=== PATIENT | male | born 1940 | race Caucasian/White ===

== ENCOUNTER 2018-02-25 17:26 | Inpatient (IN) | payer OTHER ==
--- OUTSIDE RECORDS SUMMARY | 2018-02-25 17:41 | XMS REPORT | Clinical Summary ---
:1940 Author Organization [facility] Address [address] [place] [address] Phone Care Team Providers Name Role Phone Unavailable Primary Care Provider Unavailable Allergies No Known Allergies Current Medications Prescription Sig. Disp. Refills Start End Date Status Date aspirin 81 MG EC Take 81 mg by mouth Active tablet daily. telmisartan Take 80 mg by mouth Active (MICARDIS) 80 MG daily. tablet amitriptyline Take 150 mg by Active (ELAVIL) 150 MG mouth nightly. tablet clopidogrel Take 75 mg by mouth Active (PLAVIX) 75 mg daily. tablet omeprazole Take 20 mg by mouth Active (PRILOSEC) 20 MG daily. capsule insulin detemir Inject 65 Units Active (LEVEMIR) 100 subcutaneously unit/mL injection nightly . simvastatin Take 40 mg by mouth Active (ZOCOR) 40 MG nightly. tablet rivastigmine Place 1 patch onto Active (EXELON) 9.5 mg/24 the skin daily. hr patch metoprolol Take 50 mg by mouth Active (TOPROL-XL) 50 MG daily. 24 hr tablet levothyroxine Take 125 mcg by Active (SYNTHROID, mouth Every morning LEVOTHROID) 125 on an empty MCG tablet stomach. insulin aspart Inject Active (NOVOLOG) 100 subcutaneously 3 unit/mL InPn (three) times daily with meals. amLODIPine Take 1 tablet (5 mg 90 tablet 3 03/21/201 03/21/20 Active (NORVASC) 5 MG total) by mouth 7 18 tablet daily. amitriptyline Take 150 mg by Active (ELAVIL) 150 MG mouth nightly. tablet aspirin 81 MG EC Take 81 mg by mouth Active tablet daily. insulin detemir Inject 65 Units Active (LEVEMIR) 100 subcutaneously unit/mL injection nightly. levothyroxine Take 125 mcg by Active (SYNTHROID, mouth Every morning LEVOTHROID) 125 on an empty MCG tablet stomach. simvastatin Take 40 mg by mouth Active (ZOCOR) 40 MG nightly. tablet telmisartan Take 80 mg by mouth Active (MICARDIS) 80 MG daily. tablet clopidogrel Take 75 mg by mouth Active (PLAVIX) 75 mg daily. tablet rivastigmine Place 1 patch onto Active (EXELON) 9.5 mg/24 the skin daily. hr patch hydrALAZINE Take 1 tablet (25 90 tablet 1 06/16/20 Active (APRESOLINE) 25 MG mg total) by mouth 7 18 tablet every 8 (eight) hours. NIFEdipine (ADALAT Take 1 tablet (60 30 tablet 1 06/16/20 Active CC) 60 MG 24 hr mg total) by mouth 7 18 tablet daily. amLODIPine Take 5 mg by mouth 06/16/20 Discontinued (NORVASC) 5 MG daily. 17 tablet clopidogrel Take 75 mg by mouth 06/11/20 Discontinued (PLAVIX) 75 mg daily. [address] 1 patch onto 06/11/20 Discontinued (EXELON) 9.5 mg/24 the skin daily. 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 Uncontrolled hypertension 06/16/2017 Type 2 diabetes mellitus with complication, with long-term current use of insulin (HCC) PFO (patent foramen ovale) 06/16/2017 Other specified transient cerebral ischemias 06/11/2017 Left-sided weakness 03/17/2017 Encounters Date Type Specialty Care Team Description 06/15/2017 Anesthesia Event Concepción Cooper MD 06/15/2017 Procedure Pass 06/15/2017 Surgery Jose Angel Carrasco PROCEDURE DONE MD Michael OUTSIDE OR 06/11/2017 - Hospital Encounter Cardiology Ofordeme, Other specified 06/16/2017 Kenechukwu John, transient cerebral MD ischemias (Primary Vangie Glasgow Dx);Pedro PMD Navi type 2 diabetes Alistair Arechiga mellitus with MD Yariel chronic kidney disease, with long-term current use of insulin, unspecified CKD stage ([facility]);Carotid stenosis, right;Hemispheric carotid artery syndrome;ADRIAN (acute kidney injury) ([facility]);Transient cerebral ischemia, unspecified type;Stenosis of right carotid artery;Acute ischemic stroke ([facility]);PFO (patent foramen ovale) 06/11/2017 Orders Only General Internal Medicine 04/30/2017 Procedure visit Radiology Jose Angel Carrasco Presence of MD Michael coronary angioplasty implant and graft 04/17/2017 Outside Orders Radiology Jose Angel Carrasco Presence of MD Michael coronary angioplasty implant and graft (Primary Dx) 03/20/2017 Anesthesia Event Laisha Morel MD 03/20/2017 Procedure Pass 03/20/2017 Surgery Virtual, Surgeon PROCEDURE DONE OUTSIDE OR 03/19/2017 Procedure Pass 03/19/2017 Surgery Virtual, Surgeon PROCEDURE DONE OUTSIDE OR 03/18/2017 Anesthesia Event Belkis Cook MD 03/17/2017 - Hospital Encounter Intensive Care Young Tarango Left-sided weakness 03/21/2017 MD Reymundo (Primary Radha Rousseau Dx);Cerebrovascular MD Doc accident (CVA), Rochelle Cheng MD unspecified Casper Schmidt MD ([facility]);Sinus pause;PAD (peripheral artery disease) ([facility]);Coronary artery disease involving [place] heart without angina pectoris, unspecified vessel or lesion type;Right pontine stroke ([facility]);Carotid stenosis, right;Uncomplicated hypertension;Caroti d stenosis, left 03/17/2017 Orders Only General Internal Medicine after 02/24/2017 Social History Tobacco Use Types Packs/Day Years Used Date Former Smoker 32 Comments: Quit 1979 Alcohol Use Drinks/Week oz/Week Comments Yes socially Sex Assigned at Date Recorded Not on file Last Filed Vital Signs Vital Sign Reading Time Taken Blood Pressure 160/80 06/16/2017 12:00 PM CDT Pulse 76 06/16/2017 12:00 PM CDT Temperature 35.8 C (96.5 F) 06/16/2017 12:00 PM CDT Respiratory Rate 18 06/16/2017 12:00 PM CDT Oxygen Saturation 95% 06/16/2017 12:00 PM CDT Inhaled Oxygen Concentration - - Weight 83.9 kg (185 lb) 06/11/2017 2:28 PM CDT Height 175.3 cm (5' 9") 06/11/2017 2:28 PM CDT Body Mass Index 27.32 06/11/2017 2:28 PM CDT Plan of Treatment Not on file Procedures Procedure Name Priority Date/Time Associated Diagnosis Comments PROCEDURE DONE OUTSIDE 06/15/2017 8:42 AM CDT RIGHT ICA STENOSIS OR Special Needs REQ TF PROCEDURE DONE OUTSIDE OR 03/20/2017 11:06 AM CDT CAROTID STENOSIS PROCEDURE DONE OUTSIDE OR 03/19/2017 8:18 AM CDT STENOSIS after 02/24/2017 Results PERIPHERAL VASCULAR REPORT - SCAN (08/25/2017 10:50 AM)Only the most recent of3 resultswithin the time period is included.ECHOCARDIOGRAM REPORT - SCAN (2016 10:50 AM)RHYTHM STRIP - SCAN (06/23/2017 11:10 AM)Only the most recent of3 resultswithin the time period is included.Venous doppler legs bilateral (2016 1:09 PM) Component Value Ref Range Ejection Fraction Specimen Performing Laboratory [facility] ECHO HEARTLAB MKCKESSON CPACS Impressions Right Impression 1. There is no deep venous obstruction in the common femoral, profunda femoral, femoral, popliteal, posterior tibial or peroneal veins. 2. There is no superficial venous obstruction in the great saphenous vein. Left Impression 1. There is no deep venous obstruction in the common femoral, profunda femoral, femoral, popliteal, posterior tibial or peroneal veins. 2. There is no superficial venous obstruction in the great saphenous vein. Conclusions Summary Venous duplex imaging and compression of the bilateral lower extremities were performed. The veins were adequately visualized. The bilateral venous systems were patent and compressible with no evidence of thrombus. The venous Doppler waveforms were phasic with respiration . Signature Velocities are measured in cm/s ; Diameters are measured in cm Narrative PV LAB - Lower Extremities DVT Study Demographics Patient NameKRYSTIAN, Date of Study2016 LINA Visit [id number] Male of Birth1940 Referring [facility] [id number] Physician In Home Baby Sitter Strastephaniee Interpreting Rose Mary Hunter MD, JosselinPhysicianRPVI Procedure Type of Study: Veins: Lower Extremities DVT Study, VENOUS DOPPLER LEG, BILATERAL. Indications for Study:PFO . Patient Status:Routine. Study Location:Vascular Lab. Technical Quality:Adequate visualization. Procedure Note Interface, External Ris In - 06/16/2017 3:03 PM CDT PV LAB - Lower Extremities DVT Study Demographics Patient Name KRYSTIAN, Date of Study 06/16/2017 LINA Age 76 Visit Number [id number] Gender Male Accession Number [id number] Date of 1940 Referring [facility] Room Number 2443 Physician In Home Baby Sitter Strange Interpreting Rose Mary Hunter MD, Josselin Physician RPVI Procedure Type of Study: Veins: Lower Extremities DVT Study, VENOUS DOPPLER LEG, BILATERAL. Indications for Study:PFO . Patient Status:Routine. Study Location:Vascular Lab. Technical Quality:Adequate visualization. Impressions Right Impression 1. There is no deep venous obstruction in the common femoral, profunda femoral, femoral, popliteal, posterior tibial or peroneal veins. 2. There is no superficial venous obstruction in the great saphenous vein. Left Impression 1. There is no deep venous obstruction in the common femoral, profunda femoral, femoral, popliteal, posterior tibial or peroneal veins. 2. There is no superficial venous obstruction in the great saphenous vein. Conclusions Summary Venous duplex imaging and compression of the bilateral lower extremities were performed. The veins were adequately visualized. The bilateral venous systems were patent and compressible with no evidence of thrombus. The venous Doppler waveforms were phasic with respiration . Signature Velocities are measured in cm/s ; Diameters are measured in cm POC-Glucose meter (06/16/2017 12:42 PM)Only the most recent of34 resultswithin the time period is included. Component Value Ref Range POC-Glucose Meter 263 (H)Comment: TESTED AT [address] 70 - 110 mg/[place] [id number] Specimen Performing [place] [address] [place] cerebral 4 vessel angiogram (06/15/2017 2:08 PM)Only the most recent of2 resultswithin the time period is included. Specimen Performing Laboratory GE RIS Narrative FINAL REPORT Date of procedure June 15, 2017. Clinical background: 78 years old right male presented with a mild right hemispheric stroke.The patient is admitted for angiographic evaluation . Procedure: The risks and benefits of the procedure were explained to the patient and written consent form was obtained. The risks included but not limited to stroke, damage to the blood vessels, bleeding, infection , renal failure, and reaction to the contrast. Via right femoral percutaneous approach and under neuroleptic sedation the following procedure was performed: 1. Selective right common carotid arteriogram with biplane imaging over the common carotid bifurcation. 2. Selective right common carotid arteriogram with biplane and oblique imaging over the intracranial carotid circulation. 3. Selective left common carotid arteriogram with biplane imaging over the common carotid bifurcation. 4. Selective left common carotid arteriogram with biplane and oblique imaging overthe intracranial carotid circulation. 5. Selective left vertebralarteriogram with biplane and oblique imaging over the vertebrobasilar circulation. Findings: The selective right common carotid arteriogram with biplane imaging over the common carotid bifurcation demonstrates plaque involving the distal right common carotid artery with complete occlusion of the right internal carotid artery intracranially above the level of the ophthalmic artery. Intracranially, there is good antegrade flow in the right external carotid artery with no significant EC IC collaterals. The selective left common carotid arteriogram with biplane imaging over the common carotid bifurcation demonstrates a patent carotid stent spanning the distal common carotid artery to the proximal internal carotid artery with no residual stenosis. Selective left common carotid arteriogram with biplane and oblique imaging over the intracranial carotid circulation demonstrates good cross filling of the right intracranial carotid circulation through a patent anterior communicating artery. The collateral supply appears to be adequate patient symmetry of arterial venous phases seen in both hemispheres. The selective left vertebralarteriogram demonstrates normal antegrade flow with no evidence of aneurysm ,vascular malformation, or focal stenosis. There is no significant pial collaterals or posterior communicating arteries. At the end of the procedure, the right femoral sheath was withdrawn. Local hemostasis was achieved utilizing manual compression. The patient tolerated the procedure well without complication. Impression: 1. 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 2. Filling of the right intracranial carotid circulation through collaterals from the left internal carotid artery through a patent anterior communicating artery. 3. Patent left carotid artery stent without residual stenosis. Signed: Jose Angel Carrasco MD Report Verified Date/Time:06/18/2017 09:31:21 Reading Location: [facility] Y018 Neuro Angio Reading Room Procedure Note Interface, External Ris In - 06/18/2017 9:33 AM CDT FINAL REPORT Date of procedure June 15, 2017. Clinical background: 78 years old right male presented with a mild right hemispheric stroke. The patient is admitted for angiographic evaluation . Procedure: The risks and benefits of the procedure were explained to the patient and written consent form was obtained. The risks included but not limited to stroke, damage to the blood vessels, bleeding, infection , renal failure, and reaction to the contrast. Via right femoral percutaneous approach and under neuroleptic sedation the following procedure was performed: 1. Selective right common carotid arteriogram with biplane imaging over the common carotid bifurcation. 2. Selective right common carotid arteriogram with biplane and oblique imaging over the intracranial carotid circulation. 3. Selective left common carotid arteriogram with biplane imaging over the common carotid bifurcation. 4. Selective left common carotid arteriogram with biplane and oblique imaging over the intracranial carotid circulation. 5. Selective left vertebral arteriogram with biplane and oblique imaging over the vertebrobasilar circulation. Findings: The selective right common carotid arteriogram with biplane imaging over the common carotid bifurcation demonstrates plaque involving the distal right common carotid artery with complete occlusion of the right internal carotid artery intracranially above the level of the ophthalmic artery. Intracranially, there is good antegrade flow in the right external carotid artery with no significant EC IC collaterals. The selective left common carotid arteriogram with biplane imaging over the common carotid bifurcation demonstrates a patent carotid stent spanning the distal common carotid artery to the proximal internal carotid artery with no residual stenosis. Selective left common carotid arteriogram with biplane and oblique imaging over the intracranial carotid circulation demonstrates good cross filling of the right intracranial carotid circulation through a patent anterior communicating artery. The collateral supply appears to be adequate patient symmetry of arterial venous phases seen in both hemispheres. The selective left vertebral arteriogram demonstrates normal antegrade flow with no evidence of aneurysm ,vascular malformation, or focal stenosis. There is no significant pial collaterals or posterior communicating arteries. At the end of the procedure, the right femoral sheath was withdrawn. Local hemostasis was achieved utilizing manual compression. The patient tolerated the procedure well without complication. Impression: 1. 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 2. Filling of the right intracranial carotid circulation through collaterals from the left internal carotid artery through a patent anterior communicating artery. 3. Patent left carotid artery stent without residual stenosis. Signed: Jose Angel Carrasco MD Report Verified Date/Time: 06/18/2017 09:31:21 Reading Location: [facility] Y018 Neuro Angio Reading Room 2D Echo W/Doppler(CW/PW/Color) (06/15/2017 8:58 AM)Only the most recent of2 resultswithin the time period is included. Component Value Ref Range Ejection Fraction Specimen Performing Laboratory [facility] ECHO HEARTLAB MKCKESSON CPACS Narrative Transthoracic Echocardiography Report (TTE) Demographics Patient NameJulianne BOLAND of Study06/15/2017 Male Visit [id number] Room Number 2443 Number Date of 1Referring Physician Age 76 year(s)SonographJaron Castillo, [facility] [employer] Billy Mar Interpreting Rhonda Florentino Procedure Type of Study TTE procedure:2DECHO W DOPPLER(CW/PW/COLOR) Indications:Stroke work up. Clinical History ADRIAN Stroke/TIA CKD Coronary Artery Disease Diabetes Hypertension Hypothyroidism Peripheral vascular disease Second degree AV block S/P PCI (2003) Contrast Medium: Definity. Amount - 4 ml Height: 69 inches Weight: 83.91 kg (185 lbs) BSA: 2 m^2 BMI: 27.32 kg/m^2 HR: 75 bpm BP: 158/67 mmHg Summary The left ventricle is normal in size and contractility. Grade 1 diastolic dysfunction (impaired relaxation and low-normal LA pressure). Normal ventricular shape. LV size - normal. Mild concentric LV hypertrophy. Global LV systolic function normal . LVEF by quantitative assessment is normal (>60%) , IV saline contrast injection demostrates a PFO (patent foramen ovale) post Valsalva . Unable to estimate peak systolic PA pressure; inadequate TR velocity signal. The estimated RA pressure by IVC dynamics 0-5mmHg . Signature Findings Rhythm/BPRegular sinus rhythm during the exam. Left Ventricle The LV endocardium is adequately visualized. All segments contract normally. The left ventricle is normal in size and contractility. Grade 1 diastolic dysfunction (impaired relaxation and low-normal LA pressure). Normal ventricular shape. LV size - normal. Mild concentric LV hypertrophy. Global LV systolic function normal . LVEF by quantitative assessment is normal (>60%) , Left AtriumLA size is normal . Right VentricleThe right ventricular chamber size and systolic function are within normal limits. Right Atrium RA cavity size is normal . Atrial SeptumIV saline contrast injection demostrates a PFO (patent foramen ovale) post Valsalva . Aortic Valve Mild AoV cusp thickening. AoV cusp mobility is normal . Mitral Valve Mild MV leaflet thickening. Mild MV leaflet calcification. No evidence of mitral regurgitation. Tricuspid ValveMild TV leaflet thickening. No evidence of tricuspid regurgitation. Unable to estimate peak systolic PA pressure; inadequate TR velocity signal. Pulmonic Valve Normal PV structure and function. AortaAortic root size (SInus of Valsalva diameter) is normal . PericardiumNo pericardial effusion is visualized. IVC/SVC/PA/PV/PleuralThe pulmonary veins appear normal. The inferior vena cava size is normal . The estimated RA pressure by IVC dynamics 0-5mmHg . Chambers/Structures Left Atrium LA Volume: 54.42 ml LA Area: 16.85 cm^ 2 LA Vol. Index: 27 ml/m^2 Left Ventricle LVIDd: 3.75 cmLVEDV 2D :60.2 ml LVIDs: 2.31 cmLVESV 2D :18.35 ml LV Septum Diastolic: 1.25 cm LV Septum Systolic: 0 cm LV PW Diastolic: 1.13 cmLV FS: 38.4 % LV PW Systolic: 0 cmLV ESV (Cubed) :12.33 cc LVOT Diameter: 2.28 cm LV ESV (Teich):18.32 ml LV SV (Teich):41.7 ml LV SI (Teich):20.85 ml/m^2 LVEF 2D Teich: 69.5 % Aorta Ao Root S of Tova.: 3.38 cm Shunts QS:56.63 ml Doppler/Quantitative Measurements Aortic Valve Peak Velocity: 1.06 m/sMean Velocity: 0.65 m/s Peak Gradient: 4.47 mmHg Mean Gradient: 2.11 mmHg AV Area (continuity): 2.84 cm^2 AV VTI: 19.95 cm AV DVI: 0.7 LVOT Peak Velocity: 0.74 m/s Peak Gradient: 2.21 mmHg Mean Velocity: 0.51 m/s Mean Gradient: 1.22 mmHg LVOT Diameter: 2.28 cmLVOT VTI: 13.87 cm LVOT Area: 4.08 cm^2LVOT SV:56.6 ml LVOT CO: 4.24 l/min LVOT CI: 2.12 l/min/m^2 Procedure Note Interface, External Ris In - 06/15/2017 12:38 PM CDT Transthoracic Echocardiography Report (TTE) Demographics Patient Name LINA BOLAND Date of Study 06/15/2017 Gender Male Visit Number [id number] Race Room Number 2443 Number Date of 1940 Referring Physician Age 76 year(s) In Home Baby Sitter Alma Castillo, [facility] Rep[employer] Billy Mar Interpreting Tai Florentino Physician Procedure Type of Study TTE procedure:2DECHO W DOPPLER(CW/PW/COLOR) Indications:Stroke work up. Clinical History ADRIAN Stroke/TIA CKD Coronary Artery Disease Diabetes Hypertension Hypothyroidism Peripheral vascular disease Second degree AV block S/P PCI (2003) Contrast Medium: Definity. Amount - 4 ml Height: 69 inches Weight: 83.91 kg (185 lbs) BSA: 2 m^2 BMI: 27.32 kg/m^2 HR: 75 bpm BP: 158/67 mmHg Summary The left ventricle is normal in size and contractility. Grade 1 diastolic dysfunction (impaired relaxation and low-normal LA pressure). Normal ventricular shape. LV size - normal. Mild concentric LV hypertrophy. Global LV systolic function normal . LVEF by quantitative assessment is normal (>60%) , IV saline contrast injection demostrates a PFO (patent foramen ovale) post Valsalva . Unable to estimate peak systolic PA pressure; inadequate TR velocity signal. The estimated RA pressure by IVC dynamics 0-5mmHg . Signature Findings Rhythm/BP Regular sinus rhythm during the exam. Left Ventricle The LV endocardium is adequately visualized. All segments contract normally. The left ventricle is normal in size and contractility. Grade 1 diastolic dysfunction (impaired relaxation and low-normal LA pressure). Normal ventricular shape. LV size - normal. Mild concentric LV hypertrophy. Global LV systolic function normal . LVEF by quantitative assessment is normal (>60%) , Left Atrium LA size is normal . Right Ventricle The right ventricular chamber size and systolic function are within normal limits. Right Atrium RA cavity size is normal . Atrial Septum IV saline contrast injection demostrates a PFO (patent foramen ovale) post Valsalva . Aortic Valve Mild AoV cusp thickening. AoV cusp mobility is normal . Mitral Valve Mild MV leaflet thickening. Mild MV leaflet calcification. No evidence of mitral regurgitation. Tricuspid Valve Mild TV leaflet thickening. No evidence of tricuspid regurgitation. Unable to estimate peak systolic PA pressure; inadequate TR velocity signal. Pulmonic Valve Normal PV structure and function. Aorta Aortic root size (SInus of Valsalva diameter) is normal . Pericardium No pericardial effusion is visualized. IVC/SVC/PA/PV/Pleural The pulmonary veins appear normal. The inferior vena cava size is normal . The estimated RA pressure by IVC dynamics 0-5mmHg . Chambers/Structures Left Atrium LA Volume: 54.42 ml LA Area: 16.85 cm^2 LA Vol. Index: 27 ml/m^2 Left Ventricle LVIDd: 3.75 cm LVEDV 2D:60.2 ml LVIDs: 2.31 cm LVESV 2D:18.35 ml LV Septum Diastolic: 1.25 cm LV Septum Systolic: 0 cm LV PW Diastolic: 1.13 cm LV FS: 38.4 % LV PW Systolic: 0 cm LV ESV (Cubed):12.33 cc LVOT Diameter: 2.28 cm LV ESV (Teich):18.32 ml LV SV (Teich):41.7 ml LV SI (Teich):20.85 ml/m^2 LVEF 2D Teich: 69.5 % Aorta Ao Root S of Tova.: 3.38 cm Shunts QS:56.63 ml Doppler/Quantitative Measurements Aortic Valve Peak Velocity: 1.06 m/s Mean Velocity: 0.65 m/s Peak Gradient: 4.47 mmHg Mean Gradient: 2.11 mmHg AV Area (continuity): 2.84 cm^2 AV VTI: 19.95 cm AV DVI: 0.7 LVOT Peak Velocity: 0.74 m/s Peak Gradient: 2.21 mmHg Mean Velocity: 0.51 m/s Mean Gradient: 1.22 mmHg LVOT Diameter: 2.28 cm LVOT VTI: 13.87 cm LVOT Area: 4.08 cm^2 LVOT SV:56.6 ml LVOT CO: 4.24 l/min LVOT CI: 2.12 l/min/m^2 Phosphorus (06/15/2017 4:17 AM)Only the most recent of3 resultswithin the time period is included. Component Value Ref Range Phosphorus 3.0 2.3 - 4.7 mg/dL Specimen Performing Laboratory Blood - Line, Venous [address] [address] Magnesium (06/15/2017 4:17 AM)Only the most recent of5 resultswithin the time period is included. Component Value Ref Range Magnesium 1.7 1.6 - 2.6 mg/dL Specimen Performing Laboratory Blood - Line, Venous [address] [address] Basic metabolic panel (06/15/2017 4:17 AM)Only the most recent of8 resultswithin the time period is included. Component Value Ref Range Sodium 136 136 - 145 meq/L Potassium 3.8 3.5 - 5.1 meq/L Chloride 102 98 - 107 meq/L CO2 26 22 - 29 meq/L BUN 19 7 - 21 mg/dL Creatinine 1.36 (H) 0.57 - 1.25 mg/dL Glucose 195 (H) 70 - 105 mg/dL Calcium 9.3 8.4 - 10.2 mg/dL EGFR 51Comment: ESTIMATED GFR IS NOT ACCURATE mL/min/1.73 sq m CREATININE CLEARANCE IN PREDICTING GLOMERULAR FILTRATION RATE. ESTIMATED GFR IS NOT APPLICABLE FOR DIALYSIS PATIENTS. Specimen Performing Laboratory Blood - Line, Venous [address] [address] EEG AWAKE AND DROWSY (06/12/2017 4:06 PM) Specimen Performing Laboratory GE RIS Narrative DATE OF TEST: 06/12/2017 DATE OF REPORT 06/12/2017 ACC: ([id number]) EE Start time: 15:30 Stop time: 15:52 ICD-10: R55 CPT Code: 21272 HISTORY: 78 y/o man with PMH CAD s/p PCI, PVD, HTN, DM, symptomatic severe carotid artery stenosis being evaluated for transient altered awareness MEDICATIONS: Tylenol, Lipitor, Plavix, D50W, Pepcid, PF, [place], Levemir, Humalog, synthroid, Phenergan, exelon TECHNICAL SUMMARY: This is a digital video EEG recorded with 32 input channels reviewed with bipolar and referential montages using the modified combinatorial system nomenclature. DESCRIPTION OF RECORD: During the maximally alert state a 9-10 Hz posterior dominant rhythm was seen that was symmetric, reactive to eye opening and well regulated. More anteriorly, low voltage frontocentral beta predominated. Drowsiness was characterized by alpha attenuation and increased frontocentral theta, vertex sharp transients and POSTS. Stage 2 sleep was reached characterized by symmetric sleep spindles and K-complexes. HV: Hyperventilation was not performed. PHOTIC STIMULATION: Flash stimulation was not done. IMPRESSION: Normal Awake and Asleep EEG CLINICAL CORRELATION: An EEG without epileptiform discharges does not exclude the possibility of epilepsy. Josefina Gaitan M.D. Neurophysiology Fellow Paul Moore MD Neurophysiology Attending Procedure Note Interface, External Ris In - 06/12/2017 4:33 PM CDT DATE OF TEST: 06/12/2017 DATE OF REPORT 06/12/2017 ACC: ([id number]) EE Start time: 15:30 Stop time: 15:52 ICD-10: R55 CPT Code: 90269 HISTORY: 78 y/o man with PMH CAD s/p PCI, PVD, HTN, DM, symptomatic severe carotid artery stenosis being evaluated for transient altered awareness MEDICATIONS: Tylenol, Lipitor, Plavix, D50W, Pepcid, PF, [place], Levemir, Humalog, synthroid, Phenergan, exelon TECHNICAL SUMMARY: This is a digital video EEG recorded with 32 input channels reviewed with bipolar and referential montages using the modified combinatorial system nomenclature. DESCRIPTION OF RECORD: During the maximally alert state a 9-10 Hz posterior dominant rhythm was seen that was symmetric, reactive to eye opening and well regulated. More anteriorly, low voltage frontocentral beta predominated. Drowsiness was characterized by alpha attenuation and increased frontocentral theta, vertex sharp transients and POSTS. Stage 2 sleep was reached characterized by symmetric sleep spindles and K-complexes. HV: Hyperventilation was not performed. PHOTIC STIMULATION: Flash stimulation was not done. IMPRESSION: Normal Awake and Asleep EEG CLINICAL CORRELATION: An EEG without epileptiform discharges does not exclude the possibility of epilepsy. Josefina Gaitan M.D. Neurophysiology Fellow Paul Moore MD Neurophysiology Attending Urinalysis w/Microscopic (06/12/2017 3:49 AM)Only the most recent of3 resultswithin the time period is included. Component Value Ref Range Color, UA Light Yellow Clarity, UA Clear Specific Padroni, UA 1.010 1.001 - 1.035 pH, UA 6.0 5.0 - 8.0 Protein, UA 30 mg/dL (A) Negative Glucose, UA 100 mg/dL (A) Negative Ketones, UA Negative Negative Bilirubin, UA Negative Negative Blood, UA Negative Negative Nitrite, UA Negative Negative Leukocytes, UA Negative Negative Urobilinogen, UA 0.2 0.2 - 1.0 mg/dL RBC, UA 0 /HPF WBC, UA <1 /HPF Specimen Source Urine, Voided Specimen Performing Laboratory Urine - Urine, Voided [address] [address] Hemoglobin A1c (06/12/2017 3:44 AM)Only the most recent of3 resultswithin the time period is included. Component Value Ref Range Hemoglobin A1C 9.9 (H) 4.3 - 6.1 % Specimen Performing Laboratory Blood - Arm, Left [address] [address] Lipid panel (06/12/2017 3:44 AM)Only the most recent of2 resultswithin the time period is included. Component Value Ref Range Triglycerides 226 mg/dL Cholesterol 139 mg/dL HDL 33 mg/dL LDL Calculated 61 mg/dL Specimen Performing Laboratory Blood - Arm, Left [address] [address] Narrative Triglyceride Reference Range: Low Risk <150 [id number] High Risk 200-499 Very High Risk>=500 Cholesterol Reference Range: Low Risk <200 [id number] High Risk>240 HDL Cholesterol Reference Range: Low Risk >=60 High Risk <40 LDL Cholesterol Reference Range: Optimal<100 Near [id number] Sxnekuljod088-272 Zjmm517-122 Very High >=190 ECG 12 lead (06/12/2017 2:28 AM)Only the most recent of3 resultswithin the time period is included. Specimen Performing Laboratory GE MUSE Narrative Ventricular Rate 55 BPM Atrial Rate 55 BPM P-R Interval 296 ms QRS Duration 106 ms Q-T Interval 436 ms QTC Calculation(Bazett) 417 ms P [place] 52 degrees R [place] 26 degrees T [place] 63 degrees Sinus bradycardia with 1st degree A-V block Poor R wave progression Otherwise normal ECG No previous ECGs available Confirmed by Nicolás George ([id number]) on 06/12/2017 4:48:28 PM Procedure Note Interface, External Ris In - 06/12/2017 4:48 PM CDT Ventricular Rate 55 BPM Atrial Rate 55 BPM P-R Interval 296 ms QRS Duration 106 ms Q-T Interval 436 ms QTC Calculation(Bazett) 417 ms P [place] 52 degrees R [place] 26 degrees T [place] 63 degrees Sinus bradycardia with 1st degree A-V block Poor R wave progression Otherwise normal ECG No previous ECGs available Confirmed by Nicolás George ([id number]) on 06/12/2017 4:48:28 PM Rapid drug screen, urine (06/11/2017 11:03 PM) Component Value Ref Range Barbiturate Screen Positive (A) Negative Benzodiazepine Screen Negative Negative Cocaine (Metab.) Screen Negative Negative Methadone Screen Negative Negative Opiate Screen Negative Negative Cannabinoid Screen Negative Negative Amph/Methamph Screen Negative Negative Phencyclidine Screen Negative Negative Oxycodone Screen Negative Negative Specimen Performing Laboratory Urine - Urine, Voided [address] [address] Narrative DRUGCUTOFF CONC. Cocaine 300 ng/mL Qpjkqfxxhop56 ng/mL Nnbdpoafmvufig214 ng/mL Barbiturate 200 ng/mL Nlvytqyfxlugo60 ng/mL Zvmjev054 ng/mL Methadone 300 ng/mL Amphetamine/ 1000 ng/mL Methamphetamine Oxycodone 300 ng/mL This assay provides an unconfirmed qualitative test result for the clinical management of patients in emergency situations. Chain of custody not maintained. Some wjlb-ikp-txghaeq medications, as well as adulterants, may cause inaccurate results. Clinical correlation should be applied. A more comprehensive drug screen or confirmation of a detected drug may be performed upon request. Sodium, random urine (06/11/2017 11:03 PM) Component Value Ref Range Sodium Urine 94 meq/L Specimen Performing Laboratory Urine - Urine, Voided [address] [address] Narrative Reference Range: No Normals Protein, random urine (06/11/2017 11:03 PM) Component Value Ref Range Protein, Urine 71 (H) 0 - 14 mg/dL Specimen Performing Laboratory Urine - Urine, Voided [address] [address] Creatinine, random urine (06/11/2017 11:03 PM) Component Value Ref Range Creatinine, Ur 190.0 mg/dL Specimen Performing Laboratory Urine - Urine, Void[address] [address] Narrative Reference Range: No Normals Vitamin B12 and Folate (06/11/2017 8:03 PM) Component Value Ref Range Vitamin B12 306 213 - 816 pg/mL Folate 13.0 >=7.0 ng/mL Specimen Performing Laboratory Blood - Arm, [address] [address] Narrative Effective 09/19/2014: Folate Reference Range Change New: >=7.0Previous: >=5.4 TSH/Free T4 If Indicated (06/11/2017 8:03 PM)Only the most recent of2 resultswithin the time period is included. Component Value Ref Range TSH 1.35 0.35 - 4.94 uIU/mL Specimen Performing Laboratory Blood - Arm, [address] [address] RPR (06/11/2017 8:03 PM) Component Value Ref Range RPR Nonreactive Nonreactive Specimen Performing Laboratory Blood - Arm, Left [facility] [address] Sedimentation rate (06/11/2017 8:03 PM) Component Value Ref Range Sed Rate 23 0 - 40 mm/HR Specimen Performing Laboratory Blood - Arm, [address] [address] Hepatic function panel (06/11/2017 8:03 PM) Component Value Ref Range Protein, Total 7.7 6.0 - 8.3 gm/dL Albumin 4.3 3.5 - 5.0 g/dL Total Bilirubin 0.5 0.2 - 1.2 mg/dL Bilirubin, Direct 0.2 0.1 - 0.5 mg/dL Alkaline Phosphatase 104 40 - 150 U/L AST 21 5 - 34 U/L ALT 25 6 - 55 U/L Specimen Performing Laboratory Blood - Arm, [address] [address] MR brain without IV contrast (06/11/2017 7:49 PM)Only the most recent of2 resultswithin the time period is included. Specimen Performing Laboratory GE RIS Narrative FINAL REPORT MRI brain without contrast INDICATION: Ischemic stroke evaluation. TECHNIQUE: Multiplanar, multisequence MR imaging of the brain was performed utilizing the following imaging sequences: Axial T2, FLAIR, GRE, and DWI; sagittal and coronal T1 COMPARISON: CT head 06/11/2017 FINDINGS: There are small acute nonhemorrhagic infarct in the right precentral gyrus, adjacent subcortical white matter, and right parieto-occipital junction. There is right high frontal chronic hemosiderin staining. There is small chronic right frontal lobe and right pontine infarct. Mild chronic microvascular ischemic changes are present. There is poor flow in the proximal right intracranial ICA suggesting occlusion or severe proximal stenosis. The anterior communicator aneurysm suspected on head CT is not well evaluated on this study. There is generalized parenchymal volume loss The sella and craniocervical junction are unremarkable. There is a right maxillary sinus retention cyst or polyp with mild week-old thickening and trace right mastoid air cell fluid. There has been cataract surgery. There is nonspecific mildly heterogeneous marrow signal. IMPRESSION: 1. Acute small nonhemorrhagic infarcts in the right precentral gyrus, subjacent white matter, and right parieto-occipital junction. 2. Poor flow in the right cervical and proximal cranial ICA suggesting high grade vessel compromise or occlusion. Please see concurrent MRA. 3. Chronic ischemic changes and right cerebral hemosiderin staining. 4. Additional chronic and involutional findings as discussed. Signed: Glen Silverio MD Report Verified Date/Time:06/11/2017 19:15:34 Reading Location: [facility] Radiology Reading Room Procedure Note Interface, External Ris In - 06/11/2017 7:50 PM CDT FINAL REPORT MRI brain without contrast INDICATION: Ischemic stroke evaluation. TECHNIQUE: Multiplanar, multisequence MR imaging of the brain was performed utilizing the following imaging sequences: Axial T2, FLAIR, GRE, and DWI; sagittal and coronal T1 COMPARISON: CT head 06/11/2017 FINDINGS: There are small acute nonhemorrhagic infarct in the right precentral gyrus, adjacent subcortical white matter, and right parieto-occipital junction. There is right high frontal chronic hemosiderin staining. There is small chronic right frontal lobe and right pontine infarct. Mild chronic microvascular ischemic changes are present. There is poor flow in the proximal right intracranial ICA suggesting occlusion or severe proximal stenosis. The anterior communicator aneurysm suspected on head CT is not well evaluated on this study. There is generalized parenchymal volume loss The sella and craniocervical junction are unremarkable. There is a right maxillary sinus retention cyst or polyp with mild week-old thickening and trace right mastoid air cell fluid. There has been cataract surgery. There is nonspecific mildly heterogeneous marrow signal. IMPRESSION: 1. Acute small nonhemorrhagic infarcts in the right precentral gyrus, subjacent white matter, and right parieto-occipital junction. 2. Poor flow in the right cervical and proximal cranial ICA suggesting high grade vessel compromise or occlusion. Please see concurrent MRA. 3. Chronic ischemic changes and right cerebral hemosiderin staining. 4. Additional chronic and involutional findings as discussed. Signed: Glen Silverio MD Report Verified Date/Time: 06/11/2017 19:15:34 Reading Location: [facility] Radiology Reading Room neck without IV contrast (06/11/2017 7:49 PM)Only the most recent of2 resultswithin the time period is included. Specimen Performing Laboratory GE RIS Narrative FINAL REPORT MRA head and neck without contrast INDICATION: Ischemic stroke evaluation. TECHNIQUE: 2-D and 3-D [id number] MRA images of the intra- and extracranial carotid and vertebral artery circulations were obtained, from which maximal intensity projection reconstructions were generated. COMPARISON: None available FINDINGS: MRA neck: There is focal signal loss in the proximal right cervical ICA with diminished caliber of the remaining right cervical ICA with maintained flow. This likely reflects prior occlusion with recanalization. There is left carotid bifurcation and bulb signal loss likely due to a stent with maintained mid and distal cervical ICA segment flow. There is maintained flow in the common carotid arteries. There is antegrade flow in the cervical vertebral arteries without flow limitation. MRA [place]: There is flow in portions of the right intracranial ICA with occlusion of other segments extending into the ICA terminus. There is severe mid basilar artery and right intradural vertebral artery stenosis and moderate stenoses in the left intradural vertebral artery, left proximal MCA, and other mild to moderate stenoses in the MCA and JIG GRINDER branches. There is mild to moderate left carotid siphon stenosis. There is fusiform dilatation of the right ELAINA A1 and bilateral proximal ELAINA A2 segments for which fusiform aneurysms cannot be excluded. IMPRESSION: 1. Loss of flow in portions of the right cervical and intracranial ICA, and diminished flow elsewhere in the right cervical ICA suggesting occlusion with partial recanalization. 2. Left carotid bifurcation and proximal cervical ICA signal loss likely due to a vascular stent. The underlying vessel cannot be evaluated, but there is maintained distal flow. 3. 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 4. Fusiform bilateral proximal ELAINA dilatation. Although possibly vasculopathic in nature, fusiform aneurysms cannot be excluded. CTA or catheter angiography can be obtained for further evaluation. Signed: Glen Silverio MD Report Verified Date/Time:06/11/2017 19:54:38 Reading Location: [facility] Radiology Reading Room Procedure Note Interface, External Ris In - 06/11/2017 7:56 PM CDT FINAL REPORT MRA head and neck without contrast INDICATION: Ischemic stroke evaluation. TECHNIQUE: 2-D and 3-D [id number] MRA images of the intra- and extracranial carotid and vertebral artery circulations were obtained, from which maximal intensity projection reconstructions were generated. COMPARISON: None available FINDINGS: MRA neck: There is focal signal loss in the proximal right cervical ICA with diminished caliber of the remaining right cervical ICA with maintained flow. This likely reflects prior occlusion with recanalization. There is left carotid bifurcation and bulb signal loss likely due to a stent with maintained mid and distal cervical ICA segment flow. There is maintained flow in the common carotid arteries. There is antegrade flow in the cervical vertebral arteries without flow limitation. MRA [place]: There is flow in portions of the right intracranial ICA with occlusion of other segments extending into the ICA terminus. There is severe mid basilar artery and right intradural vertebral artery stenosis and moderate stenoses in the left intradural vertebral artery, left proximal MCA, and other mild to moderate stenoses in the MCA and JIG GRINDER branches. There is mild to moderate left carotid siphon stenosis. There is fusiform dilatation of the right ELAINA A1 and bilateral proximal ELAINA A2 segments for which fusiform aneurysms cannot be excluded. IMPRESSION: 1. Loss of flow in portions of the right cervical and intracranial ICA, and diminished flow elsewhere in the right cervical ICA suggesting occlusion with partial recanalization. 2. Left carotid bifurcation and proximal cervical ICA signal loss likely due to a vascular stent. The underlying vessel cannot be evaluated, but there is maintained distal flow. 3. 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 4. Fusiform bilateral proximal ELAINA dilatation. Although possibly vasculopathic in nature, fusiform aneurysms cannot be excluded. CTA or catheter angiography can be obtained for further evaluation. Signed: Glen Silverio MD Report Verified Date/Time: 06/11/2017 19:54:38 Reading Location: [facility] Radiology Reading Room head without IV contrast (06/11/2017 7:49 PM)Only the most recent of2 resultswithin the time period is included. Specimen Performing Laboratory [employer] FINAL REPORT MRA head and neck without contrast INDICATION: Ischemic stroke evaluation. TECHNIQUE: 2-D and 3-D [id number] MRA images of the intra- and extracranial carotid and vertebral artery circulations were obtained, from which maximal intensity projection reconstructions were generated. COMPARISON: None available FINDINGS: MRA neck: There is focal signal loss in the proximal right cervical ICA with diminished caliber of the remaining right cervical ICA with maintained flow. This likely reflects prior occlusion with recanalization. There is left carotid bifurcation and bulb signal loss likely due to a stent with maintained mid and distal cervical ICA segment flow. There is maintained flow in the common carotid arteries. There is antegrade flow in the cervical vertebral arteries without flow limitation. MRA [place]: There is flow in portions of the right intracranial ICA with occlusion of other segments extending into the ICA terminus. There is severe mid basilar artery and right intradural vertebral artery stenosis and moderate stenoses in the left intradural vertebral artery, left proximal MCA, and other mild to moderate stenoses in the MCA and JIG GRINDER branches. There is mild to moderate left carotid siphon stenosis. There is fusiform dilatation of the right ELAINA A1 and bilateral proximal ELAINA A2 segments for which fusiform aneurysms cannot be excluded. IMPRESSION: 1. Loss of flow in portions of the right cervical and intracranial ICA, and diminished flow elsewhere in the right cervical ICA suggesting occlusion with partial recanalization. 2. Left carotid bifurcation and proximal cervical ICA signal loss likely due to a vascular stent. The underlying vessel cannot be evaluated, but there is maintained distal flow. 3. 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 4. Fusiform bilateral proximal ELAINA dilatation. Although possibly vasculopathic in nature, fusiform aneurysms cannot be excluded. CTA or catheter angiography can be obtained for further evaluation. Signed: Glen Silverio MD Report Verified Date/Time:06/11/2017 19:54:38 Reading Location: [facility] Radiology Reading Room Procedure Note Interface, External Ris In - 06/11/2017 7:56 PM CDT FINAL REPORT MRA head and neck without contrast INDICATION: Ischemic stroke evaluation. TECHNIQUE: 2-D and 3-D [id number] MRA images of the intra- and extracranial carotid and vertebral artery circulations were obtained, from which maximal intensity projection reconstructions were generated. COMPARISON: None available FINDINGS: MRA neck: There is focal signal loss in the proximal right cervical ICA with diminished caliber of the remaining right cervical ICA with maintained flow. This likely reflects prior occlusion with recanalization. There is left carotid bifurcation and bulb signal loss likely due to a stent with maintained mid and distal cervical ICA segment flow. There is maintained flow in the common carotid arteries. There is antegrade flow in the cervical vertebral arteries without flow limitation. MRA [place]: There is flow in portions of the right intracranial ICA with occlusion of other segments extending into the ICA terminus. There is severe mid basilar artery and right intradural vertebral artery stenosis and moderate stenoses in the left intradural vertebral artery, left proximal MCA, and other mild to moderate stenoses in the MCA and JIG GRINDER branches. There is mild to moderate left carotid siphon stenosis. There is fusiform dilatation of the right ELAINA A1 and bilateral proximal ELAINA A2 segments for which fusiform aneurysms cannot be excluded. IMPRESSION: 1. Loss of flow in portions of the right cervical and intracranial ICA, and diminished flow elsewhere in the right cervical ICA suggesting occlusion with partial recanalization. 2. Left carotid bifurcation and proximal cervical ICA signal loss likely due to a vascular stent. The underlying vessel cannot be evaluated, but there is maintained distal flow. 3. 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 4. Fusiform bilateral proximal ELAINA dilatation. Although possibly vasculopathic in nature, fusiform aneurysms cannot be excluded. CTA or catheter angiography can be obtained for further evaluation. Signed: Glen Silverio MD Report Verified Date/Time: 06/11/2017 19:54:38 Reading Location: [facility] Radiology Reading Room renal complete (06/11/2017 5:17 PM) Specimen Performing Laboratory [employer] FINAL REPORT Ultrasound of the Kidneys, 06/11/2017. Clinical History: ADRIAN. Discussion: Sonographic evaluation of the kidneys is performed. Right kidney:10 cm in length, normal in size, with cortical thickness of 1 cm.Normal cortical echogenicity.No mass.No shadowing calculus.No hydronephrosis. Left kidney: 10.2 cm in length, normal in size, with cortical thickness of 1.2 cm.Normal cortical echogenicity.No mass.No shadowing calculus.No hydronephrosis. Limited Doppler evaluation demonstrates normal color Doppler flow within bilateral renal macrina. Fluid:No perinephric fluid. Bladder:Unremarkable. IMPRESSION: Normal bilateral kidneys. No evidence of hydronephrosis or nephrolithiasis. Signed: Juan Miguel Waite MD Report Verified Date/Time:06/11/2017 17:24:49 Reading Location: [address] Ultrasound Reading Room Procedure Note Interface, External Ris In - 06/11/2017 5:26 PM CDT FINAL REPORT Ultrasound of the Kidneys, 06/11/2017. Clinical History: ADRIAN. Discussion: Sonographic evaluation of the kidneys is performed. Right kidney: 10 cm in length, normal in size, with cortical thickness of 1 cm. Normal cortical echogenicity. No mass. No shadowing calculus. No hydronephrosis. Left kidney: 10.2 cm in length, normal in size, with cortical thickness of 1.2 cm. Normal cortical echogenicity. No mass. No shadowing calculus. No hydronephrosis. Limited Doppler evaluation demonstrates normal color Doppler flow within bilateral renal macrina. Fluid: No perinephric fluid. Bladder: Unremarkable. IMPRESSION: Normal bilateral kidneys. No evidence of hydronephrosis or nephrolithiasis. Signed: Juan Miguel Waite MD Report Verified Date/Time: 06/11/2017 17:24:49 Reading Location: [address] Ultrasound Reading Room chest 1 view portable / bedside (06/11/2017 4:52 PM)Only the most recent of2 resultswithin the time period is included. Specimen Performing Laboratory GE RIS Narrative FINAL REPORT Chest one view Discussion: Heart, lungs, bones, soft tissues unremarkable. No effusion or pneumothorax. Signed: Young Blanc MD Report Verified Date/Time:06/11/2017 17:02:48 Reading Location: [facility] [id number] Consult Reading Room Procedure Note Interface, External Ris In - 06/11/2017 5:05 PM CDT FINAL REPORT Chest one view Discussion: Heart, lungs, bones, soft tissues unremarkable. No effusion or pneumothorax. Signed: Young Blanc MD Report Verified Date/Time: 06/11/2017 17:02:48 Reading Location: [facility] [id number] Consult Reading Room /PTT (06/11/2017 2:49 PM)Only the most recent of2 resultswithin the time period is included. Component Value Ref Range Protime 12.8 11.7 - 14.7 seconds INR 1.0 <=5.9 PTT 24.7 22.5 - 36.0 seconds Specimen Performing Laboratory Blood - Line, [place] [address] Narrative RECOMMENDED COUMADIN/WARFARIN INR THERAPY RANGES STANDARD DOSE: 2.0 - 3.0 Includes: PROPHYLAXIS for venous thrombosis, systemic embolization; TREATMENT for venous thrombosis and/or pulmonary embolus. HIGH RISK: Target INR is 2.5-3.5 for patients with mechanical heart valves. CBC with platelet count + automated diff (06/11/2017 2:49 PM)Only the most recent of6 resultswithin the time period is included. Component Value Ref Range WBC 7.6 3.5 - 10.5 K/L RBC 5.15 4.63 - 6.08 M/L Hemoglobin 15.1 13.7 - 17.5 GM/DL Hematocrit 44.7 40.1 - 51.0 % MCV 86.8 79.0 - 92.2 fL MCH 29.3 25.7 - 32.2 pg MCHC 33.8 32.3 - 36.5 GM/DL RDW 13.2 11.6 - 14.4 % Platelets 170 150 - 450 K/CU MM MPV 10.7 9.4 - 12.4 fL nRBC 0 0 - 0 /100 WBC % Neutros 64 % % Lymphs 25 % % Monos 9 % % Eos 2 % % Baso 0 % # Neutros 4.83 1.78 - 5.38 K/L # Lymphs 1.87 1.32 - 3.57 K/L # Monos 0.70 0.30 - 0.82 K/L # Eos 0.14 0.04 - 0.54 K/L # Baso 0.03 0.01 - 0.08 K/L Immature Granulocytes-Relative 0 0 - 1 % Specimen Performing Laboratory Blood - Line, Venous [address] [address] Troponin I (06/11/2017 2:49 PM)Only the most recent of3 resultswithin the time period is included. Component Value Ref Range Troponin I 0.01 0.00 - 0.03 ng/mL Specimen Performing Laboratory Blood - Line, Venous [address] [address] Narrative Effective 09/19/2014: Reference Range Change New: 0.00-0.03 Previous 0.00-0.15 Troponin I (TnI) levels must be interpreted in the context of the presenting symptoms and the clinical findings. Elevated TnI levels indicate myocardial damage, but are not specific for ischemic heart disease. Elevated TnI levels are seen in patients with other cardiac conditions (including myocarditis and congestive heart failure), and slight TnI elevations occur in patients with other conditions, including sepsis, renal failure, acidosis, acute neurological disease, and persistent tachyarrhythmia. CBC with platelet count + automated diff (06/11/2017 2:49 PM)Only the most recent of6 resultswithin the time period is included. Specimen Performing Laboratory Blood Narrative The following orders were created for panel order CBC with platelet count + automated diff. Procedure Abnormality Status --------- ------ CBC with platelet count ...[[id number]]Final result Please view results for these tests on the individual orders. B-type Natriuretic Factor (BNP) (06/11/2017 2:49 PM)Only the most recent of2 resultswithin the time period is included. Component Value Ref Range BNP 21 0 - 100 pg/mL Specimen Performing Laboratory Blood - Line, Venous [address] [address] Creatine Kinase (CK), Total and MB (06/11/2017 2:49 PM)Only the most recent of3 resultswithin the time period is included. Component Value Ref Range Total CK 61 29 - 200 U/L CK-MB 1.4 0.0 - 6.6 ng/mL MB Relative Index 2.3 % Specimen Performing Laboratory Blood - Line, Venous [facility] [address] [place] [address] Narrative Effective 09/19/2014: CK-MB Reference Range Change New: 0.0-6.6Previous: 0.0-4.9 CK-MB Reference Range: <6.7Normal 6.7-10.0Borderline >10.[address] brain/stroke protocol (06/11/2017 2:28 PM)Only the most recent of2 resultswithin the time period is included. Specimen Performing Laboratory [facility] Narrative FINAL REPORT CT head without contrast. Comparisons: No Reason for exam: r/o CVA weakness. Discussion: Multiple axial CT images of the head are provided without contrast evaluated in brain and bone windows. Dose modulation, iterative reconstruction, and/or weight based adjustment of the mA/kV was utilized to reduce the radiation dose to as low as reasonably achievable. Imaging discussed with the ICU neurology stroke team resident 1430 hours There is no CT evidence of intracranial hemorrhage, mass-effect, hydrocephalus, shift, or extra-axial collections.While I see no definitive acute large vessel infarction, please note that CT is not sensitive in detecting or distinguishing acute ischemic disease. Questionable microvascular periventricular changes are noted. Additionally, there is a 5 mm focal density on image 13 in the suprasellar region for which anterior communicator aneurysm could not be excluded. The visualized dural sinus regions, orbital contents, paranasal sinuses, bones and surrounding soft tissues are unremarkable. Impressions: 1. No specific evidence of acute intracranial abnormality. 2. 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 Consider follow-up vascular imaging if clinically appropriate. Signed: Young Blanc MD Report Verified Date/Time:06/11/2017 14:32:24 Reading Location: [address] Consult Reading Room Procedure Note Interface, External Ris In - 06/11/2017 2:34 PM CDT FINAL REPORT CT head without contrast. Comparisons: No Reason for exam: r/o CVA weakness. Discussion: Multiple axial CT images of the head are provided without contrast evaluated in brain and bone windows. Dose modulation, iterative reconstruction, and/or weight based adjustment of the mA/kV was utilized to reduce the radiation dose to as low as reasonably achievable. Imaging discussed with the ICU neurology stroke team resident 1430 [address] is [address] evidence of intracranial hemorrhage, mass-effect, hydrocephalus, shift, or extra-axial collections. While I see no definitive acute large vessel infarction, please note that CT is not sensitive in detecting or distinguishing acute ischemic disease. Questionable microvascular periventricular changes are noted. Additionally, there is a 5 mm focal density on image 13 in the suprasellar region for which anterior communicator aneurysm could not be excluded. The visualized dural sinus regions, orbital contents, paranasal sinuses, bones and surrounding soft tissues are unremarkable. Impressions: 1. No specific evidence of acute intracranial abnormality. 2. 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 Consider follow-up vascular imaging if clinically appropriate. Signed: Young Blanc MD Report Verified Date/Time: 06/11/2017 14:32:24 Reading Location: [address] Consult Reading Room Carotid doppler bilateral (04/30/2017 2:05 PM)Only the most recent of2 resultswithin the time period is included. Component Value Ref Range Ejection Fraction Specimen Performing Laboratory [facility] Impressions Right Impression 1. The ICA is patent with low velocities and abnormal waveforms suggestive, of a more distal obstruction vs occlusion. 2. There is a diameter reduction (approximately 41% by 2D measurement) in the bulb with heterogeneous plaque. 3. There is stenosis in the external carotid artery. 4. There is non-occluding plaque in the common carotid artery. 5. The vertebral artery flow is antegrade. 6. The subclavian artery is within normal limits where visualized. Left Impression 1. Post stent placement, the internal carotid artery is patent with velocities of: Pre stent- 97/21 cm/sec, Proximal stent-91/25 cm/sec , mid stent-87/32 cm/sec , distal stent-90;33 cm/sec , post stent- 149/52 cm/sec. 2. There is stenosis in the external carotid artery. 3. There is non-occluding plaque in the common carotid artery. 4. The vertebral artery flow is antegrade. 5. The subclavian artery is within normal limits where visualized. Conclusions Summary Carotid duplex scanning and color flow imaging were performed bilaterally. The arteries were adequately visualized. On the right, the ICA was patent with low velocities and abnormal waveforms suggestive, of a more distal obstruction/occlusion. There was a diameter reduction (approximately 41% by 2D measurement) in the bulb with heterogeneous plaque. Post stent, the left internal carotid artery was patent. ICA stent velocities are noted above. The vertebral artery flow was antegrade bilaterally. Signature Velocities are measured in cm/s ; Diameters are measured in cm Carotid Right Measurements + +----+----+-----+ + + + !Location !PSV !EDV !Angle!%Stenosis 2D!%Stenosis Doppler! Tortuosity ! + +----+----+-----+ + + + !Prox CCA !113 !27! !! ! ! + +----+----+-----+ + + + !Dist CCA !100 !14.9! !! ! ! + +----+----+-----+ + + + !Prox ICA !40.5!! !! ! ! + +----+----+-----+ + + + !Dist ICA !39.6!! !! ! ! + +----+----+-----+ + + + !Prox ECA !174 !20.3! !! ! ! + +----+----+-----+ + + + !Vertebral!50.4!! !! ! ! + +----+----+-----+ + + + !Prox Subclavian!109 !! !! ! ! + +----+----+-----+ + + + - There is antegrade vertebral flow noted on the right side. - Additional Measurements:ICAPSV/CCAPSV 0.4. Carotid Left Measurements + +----+----+-----+ + + + !Location !PSV !EDV !Angle!%Stenosis 2D!%Stenosis Doppler! Tortuosity ! + +----+----+-----+ + + + !Prox CCA !89.2!23! !! ! ! + +----+----+-----+ + + + !Dist CCA !95.9!25.7! !! ! ! + +----+----+-----+ + + + !Prox ECA !271 !73.7! !! ! ! + +----+----+-----+ + + + !Vertebral!46.8!15.3! !! ! ! + +----+----+-----+ + + + !Prox Subclavian!115 !! !! ! ! + +----+----+-----+ + + + - There is antegrade vertebral flow noted on the left side. Narrative [facility] - Carotid Duplex Study Demographics Patient NameLINA BOLAND Date of Study 04/30/2017 Age 76 Visit [id number] Gender Male Date of [birth year] Number Referring JOSE ANGEL Vargas Number Physician In Home Baby Sitter Johanne AwanJ. Felix Hunter RN, RVTPhybel ADLER, RPVI Procedure Type of Study: Cerebral: Carotid, CAROTID DOPPLER, BILATERAL. Indications for Study:Post-op for carotid revascularization. Patient Status:Routine. Study Location:Vascular Lab. Technical Quality:Adequate visualization. Risk Factors History of Disease +---------+----+ + !Diagnosis!Date!Comments ! +---------+----+ + !Other!!CVA, DM, HLD, HTN, NC, PVD, Alzheimer's, Left Sided! ! !!Weakness, Renal Insufficiency! +---------+----+ + Procedure Note Interface, External Ris In - 05/01/2017 5:36 AM CDT [facility] - Carotid Duplex Study Demographics Patient Name LINA BOLAND Date of Study 04/30/2017 Age 76 Visit Number [id number] Gender Male Date of 1940 Number Referring [facility] Room Number Physician In Home Baby Sitter Johanne Duncan Interpreting Rose Mary Hunter RN, T Physician , RPVI Procedure Type of Study: Cerebral: Carotid, CAROTID DOPPLER, BILATERAL. Indications for Study:Post-op for carotid revascularization. Patient Status:Routine. Study Location:Vascular Lab. Technical Quality:Adequate visualization. Risk Factors History of Disease +---------+----+ + !Diagnosis!Date!Comments ! +---------+----+ + !Other ! !CVA, DM, HLD, HTN, NC, PVD, Alzheimer's, Left Sided ! ! ! !Weakness, Renal Insufficiency ! +---------+----+ + Impressions Right Impression 1. The ICA is patent with low velocities and abnormal waveforms suggestive, of a more distal obstruction vs occlusion. 2. There is a diameter reduction (approximately 41% by 2D measurement) in the bulb with heterogeneous plaque. 3. There is stenosis in the external carotid artery. 4. There is non-occluding plaque in the common carotid artery. 5. The vertebral artery flow is antegrade. 6. The subclavian artery is within normal limits where visualized. Left Impression 1. Post stent placement, the internal carotid artery is patent with velocities of: Pre stent- 97/21 cm/sec, Proximal stent-91/25 cm/sec , mid stent-87/32 cm/sec , distal stent-90;33 cm/sec , post stent- 149/52 cm/sec. 2. There is stenosis in the external carotid artery. 3. There is non-occluding plaque in the common carotid artery. 4. The vertebral artery flow is antegrade. 5. The subclavian artery is within normal limits where visualized. Conclusions Summary Carotid duplex scanning and color flow imaging were performed bilaterally. The arteries were adequately visualized. On the right, the ICA was patent with low velocities and abnormal waveforms suggestive, of a more distal obstruction/occlusion. There was a diameter reduction (approximately 41% by 2D measurement) in the bulb with heterogeneous plaque. Post stent, the left internal carotid artery was patent. ICA stent velocities are noted above. The vertebral artery flow was antegrade bilaterally. Signature Velocities are measured in cm/s ; Diameters are measured in cm Carotid Right Measurements + +----+----+-----+ + + + !Location !PSV !EDV !Angle!%Stenosis 2D!%Stenosis Doppler!Tortuosity ! + +----+----+-----+ + + + !Prox CCA !113 !27 ! ! ! ! ! + +----+----+-----+ + + + !Dist CCA !100 !14.9! ! ! ! ! + +----+----+-----+ + + + !Prox ICA !40.5! ! ! ! ! ! + +----+----+-----+ + + + !Dist ICA !39.6! ! ! ! ! ! + +----+----+-----+ + + + !Prox ECA !174 !20.3! ! ! ! ! + +----+----+-----+ + + + !Vertebral !50.4! ! ! ! ! ! + +----+----+-----+ + + + !Prox Subclavian!109 ! ! ! ! ! ! + +----+----+-----+ + + + - There is antegrade vertebral flow noted on the right side. - Additional Measurements:ICAPSV/CCAPSV 0.4. Carotid Left Measurements + +----+----+-----+ + + + !Location !PSV !EDV !Angle!%Stenosis 2D!%Stenosis Doppler!Tortuosity ! + +----+----+-----+ + + + !Prox CCA !89.2!23 ! ! ! ! ! + +----+----+-----+ + + + !Dist CCA !95.9!25.7! ! ! ! ! + +----+----+-----+ + + + !Prox ECA !271 !73.7! ! ! ! ! + +----+----+-----+ + + + !Vertebral !46.8!15.3! ! ! ! ! + +----+----+-----+ + + + !Prox Subclavian!115 ! ! ! ! ! ! + +----+----+-----+ + + + - There is antegrade vertebral flow noted on the left side. Prothrombin time/INR (03/21/2017 4:26 AM)Only the most recent of2 resultswithin the time period is included. Component Value Ref Range Protime 13.6 11.7 - 14.7 seconds INR 1.1 <=5.9 Specimen Performing Laboratory Blood [facility] [address] [address] Narrative RECOMMENDED COUMADIN/WARFARIN INR THERAPY RANGES STANDARD DOSE: 2.0 - 3.0 Includes: PROPHYLAXIS for venous thrombosis, systemic embolization; TREATMENT for venous thrombosis and/or pulmonary embolus. HIGH RISK: Target INR is 2.5-3.5 for patients with mechanical heart valves. NV Carotid Artery Stent Placement w/Protection (03/20/2017 7:30 PM) Specimen Performing Laboratory [facility] Narrative FINAL REPORT DATE OF PROCEDURE: March 20, 2017 SURGEON:Jose Angel Carrasco M.D. SENIOR FINANCIAL CONSULTANT: Eduardo Cook M.D. PREOPERATIVE DIAGNOSIS: Transient ischemic attacks and severe left carotid artery stenosis POST OPERATIVE DIAGNOSIS: Transient ischemic attacks and severe left carotid artery stenosis OPERATION: 1) Cerebral Angiogram 2) Left carotid stent ANESTHESIA:Moderate sedation ESTIMATED BLOOD LOSS: Less than 15 mL COMPLICATIONS: None INDICATIONS:The patient is a 76-year-old male with past medical history significant for coronary artery disease, peripheral vascular disease, hypertension, hyperlipidemia, and diabetes who presented with transient left sided numbness and weakness. 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 The patient therefore presents for carotid stent placement. PROCEDURE:Following explanation of the benefits, risks and alternatives for the procedure, informed consent was obtained from the patient.The risks including but not limited to stroke, intracranial hemorrhage, vascular injury to the cervical or femoral vessels and groin hematoma were discussed with the patient.A time-out was performed.Both groins were prepped in the usual sterile fashion using Chloraprep, and sterilely draped. A standard access using a micropuncture kit was used to puncture the right femoral artery. A 5 Vietnamese short sheath was then placed into the right common femoral artery. Using coaxial technique, an infinity distal access catheter was exchanged for the sheath over a 180 Glidewire. The Infinity catheter was advanced into the descending aorta, back-bled, and flushed in the usual fashion.Using coaxial technique, the Infinity catheter was advanced over a VTK catheter into the aortic arch, and with the aid of the roadmapping, digital fluoroscopy, and careful guidewire manipulation the left common carotid artery was catheterized.Upon each successive selective catheterization, digital subtraction angiography using the appropriate rate and volume of contrast in multiple projections was performed.Digital subtraction angiogram of the common femoral arteries was performed. FINDINGS: RIGHT COMMON FEMORAL ARTERY (DSA \\X2013\\ PA - PELVIS) Atherosclerotic disease is present in the right femoral artery above the level of the bifurcation. The puncture is above the level of the bifurcation. LEFT COMMON CAROTID ARTERY (DSA - PA, LATERAL, OBLIQUE - CERVICAL) There is stenosis of the origin of the left internal carotid artery of approximately 60% by NASCET criteria. There is a tortuous curve of the internal carotid artery just distal the level of stenosis. There is no significant stenosis or ulceration of the left external carotid artery. LEFT COMMON CAROTID ARTERY (DSA - PA, LATERAL - HEAD) There is robust crossfilling across the anterior communicating artery. A posterior communicating artery is not visualized on this injection. There is evidence of diffuse atherosclerotic changes in the intracranial circulation, including the left M1 and A1 segments. No significant abnormalities are seen in the capillary and venous phases. The venous phase demonstrates patent transverse and sigmoid sinuses. The visualized portions of the external carotid artery and its branches are normal without evidence of ulceration or stenosis. ENDOVASCULAR INTERVENTION: The patient was heparinized with a satisfactory ACT. A VTK catheter was then used to position the Infinity catheter within the common carotid artery. The stenotic lesion was traversed using an SL10 microcatheter which was advanced over a Synchro standard microwire. The Synchro was exchanged for a Balance Middleweight wire. Next an Emb[employer] LOLLY L distal protection device was positioned in the distal cervical internal carotid artery.Using standard monorail technique, a 6-8 x 40 Xact carotid stent was then deployed in the internal carotid artery extending into the common carotid artery. Next we inflated a 4 x 20mm Viatrac 14 Plus balloon within the stent to ensure full deployment and apposition. The anesthesia team had atropine on standby during this maneuver. The patient was noted to have transient confusion during inflation. However this quickly resolved upon deflation of the balloon. The distal protection device was then recaptured and removed.Post stenting, an angiogram of the cervical carotid was performed demonstrating improvement in the stenosis and satisfactory positioning of the stent. A repeat whole head angiogram demonstrated no evidence of branch occlusions or slow filling branches, and no other untoward findings. SUPERVISION AND INTERPRETATION: Angiographic study demonstrates: 1. Severe left carotid stenosis, successfully treated with an 8 x 40mm XACT carotid stent and balloon angioplasty. No immediate technical or clinical complications. Signed: Jose Angel Carrasco MD Report Verified Date/Time:03/24/2017 12:19:11 Reading Location: [facility] [id number] Neuro Angio Reading Room Procedure Note Interface, External Ris In - 03/24/2017 12:21 PM CDT FINAL REPORT DATE OF PROCEDURE: March 20, 2017 SURGEON: Jose Angel Carrasco M.D. SENIOR FINANCIAL CONSULTANT: Eduardo Cook M.D. PREOPERATIVE DIAGNOSIS: Transient ischemic attacks and severe left carotid artery stenosis POST OPERATIVE DIAGNOSIS: Transient ischemic attacks and severe left carotid artery stenosis OPERATION: 1) Cerebral Angiogram 2) Left carotid stent ANESTHESIA: Moderate sedation ESTIMATED BLOOD LOSS: Less than 15 mL COMPLICATIONS: None INDICATIONS: The patient is a 76-year-old male with past medical history significant for coronary artery disease, peripheral vascular disease, hypertension, hyperlipidemia, and diabetes who presented with transient left sided numbness and weakness. 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 The patient therefore presents for carotid stent placement. PROCEDURE: Following explanation of the benefits, risks and alternatives for the procedure, informed consent was obtained from the patient. The risks including but not limited to stroke, intracranial hemorrhage, vascular injury to the cervical or femoral vessels and groin hematoma were discussed with the patient. A time-out was performed. Both groins were prepped in the usual sterile fashion using Chloraprep, and sterilely draped. A standard access using a micropuncture kit was used to puncture the right femoral artery. A 5 Vietnamese short sheath was then placed into the right common femoral artery. Using coaxial technique, an infinity distal access catheter was exchanged for the sheath over a 180 Glidewire. The Infinity catheter was advanced into the descending aorta, back-bled, and flushed in the usual fashion. Using coaxial technique, the Infinity catheter was advanced over a VTK catheter into the aortic arch, and with the aid of the roadmapping, digital fluoroscopy, and careful guidewire manipulation the left common carotid artery was catheterized. Upon each successive selective catheterization, digital subtraction angiography using the appropriate rate and volume of contrast in multiple projections was performed. Digital subtraction angiogram of the common femoral arteries was performed. FINDINGS: RIGHT COMMON FEMORAL ARTERY (DSA \\X2013\\ PA - PELVIS) Atherosclerotic disease is present in the right femoral artery above the level of the bifurcation. The puncture is above the level of the bifurcation. LEFT COMMON CAROTID ARTERY (DSA - PA, LATERAL, OBLIQUE - CERVICAL) There is stenosis of the origin of the left internal carotid artery of approximately 60% by NASCET criteria. There is a tortuous curve of the internal carotid artery just distal the level of stenosis. There is no significant stenosis or ulceration of the left external carotid artery. LEFT COMMON CAROTID ARTERY (DSA - PA, LATERAL - HEAD) There is robust crossfilling across the anterior communicating artery. A posterior communicating artery is not visualized on this injection. There is evidence of diffuse atherosclerotic changes in the intracranial circulation, including the left M1 and A1 segments. No significant abnormalities are seen in the capillary and venous phases. The venous phase demonstrates patent transverse and sigmoid sinuses. The visualized portions of the external carotid artery and its branches are normal without evidence of ulceration or stenosis. ENDOVASCULAR INTERVENTION: The patient was heparinized with a satisfactory ACT. A VTK catheter was then used to position the Infinity catheter within the common carotid artery. The stenotic lesion was traversed using an SL10 microcatheter which was advanced over a Synchro standard microwire. The Synchro was exchanged for a Balance Middleweight wire. Next an [employer] LOLLY L distal protection device was positioned in the distal cervical internal carotid artery. Using standard monorail technique, a 6-8 x 40 Xact carotid stent was then deployed in the internal carotid artery extending into the common carotid artery. Next we inflated a 4 x 20mm Viatrac 14 Plus balloon within the stent to ensure full deployment and apposition. The anesthesia team had atropine on standby during this maneuver. The patient was noted to have transient confusion during inflation. However this quickly resolved upon deflation of the balloon. The distal protection device was then recaptured and removed. Post stenting, an angiogram of the cervical carotid was performed demonstrating improvement in the stenosis and satisfactory positioning of the stent. A repeat whole head angiogram demonstrated no evidence of branch occlusions or slow filling branches, and no other untoward findings. SUPERVISION AND INTERPRETATION: Angiographic study demonstrates: 1. Severe left carotid stenosis, successfully treated with an 8 x 40mm XACT carotid stent and balloon angioplasty. No immediate technical or clinical complications. Signed: Jose Angel Carrasco MD Report Verified Date/Time: 03/24/2017 12:19:11 Reading Location: [facility] Y026 Neuro Angio Reading Room ACTIVATED CLOTTING TIME (03/20/2017 7:00 PM)Only the most recent of2 resultswithin the time period is included. Component Value Ref Range Activated Clotting Time 152Comment: TESTED AT [address] sec [id number] Specimen Performing Laboratory Blood [address] [address] Comprehensive metabolic panel (03/20/2017 4:50 AM) Component Value Ref Range Protein, Total 6.9 6.0 - 8.3 gm/dL Albumin 3.8 3.5 - 5.0 g/dL Alkaline Phosphatase 96 40 - 150 U/L Total Bilirubin 0.5 0.2 - 1.2 mg/dL Sodium 140 136 - 145 meq/L Potassium 3.5 3.5 - 5.1 meq/L Chloride 106 98 - 107 meq/L CO2 24 22 - 29 meq/L BUN 21 7 - 21 mg/dL Creatinine 1.25 0.57 - 1.25 mg/dL Glucose 99 70 - 105 mg/dL Calcium 9.2 8.4 - 10.2 mg/dL AST 15 5 - 34 U/L ALT 16 6 - 55 U/L EGFR 56Comment: ESTIMATED GFR IS NOT ACCURATE mL/min/1.73 sq m CREATININE CLEARANCE IN PREDICTING GLOMERULAR FILTRATION RATE. ESTIMATED GFR IS NOT APPLICABLE FOR DIALYSIS PATIENTS. Specimen Performing Laboratory Blood - Arm, Right [address] [address] Type and screen, automated (03/19/2017 5:23 AM) Component Value Ref Range ABO/RH AUTOMATED ([employer]) B POSITIVE Ab Scrn NEGATIVE Specimen Performing Laboratory Blood [address] [address] aPTT (03/19/2017 5:16 AM) Component Value Ref Range PTT 32.9 22.5 - 36.0 seconds Specimen Performing Laboratory Blood [address] [address] POCT-P2Y12 Platelet Aggregation (03/18/2017 3:49 PM) Component Value Ref Range POC-P2Y12 Plt Agg 115 PRU Specimen Performing Laboratory Blood [address] [address] Narrative RANGE INFORMATION: PRU reference range is 194-418. Post Drug Results: Lower PRU levels are associated with expected antiplatelet effect. Values may be below the stated reference range above. The post-drug PRU values reported in the [employer] P2Y12 package insert are [id number]. POCT-Aspirin Platelet Aggregation (03/18/2017 3:49 PM) Component Value Ref Range POC-Aspirin Plt Agg 539 ARU Specimen Performing Laboratory Blood [address] [address] Narrative RANGE INFORMATION: 350-549 ARU Therapeutic range for platelet function. 550-700 ARU Non-Therapeutic range for platelet function. Manual Differential (03/18/2017 5:10 AM) Component Value Ref Range Total Counted WBC Morphology Normal Platelet Morphology Normal RBC Morphology Normal Specimen Performing Laboratory Blood [address] [address] Vitamin B12 (03/17/2017 5:22 PM) Component Value Ref Range Vitamin B12 251 213 - 816 pg/mL Specimen Performing Laboratory Blood - Arm, [address] [address] after 02/24/2017
--- OUTSIDE RECORDS SUMMARY | 2018-02-25 17:42 | XMS REPORT ---
:1940 [facility] Address [address] [place] [address] Care Team Providers Name Role Phone SONIYANICOMONSTER ARGUETANICOLÁS Unavailable Unavailable RONIT OG Unavailable Unavailable Problems This patient has no known problems. Allergies, Adverse Reactions, Alerts This patient has no known allergies or adverse reactions. Medications This patient has no known medications. Results Test Description Test Time Test Comments Text Results Atomic Results Result Comments POCT-GLUCOSE METER 2017-06-16 12:44:00 Test Item Value Reference Range Comments POC-GLUCOSE METER (BEAKER) (test 263 mg/dL 70-110 TESTED AT [address] wjuf=9918) [facility] [address] POCT-GLUCOSE [id number] 08:30:00 Test Item Value Reference Range Comments POC-GLUCOSE METER (BEAKER) 183 mg/dL 70-110 TESTED AT [address] (test owyn=9581) [facility] [address] POCT-GLUCOSE [id number] 21:30:00 Test Item Value Reference Range Comments POC-GLUCOSE METER (BEAKER) 334 mg/dL 70-110 Notified ANN ADLER/TESTED AT [facility] (test auet=5705) [address] [place] [address] POCT-GLUCOSE [id number] 15:48:00 Test Item Value Reference Range Comments POC-GLUCOSE METER (BEAKER) 233 mg/dL 70-110 TESTED AT [address] (test ogjf=7785) [facility] [address] POCT-GLUCOSE [id number] 11:52:00 Test Item Value Reference Range Comments POC-GLUCOSE METER (BEAKER) 229 mg/dL 70-110 TESTED AT [address] (test rqmc=3823) [facility] [address] POCT-GLUCOSE [id number] 07:44:00 Test Item Value Reference Range Comments POC-GLUCOSE METER (BEAKER) 235 mg/dL 70-110 TESTED AT [facility] [address] (test egqb=7970) [facility] [address] [id number] 05:11:00 Test Item Value Reference Range Comments PHOSPHORUS (BEAKER) (test ngdw=388) 3.0 mg/dL 2.3-4.7 [id number] 05:11:00 Test Item Value Reference Range Comments MAGNESIUM (BEAKER) (test fhht=810) 1.7 mg/dL 1.6-2.6 BASIC METABOLIC [id number] 05:11:00 Test Item Value Reference Range Comments SODIUM (BEAKER) (test 136 meq/L 136-145 kimf=059) POTASSIUM (BEAKER) (test 3.8 meq/L 3.5-5.1 gqkm=305) CHLORIDE (BEAKER) (test 102 meq/L 98-107 yltq=119) CO2 (BEAKER) (test 26 meq/L 22-29 xxtu=615) BLOOD UREA NITROGEN 19 mg/dL 7-21 (BEAKER) (test gybp=144) CREATININE (BEAKER) (test 1.36 mg/dL 0.57-1.25 zdtv=424) GLUCOSE RANDOM (BEAKER) 195 mg/dL 70-105 (test qdfz=634) CALCIUM (BEAKER) (test 9.3 mg/dL 8.4-10.2 lxqm=685) EGFR (BEAKER) (test 51 mL/min/1.73 sq m ESTIMATED GFR IS NOT zuwj=8333) ACCURATE CREATININE CLEARANCE IN PREDICTING GLOMERULAR FILTRATION RATE. ESTIMATED GFR IS NOT APPLICABLE FOR DIALYSIS PATIENTS. POCT-GLUCOSE [id number] 20:41:00 Test Item Value Reference Range Comments POC-GLUCOSE METER (BEAKER) 198 mg/dL 70-110 TESTED AT [facility] [address] (test xaui=6756) [facility] [address] POCT-GLUCOSE [id number] 20:19:00 Test Item Value Reference Range Comments POC-GLUCOSE METER (BEAKER) 363 mg/dL 70-110 Notified ANN ADLER/TESTED AT [facility] (test mcoy=0056) [address] [facility] [address] POCT-GLUCOSE [id number] 20:16:00 Test Item Value Reference Range Comments POC-GLUCOSE METER (BEAKER) 279 mg/dL 70-110 TESTED AT [address] (test pqvw=3924) [facility] [address] POCT-GLUCOSE [id number] 20:10:00 Test Item Value Reference Range Comments POC-GLUCOSE METER (BEAKER) 200 mg/dL 70-110 TESTED AT [address] (test zylr=3599) [facility] [address] POCT-GLUCOSE [id number] 19:59:00 Test Item Value Reference Range Comments POC-GLUCOSE METER (BEAKER) 297 mg/dL 70-110 TESTED AT [address] (test xift=6572) [facility] [address] POCT-GLUCOSE [id number] 19:56:00 Test Item Value Reference Range Comments POC-GLUCOSE METER (BEAKER) 294 mg/dL 70-110 TESTED AT [address] (test bkgl=8613) [facility] [address] POCT-GLUCOSE [id number] 11:18:00 Test Item Value Reference Range Comments POC-GLUCOSE METER (BEAKER) 272 mg/dL 70-110 TESTED AT [address] (test ouzr=5491) [facility] [address] POCT-GLUCOSE [id number] 08:10:00 Test Item Value Reference Range Comments POC-GLUCOSE METER (BEAKER) 221 mg/dL 70-110 TESTED AT [address] (test kiiq=6544) [place] [id number] 05:02:00 Test Item Value Reference Range Comments PHOSPHORUS (BEAKER) (test vrdl=078) 2.7 mg/dL 2.3-4.7 [id number] 05:02:00 Test Item Value Reference Range Comments MAGNESIUM (BEAKER) (test euwq=633) 1.8 mg/dL 1.6-2.6 BASIC METABOLIC [id number] 05:02:00 Test Item Value Reference Range Comments SODIUM (BEAKER) (test 134 meq/L 136-145 cque=098) POTASSIUM (BEAKER) (test 3.9 meq/L 3.5-5.1 hlea=645) CHLORIDE (BEAKER) (test 101 meq/L 98-107 zegr=427) CO2 (BEAKER) (test 25 meq/L 22-29 ymip=636) BLOOD UREA NITROGEN 21 mg/dL 7-21 (BEAKER) (test bbet=039) CREATININE (BEAKER) (test 1.29 mg/dL 0.57-1.25 ifqq=595) GLUCOSE RANDOM (BEAKER) 218 mg/dL 70-105 (test wxug=578) CALCIUM (BEAKER) (test 9.1 mg/dL 8.4-10.2 bogp=726) EGFR (BEAKER) (test 54 mL/min/1.73 sq m ESTIMATED GFR IS NOT auuu=4981) ACCURATE CREATININE CLEARANCE IN PREDICTING GLOMERULAR FILTRATION RATE. ESTIMATED GFR IS NOT APPLICABLE FOR DIALYSIS PATIENTS. POCT-GLUCOSE [id number] 22:45:00 Test Item Value Reference Range Comments POC-GLUCOSE METER (BEAKER) 297 mg/dL 70-110 TESTED AT [address] (test txoa=2854) [place] [address] POCT-GLUCOSE [id number] 20:42:00 Test Item Value Reference Range Comments POC-GLUCOSE METER (BEAKER) 293 mg/dL 70-110 TESTED AT [address] (test pbpv=2893) [place] [address] POCT-GLUCOSE [id number] 17:00:00 Test Item Value Reference Range Comments POC-GLUCOSE METER (BEAKER) 287 mg/dL 70-110 TESTED AT [address] (test qbxg=0079) [place] [address] POCT-GLUCOSE [id number] 14:53:00 Test Item Value Reference Range Comments POC-GLUCOSE METER (BEAKER) 269 mg/dL 70-110 TESTED AT [address] (test wucq=5482) [place] [address] [id number] 13:00:00 Test Item Value Reference Range Comments RPR SCREEN (BEAKER) (test huad=564) Nonreactive Nonreactive HEMOGLOBIN [id number] 08:51:00 Test Item Value Reference Range Comments HEMOGLOBIN A1C (BEAKER) (test yobx=904) 9.9 % 4.3-6.1 URINALYSIS W/ [id number] 08:01:00 Test Item Value Reference Range Comments COLOR (BEAKER) (test yvko=421) Light Yellow CLARITY (BEAKER) (test pils=378) Clear SPECIFIC GRAVITY UA (BEAKER) (test jljf=239) 1.010 1.001-1.035 PH UA (BEAKER) (test gasn=030) 6.0 5.0-8.0 PROTEIN UA (BEAKER) (test pyvj=662) 30 mg/dL Negative GLUCOSE UA (BEAKER) (test arvi=863) 100 mg/dL Negative KETONES UA (BEAKER) (test ypjx=604) Negative Negative BILIRUBIN UA (BEAKER) (test uulg=159) Negative Negative BLOOD UA (BEAKER) (test grqi=387) Negative Negative NITRITE UA (BEAKER) (test hcfv=720) Negative Negative LEUKOCYTE ESTERASE UA (BEAKER) (test yjki=083) Negative Negative UROBILINOGEN UA (BEAKER) (test tdmb=568) 0.2 mg/dL 0.2-1.0 RBC UA (BEAKER) (test lhrg=640) 0 /HPF WBC UA (BEAKER) (test hftw=692) < /HPF SOURCE(BEAKER) (test wzhg=3095) Urine, Voided POCT-GLUCOSE [id number] 08:00:00 Test Item Value Reference Range Comments POC-GLUCOSE METER (BEAKER) 201 mg/dL 70-110 TESTED AT [facility] [address] [facility] (test twmg=1415) [facility] [address] [id number] 05:59:00 Test Item Value Reference Range Comments PHOSPHORUS (BEAKER) (test snml=683) 2.7 mg/dL 2.3-4.7 [id number] 05:59:00 Test Item Value Reference Range Comments MAGNESIUM (BEAKER) (test ungr=437) 1.8 mg/dL 1.6-2.6 BASIC METABOLIC [id number] 05:59:00 Test Item Value Reference Range Comments SODIUM (BEAKER) (test 137 meq/L 136-145 rved=379) POTASSIUM (BEAKER) (test 4.1 meq/L 3.5-5.1 vmbr=491) CHLORIDE (BEAKER) (test 103 meq/L 98-107 inkw=059) CO2 (BEAKER) (test 25 meq/L 22-29 lrcf=305) BLOOD UREA NITROGEN 26 mg/dL 7-21 (BEAKER) (test idra=435) CREATININE (BEAKER) (test 1.42 mg/dL 0.57-1.25 uuia=118) GLUCOSE RANDOM (BEAKER) 190 mg/dL 70-105 (test tnjc=333) CALCIUM (BEAKER) (test 9.0 mg/dL 8.4-10.2 lygw=499) EGFR (BEAKER) (test 48 mL/min/1.73 sq m ESTIMATED GFR IS NOT khts=7640) ACCURATE CREATININE CLEARANCE IN PREDICTING GLOMERULAR FILTRATION RATE. ESTIMATED GFR IS NOT APPLICABLE FOR DIALYSIS PATIENTS. LIPID [id number] 05:59:00 Test Item Value Reference Range Comments TRIGLYCERIDES (BEAKER) (test zcnn=481) 226 mg/dL CHOLESTEROL (BEAKER) (test gtmn=729) 139 mg/dL HDL CHOLESTEROL (BEAKER) (test nybh=935) 33 mg/dL LDL CHOLESTEROL CALCULATED (BEAKER) (test 61 mg/dL npmc=829) Triglyceride Reference Range: Low Risk <150 Borderline 150- 199 High Risk 200-499 Very High Risk >=500Cholesterol Reference Range: Low Risk <200 Borderline 200-239 High Risk > 240HDL Cholesterol Reference Range: Low Risk >=60 High Risk <40LDL Cholesterol Reference Range: Optimal <100 Near Optimal 100-129 Borderline 130-159 High 160-189 Very High >=190RAPID DRUG SCREEN, [id number] 23:42:00 Test Item Value Reference Range Comments BARBITURATE URINE (BEAKER) (test hpqj=287) Positive Negative BENZODIAZEPINE SCREEN URINE (BEAKER) (test Negative Negative zbrh=276) COCAINE (METAB.) SCREEN (BEAKER) (test palk=4797) Negative Negative METHADONE SCREEN (BEAKER) (test elck=5193) Negative Negative OPIATE SCREEN URINE (BEAKER) (test ovpt=586) Negative Negative CANNABINOID SCREEN URINE (BEAKER) (test wlrk=065) Negative Negative AMPH/METHAMPH SCREEN (BEAKER) (test ekhv=5038) Negative Negative PHENCYCLIDINE SCREEN URINE (BEAKER) (test mzfz=954) Negative Negative OXYCODONE SCREEN URINE (BEAKER) (test pltt=4996) Negative Negative DRUG CUTOFF CONC.Cocaine 300 ng/mL Cannabinoid 50 ng/mL Benzodiazepine 200 ng/mLBarbiturate 200 ng/ mLPhencyclidine 25 ng/mLOpiate 300 ng/mLMethadone 300 ng/mLAmphetamine/ 1000 ng/mL MethamphetamineOxycodone 300 ng/mLThis assay provides an unconfirmed qualitative test result for the clinical management of patients in emergency situations. Chain of custody not maintained. Some ifqa-vkz-drueibe medications, as well as adulterants, may cause inaccurate results. Clinical correlation should be applied. A more comprehensive drug screen or confirmation of a detected drug may be performed upon request.CREATININE, RANDOM [id number] 23:35:00 Test Item Value Reference Range Comments CREATININE URINE (BEAKER) (test suks=504) 190.0 mg/dL Reference Range: No NormalsPROTEIN, RANDOM [id number] 23:35:00 Test Item Value Reference Range Comments PROTEIN, URINE (BEAKER) (test ufmj=6734) 71 mg/dL 0-14 SODIUM, RANDOM [id number] 23:35:00 Test Item Value Reference Range Comments SODIUM URINE (BEAKER) (test qpli=129) 94 meq/L Reference Range: No NormalsURINALYSIS W/ [id number] 23:33:00 Test Item Value Reference Range Comments COLOR (BEAKER) (test bfsg=450) Yellow CLARITY (BEAKER) (test nrmx=496) Clear SPECIFIC GRAVITY UA (BEAKER) (test komf=601) 1.016 1.001-1.035 PH UA (BEAKER) (test tkpk=874) 5.5 5.0-8.0 PROTEIN UA (BEAKER) (test srsm=797) 70 mg/dL Negative GLUCOSE UA (BEAKER) (test wdcc=334) 30 mg/dL Negative KETONES UA (BEAKER) (test kruj=495) Negative Negative BILIRUBIN UA (BEAKER) (test lywd=125) Negative Negative BLOOD UA (BEAKER) (test fxgc=868) Negative Negative NITRITE UA (BEAKER) (test onxq=304) Negative Negative LEUKOCYTE ESTERASE UA (BEAKER) (test igkx=144) Negative Negative UROBILINOGEN UA (BEAKER) (test enqx=446) 0.2 mg/dL 0.2-1.0 RBC UA (BEAKER) (test ncix=192) 0 /HPF WBC UA (BEAKER) (test sbmf=495) 2 /HPF MUCUS (BEAKER) (test btce=0863) Rare SQUAMOUS EPITHELIAL (BEAKER) (test kmav=468) < /HPF HYALINE CASTS (BEAKER) (test flda=110) 5 /LPF SOURCE(BEAKER) (test cbnt=8244) Urine, Voided TSH/FREE T4 IF [id number] 21:37:00 Test Item Value Reference Range Comments THYROID STIMULATING HORMONE (BEAKER) (test 1.35 uIU/mL 0.35-4.94 welk=250) VITAMIN B12 AND [id number] 21:37:00 Test Item Value Reference Range Comments VITAMIN B12 (BEAKER) (test dkty=022) 306 pg/mL 213-816 FOLATE (BEAKER) (test nzdy=504) 13.0 ng/mL >=7.0 Effective 09/19/2014: Folate Reference Range ChangeNew: >=7.0 Previous: & gt;=5.4POCT-GLUCOSE [id number] 21:27:00 Test Item Value Reference Range Comments POC-GLUCOSE METER (BEAKER) 137 mg/dL 70-110 TESTED AT [address] (test tect=9251) [facility] [address] SEDIMENTATION [id number] 21:20:00 Test Item Value Reference Range Comments SEDIMENTATION RATE, ERYTHROCYTE (BEAKER) (test 23 mm/HR 0-40 mysp=993) HEPATIC FUNCTION [id number] 21:01:00 Test Item Value Reference Range Comments TOTAL PROTEIN (BEAKER) (test nrcx=858) 7.7 gm/dL 6.0-8.3 ALBUMIN (BEAKER) (test gjjc=8170) 4.3 g/dL 3.5-5.0 BILIRUBIN TOTAL (BEAKER) (test prax=419) 0.5 mg/dL 0.2-1.2 BILIRUBIN DIRECT (BEAKER) (test jwpr=747) 0.2 mg/dL 0.1-0.5 ALKALINE PHOSPHATASE (BEAKER) (test arog=713) 104 U/L 40-150 AST (SGOT) (BEAKER) (test odot=690) 21 U/L 5-34 ALT (SGPT) (BEAKER) (test zgjc=309) 25 U/L 6-55 TROPONIN [id number] 16:03:00 Test Item Value Reference Range Comments TROPONIN I (BEAKER) (test qjur=927) 0.01 ng/mL 0.00-0.03 Effective 09/19/2014: Reference Range ChangeNew: 0.00-0.03 Previous 0.00- 0.15Troponin I (TnI) levels must be interpreted in the context of the presenting symptoms and the clinical findings. Elevated TnI levels indicate myocardial damage, but are not specific for ischemic heart disease. Elevated TnI levels are seen in patients with other cardiac conditions (including myocarditis and congestive heartfailure), and slight TnI elevations occur in patients with other conditions, including sepsis, renalfailure, acidosis, acute neurological disease, and persistent tachyarrhythmia.B-TYPE NATRIURETIC FACTOR ( BNP)2017-06-11 15:35:00 Test Item Value Reference Range Comments B-TYPE NATRIURETIC PEPTIDE (BEAKER) (test qqlj=312) 21 pg/mL 0-100 CREATINE KINASE (CK), TOTAL AND [id number] 15:34:00 Test Item Value Reference Range Comments CREATINE KINASE TOTAL (BEAKER) (test xsbg=101) 61 U/L 29-200 CREATINE KINASE-MB (BEAKER) (test nnlq=605) 1.4 ng/mL 0.0-6.6 CREATINE KINASE-MB INDEX (BEAKER) (test uula=663) 2.3 % Effective 09/19/2014: CK-MB Reference Range ChangeNew: 0.0-6.6 Previous: 0.0- 4.9CK-MB Reference Range:<6.7 Normal6.7-10.0 Borderline>10.0 AbnormalBASIC METABOLIC [id number] 15:30:00 Test Item Value Reference Range Comments SODIUM (BEAKER) (test 139 meq/L 136-145 ctfo=715) POTASSIUM (BEAKER) (test 4.5 meq/L 3.5-5.1 Specimen slightly qcvw=598) hemolyzed CHLORIDE (BEAKER) (test 104 meq/L 98-107 vxbt=978) CO2 (BEAKER) (test 27 meq/L 22-29 smbd=350) BLOOD UREA NITROGEN 30 mg/dL 7-21 (BEAKER) (test gclm=065) CREATININE (BEAKER) (test 2.17 mg/dL 0.57-1.25 Specimen slightly ocuc=284) hemolyzed GLUCOSE RANDOM (BEAKER) 163 mg/dL 70-105 (test zxdc=986) CALCIUM (BEAKER) (test 9.5 mg/dL 8.4-10.2 ogta=152) EGFR (BEAKER) (test mL/min/1.73 sq m INSUFFICIENT CLINICAL DATA xlrw=6292) TO CALCULATE ESTIMATED GFR. [id number] 15:28:00 Test Item Value Reference Range Comments MAGNESIUM (BEAKER) (test 2.1 mg/dL 1.6-2.6 Specimen slightly hemolyzed hbyd=645) CBC W/PLT COUNT & AUTO [id number] 15:13:00 Test Item Value Reference Range Comments WHITE BLOOD CELL COUNT (BEAKER) (test xvbs=400) 7.6 K/ L 3.5-10.5 RED BLOOD CELL COUNT (BEAKER) (test enjo=407) 5.15 M/ L 4.63-6.08 HEMOGLOBIN (BEAKER) (test omgs=290) 15.1 GM/DL 13.7-17.5 HEMATOCRIT (BEAKER) (test smcq=103) 44.7 % 40.1-51.0 MEAN CORPUSCULAR VOLUME (BEAKER) (test wurs=671) 86.8 fL 79.0-92.2 MEAN CORPUSCULAR HEMOGLOBIN (BEAKER) (test 29.3 pg 25.7-32.2 cupm=366) MEAN CORPUSCULAR HEMOGLOBIN CONC (BEAKER) (test 33.8 GM/DL 32.3-36.5 awmn=005) RED CELL DISTRIBUTION WIDTH (BEAKER) (test 13.2 % 11.6-14.4 ekyq=179) PLATELET COUNT (BEAKER) (test yqlq=028) 170 K/CU MM 150-450 MEAN PLATELET VOLUME (BEAKER) (test ppbx=490) 10.7 fL 9.4-12.4 NUCLEATED RED BLOOD CELLS (BEAKER) (test 0 /100 WBC 0-0 rkyp=282) NEUTROPHILS RELATIVE PERCENT (BEAKER) (test 64 % inog=728) LYMPHOCYTES RELATIVE PERCENT (BEAKER) (test 25 % lkqy=010) MONOCYTES RELATIVE PERCENT (BEAKER) (test 9 % irpd=464) EOSINOPHILS RELATIVE PERCENT (BEAKER) (test 2 % rbwb=340) BASOPHILS RELATIVE PERCENT (BEAKER) (test 0 % lagg=611) NEUTROPHILS ABSOLUTE COUNT (BEAKER) (test 4.83 K/ L 1.78-5.38 srpw=249) LYMPHOCYTES ABSOLUTE COUNT (BEAKER) (test 1.87 K/ L 1.32-3.57 iube=426) MONOCYTES ABSOLUTE COUNT (BEAKER) (test 0.70 K/ L 0.30-0.82 trql=478) EOSINOPHILS ABSOLUTE COUNT (BEAKER) (test 0.14 K/ L 0.04-0.54 qlmn=843) BASOPHILS ABSOLUTE COUNT (BEAKER) (test 0.03 K/ L 0.01-0.08 nubr=306) IMMATURE GRANULOCYTES-RELATIVE PERCENT (BEAKER) 0 % 0-1 (test aryl=8560) [id number] 15:09:00 Test Item Value Reference Range Comments PROTIME (BEAKER) (test otzj=778) 12.8 seconds 11.7-14.7 INR (BEAKER) (test hspo=017) 1.0 <=5.9 PARTIAL THROMBOPLASTIN TIME (BEAKER) (test 24.7 seconds 22.5-36.0 eltr=552) RECOMMENDED COUMADIN/WARFARIN INR THERAPY RANGESSTANDARD DOSE: 2.0 - 3.0 Includes: PROPHYLAXIS forvenous thrombosis, systemic embolization; TREATMENT for venous thrombosis and/or pulmonary embolus.HIGH RISK: Target INR is 2.5-3.5 for patients with mechanical heart valves.POCT-GLUCOSE [id number] 08:20:00 Test Item Value Reference Range Comments POC-GLUCOSE METER (BEAKER) 208 mg/dL 70-110 TESTED AT [address] (test wulk=4307) [facility] [address] BASIC METABOLIC [id number] 05:31:00 Test Item Value Reference Range Comments SODIUM (BEAKER) (test 136 meq/L 136-145 vgki=066) POTASSIUM (BEAKER) (test 3.9 meq/L 3.5-5.1 igfh=878) CHLORIDE (BEAKER) (test 104 meq/L 98-107 fyzs=158) CO2 (BEAKER) (test 22 meq/L 22-29 zjtj=330) BLOOD UREA NITROGEN 14 mg/dL 7-21 (BEAKER) (test uiwm=520) CREATININE (BEAKER) (test 1.06 mg/dL 0.57-1.25 huda=266) GLUCOSE RANDOM (BEAKER) 181 mg/dL 70-105 (test ihfq=541) CALCIUM (BEAKER) (test 8.7 mg/dL 8.4-10.2 cmyh=629) EGFR (BEAKER) (test 68 mL/min/1.73 sq m ESTIMATED GFR IS NOT peuc=6766) ACCURATE CREATININE CLEARANCE IN PREDICTING GLOMERULAR FILTRATION RATE. ESTIMATED GFR IS NOT APPLICABLE FOR DIALYSIS PATIENTS. PROTHROMBIN [id number] 05:15:00 Test Item Value Reference Range Comments PROTIME (BEAKER) (test lcyu=272) 13.6 seconds 11.7-14.7 INR (BEAKER) (test xjip=233) 1.1 <=5.9 RECOMMENDED COUMADIN/WARFARIN INR THERAPY RANGESSTANDARD DOSE: 2.0 - 3.0 Includes: PROPHYLAXIS forvenous thrombosis, systemic embolization; TREATMENT for venous thrombosis and/or pulmonary embolus.HIGH RISK: Target INR is 2.5-3.5 for patients with mechanical heart valves.CBC W/PLT COUNT & AUTO [id number] 05:13:00 Test Item Value Reference Range Comments WHITE BLOOD CELL COUNT (BEAKER) (test ijdq=557) 6.1 K/ L 4.0-10.0 RED BLOOD CELL COUNT (BEAKER) (test yspv=252) 5.50 M/ L 4.20-5.80 HEMOGLOBIN (BEAKER) (test scqc=374) 15.9 GM/DL 13.0-16.8 HEMATOCRIT (BEAKER) (test siva=633) 48.6 % 40.0-50.0 MEAN CORPUSCULAR VOLUME (BEAKER) (test ifzs=508) 88.4 fL 82.0-98.0 MEAN CORPUSCULAR HEMOGLOBIN (BEAKER) (test 29.0 pg 27.0-33.0 twhw=933) MEAN CORPUSCULAR HEMOGLOBIN CONC (BEAKER) (test 32.8 GM/DL 32.0-36.0 uqmm=865) RED CELL DISTRIBUTION WIDTH (BEAKER) (test 12.2 % 10.3-14.2 gynp=539) PLATELET COUNT (BEAKER) (test jbzv=550) 132 K/CU MM 150-430 MEAN PLATELET VOLUME (BEAKER) (test duuk=536) 7.3 fL 6.5-10.5 NUCLEATED RED BLOOD CELLS (BEAKER) (test 0 /100 WBC 0-0 aunf=859) NEUTROPHILS RELATIVE PERCENT (BEAKER) (test 62 % pdul=813) LYMPHOCYTES RELATIVE PERCENT (BEAKER) (test 29 % gmrv=875) MONOCYTES RELATIVE PERCENT (BEAKER) (test 7 % ivnq=305) EOSINOPHILS RELATIVE PERCENT (BEAKER) (test 2 % fxbf=553) BASOPHILS RELATIVE PERCENT (BEAKER) (test 0 % dmou=176) NEUTROPHILS ABSOLUTE COUNT (BEAKER) (test 3.82 K/ L 1.80-8.00 wfle=938) LYMPHOCYTES ABSOLUTE COUNT (BEAKER) (test 1.75 K/ L 1.48-4.50 jmxp=863) MONOCYTES ABSOLUTE COUNT (BEAKER) (test 0.40 K/ L 0.00-1.30 mqhb=826) EOSINOPHILS ABSOLUTE COUNT (BEAKER) (test 0.13 K/ L 0.00-0.50 wbzk=037) BASOPHILS ABSOLUTE COUNT (BEAKER) (test 0.03 K/ L 0.00-0.20 xtxu=508) 0.00POCT-GLUCOSE [id number] 22:01:00 Test Item Value Reference Range Comments POC-GLUCOSE METER (BEAKER) 128 mg/dL 70-110 TESTED AT [address] (test pqei=5695) [place] [address] [id number] 19:10:00 Test Item Value Reference Range Comments ACTIVATED CLOTTING TIME 152 sec TESTED AT [address] (BEAKER) (test jvkg=948) [place] [address] [id number] 18:42:00 Test Item Value Reference Range Comments ACTIVATED CLOTTING TIME 234 sec TESTED AT [place] [id number] [address] (BEAKER) (test zbrl=072) [place] [address] POCT-GLUCOSE [id number] 11:59:00 Test Item Value Reference Range Comments POC-GLUCOSE METER (BEAKER) 142 mg/dL 70-110 TESTED AT [address] (test soij=0351) [place] [address] POCT-GLUCOSE [id number] 07:46:00 Test Item Value Reference Range Comments POC-GLUCOSE METER (BEAKER) 136 mg/dL 70-110 TESTED AT [address] (test cnvn=6032) [facility] [address] COMPREHENSIVE METABOLIC [id number] 06:18:00 Test Item Value Reference Range Comments TOTAL PROTEIN (BEAKER) 6.9 gm/dL 6.0-8.3 (test xwzr=949) ALBUMIN (BEAKER) (test 3.8 g/dL 3.5-5.0 womq=2789) ALKALINE PHOSPHATASE 96 U/L 40-150 (BEAKER) (test atmw=048) BILIRUBIN TOTAL (BEAKER) 0.5 mg/dL 0.2-1.2 (test dghy=297) SODIUM (BEAKER) (test 140 meq/L 136-145 wzsj=966) POTASSIUM (BEAKER) (test 3.5 meq/L 3.5-5.1 icgn=616) CHLORIDE (BEAKER) (test 106 meq/L 98-107 naui=159) CO2 (BEAKER) (test 24 meq/L 22-29 ylpe=971) BLOOD UREA NITROGEN 21 mg/dL 7-21 (BEAKER) (test ppen=508) CREATININE (BEAKER) (test 1.25 mg/dL 0.57-1.25 txdg=762) GLUCOSE RANDOM (BEAKER) 99 mg/dL 70-105 (test fovu=587) CALCIUM (BEAKER) (test 9.2 mg/dL 8.4-10.2 qybu=575) AST (SGOT) (BEAKER) (test 15 U/L 5-34 kdsr=705) ALT (SGPT) (BEAKER) (test 16 U/L 6-55 easq=872) EGFR (BEAKER) (test 56 mL/min/1.73 sq m ESTIMATED GFR IS NOT ljbt=8366) ACCURATE CREATININE CLEARANCE IN PREDICTING GLOMERULAR FILTRATION RATE. ESTIMATED GFR IS NOT APPLICABLE FOR DIALYSIS PATIENTS. CBC W/PLT COUNT & AUTO [id number] 06:04:00 Test Item Value Reference Range Comments WHITE BLOOD CELL COUNT (BEAKER) (test fsha=989) 5.8 K/ L 4.0-10.0 RED BLOOD CELL COUNT (BEAKER) (test wtka=452) 5.56 M/ L 4.20-5.80 HEMOGLOBIN (BEAKER) (test tlyb=881) 16.8 GM/DL 13.0-16.8 HEMATOCRIT (BEAKER) (test mctf=983) 49.7 % 40.0-50.0 MEAN CORPUSCULAR VOLUME (BEAKER) (test tsfd=283) 89.3 fL 82.0-98.0 MEAN CORPUSCULAR HEMOGLOBIN (BEAKER) (test 30.2 pg 27.0-33.0 aumr=630) MEAN CORPUSCULAR HEMOGLOBIN CONC (BEAKER) (test 33.8 GM/DL 32.0-36.0 mvnh=650) RED CELL DISTRIBUTION WIDTH (BEAKER) (test 12.2 % 10.3-14.2 mypg=910) PLATELET COUNT (BEAKER) (test kpyt=663) 142 K/CU MM 150-430 MEAN PLATELET VOLUME (BEAKER) (test sbnp=055) 7.8 fL 6.5-10.5 NUCLEATED RED BLOOD CELLS (BEAKER) (test 0 /100 WBC 0-0 deqc=004) NEUTROPHILS RELATIVE PERCENT (BEAKER) (test 59 % zqjj=809) LYMPHOCYTES RELATIVE PERCENT (BEAKER) (test 32 % zfwn=355) MONOCYTES RELATIVE PERCENT (BEAKER) (test 6 % llek=306) EOSINOPHILS RELATIVE PERCENT (BEAKER) (test 3 % yfyu=368) BASOPHILS RELATIVE PERCENT (BEAKER) (test 1 % eygm=145) NEUTROPHILS ABSOLUTE COUNT (BEAKER) (test 3.37 K/ L 1.80-8.00 ckar=666) LYMPHOCYTES ABSOLUTE COUNT (BEAKER) (test 1.85 K/ L 1.48-4.50 mipj=396) MONOCYTES ABSOLUTE COUNT (BEAKER) (test 0.33 K/ L 0.00-1.30 rxcd=589) EOSINOPHILS ABSOLUTE COUNT (BEAKER) (test 0.16 K/ L 0.00-0.50 yeph=521) BASOPHILS ABSOLUTE COUNT (BEAKER) (test 0.04 K/ L 0.00-0.20 mqsp=209) 0.00POCT-GLUCOSE [id number] 21:04:00 Test Item Value Reference Range Comments POC-GLUCOSE METER (BEAKER) 70 mg/dL 70-110 TESTED AT [address] (test ntly=9476) [facility] [address] POCT-GLUCOSE [id number] 17:22:00 Test Item Value Reference Range Comments POC-GLUCOSE METER (BEAKER) 149 mg/dL 70-110 TESTED AT [address] (test sopc=8038) [facility] [address] POCT-GLUCOSE [id number] 14:07:00 Test Item Value Reference Range Comments POC-GLUCOSE METER (BEAKER) 218 mg/dL 70-110 TESTED AT [address] (test ngba=8172) [facility] [address] POCT-GLUCOSE [id number] 11:39:00 Test Item Value Reference Range Comments POC-GLUCOSE METER (BEAKER) 206 mg/dL 70-110 TESTED AT [address] (test ohnf=5797) [facility] [address] BASIC METABOLIC [id number] 06:49:00 Test Item Value Reference Range Comments SODIUM (BEAKER) (test 135 meq/L 136-145 dllw=781) POTASSIUM (BEAKER) (test 3.9 meq/L 3.5-5.1 phhj=019) CHLORIDE (BEAKER) (test 103 meq/L 98-107 dayh=565) CO2 (BEAKER) (test 23 meq/L 22-29 afgf=908) BLOOD UREA NITROGEN 27 mg/dL 7-21 (BEAKER) (test goih=582) CREATININE (BEAKER) (test 1.44 mg/dL 0.57-1.25 hfiy=623) GLUCOSE RANDOM (BEAKER) 221 mg/dL 70-105 (test raqg=302) CALCIUM (BEAKER) (test 8.9 mg/dL 8.4-10.2 wlai=332) EGFR (BEAKER) (test 48 mL/min/1.73 sq m ESTIMATED GFR IS NOT dmxc=5792) ACCURATE CREATININE CLEARANCE IN PREDICTING GLOMERULAR FILTRATION RATE. ESTIMATED GFR IS NOT APPLICABLE FOR DIALYSIS PATIENTS. CBC W/PLT COUNT & AUTO [id number] 06:36:00 Test Item Value Reference Range Comments WHITE BLOOD CELL COUNT (BEAKER) (test gcmm=308) 6.9 K/ L 4.0-10.0 RED BLOOD CELL COUNT (BEAKER) (test mozx=432) 5.26 M/ L 4.20-5.80 HEMOGLOBIN (BEAKER) (test iofb=845) 16.2 GM/DL 13.0-16.8 HEMATOCRIT (BEAKER) (test rrun=391) 45.9 % 40.0-50.0 MEAN CORPUSCULAR VOLUME (BEAKER) (test laix=534) 87.2 fL 82.0-98.0 MEAN CORPUSCULAR HEMOGLOBIN (BEAKER) (test 30.8 pg 27.0-33.0 tupe=642) MEAN CORPUSCULAR HEMOGLOBIN CONC (BEAKER) (test 35.3 GM/DL 32.0-36.0 fpep=059) RED CELL DISTRIBUTION WIDTH (BEAKER) (test 13.4 % 10.3-14.2 hece=010) PLATELET COUNT (BEAKER) (test xmsd=201) 149 K/CU MM 150-430 MEAN PLATELET VOLUME (BEAKER) (test qkym=064) 7.6 fL 6.5-10.5 NUCLEATED RED BLOOD CELLS (BEAKER) (test 0 /100 WBC 0-0 jzla=414) NEUTROPHILS RELATIVE PERCENT (BEAKER) (test 52 % brst=555) LYMPHOCYTES RELATIVE PERCENT (BEAKER) (test 38 % fugj=291) MONOCYTES RELATIVE PERCENT (BEAKER) (test 7 % gkda=875) EOSINOPHILS RELATIVE PERCENT (BEAKER) (test 2 % zqre=525) BASOPHILS RELATIVE PERCENT (BEAKER) (test 1 % nawt=992) NEUTROPHILS ABSOLUTE COUNT (BEAKER) (test 3.58 K/ L 1.80-8.00 hzlw=405) LYMPHOCYTES ABSOLUTE COUNT (BEAKER) (test 2.58 K/ L 1.48-4.50 esst=137) MONOCYTES ABSOLUTE COUNT (BEAKER) (test 0.48 K/ L 0.00-1.30 buea=762) EOSINOPHILS ABSOLUTE COUNT (BEAKER) (test 0.14 K/ L 0.00-0.50 lidi=725) BASOPHILS ABSOLUTE COUNT (BEAKER) (test 0.08 K/ L 0.00-0.20 wszi=679) 0.00PROTHROMBIN [id number] 06:26:00 Test Item Value Reference Range Comments PROTIME (BEAKER) (test nhrf=377) 13.5 seconds 11.7-14.7 INR (BEAKER) (test ngdk=169) 1.0 <=5.9 RECOMMENDED COUMADIN/WARFARIN INR THERAPY RANGESSTANDARD DOSE: 2.0 - 3.0 Includes: PROPHYLAXIS forvenous thrombosis, systemic embolization; TREATMENT for venous thrombosis and/or pulmonary embolus.HIGH RISK: Target INR is 2.5-3.5 for patients with mechanical heart valves.[id number] 06:26:00 Test Item Value Reference Range Comments PARTIAL THROMBOPLASTIN TIME (BEAKER) (test 32.9 seconds 22.5-36.0 jxyk=647) POCT-GLUCOSE [id number] 21:31:00 Test Item Value Reference Range Comments POC-GLUCOSE METER (BEAKER) 235 mg/dL 70-110 TESTED AT [address] (test wpre=3179) [place] [id number] POCT-GLUCOSE [id number] 17:19:00 Test Item Value Reference Range Comments POC-GLUCOSE METER (BEAKER) 239 mg/dL 70-110 TESTED AT [address] (test rmlj=7708) [place] [id number] POCT-P2Y12 PLATELET [id number] 16:23:00 Test Item Value Reference Range Comments POC-P2Y12 PLATELET AGG (BEAKER) (test gyds=7905) 115 PRU RANGE INFORMATION: PRU reference range is 194-418. Post Drug Results: Lower PRU levels are associated with expected antiplatelet effect. Values may be below the stated reference range above. The post-drug PRU values reported in the [employer] P2Y12 package insert are [id number].POCT-ASPIRIN PLATELET [id number] 16:18:00 Test Item Value Reference Range Comments POC-ASPIRIN PLATELET AGG (BEAKER) (test nviy=3160) 539 ARU RANGE INFORMATION: 350-549 ARU Therapeutic range for platelet function. 550-700 ARU Non-Therapeutic range for platelet function.URINALYSIS W / [id number] 14:26:00 Test Item Value Reference Range Comments COLOR (BEAKER) (test rhmg=780) Yellow CLARITY (BEAKER) (test fjcr=333) Clear SPECIFIC GRAVITY UA (BEAKER) (test xxqc=190) 1.013 1.001-1.035 PH UA (BEAKER) (test ckap=843) 5.0 5.0-8.0 PROTEIN UA (BEAKER) (test yweb=338) 50 mg/dL Negative GLUCOSE UA (BEAKER) (test vlgl=617) 200 mg/dL Negative KETONES UA (BEAKER) (test bbud=020) Negative Negative BILIRUBIN UA (BEAKER) (test butg=750) Negative Negative BLOOD UA (BEAKER) (test zeom=665) Negative Negative NITRITE UA (BEAKER) (test jkrg=933) Negative Negative LEUKOCYTE ESTERASE UA (BEAKER) (test nomi=694) Negative Negative UROBILINOGEN UA (BEAKER) (test eqbf=638) 0.2 mg/dL 0.2-1.0 RBC UA (BEAKER) (test mysr=270) 1 /HPF WBC UA (BEAKER) (test dvcl=156) 1 /HPF MUCUS (BEAKER) (test jelk=3861) Rare HYALINE CASTS (BEAKER) (test ucuj=188) 9 /LPF SOURCE(BEAKER) (test ubrs=8358) CBC W/PLT COUNT & AUTO [id number] 13:21:00 Test Item Value Reference Range Comments WHITE BLOOD CELL COUNT (BEAKER) (test qsae=643) 7.6 K/ L 4.0-10.0 RED BLOOD CELL COUNT (BEAKER) (test ckae=504) 6.02 M/ L 4.20-5.80 HEMOGLOBIN (BEAKER) (test vjlg=720) 17.5 GM/DL 13.0-16.8 HEMATOCRIT (BEAKER) (test piel=859) 53.2 % 40.0-50.0 MEAN CORPUSCULAR VOLUME (BEAKER) (test gsvs=760) 88.3 fL 82.0-98.0 MEAN CORPUSCULAR HEMOGLOBIN (BEAKER) (test 29.0 pg 27.0-33.0 otmn=317) MEAN CORPUSCULAR HEMOGLOBIN CONC (BEAKER) (test 32.9 GM/DL 32.0-36.0 xfnn=102) RED CELL DISTRIBUTION WIDTH (BEAKER) (test 12.4 % 10.3-14.2 gsev=546) PLATELET COUNT (BEAKER) (test dqcw=428) 177 K/CU MM 150-430 MEAN PLATELET VOLUME (BEAKER) (test ebjb=635) 7.7 fL 6.5-10.5 NUCLEATED RED BLOOD CELLS (BEAKER) (test 0 /100 WBC 0-0 tvhz=720) NEUTROPHILS RELATIVE PERCENT (BEAKER) (test 47 % eery=289) LYMPHOCYTES RELATIVE PERCENT (BEAKER) (test 44 % qwsw=687) MONOCYTES RELATIVE PERCENT (BEAKER) (test 6 % kukn=867) EOSINOPHILS RELATIVE PERCENT (BEAKER) (test 2 % wunz=781) BASOPHILS RELATIVE PERCENT (BEAKER) (test 1 % pfod=040) NEUTROPHILS ABSOLUTE COUNT (BEAKER) (test 3.58 K/ L 1.80-8.00 dfsl=702) LYMPHOCYTES ABSOLUTE COUNT (BEAKER) (test 3.36 K/ L 1.48-4.50 qsad=957) MONOCYTES ABSOLUTE COUNT (BEAKER) (test 0.47 K/ L 0.00-1.30 hlld=230) EOSINOPHILS ABSOLUTE COUNT (BEAKER) (test 0.16 K/ L 0.00-0.50 tlbf=631) BASOPHILS ABSOLUTE COUNT (BEAKER) (test 0.06 K/ L 0.00-0.20 zxjq=933) 0.00(MANUAL DIFFERENTIAL)2017-03-18 13:21:00 Test Item Value Reference Range Comments TOTAL COUNTED (BEAKER) (test lbhj=0865) WBC MORPHOLOGY (BEAKER) (test zdrb=795) Normal PLT MORPHOLOGY (BEAKER) (test iaor=097) Normal RBC MORPHOLOGY (BEAKER) (test tauj=120) Normal POCT-GLUCOSE [id number] 11:40:00 Test Item Value Reference Range Comments POC-GLUCOSE METER (BEAKER) 241 mg/dL 70-110 TESTED AT [address] (test avru=4728) [place] [address] HEMOGLOBIN [id number] 10:44:00 Test Item Value Reference Range Comments HEMOGLOBIN A1C (BEAKER) (test anny=646) 11.2 % 4.3-6.1 POCT-GLUCOSE [id number] 08:11:00 Test Item Value Reference Range Comments POC-GLUCOSE METER (BEAKER) 185 mg/dL 70-110 TESTED AT [address] (test kkwz=1101) [place] [address] LIPID [id number] 06:02:00 Test Item Value Reference Range Comments TRIGLYCERIDES (BEAKER) (test sxil=283) 335 mg/dL CHOLESTEROL (BEAKER) (test scai=078) 201 mg/dL HDL CHOLESTEROL (BEAKER) (test pyic=318) 38 mg/dL LDL CHOLESTEROL CALCULATED (BEAKER) (test 96 mg/dL rujx=087) Triglyceride Reference Range: Low Risk <150 Borderline 150- 199 High Risk 200-499 Very High Risk >=500Cholesterol Reference Range: Low Risk <200 Borderline 200-239 High Risk > 240HDL Cholesterol Reference Range: Low Risk >=60 High Risk <40LDL Cholesterol Reference Range: Optimal <100 Near Optimal 100-129 Borderline 130-159 High 160-189 Very High >=190[facility] [id number] 06:02:00 Test Item Value Reference Range Comments SODIUM (BEAKER) (test 135 meq/L 136-145 kwtb=801) POTASSIUM (BEAKER) (test 3.6 meq/L 3.5-5.1 rbeh=763) CHLORIDE (BEAKER) (test 99 meq/L 98-107 twas=099) CO2 (BEAKER) (test 23 meq/L 22-29 bhnx=083) BLOOD UREA NITROGEN 25 mg/dL 7-21 (BEAKER) (test xwci=909) CREATININE (BEAKER) (test 1.59 mg/dL 0.57-1.25 ahrj=653) GLUCOSE RANDOM (BEAKER) 177 mg/dL 70-105 (test ygrm=541) CALCIUM (BEAKER) (test 9.4 mg/dL 8.4-10.2 fwwb=444) EGFR (BEAKER) (test 43 mL/min/1.73 sq m ESTIMATED GFR IS NOT wcyr=1264) ACCURATE CREATININE CLEARANCE IN PREDICTING GLOMERULAR FILTRATION RATE. ESTIMATED GFR IS NOT APPLICABLE FOR DIALYSIS PATIENTS. POCT-GLUCOSE [id number] 00:02:00 Test Item Value Reference Range Comments POC-GLUCOSE METER (BEAKER) 131 mg/dL 70-110 TESTED AT [facility] [address] [facility] (test gyxw=5262) [facility] [address] CREATINE KINASE (CK), TOTAL AND [id number] 22:46:00 Test Item Value Reference Range Comments CREATINE KINASE TOTAL (BEAKER) (test wwyr=805) 44 U/L 29-200 CREATINE KINASE-MB (BEAKER) (test jlqz=921) 1.3 ng/mL 0.0-6.6 CREATINE KINASE-MB INDEX (BEAKER) (test mvnn=505) 3.0 % Effective 09/19/2014: CK-MB Reference Range ChangeNew: 0.0-6.6 Previous: 0.0- 4.9CK-MB Reference Range:<6.7 Normal6.7-10.0 Borderline>10.0 AbnormalTROPONIN [id number] 22:46:00 Test Item Value Reference Range Comments TROPONIN I (BEAKER) (test easu=832) 0.01 ng/mL 0.00-0.03 Effective 09/19/2014: Reference Range ChangeNew: 0.00-0.03 Previous 0.00- 0.15Troponin I (TnI) levels must be interpreted in the context of the presenting symptoms and the clinical findings. Elevated TnI levels indicate myocardial damage, but are not specific for ischemic heart disease. Elevated TnI levels are seen in patients with other cardiac conditions (including myocarditis and congestive heartfailure), and slight TnI elevations occur in patients with other conditions, including sepsis, renalfailure, acidosis, acute neurological disease, and persistent tachyarrhythmia.POCT-GLUCOSE [id number] 22:18:00 Test Item Value Reference Range Comments POC-GLUCOSE METER (AppUpper - ASO) 161 mg/dL 70-110 TESTED AT [address] (test lour=4129) [facility] [address] HEMOGLOBIN [id number] 18:18:00 Test Item Value Reference Range Comments HEMOGLOBIN A1C (BEAKER) (test udho=060) 11.7 % 4.3-6.1 VITAMIN [id number] 18:15:00 Test Item Value Reference Range Comments VITAMIN B12 (BEAKER) (test mrxq=047) 251 pg/mL 213-816 TSH/FREE T4 IF [id number] 18:15:00 Test Item Value Reference Range Comments THYROID STIMULATING HORMONE (BEAKER) (test 1.18 uIU/mL 0.35-4.94 azrb=075) B-TYPE NATRIURETIC FACTOR (BNP)2017-03-17 17:59:00 Test Item Value Reference Range Comments B-TYPE NATRIURETIC PEPTIDE (BEAKER) (test anal=851) 43 pg/mL 0-100 CREATINE KINASE (CK), TOTAL AND [id number] 17:58:00 Test Item Value Reference Range Comments CREATINE KINASE TOTAL (BEAKER) (test iwsu=578) 41 U/L 29-200 CREATINE KINASE-MB (BEAKER) (test oksu=716) 1.3 ng/mL 0.0-6.6 CREATINE KINASE-MB INDEX (BEAKER) (test bzxt=517) 3.2 % Effective 09/19/2014: CK-MB Reference Range ChangeNew: 0.0-6.6 Previous: 0.0- 4.9CK-MB Reference Range:<6.7 Normal6.7-10.0 Borderline>10.0 AbnormalTROPONIN [id number] 17:58:00 Test Item Value Reference Range Comments TROPONIN I (BEAKER) (test mize=738) < ng/mL 0.00-0.03 Effective 09/19/2014: Reference Range ChangeNew: 0.00-0.03 Previous 0.00- 0.15Troponin I (TnI) levels must be interpreted in the context of the presenting symptoms and the clinical findings. Elevated TnI levels indicate myocardial damage, but are not specific for ischemic heart disease. Elevated TnI levels are seen in patients with other cardiac conditions (including myocarditis and congestive heartfailure), and slight TnI elevations occur in patients with other conditions, including sepsis, renalfailure, acidosis, acute neurological disease, and persistent tachyarrhythmia.[id number] 17:51: 00 Test Item Value Reference Range Comments MAGNESIUM (BEAKER) (test hdlr=688) 2.0 mg/dL 1.6-2.6 BASIC METABOLIC [id number] 17:51:00 Test Item Value Reference Range Comments SODIUM (BEAKER) (test 138 meq/L 136-145 bgko=379) POTASSIUM (BEAKER) (test 4.4 meq/L 3.5-5.1 lwqh=540) CHLORIDE (BEAKER) (test 101 meq/L 98-107 lnwv=270) CO2 (BEAKER) (test 23 meq/L 22-29 rltc=821) BLOOD UREA NITROGEN 25 mg/dL 7-21 (BEAKER) (test eoso=998) CREATININE (BEAKER) 1.87 mg/dL 0.57-1.25 (test aprp=780) GLUCOSE RANDOM (BEAKER) 134 mg/dL 70-105 (test ngeu=047) CALCIUM (BEAKER) (test 9.9 mg/dL 8.4-10.2 hsus=250) EGFR (BEAKER) (test 35 mL/min/1.73 sq m INSUFFICIENT CLINICAL DATA qjhg=1784) TO CALCULATE ESTIMATED GFR. PT/[id number] 17:43:00 Test Item Value Reference Range Comments PROTIME (BEAKER) (test fypz=587) 13.6 seconds 11.7-14.7 INR (BEAKER) (test nodi=240) 1.1 <=5.9 PARTIAL THROMBOPLASTIN TIME (BEAKER) (test 29.9 seconds 22.5-36.0 zgky=131) RECOMMENDED COUMADIN/WARFARIN INR THERAPY RANGESSTANDARD DOSE: 2.0 - 3.0 Includes: PROPHYLAXIS forvenous thrombosis, systemic embolization; TREATMENT for venous thrombosis and/or pulmonary embolus.HIGH RISK: Target INR is 2.5-3.5 for patients with mechanical heart valves.CBC W/PLT COUNT & AUTO [id number] 17:11:00 Test Item Value Reference Range Comments WHITE BLOOD CELL COUNT (BEAKER) (test tnyu=730) 9.2 K/ L 4.0-10.0 RED BLOOD CELL COUNT (BEAKER) (test irhq=111) 5.84 M/ L 4.20-5.80 HEMOGLOBIN (BEAKER) (test ogxn=037) 17.8 GM/DL 13.0-16.8 HEMATOCRIT (BEAKER) (test dqnc=643) 50.4 % 40.0-50.0 MEAN CORPUSCULAR VOLUME (BEAKER) (test dren=505) 86.3 fL 82.0-98.0 MEAN CORPUSCULAR HEMOGLOBIN (BEAKER) (test 30.4 pg 27.0-33.0 trzj=567) MEAN CORPUSCULAR HEMOGLOBIN CONC (BEAKER) (test 35.3 GM/DL 32.0-36.0 sbys=183) RED CELL DISTRIBUTION WIDTH (BEAKER) (test 13.6 % 10.3-14.2 zpwh=611) PLATELET COUNT (BEAKER) (test dxvq=609) 186 K/CU MM 150-430 MEAN PLATELET VOLUME (BEAKER) (test waqh=800) 7.7 fL 6.5-10.5 NUCLEATED RED BLOOD CELLS (BEAKER) (test 0 /100 WBC 0-0 nqau=630) NEUTROPHILS RELATIVE PERCENT (BEAKER) (test 69 % flpl=674) LYMPHOCYTES RELATIVE PERCENT (BEAKER) (test 23 % qkks=290) MONOCYTES RELATIVE PERCENT (BEAKER) (test 6 % lkys=017) EOSINOPHILS RELATIVE PERCENT (BEAKER) (test 2 % neyl=203) BASOPHILS RELATIVE PERCENT (BEAKER) (test 1 % pdwa=774) NEUTROPHILS ABSOLUTE COUNT (BEAKER) (test 6.36 K/ L 1.80-8.00 kvte=148) LYMPHOCYTES ABSOLUTE COUNT (BEAKER) (test 2.09 K/ L 1.48-4.50 vcju=143) MONOCYTES ABSOLUTE COUNT (BEAKER) (test 0.52 K/ L 0.00-1.30 chld=076) EOSINOPHILS ABSOLUTE COUNT (BEAKER) (test 0.14 K/ L 0.00-0.50 ibly=778) BASOPHILS ABSOLUTE COUNT (BEAKER) (test 0.07 K/ L 0.00-0.20 zrnq=913) 0.00
[2018-02-25 18:11] VITALS: BMI 31.4
[2018-02-25 18:38] LABS: Absolute Lymphocytes (CBC) 1.1 K/uL (0.7-4.9); Absolute Neutrophil 9.2 K/uL (1.8-8.0); Basophils % 0.7 % (0-1.3); Eosinophils % 0.6 % (0-4.4); Hematocrit 49.2 % (39.6-49.0); Lymphocytes % 9.8 % (15.3-44.8); MCH 28.7 pg (27.0-35.0); MCV 86.1 fL (80-100); MPV 8.5 fL (7.6-11.3); RBC Red Blood Cell Count 5.71 M/uL (4.33-5.43)
[2018-02-25 18:43] LABS: Protime INR 1.15
[2018-02-25 18:54] LABS: Albumin 4.3 g/dL (3.2-5.5); Bilirubin Direct 0.2 mg/dL (0-0.2); Bilirubin Total 1.4 mg/dL (0.3-1.2); Magnesium 1.8 mg/dL (1.8-2.5); Protein, Total 7.9 g/dL (6.0-8.3)
--- NOTE | 2018-02-25 19:14 | RAD REPORT ---
EXAM DESCRIPTION: Meena Diop And July (2 Views)02/25/2018 7:06 pm CLINICAL HISTORY: Cough COMPARISON: 2016 FINDINGS: The lungs are hyperaerated. The lungs appear clear of acute infiltrate. The heart is brandon l size IMPRESSION: No acute abnormalities displayed
[2018-02-25 19:27] LABS: Thyroid Stimulating Hormone 0.97 uIU/mL (0.34-5.60)
[2018-02-25 19:31] LABS: A1c Component 1.19 mg/dL; Hemoglobin A1c 8.4 % (4-6.0)
[2018-02-25] MEDS ORDERED: PNEUMOCOCCAL VACCINE 0.5 ML IMVAC ONE (20:00)
--- NOTE | 2018-02-25 20:41 | RAD REPORT ---
EXAM DESCRIPTION: CT - Ct Stroke Brain Wo Cont - 02/25/2018 8:26 pm CLINICAL HISTORY: Alteration of consciousness COMPARISON: 2014 TECHNIQUE: Computed axial tomography of the head was obtained. IV contrast was not requested. All CT scans are performed using dose optimization technique as appropriate and may include automated exposure control or mA/KV adjustment according to patient size. FINDINGS: An intracranial bleed is not seen . The ventricles are normal in caliber. No extra-axial fluid collection is noted. A 1 centimeter low-density area has developed within the wh ite matter of the right frontal lobe. Fluid within the sinuses/ mastoids is not seen. IMPRESSION: 1 centimeter low-density area within the white matter of the right frontal lobe may repr esent an area of ischemia or an infarct of indeterminate age. If clinically indicated further evaluat ion with MRI may be helpful The patient's nurse Carmela was notified 8:35 p.m. on February 25, 2018
[2018-02-25 21:08] LABS: CKMB Creatine Kinase MB 3.3 ng/ml (0.3-4.0)
--- NOTE | 2018-02-25 21:18 | P.HP ---
Certification for Inpatient Patient admitted to: Inpatient With expected LOS: >2 Midnights Practitioner: I am a practitioner with admitting privileges, knowledge of patient current condition, hospital course, and medical plan of care. Services: Services provided to patient in accordance with Admission requirements found in Title 42 Section 412.3 of the Code of Federal Regulations Patient History Date of Service: 02/25/18 Reason for admission: FEVER, WEAKNESS, COULD NOT GET UP FROM BED History of Present Illness: MR BOLAND WALKS IN OFFICE AT 4 PM WITH FEVER, WEAKNESS, COULD NOT MANEUVER TO GET TO THE EXAM TABLE, AFTER LAYING DOWN HE GOT BACK SITTING BUT THEN FELL BACKWARDS ON THE TABLE FROM SITTING. HE HAS DEMENTIA BUT AT THE SAME TIME HE IS WORSE THAN USUAL PER . HE CAME WITH RESPIRATORY COMPLAINTS BUT HE MAY HAVE SOME NEURO COGNITIVE SYMTPOMS AND ATAXIA, I DECIDED TO ADMIT HIM. Allergies No Known Allergies Allergy (Verified 02/25/18 20:48) Home Medications: Amitriptyline [Elavil*] 150 mg PO BEDTIME 07/18/13 Clopidogrel Bisulfate [Plavix*] 75 mg PO DAILY 07/18/13 Furosemide [Lasix*] 40 mg PO PRN PRN 07/18/13 Insulin Detemir [Levemir Flexpen] 50 units SQ DAILY 07/18/13 Levothyroxine [Synthroid*] 112 mcg PO DAILY 07/18/13 Simvastatin [Zocor*] 40 mg PO DAILY 07/18/13 Aspirin 81 mg PO DAILY 06/05/15 Donepezil HCl [Aricept] 06/05/15 Exenatide Microspheres [Bydureon] 06/05/15 Fludrocortisone [Florinef *] 0.1 mg PO DAILY 06/05/15 Insulin -Regular Human [Novolin -R*] 10 unit SQ AC 06/05/15 Metoprolol Tartrate [Lopressor*] 25 mg PO BID 06/05/15 Omeprazole [Prilosec] 20 mg PO DAILY 06/05/15 - Past Medical/Surgical History Diabetic: Yes -: HTN -: CAD -: PR -: 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 -: 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 -: KIDNEY STONES -: Cardiac stents 8 YRS AGO -: Korey artificial knee replacement -: 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 moist/pink, EOMI, Sclerae nonicteric Neck: Supple, 2+ carotid pulse no bruit, No LAD, Without JVD or thyroid abnormality Respiratory: Clear to auscultation bilaterally, Normal air movement Cardiovascular: Regular rate/rhythm, Normal S1 S2 Gastrointestinal: Normal bowel sounds, No tenderness Musculoskeletal: No tenderness Integumentary: No rashes Neurological: Abnormal gait, Abnormal tone, Dementia (NOT ABLE TO FOLLOW COMMANDS WELL.) Lymphatics: No axilla or inguinal lymphadenopathy - Studies Laboratory Data (last 24 hrs) 02/25/18 20:38: Troponin I 0.03 02/25/18 18:25: PT Cancelled, INR Cancelled 02/25/18 18:25: Sodium 134 L, Potassium 5.0, BUN 30 H, Creatinine 1.87 H, Glucose 244 H, Phosphorus 3.0, Magnesium 1.8, Total Bilirubin 1.4 H, AST 24, ALT 19, Alkaline Phosphatase 90 02/25/18 18:25: PT 13.6 H, INR 1.15, APTT 30.2 02/25/18 18:25: WBC 11.6 H, Hgb 16.4, Hct 49.2 H, Plt Count 198 Assessment and Plan - Problems (Diagnosis) (1) 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 I AM NOT SURE IF THIS IS RESIDUAL FROM WHEN HE WAS FLOWN TO [place] A FEW WEEKS AGO. CONSULT NEUROLOGY,RESUME PLAVIX. MRI IN AM. (2) Fever Current Visit: No Status: Active Plan: THIS WITH DEHYDRATION SEEM TO BE MAIN REASON FOR HIS DISORIENTATION. WILL HYDRATE GENTLY RESUME ABX. SOURCE OF FEVER SEEM TO BE RESPIRATORY WITH HIS SYMPTOMS. (3) Altered mental status Onset Date: 06/06/15 Current Visit: No Status: Acute Plan: ABOVE WITH ALZ DEMENTIA BASELINE. (4) Diabetes type 2, uncontrolled Current Visit: Yes Status: Chronic Plan: IT IS VERY DIFFICULT FOR HIM AND HIS LIVING ALONE TO MANAGE DM. BOTH HAVE MEMORY LOSS AND NO FAMILY TO HELP. HE IS NOT HOME BOUND FOR HOME HEALTH. - Advance Directives Does patient have a Living Will: No Does patient have a Durable POA for Healthcare: No
[2018-02-25] MEDS ORDERED: GLUCAGON 1 MG/VIAL IM PRN (21:58)
[2018-02-25] MEDS ORDERED: D50W 25 GM/50 ML SYRINGE IV PRN (21:58)
[2018-02-26 05:27] LABS: Absolute Lymphocytes (CBC) 1.3 K/uL (0.7-4.9); Absolute Monocytes 1.2 K/uL (0.1-1.3); Absolute Neutrophil 5.8 K/uL (1.8-8.0); Basophils % 0.7 % (0-1.3); Eosinophils % 2.3 % (0-4.4); Hematocrit 45.4 % (39.6-49.0); Lymphocytes % 15.1 % (15.3-44.8); MCV 85.2 fL (80-100); MPV 9.1 fL (7.6-11.3); Monocytes % 13.7 % (3.3-12.3); RBC Red Blood Cell Count 5.32 M/uL (4.33-5.43)
[2018-02-26 05:46] LABS: CKMB Creatine Kinase MB 3.9 ng/ml (0.3-4.0); Magnesium 1.9 mg/dL (1.8-2.5)
[2018-02-26] MEDS: NACHLORIDE 0.45% 1,000 ML IV SCH ×4 (06:39→22:40)
--- NOTE | 2018-02-26 09:20 | RAD REPORT ---
EXAM DESCRIPTION: MRI - Brain Wo Cont - 02/25/2018 11:46 pm CLINICAL HISTORY: Alteration of consciousness COMPARISON: February 25, [address] TECHNIQUE: Axial, sagittal, and coronal magnetic images of the brain were obtained. Contrast was not requested FINDINGS: Small area of abnormal signal within the right frontal lobe has the appearance of an old i nfarction. Diffusion-weighted/ADC mapping does not reveal evidence of acute infarction. The ventricles are normal caliber. An extra-axial fluid collection is not present mild signal within periventricular and deep white katja er likely represent ischemic changes secondary to small vessel disease. Chronic occlusion of the right internal carotid artery is present. The sinuses and mastoids are clear. IMPRESSION: No acute intracranial abnormality is seen
[2018-02-26] MEDS: INSULIN -REGULAR HUMAN 50 UNIT/0.5 ML ML SQ SCH ×5 (10:03→21:00)
[2018-02-26] MEDS: LEVOTHYROXINE SOD 0.112 MG TAB PO SCH (10:03)
[2018-02-26] MEDS: ASPIRIN 81 MG CHEWABLE TABLET PO SCH (10:03)
[2018-02-26] MEDS: CLOPIDOGREL 75 MG TABLET PO SCH (10:03)
--- NOTE | 2018-02-26 10:04 | P.CNS ---
Date of Consult: 02/26/18 Reason for Consult: Altered mental status Chief Complaint: FEVER, WEAKNESS, COULD NOT GET UP FROM BED History of Present Illness: Patient is 77 years of age has been feeling sick for the past 2-3 weeks disoriented very weak unable to put on his clothes having cough shortness of breath patient is febrile admitted to the hospital he denies any history of cardiopulmonary disorders patient is a poor historian he has fever blood cultures are pending Allergies No Known Allergies Allergy (Verified 02/25/18 20:48) Home Medications: Amitriptyline HCl 100 mg PO DAILY 02/25/18 Amlodipine [Norvasc] 5 mg PO DAILY 02/25/18 Aspirin [Aspir-Low] 81 mg PO DAILY 02/25/18 Atorvastatin Calcium [Lipitor] 40 mg PO BEDTIME 02/25/18 Butalb/Acetaminophen/Caffeine [Gmcdae-Dhhjrcyv-Igss 50-325-40] 1 each PO Q6H PRN 02/25/18 Clopidogrel Bisulfate [Plavix] 75 mg PO DAILY 02/25/18 Donepezil [Aricept] 10 mg PO BEDTIME 02/25/18 Furosemide [Lasix] 40 mg PO DAILY 02/25/18 Insulin 70/30 NPH/Reg Human [Novolin 70/30*] 100 unit SQ SEECOM 02/25/18 Levothyroxine [Synthroid] 125 mcg PO [id number] 02/25/18 Magnesium Oxide [Mag 0X Tab] 400 mg PO BID 02/25/18 Meclizine HCl 25 mg PO TID PRN 02/25/18 Metoprolol Succinate [Toprol Xl] 100 mg PO DAILY 02/25/18 Ramipril [Altace] 5 mg PO DAILY 02/25/18 - Past Medical/Surgical History Diabetic: Yes -: HTN -: CAD -: [place] -: 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 -: 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 -: KIDNEY STONES -: Cardiac stents 8 YRS AGO -: Korey artificial knee replacement -: MELOMA TUMOR 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 - HAS SUTURES IN PLACE -: APPY -: KIDNEY STONES - Family History Father Medical History: Heart disease, Hypertension - Social History Smoking Status: Former smoker Alcohol use: No CD- Drugs: No Caffeine use: Yes Place of Residence: Home Review of Systems 10-point ROS is otherwise unremarkable General: Weakness Respiratory: Cough, Shortness of Breath Genitourinary: Incontinence Physical Examination Temp Pulse Resp BP Pulse Ox 101.2 F H 100 H 20 148/73 H 91 02/26/18 08:00 02/26/18 08:00 02/26/18 08:00 02/26/18 08:00 02/26/18 08:00 General: Alert, Oriented x3 HEENT: Atraumatic, Other Neck: Supple Respiratory: Clear to auscultation bilaterally, Friction rub Cardiovascular: Regular rate/rhythm Gastrointestinal: Normal bowel sounds, Soft and benign Musculoskeletal: No clubbing, No swelling Integumentary: No rashes, No breakdown Laboratory Data (last 24 hrs) 02/26/18 05:00: Sodium Cancelled, Potassium Cancelled, BUN Cancelled, Creatinine Cancelled, Glucose Cancelled, Magnesium Cancelled 02/26/18 04:23: WBC 8.5 D, Hgb 15.4, Hct 45.4, Plt Count 144 L D 02/26/18 04:01: Troponin I 0.04 H 02/26/18 04:01: Sodium 134 L, Potassium 4.0, BUN 32 H, Creatinine 1.71 H, Glucose 213 H, Magnesium 1.9 02/25/18 20:38: Troponin I 0.03 02/25/18 18:25: PT Cancelled, INR Cancelled 02/25/18 18:25: Sodium 134 L, Potassium 5.0, BUN 30 H, Creatinine 1.87 H, Glucose 244 H, Phosphorus 3.0, Magnesium 1.8, Total Bilirubin 1.4 H, AST 24, ALT 19, Alkaline Phosphatase 90 02/25/18 18:25: PT 13.6 H, INR 1.15, APTT 30.2 02/25/18 18:25: WBC 11.6 H, Hgb 16.4, Hct 49.2 H, Plt Count 198 - Problems (1) Fever Current Visit: No Status: Active Plan: Patient is 77 years of age admitted with a fever documented in the hospital altered mental status, disorientation cough shortness of breath chest x-rays clear cultures are pending white count is now normal mildly elevated creatinine normal TSH slightly low vitamin B12 MRI of the brain is negative is probably of viral infection influenza screen is pending continue with supportive treatment I have also added IV Rocephin p.o. Zithromax possibility of an infection that could have triggered it
[2018-02-26] MEDS: AZITHROMYCIN 250 MG TAB PO SCH (10:23)
[2018-02-26] MEDS: THIAMINE HCL 100 MG TABLET PO SCH (10:23)
[2018-02-26] MEDS ORDERED: CEFTRIAXONE 1 GM/NS 50 ML 1 GM/50 ML BAG IV SCH (11:00)
[2018-02-26] MEDS: CEFTRIAXONE/SWI 1gm 1 GM/10 ML SYR IV SCH (11:15)
[2018-02-26 11:30] LABS: UR CREAT 29.1 mg/dL
[2018-02-26 11:31] LABS: UR MICROALBUMIN < 0.2 mg/dL (< 1.9)
[2018-02-26 11:37] LABS: Urine Appearance CLEAR; Urine Bilirubin NEGATIVE (NEG); Urine Blood 2+ (NEG); Urine Color YELLOW; Urine Glucose TRACE (NEG); Urine Protein 2+ (NEG)
[2018-02-26 11:39] LABS: Urine Microscopic Reflex ORDER UMIC
[2018-02-26 11:51] LABS: Urine Bacteria 20-50 /HPF (NONE SEEN); Urine Culture Reflex Order NOT NEEDED; Urine Mucus 1+ /HPF (NONE SEEN)
[2018-02-26] MEDS ORDERED: ACETAMIN/CAFFEINE/BUTALB TAB PO PRN (12:13)
[2018-02-26] MEDS ORDERED: MECLIZINE HCL 12.5 MG TAB PO PRN (12:30)
[2018-02-26] MEDS ORDERED: INSULIN 70/30 100 UNITS/ML SQ SCH (13:00)
[2018-02-26 13:17] LABS: CKMB Creatine Kinase MB 2.2 ng/ml (0.3-4.0)
--- NOTE | 2018-02-26 16:26 | EKG ---
Test Date: 2018-02-26 Test Time: 09:09:27 Chief Analytics Officer: CHRISTEL MEASUREMENT RESULTS: Intervals: Rate: 102 CA: 234 QRSD: 102 QT: 334 QTc: 435 [place]: P: 59 CA: 234 QRS: 63 T: 65 INTERPRETIVE STATEMENTS: Sinus tachycardia with 1st degree AV block Otherwise normal ECG Compared to ECG 02/25/2018 21:13:25 Sinus rhythm no longer present Ventricular premature complex(es) no longer present Electronically Signed On 02-26-18 16:23:41 CDT by [place]
--- NOTE | 2018-02-26 16:28 | EKG ---
Test Date: 2018-02-25 Test Time: 21:13:[address] Liaison: VICTOR HUGO MEASUREMENT RESULTS: Intervals: Rate: 83 MD: 232 QRSD: 102 QT: 384 QTc: 451 [place]: P: 43 MD: 232 QRS: 49 T: 97 INTERPRETIVE STATEMENTS: Sinus rhythm with 1st degree AV block with occasional premature ventricular complexes Otherwise normal ECG Compared to ECG 07/18/2013 17:11:34 Ventricular premature complex(es) now present First degree AV block now present Sinus tachycardia no longer present Myocardial infarct finding no longer present Electronically Signed On 02-26-18 16:23:56 CDT by [place]
[2018-02-26] MEDS: INSULIN 70/30 100 UNITS/ML SQ SCH (16:36)
[2018-02-26] MEDS: DONEPEZIL HCL 5 MG TAB PO SCH (21:39)
[2018-02-26] MEDS: AMITRIPTYLINE 50 MG TAB PO SCH (21:39)
[2018-02-26] MEDS: MAGNESIUM OXIDE 400 MG TAB PO SCH (21:39)
[2018-02-26] MEDS: ATORVASTATIN 40 MG TAB PO SCH (21:39)
--- NOTE | 2018-02-26 21:53 | RAD REPORT ---
EXAM DESCRIPTION: JOANN - RAJENDRA - 02/26/2018 9:23 pm CLINICAL HISTORY: TIA COMPARISON: None. TECHNIQUE: Real-time sonographic evaluation of both carotid systems was performed. Doppler interroga tion was performed with waveform tracing bilaterally. FINDINGS: Normal high resistance waveforms are noted in both external carotid arteries. The common c arotid arteries and internal carotid arteries show normal low resistance waveforms. Calcified and noncalcified plaquing changes are present in the internal carotid artery on the right. On visual inspection no significant luminal narrowing on the right. A left stent is in place. Peak sy stolic velocity on the right is 128 cm/second. A 1.3 ICA/ CCA ratio noted on the right. No elevated c ommon carotid or internal carotid artery velocity on the left. A 0.8 ICA/ CCA ratio noted. There is m arked elevation of the left external carotid velocity. However, an external stenosis is generally not clinically significant. Antegrade flow seen in both vertebral arteries. Velocity values and ratios were recorded and are retained in the patient's imaging records. IMPRESSION: Calcified and noncalcified plaquing changes in the right carotid vasculature. No hemodyn amically significant stenosis. Left-sided ICA stenting. No hemodynamically significant stenosis in the left common carotid or international editorial producer al carotid artery.
--- NOTE | 2018-02-27 00:19 | CON ---
Date of Consultation: 02/26/2018 Time: 1899. Reason: Altered mental status. History: A 77-year-old gentleman with multiple medical problems, history of dementia, diabetes, hype rtension, hypothyroidism, hyperlipidemia. He has been ill with cough and congestion for several days and has had fevers as well, presented to his primary care physician's office where he was noted to b e more confused than normal and unsteady on his feet, so he is admitted to the hospital for further e valuation and management of that problem. Since being admitted, chest x-ray clear. He has been seen by Pulmonary. Flu screen negative. Brain MRI. No evidence of acute stroke. 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 The patient is not actively hallucinating. He knows his name. He knows he is in the hospital. He seems to be slowly improving with hydration and manage ment of the underlying possible viral illness. Consultation was requested. Past Medical History: As alluded to. Medications: Routinely, Altace 5 mg, metoprolol 100 daily, meclizine, magnesium, Synthroid 125, 70/3 0 insulin, Lasix, Aricept 10, Plavix 75, Fioricet, Lipitor 40, aspirin 81, Norvasc 5, amitriptyline 1 00. B1 has also been added to his regimen. Allergies: NONE. Social History: No longer smokes. Family History: Noncontributory. Review of Systems: General: Recent illness as noted. Eyes: Does have some nystagmus. Ears, Nose, Throat: No dysarthria. No aphasia. Cardiovascular: Hypertension. Pulmonary: Cough. GI: Negative. : Negative. Musculoskeletal: No arthralgias. Neurologic: As noted. Psychiatric: Negative. Endocrine: Diabetes and hypothyroidism. Hematologic: Negative. Physical Examination: Vital Signs: He is afebrile currently, 99, 82, 20, 118/62. General: Pleasant gentleman, lying in bed, in no distress. Easily arousable. Awake, alert, oriente d. Knows he is in the hospital. HEENT: Pupils reactive. Ocular motion full. Nj full. Neurologic: Facial strength and sensation normal. Tongue protrudes evenly. Soft palate elevates sy mmetrically bilaterally. Extremity strength full. Sensation intact. Reflexes 1/4. Toes are downgo ing. No pdrutc-[id number]-[id number] ataxia. Impression: Dementia, altered mental status. Plan: We will check a carotid Doppler given the carotid occlusion on the right. Continue general aly pportive care and p.o. thiamine as you are doing. He is still in the hospital. On Thursday, we can ch lauren an EEG. Thank you for the consult. We will continue to follow with you. FRANKIE Voice ID: [id number] Report ID: [id number]
[2018-02-27 05:02] LABS: Absolute Lymphocytes (CBC) 2.1 K/uL (0.7-4.9); Absolute Monocytes 0.9 K/uL (0.1-1.3); Absolute Neutrophil 3.7 K/uL (1.8-8.0); Basophils % 0.6 % (0-1.3); Eosinophils % 3.7 % (0-4.4); Hematocrit 43.5 % (39.6-49.0); MCH 28.8 pg (27.0-35.0); MCV 86.7 fL (80-100); MPV 8.4 fL (7.6-11.3); Monocytes % 13.4 % (3.3-12.3); RBC Red Blood Cell Count 5.02 M/uL (4.33-5.43)
[2018-02-27 05:43] LABS: Potassium 3.8 mEq/L (3.6-5.0)
[2018-02-27] MEDS ORDERED: LEVOTHYROXINE SOD 0.125 MG TAB PO SCH (06:00)
[2018-02-27] MEDS: NACHLORIDE 0.45% 1,000 ML IV SCH (07:27)
[2018-02-27] MEDS: INSULIN -REGULAR HUMAN 50 UNIT/0.5 ML ML SQ SCH ×4 (07:30→21:00)
[2018-02-27] MEDS ORDERED: POTASSIUM 25 MEQ EFFERV TAB PO ONE (08:00)
[2018-02-27] MEDS ORDERED: CLOPIDOGREL 75 MG TABLET PO SCH (09:00)
[2018-02-27] MEDS ORDERED: ASPIRIN EC 81 MG TAB PO SCH (09:00)
[2018-02-27] MEDS ORDERED: RAMIPRIL 5 MG CAP PO SCH (09:00)
[2018-02-27] MEDS ORDERED: AMLODIPINE 5 MG TAB PO SCH (09:00)
[2018-02-27] MEDS: CEFTRIAXONE/SWI 1gm 1 GM/10 ML SYR IV SCH (09:31)
[2018-02-27] MEDS: INSULIN 70/30 100 UNITS/ML SQ SCH ×2 (09:31→17:29)
[2018-02-27] MEDS: MAGNESIUM OXIDE 400 MG TAB PO SCH ×2 (09:32→20:21)
[2018-02-27] MEDS: ASPIRIN 81 MG CHEWABLE TABLET PO SCH (09:32)
[2018-02-27] MEDS: AZITHROMYCIN 250 MG TAB PO SCH (09:32)
[2018-02-27] MEDS: LEVOTHYROXINE SOD 0.112 MG TAB PO SCH (09:32)
[2018-02-27] MEDS: CLOPIDOGREL 75 MG TABLET PO SCH (09:32)
[2018-02-27] MEDS: THIAMINE HCL 100 MG TABLET PO SCH (09:33)
[2018-02-27] MEDS: METOPROLOL XL 100 MG TAB PO SCH (09:33)
[2018-02-27] MEDS ORDERED: AMLODIPINE 10 MG TAB PO SCH (10:26)
--- NOTE | 2018-02-27 10:29 | P.CNS ---
Date of Consult: 02/27/18 Chief Complaint: FEVER, WEAKNESS, COULD NOT GET UP FROM BED History of Present Illness: Patient is still not feeling any better still has some cough congestion although he has been afebrile cultures are all negative influenza screen is also negative Allergies No Known Allergies Allergy (Verified 02/25/18 20:48) Home Medications: Amitriptyline HCl 100 mg PO DAILY 02/25/18 Amlodipine [Norvasc] 5 mg PO DAILY 02/25/18 Aspirin [Aspir-Low] 81 mg PO DAILY 02/25/18 Atorvastatin Calcium [Lipitor] 40 mg PO BEDTIME 02/25/18 Butalb/Acetaminophen/Caffeine [Otroso-Cglrxasb-Tuae 50-325-40] 1 each PO Q6H PRN 02/25/18 Clopidogrel Bisulfate [Plavix] 75 mg PO DAILY 02/25/18 Donepezil [Aricept] 10 mg PO BEDTIME 02/25/18 Furosemide [Lasix] 40 mg PO DAILY 02/25/18 Insulin 70/30 NPH/Reg Human [Novolin 70/30*] 100 unit SQ SEECOM 02/25/18 Levothyroxine [Synthroid] 125 mcg PO [id number] 02/25/18 Magnesium Oxide [Mag 0X Tab] 400 mg PO BID 02/25/18 Meclizine HCl 25 mg PO TID PRN 02/25/18 Metoprolol Succinate [Toprol Xl] 100 mg PO DAILY 02/25/18 Ramipril [Altace] 5 mg PO DAILY 02/25/18 - Past Medical/Surgical History Diabetic: Yes -: HTN -: CAD -: [place] -: 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 -: 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 -: KIDNEY STONES -: Cardiac stents 8 YRS AGO -: Korey artificial knee replacement -: MELOMA TUMOR 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 - HAS SUTURES IN PLACE -: APPY -: KIDNEY STONES - Family History Father Medical History: Heart disease, Hypertension - Social History Smoking Status: Former smoker Alcohol use: No CD- Drugs: No Caffeine use: Yes Place of Residence: Home Review of Systems General: Weakness Respiratory: Cough Physical Examination Temp Pulse Resp BP Pulse Ox 98.4 F 80 18 155/70 H 92 02/27/18 08:00 02/27/18 09:33 02/27/18 08:00 02/27/18 09:33 02/27/18 08:00 General: Oriented x3 Neck: Supple Respiratory: Clear to auscultation bilaterally, Diminished Cardiovascular: No edema, Normal S1 S2 Laboratory Data (last 24 hrs) 02/27/18 04:48: Sodium 133 L, Potassium 3.8, BUN 38 H, Creatinine 1.69 H, Glucose 148 H, Magnesium 2.0 02/27/18 04:48: WBC 7.1 D, Hgb 14.4, Hct 43.5, Plt Count 149 L 02/26/18 12:03: Troponin I 0.04 H - Problems (1) Fever Onset Date: 02/26/18 Current Visit: Yes Status: Active Plan: Patient's fever has resolved this still does not feel any better renal function no change Dc Bipin inhibitors renal ultrasound influenza screen negative cultures negative white count is normal probably has an infection of ordered PA lateral chest x-ray ambulate Dc IV fluids possible discharge in the morning
--- NOTE | 2018-02-27 13:12 | RAD REPORT ---
EXAM DESCRIPTION: RAD - Chest Pa And Lat (2 Views) - 02/27/2018 12:11 pm CLINICAL HISTORY: Evaluate for pneumonia COMPARISON: 02/25/2018, 11/14/2015 FINDINGS: The lungs are hyperexpanded compatible with COPD. Small hiatal hernia is present. The hear t is normal in size. No displaced fractures. IMPRESSION: Prominent COPD.
--- NOTE | 2018-02-27 13:14 | RAD REPORT ---
EXAM DESCRIPTION: US - Renal Ultrasound-Complete - 02/27/2018 1:03 pm CLINICAL HISTORY: Renal failure. COMPARISON: None. FINDINGS: Both kidneys are normal in size, shape and echotexture. The right kidney measures 10.6 x 4.9 x 4.4 cm. No hydronephrosis, focal mass or perinephric fluid. The left kidney measures 10.8 x 5.3 x 4.7 cm. No hydronephrosis, focal mass or perinephric fluid. IMPRESSION: Unremarkable renal sonogram.
--- NOTE | 2018-02-27 19:55 | PN ---
Date of Progress Note: 02/27/2018 Reason: Altered mental status. Interval History: The patient is improving. Sensorium is better. No additional fevers. Doppler of the carotids demonstrates no stenosis and it looks like the carotid is probably occluded in the intr acranial portion on review of prior MR. I think the patient's sensorium should continue to improve. Physical Examination: General: He is awake, alert, oriented. He is sitting in a chair. He has been ambulating. He took a shower. HEENT: Ocular motion full. Nj full. Face symmetric. Tongue midline. Extremities: Strength full. Neuro: Sensation intact. Reflexes symmetric. He is ambulatory. Impression: Delirium, improving. Plan: Continue general supportive care. Thank you for the consult. FRANKIE Voice ID: [id number] Report ID: [id number]
[2018-02-27] MEDS: AMITRIPTYLINE 50 MG TAB PO SCH (20:21)
[2018-02-27] MEDS: ATORVASTATIN 40 MG TAB PO SCH (20:21)
[2018-02-27] MEDS: DONEPEZIL HCL 5 MG TAB PO SCH (20:21)
[2018-02-27 21:04] VITALS: O2SAT 92
[2018-02-28 06:17] LABS: Absolute Lymphocytes (CBC) 2.6 K/uL (0.7-4.9); Absolute Monocytes 0.7 K/uL (0.1-1.3); Absolute Neutrophil 3.4 K/uL (1.8-8.0); Basophils % 0.7 % (0-1.3); Hematocrit 43.8 % (39.6-49.0); Lymphocytes % 36.1 % (15.3-44.8); MCH 28.9 pg (27.0-35.0); MCV 85.4 fL (80-100); MPV 8.5 fL (7.6-11.3); Monocytes % 9.7 % (3.3-12.3); RBC Red Blood Cell Count 5.13 M/uL (4.33-5.43)
[2018-02-28 06:48] LABS: Potassium 3.8 mEq/L (3.6-5.0)
[2018-02-28] MEDS: INSULIN -REGULAR HUMAN 50 UNIT/0.5 ML ML SQ SCH (07:30)
[2018-02-28] MEDS ORDERED: POTASSIUM 25 MEQ EFFERV TAB PO ONE (08:00)
[2018-02-28] MEDS: AZITHROMYCIN 250 MG TAB PO SCH (08:28)
[2018-02-28] MEDS: CEFTRIAXONE/SWI 1gm 1 GM/10 ML SYR IV SCH (08:28)
[2018-02-28] MEDS: ASPIRIN 81 MG CHEWABLE TABLET PO SCH (08:28)
[2018-02-28] MEDS: LEVOTHYROXINE SOD 0.112 MG TAB PO SCH (08:29)
[2018-02-28] MEDS: MAGNESIUM OXIDE 400 MG TAB PO SCH (08:29)
[2018-02-28] MEDS: CLOPIDOGREL 75 MG TABLET PO SCH (08:29)
[2018-02-28] MEDS: INSULIN 70/30 100 UNITS/ML SQ SCH (08:30)
[2018-02-28] MEDS: METOPROLOL XL 100 MG TAB PO SCH (08:30)
--- NOTE | 2018-02-28 10:51 | P.DS ---
Admission Date: 02/26/18 Discharge Date: 02/28/18 Disposition: ROUTINE DISCHARGE Discharge Condition: FAIR Reason for Admission: FEVER, WEAKNESS, COULD NOT GET UP FROM BED - Problems (1) Fever Onset Date: 02/26/18 Current Visit: Yes Status: Resolved Brief History of Present Illness: Patient is still not feeling any better still has some cough congestion although he has been afebrile cultures are all negative influenza screen is also negative Hospital Course: Patient is 77 years of age admitted with fever no cause was evident call cultures negative chest x-ray negative urinalysis was also negative these fever resolved he was started on some IV antibiotics developed diarrhea on Zithromax I have discharged him on doxycycline in addition he probably has COPD is former smoker he is borderline hypoxic all the did did not qualify for home oxygen Advair faxed patient also had renal impairment NAOMY-inhibitor was also stopped which resulted in some improvement amlodipine dose increased to 10 mg daily all his other home medications need to be resumed he was also on new Lasix Vital Signs/Physical Exam: Temp Pulse Resp BP Pulse Ox 97.8 F 72 18 135/68 92 02/28/18 08:00 02/28/18 08:30 02/28/18 08:00 02/28/18 08:30 02/28/18 08:00 Laboratory Data at Discharge: WBC 7.1 K/uL (4.3-10.9) 02/28/18 05:50 Hgb 14.8 g/dL (13.6-17.9) 02/28/18 05:50 Hct 43.8 % (39.6-49.0) 02/28/18 05:50 Plt Count 164 K/uL (152-406) 02/28/18 05:50 PT 13.6 SECONDS (9.5-12.5) H 02/25/18 18:25 INR 1.15 02/25/18 18:25 APTT 30.2 SECONDS (24.3-36.9) 02/25/18 18:25 Sodium 138 mEq/L (135-145) 02/28/18 05:50 Potassium 3.8 mEq/L (3.6-5.0) 02/28/18 05:50 BUN 32 mg/dL (6-20) H 02/28/18 05:50 Creatinine 1.49 mg/dL (0.61-1.24) H 02/28/18 05:50 Glucose 95 mg/dL (65-120) 02/28/18 05:50 Phosphorus 3.0 mg/dL (2.5-4.3) 02/25/18 18:25 Magnesium 2.0 mg/dL (1.8-2.5) 02/28/18 05:50 Total Bilirubin 1.4 mg/dL (0.3-1.2) H 02/25/18 18:25 AST 24 IU/L (10-42) 02/25/18 18:25 ALT 19 IU/L (10-60) 02/25/18 18:25 Alkaline Phosphatase 90 IU/L (42-121) 02/25/18 18:25 Troponin I 0.04 ng/mL (<0.03) H 02/26/18 12:03 Home Medications: Amitriptyline HCl 100 mg PO DAILY 02/25/18 Aspirin [Aspir-Low] 81 mg PO DAILY 02/25/18 Atorvastatin Calcium [Lipitor*] 40 mg PO BEDTIME 02/25/18 Butalb/Acetaminophen/Caffeine [Yeqrsk-Nbneniqt-Wrhc 50-325-40] 1 each PO Q6H PRN 02/25/18 Clopidogrel Bisulfate [Plavix*] 75 mg PO DAILY 02/25/18 Donepezil [Aricept*] 10 mg PO BEDTIME 02/25/18 Furosemide [Lasix*] 40 mg PO DAILY 02/25/18 Insulin 70/30 NPH/Reg Human [Novolin 70/30*] 100 unit SQ SEECOM 02/25/18 Levothyroxine [Synthroid*] 125 mcg PO [id number] 02/25/18 Magnesium Oxide [Mag 0X*] 400 mg PO BID 02/25/18 Meclizine HCl 25 mg PO TID PRN 02/25/18 Metoprolol Succinate [Toprol Xl] 100 mg PO DAILY 02/25/18 Amlodipine [Norvasc*] 10 mg PO DAILY #30 tab 02/28/18 Doxycycline Hyclate 100 mg PO BID #20 tablet 02/28/18 Fluticasone/Salmeterol [Advair 250-50 Diskus] 1 each IH BID #1 blst.w.dev New Medications: Amlodipine [Norvasc*] 10 mg PO DAILY #30 tab Doxycycline Hyclate 100 mg PO BID #20 tablet Fluticasone/Salmeterol [Advair 250-50 Diskus] 1 each IH BID #1 blst.w.dev Patient Discharge Instructions: Patient to be discharged home/patient to discontinue ramipril amlodipine increased to 10 mg daily new medication includes an inhaler Advair prescriptions faxed to his pharmacy Diet: Regular Activity: Ad dillon Followup: Glenn Bone MD [ACTIVE - CAN ADMIT] - Austyn Lane MD [Primary Care Provider] -
[2018-02-28 11:43] VITALS: BP 138/65; TEMP 97.1
== END 2018-02-28 14:43 | disposition home or self-care (01) | DRG 866 ==
LOC: 4TH 17:39 → OBSVTOIN 02-26 11:23
PROVIDERS: ADMIT Internal Medicine; ATTEND Internal Medicine
DX: B34.9 Viral infection, unspecified (principal); F05 Delirium due to known physiological condition; I65.21 Occlusion and stenosis of right carotid artery; F03.90 Unspecified dementia, unspecified severity, without behavioral disturbance, psychotic disturbance, mood disturbance, and anxiety; R27.0 Ataxia, unspecified; I10 Essential (primary) hypertension; I25.10 Atherosclerotic heart disease of native coronary artery without angina pectoris; E11.9 Type 2 diabetes mellitus without complications; E03.9 Hypothyroidism, unspecified; E78.5 Hyperlipidemia, unspecified; I25.2 Old myocardial infarction; Z86.73 Personal history of transient ischemic attack (TIA), and cerebral infarction without residual deficits
CPT/HCPCS: 36415; 70450; 70551; 71046; 76770; 80048; 80076; 81003; 81015; 82043; 82306; 82550; 82553; 82570; 82607; 82962; 83036; 83605; 83735; 84100; 84145; 84443; 84484; 85025; 85610; 85730; 87040; 87086; 87088; 87804; 93005; 93880; 97163; G0378; J0696

== ENCOUNTER 2018-05-06 13:44 | Emergency (ER) | payer OTHER ==
--- OUTSIDE RECORDS SUMMARY | 2018-05-06 13:47 | XMS REPORT ---
:[address] [facility] Address [address] [place] [address] Care Team Providers Name Role Phone PREMA VIRK Unavailable Unavailable YOUNG OG Unavailable Unavailable Problems This patient has no known problems. Allergies, Adverse Reactions, Alerts This patient has no known allergies or adverse reactions. Medications This patient has no known medications. Results Test Description Test Time Test Comments Text Results Atomic Results Result Comments POCT-GLUCOSE METER 2017-06-16 12:44:00 Test Item Value Reference Range Comments POC-GLUCOSE METER (BEAKER) (test 263 mg/dL 70-110 TESTED AT [address] mlfo=0209) [facility] [address] POCT-GLUCOSE [id number] 08:30:00 Test Item Value Reference Range Comments POC-GLUCOSE METER (BEAKER) 183 mg/dL 70-110 TESTED AT [address] (test gnkr=2996) [facility] [address] POCT-GLUCOSE [id number] 21:30:00 Test Item Value Reference Range Comments POC-GLUCOSE METER (BEAKER) 334 mg/dL 70-110 Notified ANN ADLER/TESTED AT [facility] (test qtug=0470) [address] [place] [address] POCT-GLUCOSE [id number] 15:48:00 Test Item Value Reference Range Comments POC-GLUCOSE METER (BEAKER) 233 mg/dL 70-110 TESTED AT [address] (test oqgd=0228) [facility] [address] POCT-GLUCOSE [id number] 11:52:00 Test Item Value Reference Range Comments POC-GLUCOSE METER (BEAKER) 229 mg/dL 70-110 TESTED AT [address] (test rngy=7732) [facility] [address] POCT-GLUCOSE [id number] 07:44:00 Test Item Value Reference Range Comments POC-GLUCOSE METER (BEAKER) 235 mg/dL 70-[address] [facility] [address] (test vohd=6855) [facility] [address] [id number] 05:11:00 Test Item Value Reference Range Comments PHOSPHORUS (BEAKER) (test hvhw=917) 3.0 mg/dL 2.3-4.7 [id number] 05:11:00 Test Item Value Reference Range Comments MAGNESIUM (BEAKER) (test vxhl=813) 1.7 mg/dL 1.6-2.6 BASIC METABOLIC [id number] 05:11:00 Test Item Value Reference Range Comments SODIUM (BEAKER) (test 136 meq/L 136-145 nszs=899) POTASSIUM (BEAKER) (test 3.8 meq/L 3.5-5.1 labb=140) CHLORIDE (BEAKER) (test 102 meq/L 98-107 gssl=610) CO2 (BEAKER) (test 26 meq/L 22-29 mrfq=552) BLOOD UREA NITROGEN 19 mg/dL 7-21 (BEAKER) (test xfji=544) CREATININE (BEAKER) (test 1.36 mg/dL 0.57-1.25 mvqt=769) GLUCOSE RANDOM (BEAKER) 195 mg/dL 70-105 (test txbs=297) CALCIUM (BEAKER) (test 9.3 mg/dL 8.4-10.2 bikw=516) EGFR (BEAKER) (test 51 mL/min/1.73 sq m ESTIMATED GFR IS NOT jnmn=2185) ACCURATE CREATININE CLEARANCE IN PREDICTING GLOMERULAR FILTRATION RATE. ESTIMATED GFR IS NOT APPLICABLE FOR DIALYSIS PATIENTS. POCT-GLUCOSE [id number] 20:41:00 Test Item Value Reference Range Comments POC-GLUCOSE METER (BEAKER) 198 mg/dL 70-[address] [facility] [address] (test zznp=0473) [facility] [address] POCT-GLUCOSE [id number] 20:19:00 Test Item Value Reference Range Comments POC-GLUCOSE METER (BEAKER) 363 mg/dL 70-110 Notified ANN ADLER/TESTED AT [facility] (test ufpx=6214) [address] [facility] [address] POCT-GLUCOSE [id number] 20:16:00 Test Item Value Reference Range Comments POC-GLUCOSE METER (BEAKER) 279 mg/dL 70-110 TESTED AT [address] (test xgnl=2166) [facility] [address] POCT-GLUCOSE [id number] 20:10:00 Test Item Value Reference Range Comments POC-GLUCOSE METER (BEAKER) 200 mg/dL 70-110 TESTED AT [address] (test davq=2944) [facility] [address] POCT-GLUCOSE [id number] 19:59:00 Test Item Value Reference Range Comments POC-GLUCOSE METER (BEAKER) 297 mg/dL 70-110 TESTED AT [address] (test ssjd=0783) [facility] [address] POCT-GLUCOSE [id number] 19:56:00 Test Item Value Reference Range Comments POC-GLUCOSE METER (BEAKER) 294 mg/dL 70-110 TESTED AT [address] (test ywnk=9131) [facility] [address] POCT-GLUCOSE [id number] 11:18:00 Test Item Value Reference Range Comments POC-GLUCOSE METER (BEAKER) 272 mg/dL 70-110 TESTED AT [address] (test leyq=6386) [facility] [address] POCT-GLUCOSE [id number] 08:10:00 Test Item Value Reference Range Comments POC-GLUCOSE METER (BEAKER) 221 mg/dL 70-110 TESTED AT [address] (test vzyz=1242) [place] [address] [id number] 05:02:00 Test Item Value Reference Range Comments PHOSPHORUS (BEAKER) (test wdts=298) 2.7 mg/dL 2.3-4.7 [id number] 05:02:00 Test Item Value Reference Range Comments MAGNESIUM (BEAKER) (test udqt=277) 1.8 mg/dL 1.6-2.6 BASIC METABOLIC [id number] 05:02:00 Test Item Value Reference Range Comments SODIUM (BEAKER) (test 134 meq/L 136-145 yagf=838) POTASSIUM (BEAKER) (test 3.9 meq/L 3.5-5.1 yrmi=354) CHLORIDE (BEAKER) (test 101 meq/L 98-107 pgrh=927) CO2 (BEAKER) (test 25 meq/L 22-29 wnja=819) BLOOD UREA NITROGEN 21 mg/dL 7-21 (BEAKER) (test unvw=573) CREATININE (BEAKER) (test 1.29 mg/dL 0.57-1.25 mmxn=713) GLUCOSE RANDOM (BEAKER) 218 mg/dL 70-105 (test tpbz=386) CALCIUM (BEAKER) (test 9.1 mg/dL 8.4-10.2 hudx=676) EGFR (BEAKER) (test 54 mL/min/1.73 sq m ESTIMATED GFR IS NOT mdjk=7946) ACCURATE CREATININE CLEARANCE IN PREDICTING GLOMERULAR FILTRATION RATE. ESTIMATED GFR IS NOT APPLICABLE FOR DIALYSIS PATIENTS. POCT-GLUCOSE [id number] 22:45:00 Test Item Value Reference Range Comments POC-GLUCOSE METER (BEAKER) 297 mg/dL 70-110 TESTED AT [address] (test etra=0038) [place] [address] POCT-GLUCOSE [id number] 20:42:00 Test Item Value Reference Range Comments POC-GLUCOSE METER (BEAKER) 293 mg/dL 70-110 TESTED AT [address] (test rxot=9315) [place] [address] POCT-GLUCOSE [id number] 17:00:00 Test Item Value Reference Range Comments POC-GLUCOSE METER (BEAKER) 287 mg/dL 70-110 TESTED AT [address] (test went=8396) [place] [address] POCT-GLUCOSE [id number] 14:53:00 Test Item Value Reference Range Comments POC-GLUCOSE METER (BEAKER) 269 mg/dL 70-110 TESTED AT [address] (test ersg=9316) [place] [address] [id number] 13:00:00 Test Item Value Reference Range Comments RPR SCREEN (BEAKER) (test rugz=435) Nonreactive Nonreactive HEMOGLOBIN [id number] 08:51:00 Test Item Value Reference Range Comments HEMOGLOBIN A1C (BEAKER) (test ezsy=448) 9.9 % 4.3-6.1 URINALYSIS W/ [id number] 08:01:00 Test Item Value Reference Range Comments COLOR (BEAKER) (test brup=177) Light Yellow CLARITY (BEAKER) (test rroz=395) Clear SPECIFIC GRAVITY UA (BEAKER) (test shkr=159) 1.010 1.001-1.035 PH UA (BEAKER) (test etju=622) 6.0 5.0-8.0 PROTEIN UA (BEAKER) (test nynk=493) 30 mg/dL Negative GLUCOSE UA (BEAKER) (test meue=121) 100 mg/dL Negative KETONES UA (BEAKER) (test ybjr=366) Negative Negative BILIRUBIN UA (BEAKER) (test amcp=892) Negative Negative BLOOD UA (BEAKER) (test uqya=530) Negative Negative NITRITE UA (BEAKER) (test gxsx=570) Negative Negative LEUKOCYTE ESTERASE UA (BEAKER) (test gzpp=650) Negative Negative UROBILINOGEN UA (BEAKER) (test vrux=588) 0.2 mg/dL 0.2-1.0 RBC UA (BEAKER) (test ztyn=368) 0 /HPF WBC UA (BEAKER) (test cbiz=885) < /HPF SOURCE(BEAKER) (test illx=1388) Urine, Voided POCT-GLUCOSE [id number] 08:00:00 Test Item Value Reference Range Comments POC-GLUCOSE METER (BEAKER) 201 mg/dL 70-[address] [facility] [address] (test wvkx=0746) [facility] [address] [id number] 05:59:00 Test Item Value Reference Range Comments PHOSPHORUS (BEAKER) (test ldty=440) 2.7 mg/dL 2.3-4.7 [id number] 05:59:00 Test Item Value Reference Range Comments MAGNESIUM (BEAKER) (test jhqu=962) 1.8 mg/dL 1.6-2.6 BASIC METABOLIC [id number] 05:59:00 Test Item Value Reference Range Comments SODIUM (BEAKER) (test 137 meq/L 136-145 cyge=862) POTASSIUM (BEAKER) (test 4.1 meq/L 3.5-5.1 vhpf=287) CHLORIDE (BEAKER) (test 103 meq/L 98-107 hgax=272) CO2 (BEAKER) (test 25 meq/L 22-29 dexf=818) BLOOD UREA NITROGEN 26 mg/dL 7-21 (BEAKER) (test azpb=023) CREATININE (BEAKER) (test 1.42 mg/dL 0.57-1.25 vpgb=510) GLUCOSE RANDOM (BEAKER) 190 mg/dL 70-105 (test sbwe=021) CALCIUM (BEAKER) (test 9.0 mg/dL 8.4-10.2 cwpt=040) EGFR (BEAKER) (test 48 mL/min/1.73 sq m ESTIMATED GFR IS NOT iedl=4258) ACCURATE CREATININE CLEARANCE IN PREDICTING GLOMERULAR FILTRATION RATE. ESTIMATED GFR IS NOT APPLICABLE FOR DIALYSIS PATIENTS. LIPID [id number] 05:59:00 Test Item Value Reference Range Comments TRIGLYCERIDES (BEAKER) (test bsnm=268) 226 mg/dL CHOLESTEROL (BEAKER) (test ukee=740) 139 mg/dL HDL CHOLESTEROL (BEAKER) (test fbns=945) 33 mg/dL LDL CHOLESTEROL CALCULATED (BEAKER) (test 61 mg/dL hyhy=260) Triglyceride Reference Range: Low Risk <150 Borderline 150- 199 High Risk 200-499 Very High Risk >=500Cholesterol Reference Range: Low Risk <200 Borderline 200-239 High Risk > 240HDL Cholesterol Reference Range: Low Risk >=60 High Risk <40LDL Cholesterol Reference Range: Optimal <100 Near Optimal 100-129 Borderline 130-159 High 160-189 Very High >=190RAPID DRUG SCREEN, [id number] 23:42:00 Test Item Value Reference Range Comments BARBITURATE URINE (BEAKER) (test arwy=089) Positive Negative BENZODIAZEPINE SCREEN URINE (BEAKER) (test Negative Negative lhtc=115) COCAINE (METAB.) SCREEN (BEAKER) (test kxoy=9191) Negative Negative METHADONE SCREEN (BEAKER) (test sxmk=6190) Negative Negative OPIATE SCREEN URINE (BEAKER) (test qgdy=604) Negative Negative CANNABINOID SCREEN URINE (BEAKER) (test foek=697) Negative Negative AMPH/METHAMPH SCREEN (BEAKER) (test dgaz=7064) Negative Negative PHENCYCLIDINE SCREEN URINE (BEAKER) (test bguu=564) Negative Negative OXYCODONE SCREEN URINE (BEAKER) (test texl=2658) Negative Negative DRUG CUTOFF CONC.Cocaine 300 ng/mL Cannabinoid 50 ng/mL Benzodiazepine 200 ng/mLBarbiturate 200 ng/ mLPhencyclidine 25 ng/mLOpiate 300 ng/mLMethadone 300 ng/mLAmphetamine/ 1000 ng/mL MethamphetamineOxycodone 300 ng/mLThis assay provides an unconfirmed qualitative test result for the clinical management of patients in emergency situations. Chain of custody not maintained. Some sxij-mvp-vetyait medications, as well as adulterants, may cause inaccurate results. Clinical correlation should be applied. A more comprehensive drug screen or confirmation of a detected drug may be performed upon request.CREATININE, RANDOM [id number] 23:35:00 Test Item Value Reference Range Comments CREATININE URINE (BEAKER) (test sefq=353) 190.0 mg/dL Reference Range: No NormalsPROTEIN, RANDOM [id number] 23:35:00 Test Item Value Reference Range Comments PROTEIN, URINE (BEAKER) (test bhzm=6928) 71 mg/dL 0-14 SODIUM, RANDOM [id number] 23:35:00 Test Item Value Reference Range Comments SODIUM URINE (BEAKER) (test edjd=637) 94 meq/L Reference Range: No NormalsURINALYSIS W/ [id number] 23:33:00 Test Item Value Reference Range Comments COLOR (BEAKER) (test yvtq=486) Yellow CLARITY (BEAKER) (test xjso=271) Clear SPECIFIC GRAVITY UA (BEAKER) (test emle=971) 1.016 1.001-1.035 PH UA (BEAKER) (test nhmc=433) 5.5 5.0-8.0 PROTEIN UA (BEAKER) (test ferl=706) 70 mg/dL Negative GLUCOSE UA (BEAKER) (test pzdq=319) 30 mg/dL Negative KETONES UA (BEAKER) (test kztj=327) Negative Negative BILIRUBIN UA (BEAKER) (test awdg=392) Negative Negative BLOOD UA (BEAKER) (test asdv=942) Negative Negative NITRITE UA (BEAKER) (test ghkb=551) Negative Negative LEUKOCYTE ESTERASE UA (BEAKER) (test rhad=441) Negative Negative UROBILINOGEN UA (BEAKER) (test wjqy=699) 0.2 mg/dL 0.2-1.0 RBC UA (BEAKER) (test vjiv=220) 0 /HPF WBC UA (BEAKER) (test bsvx=684) 2 /HPF MUCUS (BEAKER) (test wcht=2796) Rare SQUAMOUS EPITHELIAL (BEAKER) (test defh=693) < /HPF HYALINE CASTS (BEAKER) (test fkbd=835) 5 /LPF SOURCE(BEAKER) (test oevl=0267) Urine, Voided TSH/FREE T4 IF [id number] 21:37:00 Test Item Value Reference Range Comments THYROID STIMULATING HORMONE (BEAKER) (test 1.35 uIU/mL 0.35-4.94 ukhw=541) VITAMIN B12 AND [id number] 21:37:00 Test Item Value Reference Range Comments VITAMIN B12 (BEAKER) (test ycgx=703) 306 pg/mL 213-816 FOLATE (BEAKER) (test emze=398) 13.0 ng/mL >=7.0 Effective 09/19/2014: Folate Reference Range ChangeNew: >=7.0 Previous: & gt;=5.4POCT-GLUCOSE [id number] 21:27:00 Test Item Value Reference Range Comments POC-GLUCOSE METER (BEAKER) 137 mg/dL 70-[address] [facility] [address] (test tjat=2966) [facility] [address] SEDIMENTATION [id number] 21:20:00 Test Item Value Reference Range Comments SEDIMENTATION RATE, ERYTHROCYTE (BEAKER) (test 23 mm/HR 0-40 mkvm=251) HEPATIC FUNCTION [id number] 21:01:00 Test Item Value Reference Range Comments TOTAL PROTEIN (BEAKER) (test cvpk=548) 7.7 gm/dL 6.0-8.3 ALBUMIN (BEAKER) (test pyhy=8141) 4.3 g/dL 3.5-5.0 BILIRUBIN TOTAL (BEAKER) (test zwrr=665) 0.5 mg/dL 0.2-1.2 BILIRUBIN DIRECT (BEAKER) (test nxgh=990) 0.2 mg/dL 0.1-0.5 ALKALINE PHOSPHATASE (BEAKER) (test kgus=474) 104 U/L 40-150 AST (SGOT) (BEAKER) (test bxvi=297) 21 U/L 5-34 ALT (SGPT) (BEAKER) (test kgyh=552) 25 U/L 6-55 TROPONIN [id number] 16:03:00 Test Item Value Reference Range Comments TROPONIN I (BEAKER) (test wdmp=472) 0.01 ng/mL 0.00-0.03 Effective 09/19/2014: Reference Range [...] Range Comments B-TYPE NATRIURETIC PEPTIDE (BEAKER) (test eirz=162) 21 pg/mL 0-100 CREATINE KINASE (CK), TOTAL AND [id number] 15:34:00 Test Item Value Reference Range Comments CREATINE KINASE TOTAL (BEAKER) (test yeim=324) 61 U/L 29-200 CREATINE KINASE-MB (BEAKER) (test szpb=852) 1.4 ng/mL 0.0-6.6 CREATINE KINASE-MB INDEX (BEAKER) (test dyyy=418) 2.3 % Effective 09/19/2014: CK-MB Reference Range ChangeNew: 0.0-6.6 Previous: 0.0- 4.9CK-MB Reference Range:<6.7 Normal6.7-10.0 Borderline>10.0 AbnormalBASIC METABOLIC [id number] 15:30:00 Test Item Value Reference Range Comments SODIUM (BEAKER) (test 139 meq/L 136-145 uvyw=700) POTASSIUM (BEAKER) (test 4.5 meq/L 3.5-5.1 Specimen slightly rlad=905) hemolyzed CHLORIDE (BEAKER) (test 104 meq/L 98-107 pslw=048) CO2 (BEAKER) (test 27 meq/L 22-29 wywr=755) BLOOD UREA NITROGEN 30 mg/dL 7-21 (BEAKER) (test uhsc=694) CREATININE (BEAKER) (test 2.17 mg/dL 0.57-1.25 Specimen slightly dilw=137) hemolyzed GLUCOSE RANDOM (BEAKER) 163 mg/dL 70-105 (test cqad=499) CALCIUM (BEAKER) (test 9.5 mg/dL 8.4-10.2 lfuq=532) EGFR (BEAKER) (test mL/min/1.73 sq m INSUFFICIENT CLINICAL DATA reon=5931) TO CALCULATE ESTIMATED GFR. [id number] 15:28:00 Test Item Value Reference Range Comments MAGNESIUM (BEAKER) (test 2.1 mg/dL 1.6-2.6 Specimen slightly hemolyzed fgde=047) CBC W/PLT COUNT & AUTO [id number] 15:13:00 Test Item Value Reference Range Comments WHITE BLOOD CELL COUNT (BEAKER) (test owxo=557) 7.6 K/ L 3.5-10.5 RED BLOOD CELL COUNT (BEAKER) (test fbgf=591) 5.15 M/ L 4.63-6.08 HEMOGLOBIN (BEAKER) (test wngv=766) 15.1 GM/DL 13.7-17.5 HEMATOCRIT (BEAKER) (test ptlt=436) 44.7 % 40.1-51.0 MEAN CORPUSCULAR VOLUME (BEAKER) (test mshi=211) 86.8 fL 79.0-92.2 MEAN CORPUSCULAR HEMOGLOBIN (BEAKER) (test 29.3 pg 25.7-32.2 ryfh=813) MEAN CORPUSCULAR HEMOGLOBIN CONC (BEAKER) (test 33.8 GM/DL 32.3-36.5 sdcx=916) RED CELL DISTRIBUTION WIDTH (BEAKER) (test 13.2 % 11.6-14.4 ctba=489) PLATELET COUNT (BEAKER) (test megs=496) 170 K/CU MM 150-450 MEAN PLATELET VOLUME (BEAKER) (test yyxa=570) 10.7 fL 9.4-12.4 NUCLEATED RED BLOOD CELLS (BEAKER) (test 0 /100 WBC 0-0 xhgc=193) NEUTROPHILS RELATIVE PERCENT (BEAKER) (test 64 % mork=458) LYMPHOCYTES RELATIVE PERCENT (BEAKER) (test 25 % rucw=993) MONOCYTES RELATIVE PERCENT (BEAKER) (test 9 % deyl=483) EOSINOPHILS RELATIVE PERCENT (BEAKER) (test 2 % bxsp=795) BASOPHILS RELATIVE PERCENT (BEAKER) (test 0 % fpdv=315) NEUTROPHILS ABSOLUTE COUNT (BEAKER) (test 4.83 K/ L 1.78-5.38 qcxy=408) LYMPHOCYTES ABSOLUTE COUNT (BEAKER) (test 1.87 K/ L 1.32-3.57 vaev=112) MONOCYTES ABSOLUTE COUNT (BEAKER) (test 0.70 K/ L 0.30-0.82 lhin=134) EOSINOPHILS ABSOLUTE COUNT (BEAKER) (test 0.14 K/ L 0.04-0.54 ryfl=020) BASOPHILS ABSOLUTE COUNT (BEAKER) (test 0.03 K/ L 0.01-0.08 xbcv=394) IMMATURE GRANULOCYTES-RELATIVE PERCENT (BEAKER) 0 % 0-1 (test glff=4375) [id number] 15:09:00 Test Item Value Reference Range Comments PROTIME (BEAKER) (test bkgy=542) 12.8 seconds 11.7-14.7 INR (BEAKER) (test irer=999) 1.0 <=5.9 PARTIAL THROMBOPLASTIN TIME (BEAKER) (test 24.7 seconds 22.5-36.0 vpcv=973) RECOMMENDED COUMADIN/WARFARIN INR THERAPY RANGESSTANDARD DOSE: 2.0 - 3.0 Includes: PROPHYLAXIS forvenous thrombosis, systemic embolization; TREATMENT for venous thrombosis and/or pulmonary embolus.HIGH RISK: Target INR is 2.5-3.5 for patients with mechanical heart valves.POCT-GLUCOSE [id number] 08:20:00 Test Item Value Reference Range Comments POC-GLUCOSE METER (BEAKER) 208 mg/dL 70-110 TESTED AT [address] (test rlfz=5373) [facility] [address] BASIC METABOLIC [id number] 05:31:00 Test Item Value Reference Range Comments SODIUM (BEAKER) (test 136 meq/L 136-145 rsmv=655) POTASSIUM (BEAKER) (test 3.9 meq/L 3.5-5.1 nlsw=722) CHLORIDE (BEAKER) (test 104 meq/L 98-107 vkpe=165) CO2 (BEAKER) (test 22 meq/L 22-29 gjae=164) BLOOD UREA NITROGEN 14 mg/dL 7-21 (BEAKER) (test jsme=455) CREATININE (BEAKER) (test 1.06 mg/dL 0.57-1.25 asjr=529) GLUCOSE RANDOM (BEAKER) 181 mg/dL 70-105 (test gthu=418) CALCIUM (BEAKER) (test 8.7 mg/dL 8.4-10.2 jopj=589) EGFR (BEAKER) (test 68 mL/min/1.73 sq m ESTIMATED GFR IS NOT givt=9366) ACCURATE CREATININE CLEARANCE IN PREDICTING GLOMERULAR FILTRATION RATE. ESTIMATED GFR IS NOT APPLICABLE FOR DIALYSIS PATIENTS. PROTHROMBIN [id number] 05:15:00 Test Item Value Reference Range Comments PROTIME (BEAKER) (test tktj=133) 13.6 seconds 11.7-14.7 INR (BEAKER) (test rqlw=468) 1.1 <=5.9 RECOMMENDED COUMADIN/WARFARIN INR THERAPY RANGESSTANDARD DOSE: 2.0 - 3.0 Includes: PROPHYLAXIS forvenous thrombosis, systemic embolization; TREATMENT for venous thrombosis and/or pulmonary embolus.HIGH RISK: Target INR is 2.5-3.5 for patients with mechanical heart valves.CBC W/PLT COUNT & AUTO [id number] 05:13:00 Test Item Value Reference Range Comments WHITE BLOOD CELL COUNT (BEAKER) (test btfr=787) 6.1 K/ L 4.0-10.0 RED BLOOD CELL COUNT (BEAKER) (test gswi=913) 5.50 M/ L 4.20-5.80 HEMOGLOBIN (BEAKER) (test tzko=368) 15.9 GM/DL 13.0-16.8 HEMATOCRIT (BEAKER) (test nqil=450) 48.6 % 40.0-50.0 MEAN CORPUSCULAR VOLUME (BEAKER) (test gige=700) 88.4 fL 82.0-98.0 MEAN CORPUSCULAR HEMOGLOBIN (BEAKER) (test 29.0 pg 27.0-33.0 ixqe=490) MEAN CORPUSCULAR HEMOGLOBIN CONC (BEAKER) (test 32.8 GM/DL 32.0-36.0 nuow=201) RED CELL DISTRIBUTION WIDTH (BEAKER) (test 12.2 % 10.3-14.2 bbyl=738) PLATELET COUNT (BEAKER) (test tchf=031) 132 K/CU MM 150-430 MEAN PLATELET VOLUME (BEAKER) (test hyzr=400) 7.3 fL 6.5-10.5 NUCLEATED RED BLOOD CELLS (BEAKER) (test 0 /100 WBC 0-0 axsr=819) NEUTROPHILS RELATIVE PERCENT (BEAKER) (test 62 % gyrq=484) LYMPHOCYTES RELATIVE PERCENT (BEAKER) (test 29 % tsgm=690) MONOCYTES RELATIVE PERCENT (BEAKER) (test 7 % yctv=256) EOSINOPHILS RELATIVE PERCENT (BEAKER) (test 2 % rkfn=179) BASOPHILS RELATIVE PERCENT (BEAKER) (test 0 % oqcw=269) NEUTROPHILS ABSOLUTE COUNT (BEAKER) (test 3.82 K/ L 1.80-8.00 okjt=365) LYMPHOCYTES ABSOLUTE COUNT (BEAKER) (test 1.75 K/ L 1.48-4.50 ynve=392) MONOCYTES ABSOLUTE COUNT (BEAKER) (test 0.40 K/ L 0.00-1.30 lwtl=154) EOSINOPHILS ABSOLUTE COUNT (BEAKER) (test 0.13 K/ L 0.00-0.50 cibu=472) BASOPHILS ABSOLUTE COUNT (BEAKER) (test 0.03 K/ L 0.00-0.20 vfmc=911) 0.00POCT-GLUCOSE [id number] 22:01:00 Test Item Value Reference Range Comments POC-GLUCOSE METER (BEAKER) 128 mg/dL 70-110 TESTED AT [address] (test rhmw=6890) [facility] [address] [id number] 19:10:00 Test Item Value Reference Range Comments ACTIVATED CLOTTING TIME 152 sec TESTED AT [address] (BEAKER) (test yyny=403) [place] [address] [id number] 18:42:00 Test Item Value Reference Range Comments ACTIVATED CLOTTING TIME 234 sec TESTED AT [place] [address] [address] (BEAKER) (test zwrm=568) [place] [address] POCT-GLUCOSE [id number] 11:59:00 Test Item Value Reference Range Comments POC-GLUCOSE METER (BEAKER) 142 mg/dL 70-110 TESTED AT [address] (test dvoh=0261) [place] [address] POCT-GLUCOSE [id number] 07:46:00 Test Item Value Reference Range Comments POC-GLUCOSE METER (BEAKER) 136 mg/dL 70-110 TESTED AT [address] (test eijx=3333) [facility] [address] COMPREHENSIVE METABOLIC [id number] 06:18:00 Test Item Value Reference Range Comments TOTAL PROTEIN (BEAKER) 6.9 gm/dL 6.0-8.3 (test zieo=244) ALBUMIN (BEAKER) (test 3.8 g/dL 3.5-5.0 irxy=7729) ALKALINE PHOSPHATASE 96 U/L 40-150 (BEAKER) (test qzeb=371) BILIRUBIN TOTAL (BEAKER) 0.5 mg/dL 0.2-1.2 (test ylaf=973) SODIUM (BEAKER) (test 140 meq/L 136-145 anay=034) POTASSIUM (BEAKER) (test 3.5 meq/L 3.5-5.1 zlpz=272) CHLORIDE (BEAKER) (test 106 meq/L 98-107 bvap=297) CO2 (BEAKER) (test 24 meq/L 22-29 wvoh=170) BLOOD UREA NITROGEN 21 mg/dL 7-21 (BEAKER) (test fjfs=441) CREATININE (BEAKER) (test 1.25 mg/dL 0.57-1.25 wwil=631) GLUCOSE RANDOM (BEAKER) 99 mg/dL 70-105 (test uunh=124) CALCIUM (BEAKER) (test 9.2 mg/dL 8.4-10.2 kwfk=052) AST (SGOT) (BEAKER) (test 15 U/L 5-34 yykh=867) ALT (SGPT) (BEAKER) (test 16 U/L 6-55 odor=561) EGFR (BEAKER) (test 56 mL/min/1.73 sq m ESTIMATED GFR IS NOT uynj=6751) ACCURATE CREATININE CLEARANCE IN PREDICTING GLOMERULAR FILTRATION RATE. ESTIMATED GFR IS NOT APPLICABLE FOR DIALYSIS PATIENTS. CBC W/PLT COUNT & AUTO [id number] 06:04:00 Test Item Value Reference Range Comments WHITE BLOOD CELL COUNT (BEAKER) (test zuvx=766) 5.8 K/ L 4.0-10.0 RED BLOOD CELL COUNT (BEAKER) (test wfsh=241) 5.56 M/ L 4.20-5.80 HEMOGLOBIN (BEAKER) (test onbh=578) 16.8 GM/DL 13.0-16.8 HEMATOCRIT (BEAKER) (test tajx=138) 49.7 % 40.0-50.0 MEAN CORPUSCULAR VOLUME (BEAKER) (test gsol=689) 89.3 fL 82.0-98.0 MEAN CORPUSCULAR HEMOGLOBIN (BEAKER) (test 30.2 pg 27.0-33.0 rxoo=747) MEAN CORPUSCULAR HEMOGLOBIN CONC (BEAKER) (test 33.8 GM/DL 32.0-36.0 wthp=541) RED CELL DISTRIBUTION WIDTH (BEAKER) (test 12.2 % 10.3-14.2 aejd=630) PLATELET COUNT (BEAKER) (test xjrq=315) 142 K/CU MM 150-430 MEAN PLATELET VOLUME (BEAKER) (test uevx=686) 7.8 fL 6.5-10.5 NUCLEATED RED BLOOD CELLS (BEAKER) (test 0 /100 WBC 0-0 bfss=275) NEUTROPHILS RELATIVE PERCENT (BEAKER) (test 59 % azbi=031) LYMPHOCYTES RELATIVE PERCENT (BEAKER) (test 32 % kkow=436) MONOCYTES RELATIVE PERCENT (BEAKER) (test 6 % dlyl=207) EOSINOPHILS RELATIVE PERCENT (BEAKER) (test 3 % rlmw=935) BASOPHILS RELATIVE PERCENT (BEAKER) (test 1 % mrop=163) NEUTROPHILS ABSOLUTE COUNT (BEAKER) (test 3.37 K/ L 1.80-8.00 biec=255) LYMPHOCYTES ABSOLUTE COUNT (BEAKER) (test 1.85 K/ L 1.48-4.50 eixo=202) MONOCYTES ABSOLUTE COUNT (BEAKER) (test 0.33 K/ L 0.00-1.30 yxrd=669) EOSINOPHILS ABSOLUTE COUNT (BEAKER) (test 0.16 K/ L 0.00-0.50 ifvg=845) BASOPHILS ABSOLUTE COUNT (BEAKER) (test 0.04 K/ L 0.00-0.20 hkir=159) 0.00POCT-GLUCOSE [id number] 21:04:00 Test Item Value Reference Range Comments POC-GLUCOSE METER (BEAKER) 70 mg/dL 70-110 TESTED AT [address] (test cziu=3892) [facility] [address] POCT-GLUCOSE [id number] 17:22:00 Test Item Value Reference Range Comments POC-GLUCOSE METER (BEAKER) 149 mg/dL 70-110 TESTED AT [address] (test kpuz=0431) [facility] [address] POCT-GLUCOSE [id number] 14:07:00 Test Item Value Reference Range Comments POC-GLUCOSE METER (BEAKER) 218 mg/dL 70-110 TESTED AT [address] (test ytia=5284) [facility] [address] POCT-GLUCOSE [id number] 11:39:00 Test Item Value Reference Range Comments POC-GLUCOSE METER (BEAKER) 206 mg/dL 70-110 TESTED AT [address] (test ilup=3174) [facility] [address] BASIC METABOLIC [id number] 06:49:00 Test Item Value Reference Range Comments SODIUM (BEAKER) (test 135 meq/L 136-145 mzya=215) POTASSIUM (BEAKER) (test 3.9 meq/L 3.5-5.1 jtuq=717) CHLORIDE (BEAKER) (test 103 meq/L 98-107 kqbu=512) CO2 (BEAKER) (test 23 meq/L 22-29 zyig=760) BLOOD UREA NITROGEN 27 mg/dL 7-21 (BEAKER) (test eyll=815) CREATININE (BEAKER) (test 1.44 mg/dL 0.57-1.25 nzpo=877) GLUCOSE RANDOM (BEAKER) 221 mg/dL 70-105 (test uzoc=547) CALCIUM (BEAKER) (test 8.9 mg/dL 8.4-10.2 shfg=551) EGFR (BEAKER) (test 48 mL/min/1.73 sq m ESTIMATED GFR IS NOT obsw=1595) ACCURATE CREATININE CLEARANCE IN PREDICTING GLOMERULAR FILTRATION RATE. ESTIMATED GFR IS NOT APPLICABLE FOR DIALYSIS PATIENTS. CBC W/PLT COUNT & AUTO [id number] 06:36:00 Test Item Value Reference Range Comments WHITE BLOOD CELL COUNT (BEAKER) (test kujd=258) 6.9 K/ L 4.0-10.0 RED BLOOD CELL COUNT (BEAKER) (test ppsu=761) 5.26 M/ L 4.20-5.80 HEMOGLOBIN (BEAKER) (test odyx=614) 16.2 GM/DL 13.0-16.8 HEMATOCRIT (BEAKER) (test uhma=101) 45.9 % 40.0-50.0 MEAN CORPUSCULAR VOLUME (BEAKER) (test fddu=614) 87.2 fL 82.0-98.0 MEAN CORPUSCULAR HEMOGLOBIN (BEAKER) (test 30.8 pg 27.0-33.0 wovk=334) MEAN CORPUSCULAR HEMOGLOBIN CONC (BEAKER) (test 35.3 GM/DL 32.0-36.0 cnjg=628) RED CELL DISTRIBUTION WIDTH (BEAKER) (test 13.4 % 10.3-14.2 gdve=083) PLATELET COUNT (BEAKER) (test ssrb=725) 149 K/CU MM 150-430 MEAN PLATELET VOLUME (BEAKER) (test ueez=340) 7.6 fL 6.5-10.5 NUCLEATED RED BLOOD CELLS (BEAKER) (test 0 /100 WBC 0-0 vdjn=323) NEUTROPHILS RELATIVE PERCENT (BEAKER) (test 52 % vlov=798) LYMPHOCYTES RELATIVE PERCENT (BEAKER) (test 38 % fqsh=412) MONOCYTES RELATIVE PERCENT (BEAKER) (test 7 % mctz=622) EOSINOPHILS RELATIVE PERCENT (BEAKER) (test 2 % chlk=149) BASOPHILS RELATIVE PERCENT (BEAKER) (test 1 % fzdq=804) NEUTROPHILS ABSOLUTE COUNT (BEAKER) (test 3.58 K/ L 1.80-8.00 sukq=665) LYMPHOCYTES ABSOLUTE COUNT (BEAKER) (test 2.58 K/ L 1.48-4.50 smji=094) MONOCYTES ABSOLUTE COUNT (BEAKER) (test 0.48 K/ L 0.00-1.30 trho=052) EOSINOPHILS ABSOLUTE COUNT (BEAKER) (test 0.14 K/ L 0.00-0.50 drmr=396) BASOPHILS ABSOLUTE COUNT (BEAKER) (test 0.08 K/ L 0.00-0.20 akkz=365) 0.00PROTHROMBIN [id number] 06:26:00 Test Item Value Reference Range Comments PROTIME (BEAKER) (test vxms=973) 13.5 seconds 11.7-14.7 INR (BEAKER) (test jbhc=613) 1.0 <=5.9 RECOMMENDED COUMADIN/WARFARIN INR THERAPY RANGESSTANDARD DOSE: 2.0 - 3.0 Includes: PROPHYLAXIS forvenous thrombosis, systemic embolization; TREATMENT for venous thrombosis and/or pulmonary embolus.HIGH RISK: Target INR is 2.5-3.5 for patients with mechanical heart valves.[id number] 06:26:00 Test Item Value Reference Range Comments PARTIAL THROMBOPLASTIN TIME (BEAKER) (test 32.9 seconds 22.5-36.0 pfle=192) POCT-GLUCOSE [id number] 21:31:00 Test Item Value Reference Range Comments POC-GLUCOSE METER (BEAKER) 235 mg/dL 70-110 TESTED AT [place] [id number] [facility] (test iqul=1212) [facility] [address] POCT-GLUCOSE [id number] 17:19:00 Test Item Value Reference Range Comments POC-GLUCOSE METER (BEAKER) 239 mg/dL 70-110 TESTED AT [address] (test vjzp=2965) [facility] [address] POCT-P2Y12 PLATELET [id number] 16:23:00 Test Item Value Reference Range Comments POC-P2Y12 PLATELET AGG (BEAKER) (test ouza=0651) 115 PRU RANGE INFORMATION: PRU reference range is 194-418. Post Drug Results: Lower PRU levels are associated with expected antiplatelet effect. Values may be below the stated reference range above. The post-drug PRU values reported in the [employer] P2Y12 package insert are [id number].POCT-ASPIRIN PLATELET [id number] 16:18:00 Test Item Value Reference Range Comments POC-ASPIRIN PLATELET AGG (BEAKER) (test qfue=4449) 539 ARU RANGE INFORMATION: 350-549 ARU Therapeutic range for platelet function. 550-700 ARU Non-Therapeutic range for platelet function.URINALYSIS W / [id number] 14:26:00 Test Item Value Reference Range Comments COLOR (BEAKER) (test cypu=373) Yellow CLARITY (BEAKER) (test txrh=364) Clear SPECIFIC GRAVITY UA (BEAKER) (test jpab=261) 1.013 1.001-1.035 PH UA (BEAKER) (test wzzn=712) 5.0 5.0-8.0 PROTEIN UA (BEAKER) (test cdce=262) 50 mg/dL Negative GLUCOSE UA (BEAKER) (test xpyd=157) 200 mg/dL Negative KETONES UA (BEAKER) (test llgk=620) Negative Negative BILIRUBIN UA (BEAKER) (test icjm=404) Negative Negative BLOOD UA (BEAKER) (test eijy=180) Negative Negative NITRITE UA (BEAKER) (test ljby=982) Negative Negative LEUKOCYTE ESTERASE UA (BEAKER) (test kztc=716) Negative Negative UROBILINOGEN UA (BEAKER) (test fvtz=559) 0.2 mg/dL 0.2-1.0 RBC UA (BEAKER) (test dhwg=534) 1 /HPF WBC UA (BEAKER) (test kqhs=896) 1 /HPF MUCUS (BEAKER) (test jiwe=2666) Rare HYALINE CASTS (BEAKER) (test hmmk=597) 9 /LPF SOURCE(BEAKER) (test wkkn=8852) CBC W/PLT COUNT & AUTO [id number] 13:21:00 Test Item Value Reference Range Comments WHITE BLOOD CELL COUNT (BEAKER) (test bquf=636) 7.6 K/ L 4.0-10.0 RED BLOOD CELL COUNT (BEAKER) (test jxlv=340) 6.02 M/ L 4.20-5.80 HEMOGLOBIN (BEAKER) (test fbhg=972) 17.5 GM/DL 13.0-16.8 HEMATOCRIT (BEAKER) (test pipc=967) 53.2 % 40.0-50.0 MEAN CORPUSCULAR VOLUME (BEAKER) (test xjcl=043) 88.3 fL 82.0-98.0 MEAN CORPUSCULAR HEMOGLOBIN (BEAKER) (test 29.0 pg 27.0-33.0 gjrj=080) MEAN CORPUSCULAR HEMOGLOBIN CONC (BEAKER) (test 32.9 GM/DL 32.0-36.0 zrqn=513) RED CELL DISTRIBUTION WIDTH (BEAKER) (test 12.4 % 10.3-14.2 lvbv=810) PLATELET COUNT (BEAKER) (test aajy=328) 177 K/CU MM 150-430 MEAN PLATELET VOLUME (BEAKER) (test lbck=223) 7.7 fL 6.5-10.5 NUCLEATED RED BLOOD CELLS (BEAKER) (test 0 /100 WBC 0-0 pzky=380) NEUTROPHILS RELATIVE PERCENT (BEAKER) (test 47 % mkky=775) LYMPHOCYTES RELATIVE PERCENT (BEAKER) (test 44 % miru=572) MONOCYTES RELATIVE PERCENT (BEAKER) (test 6 % uzpq=896) EOSINOPHILS RELATIVE PERCENT (BEAKER) (test 2 % zvkc=649) BASOPHILS RELATIVE PERCENT (BEAKER) (test 1 % wuqe=693) NEUTROPHILS ABSOLUTE COUNT (BEAKER) (test 3.58 K/ L 1.80-8.00 ckol=657) LYMPHOCYTES ABSOLUTE COUNT (BEAKER) (test 3.36 K/ L 1.48-4.50 opdm=292) MONOCYTES ABSOLUTE COUNT (BEAKER) (test 0.47 K/ L 0.00-1.30 zmdx=008) EOSINOPHILS ABSOLUTE COUNT (BEAKER) (test 0.16 K/ L 0.00-0.50 rzqu=381) BASOPHILS ABSOLUTE COUNT (BEAKER) (test 0.06 K/ L 0.00-0.20 gysm=778) 0.00(MANUAL DIFFERENTIAL)2017-03-18 13:21:00 Test Item Value Reference Range Comments TOTAL COUNTED (BEAKER) (test mvgb=2107) WBC MORPHOLOGY (BEAKER) (test omfn=725) Normal PLT MORPHOLOGY (BEAKER) (test elab=782) Normal RBC MORPHOLOGY (BEAKER) (test alwd=621) Normal POCT-GLUCOSE [id number] 11:40:00 Test Item Value Reference Range Comments POC-GLUCOSE METER (BEAKER) 241 mg/dL 70-110 TESTED AT [address] (test ihqi=5216) [place] [address] HEMOGLOBIN [id number] 10:44:00 Test Item Value Reference Range Comments HEMOGLOBIN A1C (BEAKER) (test udbr=929) 11.2 % 4.3-6.1 POCT-GLUCOSE [id number] 08:11:00 Test Item Value Reference Range Comments POC-GLUCOSE METER (BEAKER) 185 mg/dL 70-110 TESTED AT [address] (test ipqs=5903) [place] [address] LIPID [id number] 06:02:00 Test Item Value Reference Range Comments TRIGLYCERIDES (BEAKER) (test ccnl=489) 335 mg/dL CHOLESTEROL (BEAKER) (test rcog=962) 201 mg/dL HDL CHOLESTEROL (BEAKER) (test kdrh=233) 38 mg/dL LDL CHOLESTEROL CALCULATED (BEAKER) (test 96 mg/dL sbdx=377) Triglyceride Reference Range: Low Risk <150 Borderline 150- 199 High Risk 200-499 Very High Risk >=500Cholesterol Reference Range: Low Risk <200 Borderline 200-239 High Risk > 240HDL Cholesterol Reference Range: Low Risk >=60 High Risk <40LDL Cholesterol Reference Range: Optimal <100 Near Optimal 100-129 Borderline 130-159 High 160-189 Very High [facility] [id number] 06:02:00 Test Item Value Reference Range Comments SODIUM (BEAKER) (test 135 meq/L 136-145 ahks=751) POTASSIUM (BEAKER) (test 3.6 meq/L 3.5-5.1 ecog=522) CHLORIDE (BEAKER) (test 99 meq/L 98-107 mkxe=230) CO2 (BEAKER) (test 23 meq/L 22-29 bgmp=227) BLOOD UREA NITROGEN 25 mg/dL 7-21 (BEAKER) (test nwcp=621) CREATININE (BEAKER) (test 1.59 mg/dL 0.57-1.25 xxzk=218) GLUCOSE RANDOM (BEAKER) 177 mg/dL 70-105 (test kshk=113) CALCIUM (BEAKER) (test 9.4 mg/dL 8.4-10.2 nibs=807) EGFR (BEAKER) (test 43 mL/min/1.73 sq m ESTIMATED GFR IS NOT rojm=0177) ACCURATE CREATININE CLEARANCE IN PREDICTING GLOMERULAR FILTRATION RATE. ESTIMATED GFR IS NOT APPLICABLE FOR DIALYSIS PATIENTS. POCT-GLUCOSE [id number] 00:02:00 Test Item Value Reference Range Comments POC-GLUCOSE METER (BEAKER) 131 mg/dL 70-[address] [facility] [address] [facility] (test lzgt=2914) [facility] [address] CREATINE KINASE (CK), TOTAL AND [id number] 22:46:00 Test Item Value Reference Range Comments CREATINE KINASE TOTAL (BEAKER) (test stgz=489) 44 U/L 29-200 CREATINE KINASE-MB (BEAKER) (test jpfb=533) 1.3 ng/mL 0.0-6.6 CREATINE KINASE-MB INDEX (BEAKER) (test yxjm=284) 3.0 % Effective 09/19/2014: CK-MB Reference Range ChangeNew: 0.0-6.6 Previous: 0.0- 4.9CK-MB Reference Range:<6.7 Normal6.7-10.0 Borderline>10.0 AbnormalTROPONIN [id number] 22:46:00 Test Item Value Reference Range Comments TROPONIN I (CHERYL) (test wpsk=863) 0.01 ng/mL 0.00-0.03 Effective 09/19/2014: Reference Range [...] acidosis, acute neurological disease, and persistent tachyarrhythmia.POCT-GLUCOSE [id number] 22:18:00 Test Item Value Reference Range Comments POC-GLUCOSE METER (Sarata) 161 mg/dL 70-110 TESTED AT [address] (test ojnu=2187) [facility] [address] HEMOGLOBIN [id number] 18:18:00 Test Item Value Reference Range Comments HEMOGLOBIN A1C (CHERYL) (test wqib=053) 11.7 % 4.3-6.1 VITAMIN [id number] 18:15:00 Test Item Value Reference Range Comments VITAMIN B12 (CHERYL) (test pqpt=276) 251 pg/mL 213-816 TSH/FREE T4 IF [id number] 18:15:00 Test Item Value Reference Range Comments THYROID STIMULATING HORMONE (JAYAKER) (test 1.18 uIU/mL 0.35-4.94 fgbd=076) B-TYPE NATRIURETIC FACTOR (BNP)2017-03-17 17:59:00 Test Item Value Reference Range Comments B-TYPE NATRIURETIC PEPTIDE (BEAKER) (test fygp=801) 43 pg/mL 0-100 CREATINE KINASE (CK), TOTAL AND [id number] 17:58:00 Test Item Value Reference Range Comments CREATINE KINASE TOTAL (BEAKER) (test yjak=754) 41 U/L 29-200 CREATINE KINASE-MB (BEAKER) (test spqs=390) 1.3 ng/mL 0.0-6.6 CREATINE KINASE-MB INDEX (BEAKER) (test ldga=052) 3.2 % Effective 09/19/2014: CK-MB Reference Range ChangeNew: 0.0-6.6 Previous: 0.0- 4.9CK-MB Reference Range:<6.7 Normal6.7-10.0 Borderline>10.0 AbnormalTROPONIN [id number] 17:58:00 Test Item Value Reference Range Comments TROPONIN I (BEAKER) (test ldbn=271) < ng/mL 0.00-0.03 Effective 09/19/2014: Reference Range [...] renalfailure, acidosis, acute neurological disease, and persistent tachyarrhythmia.[id number] 17:51: 00 Test Item Value Reference Range Comments MAGNESIUM (BEAKER) (test xord=874) 2.0 mg/dL 1.6-2.6 BASIC METABOLIC [id number] 17:51:00 Test Item Value Reference Range Comments SODIUM (BEAKER) (test 138 meq/L 136-145 evtz=657) POTASSIUM (BEAKER) (test 4.4 meq/L 3.5-5.1 qhss=872) CHLORIDE (BEAKER) (test 101 meq/L 98-107 nwbz=415) CO2 (BEAKER) (test 23 meq/L 22-29 kmqg=522) BLOOD UREA NITROGEN 25 mg/dL 7-21 (BEAKER) (test mkkh=785) CREATININE (BEAKER) 1.87 mg/dL 0.57-1.25 (test cnzr=815) GLUCOSE RANDOM (BEAKER) 134 mg/dL 70-105 (test jqpo=367) CALCIUM (BEAKER) (test 9.9 mg/dL 8.4-10.2 hpng=933) EGFR (BEAKER) (test 35 mL/min/1.73 sq m INSUFFICIENT CLINICAL DATA dkmi=9021) TO CALCULATE ESTIMATED GFR. PT/[id number] 17:43:00 Test Item Value Reference Range Comments PROTIME (BEAKER) (test ydbs=564) 13.6 seconds 11.7-14.7 INR (BEAKER) (test bori=848) 1.1 <=5.9 PARTIAL THROMBOPLASTIN TIME (BEAKER) (test 29.9 seconds 22.5-36.0 qvby=795) RECOMMENDED COUMADIN/WARFARIN INR THERAPY RANGESSTANDARD DOSE: 2.0 - 3.0 Includes: PROPHYLAXIS forvenous thrombosis, systemic embolization; TREATMENT for venous thrombosis and/or pulmonary embolus.HIGH RISK: Target INR is 2.5-3.5 for patients with mechanical heart valves.CBC W/PLT COUNT & AUTO [id number] 17:11:00 Test Item Value Reference Range Comments WHITE BLOOD CELL COUNT (BEAKER) (test kygt=084) 9.2 K/ L 4.0-10.0 RED BLOOD CELL COUNT (BEAKER) (test pimi=136) 5.84 M/ L 4.20-5.80 HEMOGLOBIN (BEAKER) (test gjda=933) 17.8 GM/DL 13.0-16.8 HEMATOCRIT (BEAKER) (test wbzi=999) 50.4 % 40.0-50.0 MEAN CORPUSCULAR VOLUME (BEAKER) (test pspo=757) 86.3 fL 82.0-98.0 MEAN CORPUSCULAR HEMOGLOBIN (BEAKER) (test 30.4 pg 27.0-33.0 gywy=049) MEAN CORPUSCULAR HEMOGLOBIN CONC (BEAKER) (test 35.3 GM/DL 32.0-36.0 xlrc=334) RED CELL DISTRIBUTION WIDTH (BEAKER) (test 13.6 % 10.3-14.2 wfxx=402) PLATELET COUNT (BEAKER) (test zkhl=887) 186 K/CU MM 150-430 MEAN PLATELET VOLUME (BEAKER) (test xese=089) 7.7 fL 6.5-10.5 NUCLEATED RED BLOOD CELLS (BEAKER) (test 0 /100 WBC 0-0 jjja=493) NEUTROPHILS RELATIVE PERCENT (BEAKER) (test 69 % mijj=676) LYMPHOCYTES RELATIVE PERCENT (BEAKER) (test 23 % pgzw=444) MONOCYTES RELATIVE PERCENT (BEAKER) (test 6 % omlp=244) EOSINOPHILS RELATIVE PERCENT (BEAKER) (test 2 % xmnb=561) BASOPHILS RELATIVE PERCENT (BEAKER) (test 1 % pxdo=534) NEUTROPHILS ABSOLUTE COUNT (BEAKER) (test 6.36 K/ L 1.80-8.00 gjbp=172) LYMPHOCYTES ABSOLUTE COUNT (BEAKER) (test 2.09 K/ L 1.48-4.50 mhal=351) MONOCYTES ABSOLUTE COUNT (BEAKER) (test 0.52 K/ L 0.00-1.30 stag=550) EOSINOPHILS ABSOLUTE COUNT (BEAKER) (test 0.14 K/ L 0.00-0.50 uwfl=716) BASOPHILS ABSOLUTE COUNT (BEAKER) (test 0.07 K/ L 0.00-0.20 skzc=485) 0.00
[2018-05-06 14:48] LABS: Absolute Monocytes 0.5 K/uL (0.1-1.3); Absolute Neutrophil 3.5 K/uL (1.8-8.0); Basophils % 0.9 % (0-1.3); Eosinophils % 3.3 % (0-4.4); Hematocrit 46.2 % (39.6-49.0); Lymphocytes % 31.7 % (15.3-44.8); MCH 29.8 pg (27.0-35.0); MCV 87.5 fL (80-100); Monocytes % 8.7 % (3.3-12.3); RBC Red Blood Cell Count 5.29 M/uL (4.33-5.43)
[2018-05-06] MEDS ORDERED: NA CHLORIDE 0.9% 1,000 ML ONE (14:54)
--- NOTE | 2018-05-06 14:54 | RAD REPORT ---
EXAM DESCRIPTION: CT - Head Brain Wo Cont - 05/06/2018 2:47 pm CLINICAL HISTORY: Weakness, dizziness, apneic episode COMPARISON: February 25 TECHNIQUE: Axial 5 mm thick images of the head were obtained without IV contrast. All CT scans are performed using dose optimization technique as appropriate and may include automated exposure control or mA/KV adjustment according to patient size. FINDINGS: No intracranial hemorrhage, mass, edema or shift of mid-line structures. No acute cortical based infarction identifiable. Moderate atrophy and chronic ischemic changes are present. Ventricula r size is in proportion. Arterial and physiologic calcifications present. No abnormal extra-axial flu id collections. Ventricles are in proportion to volume loss. Intracranial findings are not clearly di fferent from January. Mastoid air cells and visualized portions of the paranasal sinuses are clear. No acute bony findings. IMPRESSION: Atrophy and chronic ischemic changes are present similar to January. No acute intracranial finding.
[2018-05-06 15:35] LABS: ALT/SGPT 42 U/L (12-78); AST/SGOT 28 U/L (15-37); Albumin 3.7 g/dL (3.4-5.0); Alkaline Phosphatase 144 U/L (45-117); BUN Blood Urea Nitrogen 43 mg/dL (7-18); Bicarbonate 32 mmol/L (21-32); Bilirubin Direct 0.1 mg/dL (0-0.2); Bilirubin Total 0.4 mg/dL (0.2-1.0); Glucose Level 276 mg/dL (74-106); Potassium 4.5 mmol/L (3.5-5.1); Protein, Total 7.4 g/dL (6.4-8.2); Sodium Level 135 mmol/L (136-145)
--- NOTE | 2018-05-06 16:15 | EDPHYS ---
Physician Documentation [facility] Name: Americo Guillermo Age: 77 yrs Sex: Male : 1940 Arrival Date: 05/06/2018 Time: 13:45 Bed 27 Private MD: Austyn Lane V ED Physician Damaso Siegel HPI: 05/06 16:05 This 77 yrs old Male presents to ER via EMS with complaints of Weakness. jr8 16:05 Patient stated that for the past day or so has felt generally weak and feels jr8 dehydrated. Family stated that he has been falling more as well . Onset: The symptoms/episode began/occurred acutely. Severity of symptoms: At their worst the symptoms were moderate in the emergency department the symptoms are unchanged. The patient has not experienced similar symptoms in the past. The patient has not recently seen a physician. Historical: - Allergies: 13:48 No Known Allergies; ed1 - Home Meds: 15:17 magnesium oxide 400 mg Oral cap twice a day [Active]; Novolin 70/30 [place] Sub-Q 60 ed1 unit 30 min before breakfast [Active]; Novolin 70/30 [place] Sub-Q 50 unit 30 minutes before dinner [Active]; levothyroxine 125 mcg tab 1 tab once daily [Active]; Advair Diskus 250-50 mcg/dose Inhl dsdv 1 puff 2 times per day [Active]; Aricept 10 mg Oral tab 1 tab once daily [Active]; Lasix 40 mg Oral tab 1 tab once daily [Active]; ramipril 5 mg Oral cap 1 cap once daily [Active]; Norvasc 10 mg Oral tab 1 tab once daily [Active]; Lipitor 40 mg Oral tab 1 tab once daily [Active]; Plavix 75 mg Oral tab 1 tab once daily [Active]; omeprazole 20 mg Oral cpDR 1 cap once daily [Active]; metoprolol succinate 100 mg oral Tb24 1 tab once daily [Active]; - PMHx: 15:17 Dementia; Diabetes - NIDDM; COPD; Hypertension; Hyperlipidemia; Hypothyroidism; GERD; ed1 - PSHx: 15:17 Unable to obtain; ed1 - Immunization history:: Adult Immunizations up to date. - Ebola Screening: : Patient negative for fever greater than or equal to 101.5 degrees Fahrenheit, and additional compatible Ebola Virus Disease symptoms Patient denies exposure to infectious person Patient denies travel to an Ebola-affected area in the 21 days before illness onset No symptoms or risks identified at this time. - Social history:: Smoking status: Patient/guardian denies using tobacco. ROS: 16:05 Eyes: Negative for injury, pain, redness, and discharge, ENT: Negative for injury, jr8 pain, and discharge, Neck: Negative for injury, pain, and swelling, Cardiovascular: Negative for chest pain, palpitations, and edema, Respiratory: Negative for shortness of breath, cough, wheezing, and pleuritic chest pain, Abdomen/GI: Negative for abdominal pain, nausea, vomiting, diarrhea, and constipation, Back: Negative for injury and pain, MS/Extremity: Negative for injury and deformity, Skin: Negative for injury, rash, and discoloration. 16:05 Neuro: Positive for weakness, Negative for altered mental status, dizziness, gait disturbance, headache, hearing loss, loss of consciousness, numbness, seizure activity, speech changes, syncope, near syncope, tingling, tinnitus, tremor, visual changes. Exam: 16:05 Eyes: Pupils equal round and reactive to light, extra-ocular motions intact. Lids and jr8 lashes normal. Conjunctiva and sclera are non-icteric and not injected. Cornea within normal limits. Periorbital areas with no swelling, redness, or edema. ENT: Nares patent. No nasal discharge, no septal abnormalities noted. Tympanic membranes are normal and external auditory canals are clear. Oropharynx with no redness, swelling, or masses, exudates, or evidence of obstruction, uvula midline. Mucous membranes moist. Neck: Trachea midline, no thyromegaly or masses palpated, and no cervical lymphadenopathy. Supple, full range of motion without nuchal rigidity, or vertebral point tenderness. No Meningismus. Cardiovascular: Regular rate and rhythm with a normal S1 and S2. No gallops, murmurs, or rubs. Normal PMI, no JVD. No pulse deficits. Respiratory: Lungs have equal breath sounds bilaterally, clear to auscultation and percussion. No rales, rhonchi or wheezes noted. No increased work of breathing, no retractions or nasal flaring. Abdomen/GI: Soft, non-tender, with normal bowel sounds. No distension or tympany. No guarding or rebound. No evidence of tenderness throughout. Back: No spinal tenderness. No costovertebral tenderness. Full range of motion. Skin: Warm, dry with normal turgor. Normal color with no rashes, no lesions, and no evidence of cellulitis. MS/ Extremity: Pulses equal, no cyanosis. Neurovascular intact. Full, normal range of motion. Neuro: Awake and alert, GCS 15, oriented to person, place, time, and situation. Cranial nerves II-XII grossly intact. Motor strength 5/5 in all extremities. Sensory grossly intact. Cerebellar exam normal. Normal gait. 16:15 ECG was reviewed by the Attending Physician. [facility] Vital Signs: 13:49 BP 126 / 72; Pulse 65; Resp 23; Temp 98.4(O); Pulse Ox 94% on R/A; Pain 0/10; ed1 15:20 BP 142 / 64; Pulse 56; Resp 18; Pulse Ox 94% on R/A; Pain 0/10; ed1 16:52 BP 111 / 95; Pulse 66; Resp 17; Temp 97.3(O); Pulse Ox 100% on R/A; Pain 0/10; ed1 NIH Stroke Scale Scores: 16:05 NIHSS Score: 0 [facility] MDM: 14:06 Patient medically screened. 8 16:14 Data reviewed: vital signs, nurses notes, lab test result(s), radiologic studies, CT [facility] scan, and as a result, I will discharge patient. Data interpreted: Pulse oximetry: on room air is 94 %. Interpretation: normal. Counseling: I had a detailed discussion with the patient and/or guardian regarding: the historical points, exam findings, and any diagnostic results supporting the discharge/admit diagnosis, lab results, radiology results, the need for outpatient follow up, a family practitioner, nephrology, to return to the emergency department if symptoms worsen or persist or if there are any questions or concerns that arise at home. Response to treatment: the patient's symptoms have markedly improved after treatment. 05/06 14:23 Order name: Basic Metabolic Panel; Complete Time: 15:46 05/06 14:23 Order name: CBC with Diff; Complete Time: 15:25 05/06 14:23 Order name: Creatinine for Radiology; Complete Time: 15:28 05/06 14:23 Order name: Hepatic Function; Complete Time: 15:46 05/06 14:23 Order name: Ketone, Serum; Complete Time: 15:46 05/06 14:25 Order name: Magnesium; Complete Time: 15:25 05/06 14:23 Order name: IV Saline Lock; Complete Time: 14:39 05/06 14:23 Order name: Labs collected and sent; Complete Time: 14:39 05/06 14:24 Order name: CT Head Brain wo Cont; Complete Time: 14:57 EC:15 Rate is 59 beats/min. Rhythm is regular, Sinus bradycardia. QRS [place] is Normal. MI jr8 interval is prolonged at 268 msec. QRS interval is normal at 102 msec. QT interval is normal at 407 msec. No Q waves. T waves are Normal. No ST changes noted. Clinical impression: 1st degree heart block. Interpreted by me. Reviewed by me. Administered Medications: 14:59 Drug: NS 0.9% 1000 ml Route: IV; Rate: 1000 ml; Site: right antecubital; ed1 16:52 Follow up: IV Status: Completed infusion ss Point of Care Testing: Blood Glucose: 13:51 Blood Glucose: 226 mg/dL; ed1 Ranges: Critical Glucose Levels:Adult <50 mg/dl or >400 mg/dl <40 mg/dl or >180 mg/dl Disposition: 18:34 Co-signature as Attending Physician, Damaso Siegel MD. rn Disposition: 05/06/18 16:15 Discharged to Home. Impression: Dehydration, Weakness. - Condition is Stable. - Discharge Instructions: Dehydration, Adult, Weakness. - Medication Reconciliation Form, Thank You Letter, Antibiotic Education, Prescription Opioid Use form. - Follow up: Austyn Lane MD; When: 5 - 6 days; Reason: Recheck today's complaints, Continuance of care, Re-evaluation by your physician. - Problem is new. - Symptoms have improved. NIH Stroke Scale - NIH Stroke Score Date: 05/06/2018 Time: 16:05 Total Score = 0 1a. Level of Consciousness (LOC) - 0(Alert) 1b. Level of Consciousness (LOC) (Year \T\ Age) - 0(Both) 1c. LOC Commands (Open \T\ Closes Eyes/Motor Vehicle Operator Road Supervisor) - 0(Both) 2. Best Gaze (Lateral Gaze Paresis) - 0(Normal) 3. Visual Field Loss - 0(No visual loss) 4. Facial Palsy - 0(Normal) 5a. Left Arm: Motor (10-second hold) - 0(No drift) 5b. Right Arm: Motor (10-second hold) - 0(No drift) 6a. Left Leg: Motor (5-second hold - always test supine) - 0(No drift) 6b. Right Leg: Motor (5-second hold - always test supine) - 0(No drift) 7. Limb Ataxia (finger/nose \T\ heel/valentin - test with eyes open) - 0(Absent) 8. Sensory Loss (pinprick arms/legs/face) - 0(Normal) 9. Best Language: Aphasia (description/naming/reading) - 0(No aphasia) 10. Dysarthria (speech clarity - read or repeat words) - 0(Normal) 11. Extinction and Inattention (visual/tactile/auditory/spatial/personal) - 0(No abnormality) Initials: jr8 Signatures: Dispatcher [employer] EDMS Damaso Siegel MD MD rn Smirch, Shelby, RN RN ss Komal Villa, COUNTY ADVISER COUNTY ADVISER ed1 [address] PA PA jr8 Corrections: (The following items were deleted from the chart) 16:18 14:23 Urine Dipstick-Ancillary ordered. jr8 ed1 16:53 16:15 05/06/2018 16:15 Discharged to Home. Impression: Dehydration; Weakness. ss Condition is Stable. Forms are Medication Reconciliation Form, Thank You Letter, Antibiotic Education, Prescription Opioid Use. Follow up: Austyn Lane; When: 5 - 6 days; Reason: Recheck today's complaints, Continuance of care, Re-evaluation by your physician. Problem is new. Symptoms have improved. jr8
--- NOTE | 2018-05-06 16:15 | ER ---
Nurse's Notes [facility] Name: Americo Guillermo Age: 77 yrs Sex: Male : 1940 Arrival Date: 05/06/2018 Time: 13:45 Bed 27 Private MD: Austyn Lane V Diagnosis: Dehydration;Weakness Presentation: 05/06 13:46 Presenting complaint: EMS states: His said while he was sleeping he appeared to ed1 not be breathing for about 15 seconds. Hx of sleep apnea. Pt reports feeling weak. Transition of care: patient was not received from another setting of care. Onset of symptoms was May 06, 2018. Risk Assessment: Do you want to hurt yourself or someone else? Patient reports no desire to harm self or others. Initial Sepsis Screen: Does the patient meet any 2 criteria? No. Patient's initial sepsis screen is negative. Does the patient have a suspected source of infection? No. Patient's initial sepsis screen is negative. Care prior to arrival: Medication(s) given: LR 500mL IV initiated. 20 GA, in the right antecubital area, Glucose >400 per EMS. 13:46 Method Of Arrival: EMS: [facility] ed1 13:46 Acuity: TOMAS 3 ss Historical: - Allergies: 13:48 No Known Allergies; ed1 - Home Meds: 15:17 magnesium oxide 400 mg Oral cap twice a day [Active]; Novolin 70/30 [place] Sub-Q 60 ed1 unit 30 min before breakfast [Active]; Novolin 70/30 [place] Sub-Q 50 unit 30 minutes before dinner [Active]; levothyroxine 125 mcg tab 1 tab once daily [Active]; Advair Diskus 250-50 mcg/dose Inhl dsdv 1 puff 2 times per day [Active]; Aricept 10 mg Oral tab 1 tab once daily [Active]; Lasix 40 mg Oral tab 1 tab once daily [Active]; ramipril 5 mg Oral cap 1 cap once daily [Active]; Norvasc 10 mg Oral tab 1 tab once daily [Active]; Lipitor 40 mg Oral tab 1 tab once daily [Active]; Plavix 75 mg Oral tab 1 tab once daily [Active]; omeprazole 20 mg Oral cpDR 1 cap once daily [Active]; metoprolol succinate 100 mg oral Tb24 1 tab once daily [Active]; - PMHx: 15:17 Dementia; Diabetes - NIDDM; COPD; Hypertension; Hyperlipidemia; Hypothyroidism; GERD; ed1 - PSHx: 15:17 Unable to obtain; ed1 - Immunization history:: Adult Immunizations up to date. - Ebola Screening: : Patient negative for fever greater than or equal to 101.5 degrees Fahrenheit, and additional compatible Ebola Virus Disease symptoms Patient denies exposure to infectious person Patient denies travel to an Ebola-affected area in the 21 days before illness onset No symptoms or risks identified at this time. - Social history:: Smoking status: Patient/guardian denies using tobacco. Screenin:50 Abuse screen: Denies threats or abuse. Denies injuries from another. Nutritional ed1 screening: No deficits noted. Tuberculosis screening: No symptoms or risk factors identified. Fall Risk Fall in past 12 months (25 points). No secondary diagnosis (0 pts). IV access (20 points). Ambulatory Aid- None/Bed Rest/Nurse Assist (0 pts). Gait- Weak (10 pts.). Mental Status- Oriented to own ability (0 pts). Total Garcia Fall Scale indicates High Risk Score (45 or more points). Fall prevention measures have been instituted. Side Rails Up X 2 Frequent Obs/Assessments Occuring Family Present and informed to notify staff if the need to leave the bedside As available patient and family educated on Fall Prevention Program and Strategies. Assessment: 13:50 General: Appears in no apparent distress. Behavior is calm, cooperative. Pain: Denies ed1 pain. Neuro: Level of Consciousness is awake, alert, obeys commands, Oriented to person, place, time, situation, Energy Conservation Technician are equal bilaterally Moves all extremities. Full function Gait is steady, Speech is normal, Facial symmetry appears normal, Pupils are PERRLA, Intact Reports dizziness, weakness Denies blurred vision difficulty swallowing, paresthesias numbness headache photophobia diplopia. Cardiovascular: Denies chest pain, Heart tones S1 S2 present Rhythm is regular. Respiratory: Airway is patent Respiratory effort is even, unlabored, Respiratory pattern is regular, symmetrical, Breath sounds are clear bilaterally. Denies cough, shortness of breath. GI: Reports normal bowel habits, Patient currently denies abdominal pain, diarrhea, nausea, vomiting. : No signs and/or symptoms were reported regarding the genitourinary system. EENT: No signs and/or symptoms were reported regarding the EENT system. Derm: Skin is intact, is healthy with good turgor, Skin is dry, Skin is normal, Skin temperature is warm. Musculoskeletal: Circulation, motion, and sensation intact. Capillary refill < 3 seconds, in bilateral fingers. Range of motion: intact in all extremities. 13:55 General: The previous assessment is accurate. Call light remains within reach. . ss 15:20 Reassessment: Patient appears in no apparent distress at this time. No changes from ed1 previously documented assessment. Patient and/or family updated on plan of care and expected duration. Pain level reassessed. Patient is alert, oriented x 3, equal unlabored respirations, skin warm/dry/pink. Patient denies pain at this time. 16:52 Reassessment: Patient appears in no apparent distress at this time. No changes from ed1 previously documented assessment. Patient and/or family updated on plan of care and expected duration. Pain level reassessed. Patient is alert, oriented x 3, equal unlabored respirations, skin warm/dry/pink. Patient denies pain at this time. Vital Signs: 13:49 BP 126 / 72; Pulse 65; Resp 23; Temp 98.4(O); Pulse Ox 94% on R/A; Pain 0/10; ed1 15:20 BP 142 / 64; Pulse 56; Resp 18; Pulse Ox 94% on R/A; Pain 0/10; ed1 16:52 BP 111 / 95; Pulse 66; Resp 17; Temp 97.3(O); Pulse Ox 100% on R/A; Pain 0/10; ed1 NIH Stroke Scale Scores: 16:05 NIHSS Score: 0 [facility] hospital ED Course: 13:45 Patient arrived in ED. ed1 13:[address] MD is Private Physician. ed1 13:49 Arm band placed on left wrist. ed1 13:50 Patient has correct armband on for positive identification. Placed in gown. Bed in low ed1 position. Call light in reach. Side rails up X2. Adult w/ patient. senior sales manager on. Pulse ox on. NIBP on. 13:[address] PA is PHCP. jr8 13:52 Damaso Siegel MD is Attending Physician. jr8 14:03 Komal Villa LVN is Primary Nurse. ed1 14:16 EKG done, by nuclear fuel enrichment technician. reviewed by Rosendo SALINAS. at1 14:[address] via stretcher. nj 14:44 Triage completed. ss 14:47 CT completed. Patient tolerated procedure well. Patient moved back from CT. nj 14:47 CT Head Brain wo Cont In Process Unspecified. EDMS 16:[address] MD is Referral Physician. jr8 16:49 No provider procedures requiring assistance completed. IV discontinued, intact, ss bleeding controlled, No redness/swelling at site. Pressure dressing applied. Administered Medications: 14:59 Drug: NS 0.9% 1000 ml Route: IV; Rate: 1000 ml; Site: right antecubital; ed1 16:52 Follow up: IV Status: Completed infusion Point of Care Testing: Blood Glucose: 13:51 Blood Glucose: 226 mg/dL; ed1 Ranges: Outcome: 16:15 Discharge ordered by . jr8 16:49 Discharged to home ambulatory. ss 16:49 Condition: good 16:49 Discharge instructions given to patient, family, Instructed on discharge instructions, follow up and referral plans. Demonstrated understanding of instructions, follow-up care. 16:53 Patient left the ED. NIH Stroke Scale - NIH Stroke Score Date: 05/06/2018 Time: 16:05 Total Score = 0 1a. Level of Consciousness (LOC) - 0(Alert) 1b. Level of Consciousness (LOC) (Year \T\ Age) - 0(Both) 1c. LOC Commands (Open \T\ Closes Eyes/Associate Relations Specialist) - 0(Both) 2. Best Gaze (Lateral Gaze Paresis) - 0(Normal) 3. Visual Field Loss - 0(No visual loss) 4. Facial Palsy - 0(Normal) 5a. Left Arm: Motor (10-second hold) - 0(No drift) 5b. Right Arm: Motor (10-second hold) - 0(No drift) 6a. Left Leg: Motor (5-second hold - always test supine) - 0(No drift) 6b. Right Leg: Motor (5-second hold - always test supine) - 0(No drift) 7. Limb Ataxia (finger/nose \T\ heel/valentin - test with eyes open) - 0(Absent) 8. Sensory Loss (pinprick arms/legs/face) - 0(Normal) 9. Best Language: Aphasia (description/naming/reading) - 0(No aphasia) 10. Dysarthria (speech clarity - read or repeat words) - 0(Normal) 11. Extinction and Inattention (visual/tactile/auditory/spatial/personal) - 0(No abnormality) Initials: gina Signatures: Dispatcher [employer] EDMS Nica De Dios, ANN RN ss Allen, Komal, ELEMENTARY READING SPECIALIST ELEMENTARY READING SPECIALIST ed1 Rosendo Cr PA PA jr8 Kia chavarria, assistant auditor EKG Tat1 Gregory Ortiz Corrections: (The following items were deleted from the chart) 14:40 13:49 BP 126 / 72; Pulse 65bpm; Resp 23bpm; Pulse Ox 94% RA; Pain 0/10; ed1 ed1
[2018-05-06 16:59] VITALS: BP 111/95; TEMP 97.3; O2SAT 100
--- NOTE | 2018-05-06 18:44 | EKG ---
Test Date: 2018-05-06 Test Time: 14:10:12 [facility] Advocate: MELISA MEASUREMENT RESULTS: Intervals: Rate: 59 NC: 268 QRSD: 102 QT: 412 QTc: 407 Valentine: P: 40 NC: 268 QRS: 19 T: 72 INTERPRETIVE STATEMENTS: Sinus bradycardia with 1st degree AV block Possible Inferior infarct, age undetermined Abnormal ECG Compared to ECG 02/26/2018 09:09:27 Myocardial infarct finding now present Sinus tachycardia no longer present Electronically Signed On 05-06-18 18:43:20 CDT by Nahum Webb
== END 2018-05-06 16:53 | disposition home or self-care (01) ==
LOC: ER 13:44
DX: E86.0 Dehydration (principal); I10 Essential (primary) hypertension; E11.9 Type 2 diabetes mellitus without complications; E03.9 Hypothyroidism, unspecified; F03.90 Unspecified dementia, unspecified severity, without behavioral disturbance, psychotic disturbance, mood disturbance, and anxiety; J44.9 Chronic obstructive pulmonary disease, unspecified; Z79.4 Long term (current) use of insulin; Z79.01 Long term (current) use of anticoagulants
CPT/HCPCS: 36415; 70450; 80048; 80076; 82010; 82962; 83735; 85025; 93005; 96360; 96361; 99285; J7030

== ENCOUNTER 2019-04-02 14:10 | Inpatient (IN) | payer OTHER ==
--- OUTSIDE RECORDS SUMMARY | 2019-04-02 14:12 | XMS REPORT | Clinical Summary ---
:1940 Author Organization [facility] Address [address] [place] [id number] Care Team Providers Name Role Phone Branden Primary Care Provider Branden Unavailable Allergies No Known Allergies Medications Medication Sig Dispensed Refills Start Date End Date Status aspirin 81 MG EC Take 81 mg by mouth 0 Active tablet daily. telmisartan Take 80 mg by mouth 0 Active (MICARDIS) 80 MG daily. tablet amitriptyline Take 150 mg by mouth 0 Active (ELAVIL) 150 MG nightly. tablet clopidogrel Take 75 mg by mouth 0 Active (PLAVIX) 75 mg daily. tablet omeprazole Take 20 mg by mouth 0 Active (PRILOSEC) 20 MG daily. capsule insulin detemir Inject 65 Units 0 Active (LEVEMIR) 100 subcutaneously unit/mL injection nightly . simvastatin (ZOCOR) Take 40 mg by mouth 0 Active 40 MG tablet nightly. rivastigmine Place 1 patch onto 0 Active (EXELON) 9.5 mg/24 the skin daily. hr patch metoprolol Take 50 mg by mouth 0 Active (TOPROL-XL) 50 MG daily. 24 hr tablet levothyroxine Take 125 mcg by 0 Active (SYNTHROID, mouth Every morning LEVOTHROID) 125 MCG on an empty stomach. tablet insulin aspart Inject 0 Active (NOVOLOG) 100 subcutaneously 3 unit/mL InPn (three) times daily with meals. amitriptyline Take 150 mg by mouth 0 Active (ELAVIL) 150 MG nightly. tablet aspirin 81 MG EC Take 81 mg by mouth 0 Active tablet daily. insulin detemir Inject 65 Units 0 Active (LEVEMIR) 100 subcutaneously unit/mL injection nightly. levothyroxine Take 125 mcg by 0 Active (SYNTHROID, mouth Every morning LEVOTHROID) 125 MCG on an empty stomach. tablet simvastatin (ZOCOR) Take 40 mg by mouth 0 Active 40 MG tablet nightly. telmisartan Take 80 mg by mouth 0 Active (MICARDIS) 80 MG daily. tablet clopidogrel Take 75 mg by mouth 0 Active (PLAVIX) 75 mg daily. tablet rivastigmine Place 1 patch onto 0 Active (EXELON) 9.5 mg/24 the skin daily. hr patch hydrALAZINE Take 1 tablet (25 mg 90 tablet 1 06/16/2017 (APRESOLINE) 25 MG total) by mouth 8 tablet every 8 (eight) hours. NIFEdipine (ADALAT Take 1 tablet (60 mg 30 tablet 1 06/16/2017 CC) 60 MG 24 hr total) by mouth 8 tablet daily. 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 Last Filed Vital Signs Not on file Plan of Treatment Not on file Results Not on fileafter 04/01/2018 Insurance Payer Benefit Plan / Subscriber ID Type Phone Address Group [employer] - MEDICARE AETNA MEDICARE [facility] xxxxxxxx [phone] [address] [place] [id number] [employer] - MEDICARE A[employer] MEDICARE [facility] xxxxxxxx [phone] [address] [place] [id number] ([address] [place] [id number] Americo Guillermo Personal/Family Self [address] [place] [address] ([address] [place] [id number] Advance Directives For more information, please contact:[address] [phone] Code Status Date Activated Date Inactivated Comments Full Code 06/11/2017 5:03 PM 06/16/2017 7:24 PM This code status was determined by: Patient Full Code 03/17/2017 5:37 PM 03/21/2017 2:21 PM This code status was determined by: Patient
--- OUTSIDE RECORDS SUMMARY | 2019-04-02 14:14 | XMS REPORT ---
:1940 Author Organization [facility] Address [address] [place] [address] Care Team Providers Name Role Phone PREMA [...] (BEAKER) (test 263 mg/dL 70-110 TESTED AT [address] inav=8760) [facility] [address] POCT-GLUCOSE [id number] 08:30:00 Test Item Value Reference Range Comments POC-GLUCOSE METER (BEAKER) 183 mg/dL 70-110 TESTED AT [address] (test zzsb=1254) [facility] [address] POCT-GLUCOSE [id number] 21:30:00 Test Item Value Reference Range Comments POC-GLUCOSE METER (BEAKER) 334 mg/dL 70-110 Notified ANN ADLER/TESTED AT [facility] (test inxr=6139) [address] [place] [address] POCT-GLUCOSE [id number] 15:48:00 Test Item Value Reference Range Comments POC-GLUCOSE METER (BEAKER) 233 mg/dL 70-110 TESTED AT [address] (test ufhk=3983) [facility] [address] POCT-GLUCOSE [id number] 11:52:00 Test Item Value Reference Range Comments POC-GLUCOSE METER (BEAKER) 229 mg/dL 70-110 TESTED AT [address] (test hxaz=0749) [facility] [address] POCT-GLUCOSE [id number] 07:44:00 Test Item Value Reference Range Comments POC-GLUCOSE METER (BEAKER) 235 mg/dL 70-110 TESTED AT [facility] [address] (test xycs=3436) [facility] [address] [id number] 05:11:00 Test Item Value Reference Range Comments PHOSPHORUS (BEAKER) (test gflt=664) 3.0 mg/dL 2.3-4.7 [id number] 05:11:00 Test Item Value Reference Range Comments MAGNESIUM (BEAKER) (test avoc=518) 1.7 mg/dL 1.6-2.6 BASIC METABOLIC [id number] 05:11:00 Test Item Value Reference Range Comments SODIUM (BEAKER) (test 136 meq/L 136-145 akwz=928) POTASSIUM (BEAKER) (test 3.8 meq/L 3.5-5.1 hujc=132) CHLORIDE (BEAKER) (test 102 meq/L 98-107 acnu=490) CO2 (BEAKER) (test 26 meq/L 22-29 dwev=095) BLOOD UREA NITROGEN 19 mg/dL 7-21 (BEAKER) (test defp=516) CREATININE (BEAKER) (test 1.36 mg/dL 0.57-1.25 yxwi=573) GLUCOSE RANDOM (BEAKER) 195 mg/dL 70-105 (test qnzd=872) CALCIUM (BEAKER) (test 9.3 mg/dL 8.4-10.2 fhxa=747) EGFR (BEAKER) (test 51 mL/min/1.73 sq m ESTIMATED GFR IS NOT hhlm=5234) ACCURATE CREATININE CLEARANCE IN PREDICTING GLOMERULAR FILTRATION RATE. ESTIMATED GFR IS NOT APPLICABLE FOR DIALYSIS PATIENTS. POCT-GLUCOSE [id number] 20:41:00 Test Item Value Reference Range Comments POC-GLUCOSE METER (BEAKER) 198 mg/dL 70-110 TESTED AT [facility] [address] (test heaq=9627) [facility] [address] POCT-GLUCOSE [id number] 20:19:00 Test Item Value Reference Range Comments POC-GLUCOSE METER (BEAKER) 363 mg/dL 70-110 Notified ANN ADLER/TESTED AT [facility] (test qpef=1674) [address] [facility] [address] POCT-GLUCOSE [id number] 20:16:00 Test Item Value Reference Range Comments POC-GLUCOSE METER (BEAKER) 279 mg/dL 70-110 TESTED AT [address] (test unvk=8827) [facility] [address] POCT-GLUCOSE [id number] 20:10:00 Test Item Value Reference Range Comments POC-GLUCOSE METER (BEAKER) 200 mg/dL 70-110 TESTED AT [address] (test yrrn=0563) [facility] [address] POCT-GLUCOSE [id number] 19:59:00 Test Item Value Reference Range Comments POC-GLUCOSE METER (BEAKER) 297 mg/dL 70-110 TESTED AT [address] (test cvdx=6950) [facility] [address] POCT-GLUCOSE [id number] 19:56:00 Test Item Value Reference Range Comments POC-GLUCOSE METER (BEAKER) 294 mg/dL 70-110 TESTED AT [address] (test omuh=3412) [facility] [address] POCT-GLUCOSE [id number] 11:18:00 Test Item Value Reference Range Comments POC-GLUCOSE METER (BEAKER) 272 mg/dL 70-110 TESTED AT [address] (test kbop=4345) [facility] [address] POCT-GLUCOSE [id number] 08:10:00 Test Item Value Reference Range Comments POC-GLUCOSE METER (BEAKER) 221 mg/dL 70-110 TESTED AT [address] (test payo=4216) [place] [address] [id number] 05:02:00 Test Item Value Reference Range Comments PHOSPHORUS (BEAKER) (test dcsu=734) 2.7 mg/dL 2.3-4.7 [id number] 05:02:00 Test Item Value Reference Range Comments MAGNESIUM (BEAKER) (test kadd=518) 1.8 mg/dL 1.6-2.6 BASIC METABOLIC [id number] 05:02:00 Test Item Value Reference Range Comments SODIUM (BEAKER) (test 134 meq/L 136-145 fkxg=581) POTASSIUM (BEAKER) (test 3.9 meq/L 3.5-5.1 noik=032) CHLORIDE (BEAKER) (test 101 meq/L 98-107 abfq=827) CO2 (BEAKER) (test 25 meq/L 22-29 xmew=361) BLOOD UREA NITROGEN 21 mg/dL 7-21 (BEAKER) (test ctwe=230) CREATININE (BEAKER) (test 1.29 mg/dL 0.57-1.25 tojh=672) GLUCOSE RANDOM (BEAKER) 218 mg/dL 70-105 (test llcm=624) CALCIUM (BEAKER) (test 9.1 mg/dL 8.4-10.2 zwpq=311) EGFR (BEAKER) (test 54 mL/min/1.73 sq m ESTIMATED GFR IS NOT wftf=2501) ACCURATE CREATININE CLEARANCE IN PREDICTING GLOMERULAR FILTRATION RATE. ESTIMATED GFR IS NOT APPLICABLE FOR DIALYSIS PATIENTS. POCT-GLUCOSE [id number] 22:45:00 Test Item Value Reference Range Comments POC-GLUCOSE METER (BEAKER) 297 mg/dL 70-110 TESTED AT [address] (test rwfw=7703) [place] [address] POCT-GLUCOSE [id number] 20:42:00 Test Item Value Reference Range Comments POC-GLUCOSE METER (BEAKER) 293 mg/dL 70-110 TESTED AT [address] (test kxna=5234) [place] [address] POCT-GLUCOSE [id number] 17:00:00 Test Item Value Reference Range Comments POC-GLUCOSE METER (BEAKER) 287 mg/dL 70-110 TESTED AT [address] (test kdux=0780) [place] [address] POCT-GLUCOSE [id number] 14:53:00 Test Item Value Reference Range Comments POC-GLUCOSE METER (BEAKER) 269 mg/dL 70-110 TESTED AT [address] (test fkco=8362) [place] [address] [id number] 13:00:00 Test Item Value Reference Range Comments RPR SCREEN (BEAKER) (test nzwq=042) Nonreactive Nonreactive HEMOGLOBIN [id number] 08:51:00 Test Item Value Reference Range Comments HEMOGLOBIN A1C (BEAKER) (test dpym=072) 9.9 % 4.3-6.1 URINALYSIS W/ [id number] 08:01:00 Test Item Value Reference Range Comments COLOR (BEAKER) (test otbv=502) Light Yellow CLARITY (BEAKER) (test vedl=727) Clear SPECIFIC GRAVITY UA (BEAKER) (test svxq=982) 1.010 1.001-1.035 PH UA (BEAKER) (test prlk=718) 6.0 5.0-8.0 PROTEIN UA (BEAKER) (test vrzk=291) 30 mg/dL Negative GLUCOSE UA (BEAKER) (test xwxb=277) 100 mg/dL Negative KETONES UA (BEAKER) (test zntq=455) Negative Negative BILIRUBIN UA (BEAKER) (test bfcp=730) Negative Negative BLOOD UA (BEAKER) (test wwva=185) Negative Negative NITRITE UA (BEAKER) (test zrnq=339) Negative Negative LEUKOCYTE ESTERASE UA (BEAKER) (test eiiv=266) Negative Negative UROBILINOGEN UA (BEAKER) (test lqhf=152) 0.2 mg/dL 0.2-1.0 RBC UA (BEAKER) (test wvvx=431) 0 /HPF WBC UA (BEAKER) (test nlkd=556) < /HPF SOURCE(BEAKER) (test huxc=7169) Urine, Voided POCT-GLUCOSE [id number] 08:00:00 Test Item Value Reference Range Comments POC-GLUCOSE METER (BEAKER) 201 mg/dL 70-110 TESTED AT [facility] [address] [facility] (test ypgt=3137) [facility] [address] [id number] 05:59:00 Test Item Value Reference Range Comments PHOSPHORUS (BEAKER) (test oame=343) 2.7 mg/dL 2.3-4.7 [id number] 05:59:00 Test Item Value Reference Range Comments MAGNESIUM (BEAKER) (test siqw=145) 1.8 mg/dL 1.6-2.6 BASIC METABOLIC [id number] 05:59:00 Test Item Value Reference Range Comments SODIUM (BEAKER) (test 137 meq/L 136-145 dxak=659) POTASSIUM (BEAKER) (test 4.1 meq/L 3.5-5.1 ytgd=011) CHLORIDE (BEAKER) (test 103 meq/L 98-107 ywzq=486) CO2 (BEAKER) (test 25 meq/L 22-29 tcrb=864) BLOOD UREA NITROGEN 26 mg/dL 7-21 (BEAKER) (test syck=910) CREATININE (BEAKER) (test 1.42 mg/dL 0.57-1.25 gndc=527) GLUCOSE RANDOM (BEAKER) 190 mg/dL 70-105 (test cltx=977) CALCIUM (BEAKER) (test 9.0 mg/dL 8.4-10.2 xmzt=535) EGFR (BEAKER) (test 48 mL/min/1.73 sq m ESTIMATED GFR IS NOT dnob=4044) ACCURATE CREATININE CLEARANCE IN PREDICTING GLOMERULAR FILTRATION RATE. ESTIMATED GFR IS NOT APPLICABLE FOR DIALYSIS PATIENTS. LIPID [id number] 05:59:00 Test Item Value Reference Range Comments TRIGLYCERIDES (BEAKER) (test ethc=593) 226 mg/dL CHOLESTEROL (BEAKER) (test vhpm=379) 139 mg/dL HDL CHOLESTEROL (BEAKER) (test nzbq=507) 33 mg/dL LDL CHOLESTEROL CALCULATED (BEAKER) (test 61 mg/dL ordz=589) Triglyceride Reference Range: Low Risk <150 Borderline 150- 199 High Risk 200-499 Very High Risk >=500Cholesterol Reference Range: Low Risk <200 Borderline 200-239 High Risk > 240HDL Cholesterol Reference Range: Low Risk >=60 High Risk <40LDL Cholesterol Reference Range: Optimal <100 Near Optimal 100-129 Borderline 130-159 High 160-189 Very High >=190RAPID DRUG SCREEN, [id number] 23:42:00 Test Item Value Reference Range Comments BARBITURATE URINE (BEAKER) (test qade=826) Positive Negative BENZODIAZEPINE SCREEN URINE (BEAKER) (test Negative Negative ekjp=488) COCAINE (METAB.) SCREEN (BEAKER) (test ceso=3532) Negative Negative METHADONE SCREEN (BEAKER) (test ndvj=6580) Negative Negative OPIATE SCREEN URINE (BEAKER) (test nfcr=472) Negative Negative CANNABINOID SCREEN URINE (BEAKER) (test uifl=252) Negative Negative AMPH/METHAMPH SCREEN (BEAKER) (test tyqg=8540) Negative Negative PHENCYCLIDINE SCREEN URINE (BEAKER) (test grdd=772) Negative Negative OXYCODONE SCREEN URINE (BEAKER) (test zjqj=5208) Negative Negative DRUG CUTOFF CONC.Cocaine 300 ng/mL Cannabinoid 50 ng/mL Benzodiazepine 200 ng/mLBarbiturate 200 ng/ mLPhencyclidine 25 ng/mLOpiate 300 ng/mLMethadone 300 ng/mLAmphetamine/ 1000 ng/mL MethamphetamineOxycodone 300 ng/mLThis assay provides an unconfirmed qualitative test result for the clinical management of patients in emergency situations. Chain of custody not maintained. Some fixi-bci-bkzjntv medications, as well as adulterants, may cause inaccurate results. Clinical correlation should be applied. A more comprehensive drug screen or confirmation of a detected drug may be performed upon request.CREATININE, RANDOM [id number] 23:35:00 Test Item Value Reference Range Comments CREATININE URINE (BEAKER) (test lkks=595) 190.0 mg/dL Reference Range: No NormalsPROTEIN, RANDOM [id number] 23:35:00 Test Item Value Reference Range Comments PROTEIN, URINE (BEAKER) (test hujk=1993) 71 mg/dL 0-14 SODIUM, RANDOM [id number] 23:35:00 Test Item Value Reference Range Comments SODIUM URINE (BEAKER) (test ftlh=611) 94 meq/L Reference Range: No NormalsURINALYSIS W/ [id number] 23:33:00 Test Item Value Reference Range Comments COLOR (BEAKER) (test vtoh=081) Yellow CLARITY (BEAKER) (test ymuk=172) Clear SPECIFIC GRAVITY UA (BEAKER) (test pxni=418) 1.016 1.001-1.035 PH UA (BEAKER) (test xigr=549) 5.5 5.0-8.0 PROTEIN UA (BEAKER) (test rqsn=927) 70 mg/dL Negative GLUCOSE UA (BEAKER) (test mjyv=626) 30 mg/dL Negative KETONES UA (BEAKER) (test eqyk=288) Negative Negative BILIRUBIN UA (BEAKER) (test vnyu=847) Negative Negative BLOOD UA (BEAKER) (test dvnh=545) Negative Negative NITRITE UA (BEAKER) (test qgyq=958) Negative Negative LEUKOCYTE ESTERASE UA (BEAKER) (test kham=818) Negative Negative UROBILINOGEN UA (BEAKER) (test nboy=649) 0.2 mg/dL 0.2-1.0 RBC UA (BEAKER) (test lzsb=928) 0 /HPF WBC UA (BEAKER) (test hlzj=428) 2 /HPF MUCUS (BEAKER) (test rzln=5149) Rare SQUAMOUS EPITHELIAL (BEAKER) (test gjwz=795) < /HPF HYALINE CASTS (BEAKER) (test kdkh=515) 5 /LPF SOURCE(BEAKER) (test hywv=1367) Urine, Voided TSH/FREE T4 IF [id number] 21:37:00 Test Item Value Reference Range Comments THYROID STIMULATING HORMONE (BEAKER) (test 1.35 uIU/mL 0.35-4.94 nsfk=528) VITAMIN B12 AND [id number] 21:37:00 Test Item Value Reference Range Comments VITAMIN B12 (BEAKER) (test ikke=572) 306 pg/mL 213-816 FOLATE (BEAKER) (test qkwj=119) 13.0 ng/mL >=7.0 Effective 09/19/2014: Folate Reference Range ChangeNew: >=7.0 Previous: & gt;=5.4POCT-GLUCOSE [id number] 21:27:00 Test Item Value Reference Range Comments POC-GLUCOSE METER (BEAKER) 137 mg/dL 70-110 TESTED AT [facility] [address] [facility] (test jdqi=7005) [facility] [address] SEDIMENTATION [id number] 21:20:00 Test Item Value Reference Range Comments SEDIMENTATION RATE, ERYTHROCYTE (BEAKER) (test 23 mm/HR 0-40 qxgy=324) HEPATIC FUNCTION [id number] 21:01:00 Test Item Value Reference Range Comments TOTAL PROTEIN (BEAKER) (test dwsc=025) 7.7 gm/dL 6.0-8.3 ALBUMIN (BEAKER) (test kggn=0933) 4.3 g/dL 3.5-5.0 BILIRUBIN TOTAL (BEAKER) (test jdth=508) 0.5 mg/dL 0.2-1.2 BILIRUBIN DIRECT (BEAKER) (test bhtc=436) 0.2 mg/dL 0.1-0.5 ALKALINE PHOSPHATASE (BEAKER) (test kxki=091) 104 U/L 40-150 AST (SGOT) (BEAKER) (test ulqf=260) 21 U/L 5-34 ALT (SGPT) (BEAKER) (test edtz=543) 25 U/L 6-55 TROPONIN [id number] 16:03:00 Test Item Value Reference Range Comments TROPONIN I (BEAKER) (test bpcc=043) 0.01 ng/mL 0.00-0.03 Effective 09/19/2014: Reference Range [...] Range Comments B-TYPE NATRIURETIC PEPTIDE (BEAKER) (test gmgu=219) 21 pg/mL 0-100 CREATINE KINASE (CK), TOTAL AND [id number] 15:34:00 Test Item Value Reference Range Comments CREATINE KINASE TOTAL (BEAKER) (test flax=983) 61 U/L 29-200 CREATINE KINASE-MB (BEAKER) (test gtdy=615) 1.4 ng/mL 0.0-6.6 CREATINE KINASE-MB INDEX (BEAKER) (test nkiz=688) 2.3 % Effective 09/19/2014: CK-MB Reference Range ChangeNew: 0.0-6.6 Previous: 0.0- 4.9CK-MB Reference Range:<6.7 Normal6.7-10.0 Borderline>10.0 AbnormalBASIC METABOLIC [id number] 15:30:00 Test Item Value Reference Range Comments SODIUM (BEAKER) (test 139 meq/L 136-145 vttv=188) POTASSIUM (BEAKER) (test 4.5 meq/L 3.5-5.1 Specimen slightly tbmy=104) hemolyzed CHLORIDE (BEAKER) (test 104 meq/L 98-107 infl=367) CO2 (BEAKER) (test 27 meq/L 22-29 atje=554) BLOOD UREA NITROGEN 30 mg/dL 7-21 (BEAKER) (test eckm=072) CREATININE (BEAKER) (test 2.17 mg/dL 0.57-1.25 Specimen slightly plgz=654) hemolyzed GLUCOSE RANDOM (BEAKER) 163 mg/dL 70-105 (test bygr=305) CALCIUM (BEAKER) (test 9.5 mg/dL 8.4-10.2 xkks=811) EGFR (BEAKER) (test mL/min/1.73 sq m INSUFFICIENT CLINICAL DATA bczc=9072) TO CALCULATE ESTIMATED GFR. [id number] 15:28:00 Test Item Value Reference Range Comments MAGNESIUM (BEAKER) (test 2.1 mg/dL 1.6-2.6 Specimen slightly hemolyzed gnxg=765) CBC W/PLT COUNT & AUTO [id number] 15:13:00 Test Item Value Reference Range Comments WHITE BLOOD CELL COUNT (BEAKER) (test zkge=841) 7.6 K/ L 3.5-10.5 RED BLOOD CELL COUNT (BEAKER) (test xmcw=398) 5.15 M/ L 4.63-6.08 HEMOGLOBIN (BEAKER) (test flvg=678) 15.1 GM/DL 13.7-17.5 HEMATOCRIT (BEAKER) (test kqgn=180) 44.7 % 40.1-51.0 MEAN CORPUSCULAR VOLUME (BEAKER) (test ikap=014) 86.8 fL 79.0-92.2 MEAN CORPUSCULAR HEMOGLOBIN (BEAKER) (test 29.3 pg 25.7-32.2 ceyk=352) MEAN CORPUSCULAR HEMOGLOBIN CONC (BEAKER) (test 33.8 GM/DL 32.3-36.5 iadk=001) RED CELL DISTRIBUTION WIDTH (BEAKER) (test 13.2 % 11.6-14.4 ssnj=725) PLATELET COUNT (BEAKER) (test shnm=170) 170 K/CU MM 150-450 MEAN PLATELET VOLUME (BEAKER) (test cbda=799) 10.7 fL 9.4-12.4 NUCLEATED RED BLOOD CELLS (BEAKER) (test 0 /100 WBC 0-0 pifn=332) NEUTROPHILS RELATIVE PERCENT (BEAKER) (test 64 % svpr=990) LYMPHOCYTES RELATIVE PERCENT (BEAKER) (test 25 % gjfw=249) MONOCYTES RELATIVE PERCENT (BEAKER) (test 9 % klre=536) EOSINOPHILS RELATIVE PERCENT (BEAKER) (test 2 % bcyx=964) BASOPHILS RELATIVE PERCENT (BEAKER) (test 0 % clcw=088) NEUTROPHILS ABSOLUTE COUNT (BEAKER) (test 4.83 K/ L 1.78-5.38 syxa=755) LYMPHOCYTES ABSOLUTE COUNT (BEAKER) (test 1.87 K/ L 1.32-3.57 znig=019) MONOCYTES ABSOLUTE COUNT (BEAKER) (test 0.70 K/ L 0.30-0.82 lbro=409) EOSINOPHILS ABSOLUTE COUNT (BEAKER) (test 0.14 K/ L 0.04-0.54 nqqz=316) BASOPHILS ABSOLUTE COUNT (BEAKER) (test 0.03 K/ L 0.01-0.08 fqan=728) IMMATURE GRANULOCYTES-RELATIVE PERCENT (BEAKER) 0 % 0-1 (test jzch=5877) [id number] 15:09:00 Test Item Value Reference Range Comments PROTIME (BEAKER) (test ontd=213) 12.8 seconds 11.7-14.7 INR (BEAKER) (test gogq=747) 1.0 <=5.9 PARTIAL THROMBOPLASTIN TIME (BEAKER) (test 24.7 seconds 22.5-36.0 rttl=236) RECOMMENDED COUMADIN/WARFARIN INR THERAPY RANGESSTANDARD DOSE: 2.0 - 3.0 Includes: PROPHYLAXIS forvenous thrombosis, systemic embolization; TREATMENT for venous thrombosis and/or pulmonary embolus.HIGH RISK: Target INR is 2.5-3.5 for patients with mechanical heart valves.POCT-GLUCOSE [id number] 08:20:00 Test Item Value Reference Range Comments POC-GLUCOSE METER (BEAKER) 208 mg/dL 70-110 TESTED AT [address] (test uycn=9525) [facility] [address] BASIC METABOLIC [id number] 05:31:00 Test Item Value Reference Range Comments SODIUM (BEAKER) (test 136 meq/L 136-145 pstn=556) POTASSIUM (BEAKER) (test 3.9 meq/L 3.5-5.1 fcdv=396) CHLORIDE (BEAKER) (test 104 meq/L 98-107 ggpp=336) CO2 (BEAKER) (test 22 meq/L 22-29 icgl=725) BLOOD UREA NITROGEN 14 mg/dL 7-21 (BEAKER) (test ojon=581) CREATININE (BEAKER) (test 1.06 mg/dL 0.57-1.25 mcft=326) GLUCOSE RANDOM (BEAKER) 181 mg/dL 70-105 (test gfny=698) CALCIUM (BEAKER) (test 8.7 mg/dL 8.4-10.2 faxs=779) EGFR (BEAKER) (test 68 mL/min/1.73 sq m ESTIMATED GFR IS NOT pdsp=5612) ACCURATE CREATININE CLEARANCE IN PREDICTING GLOMERULAR FILTRATION RATE. ESTIMATED GFR IS NOT APPLICABLE FOR DIALYSIS PATIENTS. PROTHROMBIN [id number] 05:15:00 Test Item Value Reference Range Comments PROTIME (BEAKER) (test xawb=168) 13.6 seconds 11.7-14.7 INR (BEAKER) (test fthz=945) 1.1 <=5.9 RECOMMENDED COUMADIN/WARFARIN INR THERAPY RANGESSTANDARD DOSE: 2.0 - 3.0 Includes: PROPHYLAXIS forvenous thrombosis, systemic embolization; TREATMENT for venous thrombosis and/or pulmonary embolus.HIGH RISK: Target INR is 2.5-3.5 for patients with mechanical heart valves.CBC W/PLT COUNT & AUTO [id number] 05:13:00 Test Item Value Reference Range Comments WHITE BLOOD CELL COUNT (BEAKER) (test zihp=160) 6.1 K/ L 4.0-10.0 RED BLOOD CELL COUNT (BEAKER) (test mxug=684) 5.50 M/ L 4.20-5.80 HEMOGLOBIN (BEAKER) (test cgvh=205) 15.9 GM/DL 13.0-16.8 HEMATOCRIT (BEAKER) (test uapk=464) 48.6 % 40.0-50.0 MEAN CORPUSCULAR VOLUME (BEAKER) (test gshe=787) 88.4 fL 82.0-98.0 MEAN CORPUSCULAR HEMOGLOBIN (BEAKER) (test 29.0 pg 27.0-33.0 evxs=130) MEAN CORPUSCULAR HEMOGLOBIN CONC (BEAKER) (test 32.8 GM/DL 32.0-36.0 wcyi=797) RED CELL DISTRIBUTION WIDTH (BEAKER) (test 12.2 % 10.3-14.2 wnib=750) PLATELET COUNT (BEAKER) (test oetk=035) 132 K/CU MM 150-430 MEAN PLATELET VOLUME (BEAKER) (test bsxb=386) 7.3 fL 6.5-10.5 NUCLEATED RED BLOOD CELLS (BEAKER) (test 0 /100 WBC 0-0 uwng=632) NEUTROPHILS RELATIVE PERCENT (BEAKER) (test 62 % oybf=265) LYMPHOCYTES RELATIVE PERCENT (BEAKER) (test 29 % vyrw=084) MONOCYTES RELATIVE PERCENT (BEAKER) (test 7 % jspt=686) EOSINOPHILS RELATIVE PERCENT (BEAKER) (test 2 % aiid=452) BASOPHILS RELATIVE PERCENT (BEAKER) (test 0 % kigi=972) NEUTROPHILS ABSOLUTE COUNT (BEAKER) (test 3.82 K/ L 1.80-8.00 zohm=772) LYMPHOCYTES ABSOLUTE COUNT (BEAKER) (test 1.75 K/ L 1.48-4.50 kvac=013) MONOCYTES ABSOLUTE COUNT (BEAKER) (test 0.40 K/ L 0.00-1.30 gyjl=904) EOSINOPHILS ABSOLUTE COUNT (BEAKER) (test 0.13 K/ L 0.00-0.50 prgr=754) BASOPHILS ABSOLUTE COUNT (BEAKER) (test 0.03 K/ L 0.00-0.20 lsec=953) 0.00POCT-GLUCOSE [id number] 22:01:00 Test Item Value Reference Range Comments POC-GLUCOSE METER (BEAKER) 128 mg/dL 70-110 TESTED AT [address] (test pvov=9237) [facility] [address] [id number] 19:10:00 Test Item Value Reference Range Comments ACTIVATED CLOTTING TIME 152 sec TESTED AT [address] (BEAKER) (test dppb=198) [place] [address] [id number] 18:42:00 Test Item Value Reference Range Comments ACTIVATED CLOTTING TIME 234 sec TESTED AT [place] [id number] [address] (BEAKER) (test pyjs=078) [place] [address] POCT-GLUCOSE [id number] 11:59:00 Test Item Value Reference Range Comments POC-GLUCOSE METER (BEAKER) 142 mg/dL 70-110 TESTED AT [address] (test gnok=4722) [place] [address] POCT-GLUCOSE [id number] 07:46:00 Test Item Value Reference Range Comments POC-GLUCOSE METER (BEAKER) 136 mg/dL 70-110 TESTED AT [address] (test isbi=0810) [facility] [address] COMPREHENSIVE METABOLIC [id number] 06:18:00 Test Item Value Reference Range Comments TOTAL PROTEIN (BEAKER) 6.9 gm/dL 6.0-8.3 (test vnoa=364) ALBUMIN (BEAKER) (test 3.8 g/dL 3.5-5.0 hvaw=6431) ALKALINE PHOSPHATASE 96 U/L 40-150 (BEAKER) (test ouqd=547) BILIRUBIN TOTAL (BEAKER) 0.5 mg/dL 0.2-1.2 (test syfc=806) SODIUM (BEAKER) (test 140 meq/L 136-145 gaer=789) POTASSIUM (BEAKER) (test 3.5 meq/L 3.5-5.1 kybc=859) CHLORIDE (BEAKER) (test 106 meq/L 98-107 irxy=878) CO2 (BEAKER) (test 24 meq/L 22-29 szko=609) BLOOD UREA NITROGEN 21 mg/dL 7-21 (BEAKER) (test lbeo=266) CREATININE (BEAKER) (test 1.25 mg/dL 0.57-1.25 emzn=422) GLUCOSE RANDOM (BEAKER) 99 mg/dL 70-105 (test wudn=382) CALCIUM (BEAKER) (test 9.2 mg/dL 8.4-10.2 mfnz=858) AST (SGOT) (BEAKER) (test 15 U/L 5-34 rmpd=157) ALT (SGPT) (BEAKER) (test 16 U/L 6-55 cjkg=451) EGFR (BEAKER) (test 56 mL/min/1.73 sq m ESTIMATED GFR IS NOT ctti=0197) ACCURATE CREATININE CLEARANCE IN PREDICTING GLOMERULAR FILTRATION RATE. ESTIMATED GFR IS NOT APPLICABLE FOR DIALYSIS PATIENTS. CBC W/PLT COUNT & AUTO [id number] 06:04:00 Test Item Value Reference Range Comments WHITE BLOOD CELL COUNT (BEAKER) (test maby=257) 5.8 K/ L 4.0-10.0 RED BLOOD CELL COUNT (BEAKER) (test cfii=795) 5.56 M/ L 4.20-5.80 HEMOGLOBIN (BEAKER) (test fikd=772) 16.8 GM/DL 13.0-16.8 HEMATOCRIT (BEAKER) (test gmxh=988) 49.7 % 40.0-50.0 MEAN CORPUSCULAR VOLUME (BEAKER) (test llle=021) 89.3 fL 82.0-98.0 MEAN CORPUSCULAR HEMOGLOBIN (BEAKER) (test 30.2 pg 27.0-33.0 mikv=216) MEAN CORPUSCULAR HEMOGLOBIN CONC (BEAKER) (test 33.8 GM/DL 32.0-36.0 fxgv=675) RED CELL DISTRIBUTION WIDTH (BEAKER) (test 12.2 % 10.3-14.2 kpdp=945) PLATELET COUNT (BEAKER) (test fbpv=312) 142 K/CU MM 150-430 MEAN PLATELET VOLUME (BEAKER) (test nzrz=199) 7.8 fL 6.5-10.5 NUCLEATED RED BLOOD CELLS (BEAKER) (test 0 /100 WBC 0-0 wcyg=323) NEUTROPHILS RELATIVE PERCENT (BEAKER) (test 59 % knbe=150) LYMPHOCYTES RELATIVE PERCENT (BEAKER) (test 32 % ckde=181) MONOCYTES RELATIVE PERCENT (BEAKER) (test 6 % bhos=415) EOSINOPHILS RELATIVE PERCENT (BEAKER) (test 3 % rmgp=111) BASOPHILS RELATIVE PERCENT (BEAKER) (test 1 % dlmr=231) NEUTROPHILS ABSOLUTE COUNT (BEAKER) (test 3.37 K/ L 1.80-8.00 fcvt=715) LYMPHOCYTES ABSOLUTE COUNT (BEAKER) (test 1.85 K/ L 1.48-4.50 rrms=519) MONOCYTES ABSOLUTE COUNT (BEAKER) (test 0.33 K/ L 0.00-1.30 cljt=546) EOSINOPHILS ABSOLUTE COUNT (BEAKER) (test 0.16 K/ L 0.00-0.50 rjyk=877) BASOPHILS ABSOLUTE COUNT (BEAKER) (test 0.04 K/ L 0.00-0.20 lmcu=328) 0.00POCT-GLUCOSE [id number] 21:04:00 Test Item Value Reference Range Comments POC-GLUCOSE METER (BEAKER) 70 mg/dL 70-110 TESTED AT [address] (test ervo=2086) [facility] [address] POCT-GLUCOSE [id number] 17:22:00 Test Item Value Reference Range Comments POC-GLUCOSE METER (BEAKER) 149 mg/dL 70-110 TESTED AT [address] (test hizp=3919) [facility] [address] POCT-GLUCOSE [id number] 14:07:00 Test Item Value Reference Range Comments POC-GLUCOSE METER (BEAKER) 218 mg/dL 70-110 TESTED AT [address] (test gfvm=3692) [facility] [address] POCT-GLUCOSE [id number] 11:39:00 Test Item Value Reference Range Comments POC-GLUCOSE METER (BEAKER) 206 mg/dL 70-110 TESTED AT [address] (test lagx=4453) [facility] [address] BASIC METABOLIC [id number] 06:49:00 Test Item Value Reference Range Comments SODIUM (BEAKER) (test 135 meq/L 136-145 drqw=129) POTASSIUM (BEAKER) (test 3.9 meq/L 3.5-5.1 npzh=702) CHLORIDE (BEAKER) (test 103 meq/L 98-107 fzlv=248) CO2 (BEAKER) (test 23 meq/L 22-29 yxxl=673) BLOOD UREA NITROGEN 27 mg/dL 7-21 (BEAKER) (test vnhv=083) CREATININE (BEAKER) (test 1.44 mg/dL 0.57-1.25 cttf=842) GLUCOSE RANDOM (BEAKER) 221 mg/dL 70-105 (test cfnn=144) CALCIUM (BEAKER) (test 8.9 mg/dL 8.4-10.2 sgev=083) EGFR (BEAKER) (test 48 mL/min/1.73 sq m ESTIMATED GFR IS NOT uiih=0612) ACCURATE CREATININE CLEARANCE IN PREDICTING GLOMERULAR FILTRATION RATE. ESTIMATED GFR IS NOT APPLICABLE FOR DIALYSIS PATIENTS. CBC W/PLT COUNT & AUTO [id number] 06:36:00 Test Item Value Reference Range Comments WHITE BLOOD CELL COUNT (BEAKER) (test zyob=920) 6.9 K/ L 4.0-10.0 RED BLOOD CELL COUNT (BEAKER) (test hrmg=040) 5.26 M/ L 4.20-5.80 HEMOGLOBIN (BEAKER) (test sxfg=919) 16.2 GM/DL 13.0-16.8 HEMATOCRIT (BEAKER) (test cibz=415) 45.9 % 40.0-50.0 MEAN CORPUSCULAR VOLUME (BEAKER) (test wern=774) 87.2 fL 82.0-98.0 MEAN CORPUSCULAR HEMOGLOBIN (BEAKER) (test 30.8 pg 27.0-33.0 cyyn=955) MEAN CORPUSCULAR HEMOGLOBIN CONC (BEAKER) (test 35.3 GM/DL 32.0-36.0 uady=609) RED CELL DISTRIBUTION WIDTH (BEAKER) (test 13.4 % 10.3-14.2 rrsi=678) PLATELET COUNT (BEAKER) (test fbla=040) 149 K/CU MM 150-430 MEAN PLATELET VOLUME (BEAKER) (test wibg=115) 7.6 fL 6.5-10.5 NUCLEATED RED BLOOD CELLS (BEAKER) (test 0 /100 WBC 0-0 pumx=567) NEUTROPHILS RELATIVE PERCENT (BEAKER) (test 52 % mier=525) LYMPHOCYTES RELATIVE PERCENT (BEAKER) (test 38 % btyf=412) MONOCYTES RELATIVE PERCENT (BEAKER) (test 7 % zftt=188) EOSINOPHILS RELATIVE PERCENT (BEAKER) (test 2 % yzvm=909) BASOPHILS RELATIVE PERCENT (BEAKER) (test 1 % ldps=354) NEUTROPHILS ABSOLUTE COUNT (BEAKER) (test 3.58 K/ L 1.80-8.00 wvdv=823) LYMPHOCYTES ABSOLUTE COUNT (BEAKER) (test 2.58 K/ L 1.48-4.50 wheb=386) MONOCYTES ABSOLUTE COUNT (BEAKER) (test 0.48 K/ L 0.00-1.30 ejfn=026) EOSINOPHILS ABSOLUTE COUNT (BEAKER) (test 0.14 K/ L 0.00-0.50 woho=341) BASOPHILS ABSOLUTE COUNT (BEAKER) (test 0.08 K/ L 0.00-0.20 bhbt=274) 0.00PROTHROMBIN TIME/[id number] 06:26:00 Test Item Value Reference Range Comments PROTIME (BEAKER) (test spvw=767) 13.5 seconds 11.7-14.7 INR (BEAKER) (test kopx=474) 1.0 <=5.9 RECOMMENDED COUMADIN/WARFARIN INR THERAPY RANGESSTANDARD DOSE: 2.0 - 3.0 Includes: PROPHYLAXIS forvenous thrombosis, systemic embolization; TREATMENT for venous thrombosis and/or pulmonary embolus.HIGH RISK: Target INR is 2.5-3.5 for patients with mechanical heart valves.[id number] 06:26:00 Test Item Value Reference Range Comments PARTIAL THROMBOPLASTIN TIME (BEAKER) (test 32.9 seconds 22.5-36.0 lkdv=201) POCT-GLUCOSE [id number] 21:31:00 Test Item Value Reference Range Comments POC-GLUCOSE METER (BEAKER) 235 mg/dL 70-110 TESTED AT [place] [id number] (test rtbn=2830) [facility] [address] POCT-GLUCOSE [id number] 17:19:00 Test Item Value Reference Range Comments POC-GLUCOSE METER (BEAKER) 239 mg/dL 70-110 TESTED AT [address] (test ounu=5217) [facility] [address] POCT-P2Y12 PLATELET [id number] 16:23:00 Test Item Value Reference Range Comments POC-P2Y12 PLATELET AGG (BEAKER) (test femo=2066) 115 PRU RANGE INFORMATION: PRU reference range is 194-418. Post Drug Results: Lower PRU levels are associated with expected antiplatelet effect. Values may be below the stated reference range above. The post-drug PRU values reported in the [employer] P2Y12 package insert are [id number].POCT-ASPIRIN PLATELET [id number] 16:18:00 Test Item Value Reference Range Comments POC-ASPIRIN PLATELET AGG (BEAKER) (test cmvl=3321) 539 ARU RANGE INFORMATION: 350-549 ARU Therapeutic range for platelet function. 550-700 ARU Non-Therapeutic range for platelet function.URINALYSIS W / [id number] 14:26:00 Test Item Value Reference Range Comments COLOR (BEAKER) (test tibg=381) Yellow CLARITY (BEAKER) (test whdd=196) Clear SPECIFIC GRAVITY UA (BEAKER) (test opgu=601) 1.013 1.001-1.035 PH UA (BEAKER) (test xzuv=322) 5.0 5.0-8.0 PROTEIN UA (BEAKER) (test hvha=769) 50 mg/dL Negative GLUCOSE UA (BEAKER) (test tqgw=863) 200 mg/dL Negative KETONES UA (BEAKER) (test sjlj=411) Negative Negative BILIRUBIN UA (BEAKER) (test qwwv=277) Negative Negative BLOOD UA (BEAKER) (test iufs=448) Negative Negative NITRITE UA (BEAKER) (test xyln=887) Negative Negative LEUKOCYTE ESTERASE UA (BEAKER) (test jdka=095) Negative Negative UROBILINOGEN UA (BEAKER) (test aekd=394) 0.2 mg/dL 0.2-1.0 RBC UA (BEAKER) (test vytr=828) 1 /HPF WBC UA (BEAKER) (test ubjj=388) 1 /HPF MUCUS (BEAKER) (test bhxa=1749) Rare HYALINE CASTS (BEAKER) (test gvcs=980) 9 /LPF SOURCE(BEAKER) (test vtpo=4000) CBC W/PLT COUNT & AUTO [id number] 13:21:00 Test Item Value Reference Range Comments WHITE BLOOD CELL COUNT (BEAKER) (test ycxh=351) 7.6 K/ L 4.0-10.0 RED BLOOD CELL COUNT (BEAKER) (test pyte=133) 6.02 M/ L 4.20-5.80 HEMOGLOBIN (BEAKER) (test uzyq=362) 17.5 GM/DL 13.0-16.8 HEMATOCRIT (BEAKER) (test tcah=587) 53.2 % 40.0-50.0 MEAN CORPUSCULAR VOLUME (BEAKER) (test cftd=468) 88.3 fL 82.0-98.0 MEAN CORPUSCULAR HEMOGLOBIN (BEAKER) (test 29.0 pg 27.0-33.0 gohs=872) MEAN CORPUSCULAR HEMOGLOBIN CONC (BEAKER) (test 32.9 GM/DL 32.0-36.0 txvy=754) RED CELL DISTRIBUTION WIDTH (BEAKER) (test 12.4 % 10.3-14.2 jjln=031) PLATELET COUNT (BEAKER) (test ynkw=287) 177 K/CU MM 150-430 MEAN PLATELET VOLUME (BEAKER) (test iqdx=868) 7.7 fL 6.5-10.5 NUCLEATED RED BLOOD CELLS (BEAKER) (test 0 /100 WBC 0-0 ffen=813) NEUTROPHILS RELATIVE PERCENT (BEAKER) (test 47 % tkfv=545) LYMPHOCYTES RELATIVE PERCENT (BEAKER) (test 44 % hhis=872) MONOCYTES RELATIVE PERCENT (BEAKER) (test 6 % qesr=308) EOSINOPHILS RELATIVE PERCENT (BEAKER) (test 2 % dujr=245) BASOPHILS RELATIVE PERCENT (BEAKER) (test 1 % dsaj=338) NEUTROPHILS ABSOLUTE COUNT (BEAKER) (test 3.58 K/ L 1.80-8.00 axnf=571) LYMPHOCYTES ABSOLUTE COUNT (BEAKER) (test 3.36 K/ L 1.48-4.50 obik=745) MONOCYTES ABSOLUTE COUNT (BEAKER) (test 0.47 K/ L 0.00-1.30 agka=516) EOSINOPHILS ABSOLUTE COUNT (BEAKER) (test 0.16 K/ L 0.00-0.50 lmlv=787) BASOPHILS ABSOLUTE COUNT (BEAKER) (test 0.06 K/ L 0.00-0.20 oawy=221) 0.00(MANUAL DIFFERENTIAL)2017-03-18 13:21:00 Test Item Value Reference Range Comments TOTAL COUNTED (BEAKER) (test muky=2769) WBC MORPHOLOGY (BEAKER) (test wlca=159) Normal PLT MORPHOLOGY (BEAKER) (test qrir=866) Normal RBC MORPHOLOGY (BEAKER) (test vjjj=009) Normal POCT-GLUCOSE [id number] 11:40:00 Test Item Value Reference Range Comments POC-GLUCOSE METER (BEAKER) 241 mg/dL 70-110 TESTED AT [address] (test mbtd=9662) [place] [address] HEMOGLOBIN [id number] 10:44:00 Test Item Value Reference Range Comments HEMOGLOBIN A1C (BEAKER) (test enis=493) 11.2 % 4.3-6.1 POCT-GLUCOSE [id number] 08:11:00 Test Item Value Reference Range Comments POC-GLUCOSE METER (BEAKER) 185 mg/dL 70-110 TESTED AT [address] (test lgwf=0503) [place] [address] LIPID [id number] 06:02:00 Test Item Value Reference Range Comments TRIGLYCERIDES (BEAKER) (test rnfl=981) 335 mg/dL CHOLESTEROL (BEAKER) (test xfjh=486) 201 mg/dL HDL CHOLESTEROL (BEAKER) (test utob=005) 38 mg/dL LDL CHOLESTEROL CALCULATED (BEAKER) (test 96 mg/dL lrnd=386) Triglyceride Reference Range: Low Risk <150 Borderline 150- 199 High Risk 200-499 Very High Risk >=500Cholesterol Reference Range: Low Risk <200 Borderline 200-239 High Risk > 240HDL Cholesterol Reference Range: Low Risk >=60 High Risk <40LDL Cholesterol Reference Range: Optimal <100 Near Optimal 100-129 Borderline 130-159 High 160-189 Very High >=[facility] [id number] 06:02:00 Test Item Value Reference Range Comments SODIUM (BEAKER) (test 135 meq/L 136-145 cpki=085) POTASSIUM (BEAKER) (test 3.6 meq/L 3.5-5.1 oueb=263) CHLORIDE (BEAKER) (test 99 meq/L 98-107 uydf=451) CO2 (BEAKER) (test 23 meq/L 22-29 gczh=176) BLOOD UREA NITROGEN 25 mg/dL 7-21 (BEAKER) (test hpyz=961) CREATININE (BEAKER) (test 1.59 mg/dL 0.57-1.25 nvnz=293) GLUCOSE RANDOM (BEAKER) 177 mg/dL 70-105 (test dcif=914) CALCIUM (BEAKER) (test 9.4 mg/dL 8.4-10.2 arzi=958) EGFR (BEAKER) (test 43 mL/min/1.73 sq m ESTIMATED GFR IS NOT ilzv=4039) ACCURATE CREATININE CLEARANCE IN PREDICTING GLOMERULAR FILTRATION RATE. ESTIMATED GFR IS NOT APPLICABLE FOR DIALYSIS PATIENTS. POCT-GLUCOSE [id number] 00:02:00 Test Item Value Reference Range Comments POC-GLUCOSE METER (BEAKER) 131 mg/dL 70-110 TESTED AT [facility] [address] [facility] (test fipt=5631) [facility] [address] CREATINE KINASE (CK), TOTAL AND [id number] 22:46:00 Test Item Value Reference Range Comments CREATINE KINASE TOTAL (BEAKER) (test nwhj=476) 44 U/L 29-200 CREATINE KINASE-MB (BEAKER) (test bneh=123) 1.3 ng/mL 0.0-6.6 CREATINE KINASE-MB INDEX (BEAKER) (test surb=182) 3.0 % Effective 09/19/2014: CK-MB Reference Range ChangeNew: 0.0-6.6 Previous: 0.0- 4.9CK-MB Reference Range:<6.7 Normal6.7-10.0 Borderline>10.0 AbnormalTROPONIN [id number] 22:46:00 Test Item Value Reference Range Comments TROPONIN I (CHERYL) (test hjmm=211) 0.01 ng/mL 0.00-0.03 Effective 09/19/2014: Reference Range [...] acidosis, acute neurological disease, and persistent tachyarrhythmia.POCT-GLUCOSE [id number] 22:18:00 Test Item Value Reference Range Comments POC-GLUCOSE METER ([employer]) 161 mg/dL 70-110 TESTED AT [address] (test hhte=4810) [facility] [address] HEMOGLOBIN [id number] 18:18:00 Test Item Value Reference Range Comments HEMOGLOBIN A1C (CHERYL) (test quvq=317) 11.7 % 4.3-6.1 VITAMIN [id number] 18:15:00 Test Item Value Reference Range Comments VITAMIN B12 (CHERYL) (test bxsv=286) 251 pg/mL 213-816 TSH/FREE T4 IF [id number] 18:15:00 Test Item Value Reference Range Comments THYROID STIMULATING HORMONE (JAYAKER) (test 1.18 uIU/mL 0.35-4.94 bbsg=373) B-TYPE NATRIURETIC FACTOR (BNP)2017-03-17 17:59:00 Test Item Value Reference Range Comments B-TYPE NATRIURETIC PEPTIDE (BEAKER) (test jizl=227) 43 pg/mL 0-100 CREATINE KINASE (CK), TOTAL AND [id number] 17:58:00 Test Item Value Reference Range Comments CREATINE KINASE TOTAL (BEAKER) (test mxdz=377) 41 U/L 29-200 CREATINE KINASE-MB (BEAKER) (test zvce=377) 1.3 ng/mL 0.0-6.6 CREATINE KINASE-MB INDEX (BEAKER) (test xvls=316) 3.2 % Effective 09/19/2014: CK-MB Reference Range ChangeNew: 0.0-6.6 Previous: 0.0- 4.9CK-MB Reference Range:<6.7 Normal6.7-10.0 Borderline>10.0 AbnormalTROPONIN [id number] 17:58:00 Test Item Value Reference Range Comments TROPONIN I (BEAKER) (test mmxm=512) < ng/mL 0.00-0.03 Effective 09/19/2014: Reference Range [...] renalfailure, acidosis, acute neurological disease, and persistent tachyarrhythmia.[id number] 17:51: 00 Test Item Value Reference Range Comments MAGNESIUM (BEAKER) (test eart=147) 2.0 mg/dL 1.6-2.6 BASIC METABOLIC [id number] 17:51:00 Test Item Value Reference Range Comments SODIUM (BEAKER) (test 138 meq/L 136-145 gbev=619) POTASSIUM (BEAKER) (test 4.4 meq/L 3.5-5.1 lkfd=909) CHLORIDE (BEAKER) (test 101 meq/L 98-107 ubvc=340) CO2 (BEAKER) (test 23 meq/L 22-29 vksg=284) BLOOD UREA NITROGEN 25 mg/dL 7-21 (BEAKER) (test wjre=188) CREATININE (BEAKER) 1.87 mg/dL 0.57-1.25 (test vzxj=982) GLUCOSE RANDOM (BEAKER) 134 mg/dL 70-105 (test hyte=084) CALCIUM (BEAKER) (test 9.9 mg/dL 8.4-10.2 vvoo=689) EGFR (BEAKER) (test 35 mL/min/1.73 sq m INSUFFICIENT CLINICAL DATA rdvw=1926) TO CALCULATE ESTIMATED GFR. PT/[id number] 17:43:00 Test Item Value Reference Range Comments PROTIME (BEAKER) (test irdm=970) 13.6 seconds 11.7-14.7 INR (BEAKER) (test ryiz=424) 1.1 <=5.9 PARTIAL THROMBOPLASTIN TIME (BEAKER) (test 29.9 seconds 22.5-36.0 hjbu=552) RECOMMENDED COUMADIN/WARFARIN INR THERAPY RANGESSTANDARD DOSE: 2.0 - 3.0 Includes: PROPHYLAXIS forvenous thrombosis, systemic embolization; TREATMENT for venous thrombosis and/or pulmonary embolus.HIGH RISK: Target INR is 2.5-3.5 for patients with mechanical heart valves.CBC W/PLT COUNT & AUTO [id number] 17:11:00 Test Item Value Reference Range Comments WHITE BLOOD CELL COUNT (BEAKER) (test zhve=094) 9.2 K/ L 4.0-10.0 RED BLOOD CELL COUNT (BEAKER) (test ggia=829) 5.84 M/ L 4.20-5.80 HEMOGLOBIN (BEAKER) (test exon=878) 17.8 GM/DL 13.0-16.8 HEMATOCRIT (BEAKER) (test wjne=476) 50.4 % 40.0-50.0 MEAN CORPUSCULAR VOLUME (BEAKER) (test xhbh=359) 86.3 fL 82.0-98.0 MEAN CORPUSCULAR HEMOGLOBIN (BEAKER) (test 30.4 pg 27.0-33.0 vaux=564) MEAN CORPUSCULAR HEMOGLOBIN CONC (BEAKER) (test 35.3 GM/DL 32.0-36.0 xrwp=988) RED CELL DISTRIBUTION WIDTH (BEAKER) (test 13.6 % 10.3-14.2 vpnr=488) PLATELET COUNT (BEAKER) (test gsxu=345) 186 K/CU MM 150-430 MEAN PLATELET VOLUME (BEAKER) (test axcl=819) 7.7 fL 6.5-10.5 NUCLEATED RED BLOOD CELLS (BEAKER) (test 0 /100 WBC 0-0 ptfy=079) NEUTROPHILS RELATIVE PERCENT (BEAKER) (test 69 % dtlv=883) LYMPHOCYTES RELATIVE PERCENT (BEAKER) (test 23 % ayts=713) MONOCYTES RELATIVE PERCENT (BEAKER) (test 6 % hfev=556) EOSINOPHILS RELATIVE PERCENT (BEAKER) (test 2 % lmyg=519) BASOPHILS RELATIVE PERCENT (BEAKER) (test 1 % ckkg=198) NEUTROPHILS ABSOLUTE COUNT (BEAKER) (test 6.36 K/ L 1.80-8.00 xrrn=720) LYMPHOCYTES ABSOLUTE COUNT (BEAKER) (test 2.09 K/ L 1.48-4.50 fpbt=092) MONOCYTES ABSOLUTE COUNT (BEAKER) (test 0.52 K/ L 0.00-1.30 dheg=745) EOSINOPHILS ABSOLUTE COUNT (BEAKER) (test 0.14 K/ L 0.00-0.50 wcya=082) BASOPHILS ABSOLUTE COUNT (BEAKER) (test 0.07 K/ L 0.00-0.20 ggtz=120) 0.00
--- NOTE | 2019-04-02 16:36 | RAD REPORT ---
EXAM DESCRIPTION: CT - Head Brain Wo Cont - 04/02/2019 4:15 pm CLINICAL HISTORY: CONFUSED Headache, drowsiness COMPARISON: Head Brain Wo Cont dated 05/06/2018; Ct Stroke Brain Wo Cont dated 02/25/2018 TECHNIQUE: All CT scans are performed using dose optimization technique as appropriate and may inclu de automated exposure control or mA/KV adjustment according to patient size. FINDINGS: No intracranial hemorrhage, hydrocephalus or extra-axial fluid collection.Moderate general ized brain atrophy.No areas of brain edema or evidence of midline shift. The paranasal sinuses and mastoids are clear. The calvarium is intact. Vertebral arteries are calcifi ed. IMPRESSION: No acute intracranial abnormality.
--- NOTE | 2019-04-02 16:36 | RAD REPORT ---
EXAM DESCRIPTION: RAD - Chest Single View - 04/02/2019 4:13 pm CLINICAL HISTORY: AMS Chest pain. COMPARISON: Chest Pa And Lat (2 Views) dated 02/27/2018; Chest Pa And Lat (2 Views) dated 02/25/2018; CHEST PA AND LAT 2 VIEW dated 11/14/2015; CHEST PA AND LAT 2 VIEW dated 06/05/2015 FINDINGS: Portable technique limits examination quality. The lungs are grossly clear. The heart is normal in size. No displaced fractures. IMPRESSION: No acute intrathoracic process suspected.
[2019-04-02 17:00] LABS: Absolute Lymphocytes (CBC) 2.9 K/uL (0.7-4.9); Absolute Monocytes 0.7 K/uL (0.1-1.3); Absolute Neutrophil 4.3 K/uL (1.8-8.0); Basophils % 1.2 % (0-1.3); Eosinophils % 2.8 % (0-4.4); Hematocrit 53.2 % (39.6-49.0); MPV 9.7 fL (7.6-11.3); Monocytes % 8.2 % (3.3-12.3); RBC Red Blood Cell Count 5.99 M/uL (4.33-5.43)
[2019-04-02 17:10] LABS: Protime INR 1.01
[2019-04-02 18:16] LABS: Albumin 4.2 g/dL (3.4-5.0); Bilirubin Direct 0.1 mg/dL (0-0.2); Bilirubin Total 0.4 mg/dL (0.2-1.0); Magnesium 2.6 mg/dL (1.8-2.4); Potassium 3.8 mmol/L (3.5-5.1); Protein, Total 8.2 g/dL (6.4-8.2); Troponin (Emerg Dept Use Only) 0.07 ng/mL (0.0-0.045)
--- NOTE | 2019-04-02 19:15 | EDPHYS ---
Physician Documentation [facility] Name: Americo Guillermo Age: 78 yrs Sex: Male : 1940 Arrival Date: 04/02/2019 Time: 14:12 Bed 6 Private MD: Austyn Lane V ED Physician Hunter Hardin HPI: 04/02 15:53 This 78 yrs old Male presents to ER via Wheelchair with complaints of kdr Dizziness, Trouble Walking, Hallucinations. 15:53 The patient presents with generalized weakness, feeling off balance. kdr 15:54 The patient presents with confusion, disorientation. Onset: The symptoms/episode kdr began/occurred gradually, 10 day(s) ago. Possible causes: unknown, Per the family, the patient has had confusion and altered mental status including visual hallucinations. This had been going on for at least a week but since getting a medication patch for behind his ear for dizziness, the family states that it is much worse. They took the patch off this morning. The patient is oriented to person, place but not time. He does not appreciate why he is in the ED. Associated signs and symptoms: Pertinent positives: confusion, Pertinent negatives: abdominal pain, agitation, ataxia, blurred vision, chest pain, combativeness, diaphoresis, diarrhea, headache, lightheadedness, nausea, numbness, palpitations, seizure, shortness of breath, tingling, vomiting, weakness. Current symptoms: In the emergency department the patient's symptoms are unchanged from the initial presentation. Not as bad as today. The patient has been recently seen by a physician: the patient's primary care provider. Historical: - Allergies: 14:22 No Known Allergies; sv - Home Meds: 21:28 ramipril 5 mg Oral cap 1 cap once daily for Hypertension [Active]; Novolin 70/30 ed1 In[place] Sub-Q 60 unit 30 min before breakfast for Diabetes [Active]; Novolin 70/30 In[place] Sub-Q 50 unit 30 minutes before dinner for Diabetes [Active]; metoprolol succinate 100 mg Oral Tb24 1 tab once daily for Hypertension [Active]; levothyroxine 125 mcg tab 1 tab once daily for Hypothyroidism [Active]; Lasix 40 mg Oral tab 1 tab once daily for Fluid Retention [Active]; Aricept 10 mg Oral tab 1 tab once daily for Mild to Moderate Alzheimer's Type Dementia [Active]; Plavix 75 mg Oral tab 1 tab once daily [Active]; Lipitor 40 mg Oral tab 1 tab once daily [Active]; aripiprazole 2 mg oral tab [Active]; Norvasc 10 mg Oral tab 1 tab once daily for Hypertension [Active]; magnesium oxide 400 mg Oral cap twice a day [Active]; Butalbital Compound 50-325-40 mg Oral tab [Active]; betamethasone dipropionate 0.05 % topical crea [Active]; aspirin 81 mg Oral TbEC 1 tab once daily [Active]; amitriptyline 25 mg Oral tab 1 tab nightly [Active]; - PMHx: 14:22 COPD; Dementia; Diabetes - NIDDM; GERD; Hyperlipidemia; Hypertension; Hypothyroidism; sv - Immunization history:: Adult Immunizations up to date. - Social history:: Smoking status: Patient/guardian denies using tobacco. - Ebola Screening: : Patient negative for fever greater than or equal to 101.5 degrees Fahrenheit, and additional compatible Ebola Virus Disease symptoms Patient denies exposure to infectious person Patient denies travel to an Ebola-affected area in the 21 days before illness onset No symptoms or risks identified at this time. ROS: 15:54 Constitutional: Negative for fever, chills, and weight loss, Eyes: Negative for injury, kdr pain, redness, and discharge, ENT: Negative for injury, pain, and discharge, Neck: Negative for injury, pain, and swelling, Cardiovascular: Negative for chest pain, palpitations, and edema, Respiratory: Negative for shortness of breath, cough, wheezing, and pleuritic chest pain, Abdomen/GI: Negative for abdominal pain, nausea, vomiting, diarrhea, and constipation, Back: Negative for injury and pain, : Negative for injury, bleeding, discharge, and swelling, MS/Extremity: Negative for injury and deformity, Skin: Negative for injury, rash, and discoloration, Allergy/Immunology: Negative for hives, rash, and allergies, Endocrine: Negative for neck swelling, polydipsia, polyuria, polyphagia, and marked weight changes, Hematologic/Lymphatic: Negative for swollen nodes, abnormal bleeding, and unusual bruising. 15:54 Neuro: Positive for altered mental status, dizziness, Negative for numbness, seizure activity, speech changes, syncope, near syncope, tremor, visual changes. 15:54 Psych: Positive for visual hallucinations, Negative for drug dependence, alcohol dependence, suicide gesture, suicidal ideation. Exam: 15:54 Constitutional: This is a well developed, well nourished patient who is awake, alert, kdr and in no acute distress. Head/Face: Normocephalic, atraumatic. Eyes: Pupils equal round and reactive to light, extra-ocular motions intact. Lids and lashes normal. Conjunctiva and sclera are non-icteric and not injected. Cornea within normal limits. Periorbital areas with no swelling, redness, or edema. Neck: Trachea midline, no thyromegaly or masses palpated, and no cervical lymphadenopathy. Supple, full range of motion without nuchal rigidity, or vertebral point tenderness. No Meningismus. Chest/axilla: Normal chest wall appearance and motion. Nontender with no deformity. No lesions are appreciated. Cardiovascular: Regular rate and rhythm with a normal S1 and S2. No gallops, murmurs, or rubs. Normal PMI, no JVD. No pulse deficits. Respiratory: Lungs have equal breath sounds bilaterally, clear to auscultation and percussion. No rales, rhonchi or wheezes noted. No increased work of breathing, no retractions or nasal flaring. Abdomen/GI: Soft, non-tender, with normal bowel sounds. No distension or tympany. No guarding or rebound. No evidence of tenderness throughout. Back: No spinal tenderness. No costovertebral tenderness. Full range of motion. Skin: Warm, dry with normal turgor. Normal color with no rashes, no lesions, and no evidence of cellulitis. Vital Signs: 14:22 BP 105 / 62; Pulse 72; Resp 16; Temp 98.6; Pulse Ox 100% ; Weight 86.18 kg; Height 5 sv ft. 9 in. (175.26 cm); Pain 0/10; 15:00 BP 117 / 64; Pulse 67; Resp 16; Pulse Ox 98% ; bp 17:00 BP 114 / 63; Pulse 58; Resp 14; Pulse Ox 95% ; bp 18:00 BP 191 / 96; Pulse 85; Resp 16; Pulse Ox 98% ; bp 20:04 BP 173 / 79; Pulse 70; Resp 18; Temp 98.4(TE); Pulse Ox 96% on R/A; Pain 0/10; ed1 21:15 BP 147 / 66; Pulse 66; Resp 18; Temp 97.8(TE); Pulse Ox 96% on R/A; Pain 0/10; ed1 14:22 Body Mass Index 28.06 (86.18 kg, 175.26 cm) sv MDM: 15:54 Data reviewed: vital signs, nurses notes, lab test result(s), radiologic studies. kdr Counseling: I had a detailed discussion with the patient and/or guardian regarding: the historical points, exam findings, and any diagnostic results supporting the discharge/admit diagnosis, lab results, radiology results. 19:14 Patient medically screened. kdr 04/02 15:49 Order name: Basic Metabolic Panel; Complete Time: 18:56 kdr 04/02 15:49 Order name: CBC with Diff; Complete Time: 17:31 kdr 04/02 15:49 Order name: LFT's; Complete Time: 18:56 kdr 04/02 15:49 Order name: Magnesium; Complete Time: 18:56 kdr 04/02 15:49 Order name: NT PRO-BNP; Complete Time: 18:56 kdr 04/02 15:49 Order name: PT-INR; Complete Time: 17:31 kdr 04/02 15:49 Order name: Troponin (emerg Dept Use Only); Complete Time: 18:56 kdr 04/02 15:50 Order name: Blood Culture Adult (2) kdr 04/02 15:50 Order name: Procalcitonin; Complete Time: 17:53 kdr 04/02 15:50 Order name: Lactate; Complete Time: 18:16 kdr 04/02 19:24 Order name: Basic Metabolic Panel EDMS 04/02 19:24 Order name: Basic Metabolic Panel EDMS 04/02 19:24 Order name: CBC with Automated Diff EDMS 04/02 19:24 Order name: CBC with Automated Diff EDMS 04/02 15:49 Order name: XRAY Chest (1 view); Complete Time: 17:31 kdr 04/02 15:49 Order name: EKG; Complete Time: 15:52 kdr 04/02 15:49 Order name: Cardiac monitoring; Complete Time: 16:49 kdr 04/02 15:49 Order name: EKG - Nurse/Tech; Complete Time: 16:49 kdr 04/02 15:49 Order name: CT Head Brain wo Cont; Complete Time: 17:31 kdr 04/02 18:15 Order name: Diet Ada 1800 [address]; Complete Time: 18:18 ss 04/02 19:24 Order name: CONS Physician Consult EDNM 04/02 19:24 Order name: Consistent Carb (ADA) 1800 [address] EDMS 04/02 19:24 Order name: EKG Electrocardiogram EDMS 04/02 19:24 Order name: EKG Electrocardiogram EDMS 04/02 19:24 Order name: EKG Electrocardiogram EDNM 04/02 19:24 Order name: EKG Electrocardiogram EDNM 04/02 19:24 Order name: Troponin I EDNM 04/02 19:24 Order name: Troponin I EDMS 04/02 19:24 Order name: Troponin I EDNM 04/02 21:19 Order name: Glucose, Ancillary Testing EDNM 04/02 15:49 Order name: IV Saline Lock; Complete Time: 16:49 kdr 04/02 15:49 Order name: Labs collected and sent; Complete Time: 16:49 kdr 04/02 15:49 Order name: O2 Per Protocol; Complete Time: 16:49 kdr 04/02 15:49 Order name: O2 Sat Monitoring; Complete Time: 16:49 kdr 04/02 17:07 Order name: Misc. Order: recollect Lactate please; Complete Time: 17:20 ss Administered Medications: No medications were administered Point of Care Testing: Blood Glucose: 21:16 Blood Glucose: 86 mg/dL; oe Ranges: Critical Glucose Levels:Adult <50 mg/dl or >400 mg/dl <40 mg/dl or >180 mg/dl Disposition: 04/02/19 19:14 Hospitalization ordered by Austyn Lane for Inpatient Admission. Preliminary diagnosis is NSTEMI, dizziness, visual hallucinations, dementia. - Bed requested for Telemetry/MedSurg (Inpatient). - Status is Inpatient Admission. ed1 - Condition is Fair. - Problem is new. - Symptoms are unchanged. UTI on Admission? No Signatures: Dispatcher [employer] [facility] Aleja Albarado, RN ANN Hunter Hardin MD MD [facility] Nica De Dios RN RN ss Komal Villa RN RN ed1 Abigail Gilmore RN RN cg Corrections: (The following items were deleted from the chart) 21:08 19:14 Hospitalization Ordered by Austyn Lane MD for Inpatient Admission. Preliminary cg diagnosis is NSTEMI, dizziness, visual hallucinations, dementia. Bed requested for Telemetry/MedSurg (Inpatient). Status is Inpatient Admission. Condition is Fair. Problem is new. Symptoms are unchanged. UTI on Admission? No. kdr 21:52 21:08 04/02/2019 19:14 Hospitalization Ordered by Austyn Lane MD for Inpatient cg Admission. Preliminary diagnosis is NSTEMI, dizziness, visual hallucinations, dementia. Bed requested for Telemetry/MedSurg (Inpatient). Status is Inpatient Admission. Condition is Fair. Problem is new. Symptoms are unchanged. UTI on Admission? No. cg 22:08 21:52 04/02/2019 19:14 Hospitalization Ordered by Austyn Lane MD for Inpatient ed1 Admission. Preliminary diagnosis is NSTEMI, dizziness, visual hallucinations, dementia. Bed requested for Telemetry/MedSurg (Inpatient). Status is Inpatient Admission. Condition is Fair. Problem is new. Symptoms are unchanged. UTI on Admission? No. cg
--- NOTE | 2019-04-02 19:15 | ER ---
Nurse's Notes [facility] Name: Americo Guillermo Age: 78 yrs Sex: Male : 1940 Arrival Date: 04/02/2019 Time: 14:12 Bed 6 Private MD: Austyn Lane V Diagnosis: NSTEMI, dizziness, visual hallucinations, dementia Presentation: 04/02 14:18 Presenting complaint: Child states: dx with Alzheimer's, 2-3 weeks ago c/o dizziness, sv has seen his PCP and was given a patch and since he has been on this he has increased dizziness, hallucinations, trouble walking and AMS. Transition of care: patient was not received from another setting of care. No acute neurological deficit is noted. Onset of symptoms was March 2019. Care prior to arrival: None. 14:18 Method Of Arrival: Wheelchair sv 14:18 Acuity: TOMAS 2 sv 20:04 Risk Assessment: Do you want to hurt yourself or someone else? Patient reports no ed1 desire to harm self or others. Initial Sepsis Screen: Does the patient meet any 2 criteria? No. Patient's initial sepsis screen is negative. Does the patient have a suspected source of infection? No. Patient's initial sepsis screen is negative. Triage Assessment: 14:18 General: Appears in no apparent distress. comfortable, Behavior is calm, cooperative, sv appropriate for age. Pain: Denies pain. Neuro: Level of Consciousness is awake, obeys commands, confused, Oriented to person, place, Moves all extremities. Full function Gait is steady. Neuro: Reports dizziness, weakness hallucinations. Respiratory: Respiratory effort is even, unlabored, Respiratory pattern is regular, symmetrical. 14:22 The onset of the patients symptoms was more than six hours ago. General: Appears in no bp apparent distress. comfortable, Behavior is cooperative, appropriate for age, anxious. Pain: Denies pain. EENT: No deficits noted. Neuro: Level of Consciousness is obeys commands, confused, Oriented to person, Reports dizziness, weakness. Cardiovascular: No deficits noted. Respiratory: Airway is patent Respiratory effort is even, unlabored, Respiratory pattern is regular, symmetrical. GI: No signs and/or symptoms were reported involving the gastrointestinal system. : No signs and/or symptoms were reported regarding the genitourinary system. Derm: No deficits noted. Musculoskeletal: Circulation, motion, and sensation intact. Range of motion: intact in all extremities. Stroke Activation: Symptom onset > 6 hours Physician: Stroke Attending; Name: ; Notified At: ; Arrived At: Physician: Chief Stroke Resident; Name: ; Notified At: ; Arrived At: Physician: Stroke Resident; Name: ; Notified At: ; Arrived At: Physician: ED Attending; Name: ; Notified At: ; Arrived At: Physician: ED Resident; Name: ; Notified At: ; Arrived At: Historical: - Allergies: 14:22 No Known Allergies; sv - Home Meds: 21:28 ramipril 5 mg Oral cap 1 cap once daily for Hypertension [Active]; Novolin 70/30 ed1 [place] Sub-Q 60 unit 30 min before breakfast for Diabetes [Active]; Novolin 70/30 [place] Sub-Q 50 unit 30 minutes before dinner for Diabetes [Active]; metoprolol succinate 100 mg Oral Tb24 1 tab once daily for Hypertension [Active]; levothyroxine 125 mcg tab 1 tab once daily for Hypothyroidism [Active]; Lasix 40 mg Oral tab 1 tab once daily for Fluid Retention [Active]; Aricept 10 mg Oral tab 1 tab once daily for Mild to Moderate Alzheimer's Type Dementia [Active]; Plavix 75 mg Oral tab 1 tab once daily [Active]; Lipitor 40 mg Oral tab 1 tab once daily [Active]; aripiprazole 2 mg oral tab [Active]; Norvasc 10 mg Oral tab 1 tab once daily for Hypertension [Active]; magnesium oxide 400 mg Oral cap twice a day [Active]; Butalbital Compound 50-325-40 mg Oral tab [Active]; betamethasone dipropionate 0.05 % topical crea [Active]; aspirin 81 mg Oral TbEC 1 tab once daily [Active]; amitriptyline 25 mg Oral tab 1 tab nightly [Active]; - PMHx: 14:22 COPD; Dementia; Diabetes - NIDDM; GERD; Hyperlipidemia; Hypertension; Hypothyroidism; sv - Immunization history:: Adult Immunizations up to date. - Social history:: Smoking status: Patient/guardian denies using tobacco. - Ebola Screening: : Patient negative for fever greater than or equal to 101.5 degrees Fahrenheit, and additional compatible Ebola Virus Disease symptoms Patient denies exposure to infectious person Patient denies travel to an Ebola-affected area in the 21 days before illness onset No symptoms or risks identified at this time. Screenin:30 Abuse screen: Denies threats or abuse. Denies injuries from another. Nutritional bp screening: No deficits noted. Tuberculosis screening: No symptoms or risk factors identified. Fall Risk No fall in past 12 months (0 pts). Secondary diagnosis (15 points) Alzheimer's, IV access (20 points). Mental Status- Oriented to own ability (0 pts). Total Garcia Fall Scale indicates Low Risk Score (25-44 pts). Fall prevention measures have been instituted. Side Rails Up X 2 Placed close to Nursing Station Frequent Obs/Assesments occuring Family Present and informed to notify staff if they need to leave bedside As available Patient and Family Educated on Fall Prevention Program and strategies. Assessment: 14:22 General: SEE TRIAGE NOTE. bp 15:00 Reassessment: PT CONTINUES TO AFFIRM HALLUCINATIONS, NO CHANGE IN MENTAL STATUS. bp 17:00 Reassessment: ALL CURRENT ORDERS COMPLETED, RESULTS PENDING. bp 17:22 Reassessment: recollect sent to lab- LACTATE. lab notified. ss 18:00 Reassessment: ALL CURRENT ORDERS COMPLETED. DISPO PENDING. bp 20:04 General: Appears in no apparent distress. Behavior is calm, cooperative. Pain: Denies ed1 pain. Neuro: Level of Consciousness is awake, alert, obeys commands, Oriented to person, place. Cardiovascular: Denies chest pain, Heart tones S1 S2 present Patient's skin is warm and dry. Respiratory: Airway is patent Respiratory effort is even, unlabored, Respiratory pattern is regular, symmetrical, Breath sounds are clear bilaterally. GI: No signs and/or symptoms were reported involving the gastrointestinal system. : No signs and/or symptoms were reported regarding the genitourinary system. EENT: No signs and/or symptoms were reported regarding the EENT system. Derm: Skin is intact, is healthy with good turgor, Skin is dry, Skin is normal, Skin temperature is warm. Musculoskeletal: Circulation, motion, and sensation intact. Range of motion: intact in all extremities. Vital Signs: 14:22 BP 105 / 62; Pulse 72; Resp 16; Temp 98.6; Pulse Ox 100% ; Weight 86.18 kg; Height 5 sv ft. 9 in. (175.26 cm); Pain 0/10; 15:00 BP 117 / 64; Pulse 67; Resp 16; Pulse Ox 98% ; bp 17:00 BP 114 / 63; Pulse 58; Resp 14; Pulse Ox 95% ; bp 18:00 BP 191 / 96; Pulse 85; Resp 16; Pulse Ox 98% ; bp 20:04 BP 173 / 79; Pulse 70; Resp 18; Temp 98.4(TE); Pulse Ox 96% on R/A; Pain 0/10; ed1 21:15 BP 147 / 66; Pulse 66; Resp 18; Temp 97.8(TE); Pulse Ox 96% on R/A; Pain 0/10; ed1 14:22 Body Mass Index 28.06 (86.18 kg, 175.26 cm) sv ED Course: 14:12 Patient arrived in ED. as 14:[address] MD is Private Physician. as 14:21 Triage completed. sv 14:23 Arm band placed on. sv 14:38 Hunter Hardin MD is Attending Physician. kdr 14:39 Elkin Lyle, ANN is Primary Nurse. bp 16:15 XRAY Chest (1 view) In Process Unspecified. EDMS 16:15 CT completed. Patient tolerated procedure well. Patient moved back from CT. mw3 16:16 CT Head Brain wo Cont In Process Unspecified. EDMS 16:45 Inserted saline lock: 20 gauge in right forearm, using aseptic technique. Blood bp collected. 16:51 Patient has correct armband on for positive identification. Bed in low position. Call bp light in reach. Side rails up X2. Adult w/ patient. 19:12 Primary Nurse role handed off by Elkin Lyle, ANN ed1 19:12 Komal Villa, ANN is Primary Nurse. ed1 19:[address] MD is Hospitalizing Provider. kdr 21:53 No provider procedures requiring assistance completed. ed1 22:05 Inserted saline lock: 20 gauge in left forearm, using aseptic technique. IV ed1 discontinued, intact, bleeding controlled, No redness/swelling at site. Pressure dressing applied, Pt d/c'd IV. Administered Medications: No medications were administered Point of Care Testing: Blood Glucose: 21:16 Blood Glucose: 86 mg/dL; oe Ranges: Outcome: 19:14 Decision to Hospitalize by Provider. kdr 21:53 Admitted to Tele accompanied by tech, family with patient, via wheelchair, room 431, ed1 with chart, Report called to ANN Alves 21:53 Condition: stable 21:53 Discharge instructions given to family, Instructed on the need for admit, Demonstrated understanding of instructions. 22:08 Patient left the ED. ed1 Signatures: Dispatcher [employer] Aleja Busby RN RN sv Hunter Hardin MD MD kdr Martinez, Amelia as Smirch, Shelby, RN RN Komal Villa RN RN ed1 Srinivasa Delgado Brian, RN RN bp Willis, Michelle mw3 Corrections: (The following items were deleted from the chart) 14:24 14:22 Resp 16bpm; Pulse Ox 100%; Temp 98.6F; 86.18 kg; Height 5 ft. 9 in.; BMI: 28.0; sv Pain 0/10; sv 22:06 21:53 Patient admitted, IV remains in place. intact, No redness/swelling at site. ed1 ed1
[2019-04-02] MEDS ORDERED: ACETAMINOPHEN 500 MG TAB PO PRN (19:18)
[2019-04-02] MEDS ORDERED: ONDANSETRON 4 MG/2 ML VIAL IV PRN (19:18)
[2019-04-02 22:40] VITALS: BMI 25.7
[2019-04-03 05:57] LABS: Absolute Lymphocytes (CBC) 2.8 K/uL (0.7-4.9); Absolute Monocytes 0.7 K/uL (0.1-1.3); Absolute Neutrophil 3.6 K/uL (1.8-8.0); Basophils % 0.7 % (0-1.3); Eosinophils % 3.2 % (0-4.4); Hematocrit 48.7 % (39.6-49.0); Lymphocytes % 37.8 % (15.3-44.8); MPV 9.7 fL (7.6-11.3); Monocytes % 9.2 % (3.3-12.3)
[2019-04-03 06:07] LABS: Potassium 4.2 mmol/L (3.5-5.1)
[2019-04-03] MEDS ORDERED: ACETAMIN/CAFFEINE/BUTALB TAB PO PRN (07:42)
--- NOTE | 2019-04-03 07:49 | P.HP ---
Certification for Inpatient Patient admitted to: Inpatient With expected LOS: >2 Midnights Practitioner: I am a practitioner with admitting privileges, knowledge of patient current condition, hospital course, and medical plan of care. Services: Services provided to patient in accordance with Admission requirements found in Title 42 Section 412.3 of the Code of Federal Regulations Patient History Date of Service: 04/03/19 Reason for admission: DIZZY, UNSTEADY AND FALLING FOR 3 WEEKS History of Present Illness: MR. BOLAND TENDS TO FALL EASILY WITH JUST A SMALL MANUVRE LIKE HUGGING ETC. 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 HIM AND BOTH HAVE CHRONIC ISSUES. HE DOES NOT WANT TO GO TO SENIOR LIVING AND IS NOT ABLE TO MANAGE ALL HIS MEDICAL ISSUES. HE HAS SIGNIFICANT DEMENTIA. Allergies No Known Allergies Allergy (Verified 02/25/18 20:48) Home Medications: Aspirin [Aspir-Low] 81 mg PO DAILY 02/25/18 Atorvastatin Calcium [Lipitor*] 40 mg PO BEDTIME 02/25/18 Butalb/Acetaminophen/Caffeine [Vdqodd-Ypdrssqk-Xjdl 50-325-40] 1 each PO Q6H PRN 02/25/18 Clopidogrel Bisulfate [Plavix*] 75 mg PO DAILY 02/25/18 Donepezil [Aricept*] 10 mg PO BEDTIME 02/25/18 Furosemide [Lasix*] 40 mg PO DAILY 02/25/18 Insulin 70/30 NPH/Reg Human [Novolin 70/30*] 30 unit SQ SEECOM 02/25/18 Levothyroxine [Synthroid*] 125 mcg PO [id number] 02/25/18 Magnesium Oxide [Mag 0X*] 400 mg PO BID 02/25/18 Meclizine HCl 25 mg PO TID PRN 02/25/18 Metoprolol Succinate [Toprol Xl] 100 mg PO DAILY 02/25/18 Amlodipine [Norvasc*] 10 mg PO DAILY #30 tab 02/28/18 Fluticasone/Salmeterol [Advair 250-50 Diskus] 1 each IH BID #1 blst.w.dev ARIPiprazole [Aripiprazole] 2 mg PO DAILY 04/02/19 Amitriptyline HCl 10 mg PO BEDTIME 04/02/19 Betamethasone/Propylene Glyc [Betamethasone Dp Aug 0.05% Crm] 1 daniel TOP DAILY Insulin 70/30 NPH/Reg Human [Novolin 70/30*] 60 units SQ SEECOM 04/02/19 Ramipril 5 mg PO DAILY 04/02/19 - Past Medical/Surgical History Has patient received pneumonia vaccine in the past: Yes Diabetic: Yes -: HTN -: CAD -: AK -: 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 -: 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 -: KIDNEY STONES -: Cardiac stents 8 YRS AGO -: Korey artificial knee replacement -: MELOMA TUMOR 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 - HAS SUTURES IN PLACE -: APPY -: KIDNEY STONES - Family History Father -: Heart disease, Hypertension - Social History Smoking Status: Former smoker Alcohol use: No CD- Drugs: No Caffeine use: Yes Place of Residence: Home Review of Systems 10-point ROS is otherwise unremarkable Neurological: Incoordination, As per HPI Physical Examination - Vital Signs Temperature: 97.5 F Blood Pressure: 159/86 Pulse: 73 Respirations: 16 Pulse Ox (%): 96 - Physical Exam General: Alert, In no apparent distress HEENT: Atraumatic, PERRLA, Mucous membr. moist/pink, EOMI, Sclerae nonicteric Neck: Supple, 2+ carotid pulse no bruit, No LAD, Without JVD or thyroid abnormality Respiratory: Clear to auscultation bilaterally, Normal air movement Cardiovascular: Regular rate/rhythm, Normal S1 S2 Gastrointestinal: Normal bowel sounds, No tenderness Musculoskeletal: No tenderness Integumentary: No rashes Neurological: Normal speech, Normal strength at 5/5 x4 extr, Abnormal gait ( UNSTEADY. ) Lymphatics: No axilla or inguinal lymphadenopathy - Studies Laboratory Data (last 24 hrs) 04/02/19 16:45: PT 11.9, INR 1.01 04/02/19 16:45: WBC 8.2, Hgb 17.6, Hct 53.2 H, Plt Count 195 04/02/19 16:45: Sodium 142, Potassium 3.8, BUN 47 H, Creatinine 2.50 H, Glucose 64 L, Magnesium 2.6 H, Total Bilirubin 0.4, AST 28, ALT 42, Alkaline Phosphatase 112 Assessment and Plan - Problems (Diagnosis) (1) Unsteady gait Current Visit: Yes Status: Acute Plan: ORDER MRI AND MRA IN AM. HE IS HIGH RISK FOR STROKE. HE HAS HAD STROKE BEFORE ALSO ORTHOSTASIS CAN DO THIS. WILL STOP FLOMAX. CHECK BP LAYING AND STANDING. (2) Diabetes type 2, uncontrolled Onset Date: 02/26/18 Current Visit: No Status: Chronic Plan: NOT COMPLIANT WITH DIET AND INSTRUCTIONS. REFUSES TO GO TO SENIOR LIVING. EVEN WITH HOME HEALTH IF DIET IS NOT FOLLOWED THE DIABETES WILL NOT BE CONTROLLED. - Advance Directives Does patient have a Living Will: No Does patient have a Durable POA for Healthcare: No
[2019-04-03 08:38] LABS: MPV 9.7 fL (7.6-11.3)
[2019-04-03] MEDS: ENOXAPARIN 30 MG/0.3 ML SQ SCH (08:41)
[2019-04-03] MEDS: MAGNESIUM OXIDE 400 MG TAB PO SCH ×2 (08:42→21:07)
[2019-04-03] MEDS: RAMIPRIL 5 MG CAP PO SCH (08:42)
[2019-04-03] MEDS: CLOPIDOGREL 75 MG TABLET PO SCH (08:43)
[2019-04-03] MEDS: ASPIRIN EC 81 MG TAB PO SCH (08:44)
[2019-04-03] MEDS: AMLODIPINE 10 MG TAB PO SCH (08:44)
[2019-04-03] MEDS: HOME MED 1 EA UNK (Fluticasone/Salmeterol [Advair 250-50 Diskus] 1 EACH) IH SCH ×2 (08:45→21:00)
[2019-04-03] MEDS: ARIPIPRAZOLE 2 MG PO SCH (08:45)
[2019-04-03] MEDS: [UNRECOGNIZED DRUG - OTHER] TOP SCH (08:45)
[2019-04-03] MEDS ORDERED: FUROSEMIDE 40 MG TABLET PO SCH (09:00)
[2019-04-03] MEDS ORDERED: METOPROLOL XL 100 MG TAB PO SCH (09:00)
[2019-04-03] MEDS ORDERED: ASPIRIN EC 81 MG TAB PO SCH (09:00)
[2019-04-03 09:14] LABS: Platelet Estimate ADEQ
--- NOTE | 2019-04-03 09:48 | EKG ---
Test Date: 2019-04-02 Test Time: 16:04:44 Churner: MERVAT MEASUREMENT RESULTS: Intervals: Rate: 66 NE: 264 QRSD: 108 QT: 432 QTc: 452 Perry: P: 61 NE: 264 QRS: 74 T: 4 INTERPRETIVE STATEMENTS: Sinus rhythm with 1st degree AV block Otherwise normal ECG Compared to ECG 05/06/2018 14:10:12 Sinus bradycardia no longer present Myocardial infarct finding no longer present Electronically Signed On 04-03-19 09:47:00 CDT by Nahum Webb
[2019-04-03] MEDS: INSULIN 70/30 100 UNITS/ML SQ SCH ×2 (09:54→16:21)
[2019-04-03 10:48] LABS: Urine Appearance CLEAR; Urine Bilirubin NEGATIVE (NEG); Urine Blood NEGATIVE (NEG); Urine Color YELLOW; Urine Glucose TRACE (NEG); Urine Protein 1+ (NEG); Urine Urobilinogen 0.2 mg/dL (0.2-1.0)
[2019-04-03 11:25] LABS: Urine Microscopic Reflex ORDER UMIC
[2019-04-03 11:32] LABS: Urine Bacteria <20 /HPF (NONE SEEN); Urine Culture Reflex Order NOT NEEDED; Urine RBC <5 /HPF (NONE SEEN)
--- NOTE | 2019-04-03 16:53 | CON ---
History Of Present Illness: Mr. Guillermo is 78. He was brought to the hospital by family members tanisha use of altered mental status. He was falling, acting confused, mistaking family members and other pe ople he knows well for other people, talking to people who were not there, so basically hallucinating . Since he has been in the hospital, his mind has cleared up a lot. One of his laboratory findings when he came into the hospital was a blood sugar of 64. Mr. Guillermo has a record of very poor medical compliance. He has underlying diabetes, hypertension, dyslipidemia, and a remote history of an intr acoronary stent. He was a very heavy alcohol user, but quit at age 40. Quit tobacco then also. He has not been having chest pain or shortness of breath. Outpatient Medications: Levothyroxine, aspirin/butalbital/caffeine/acetaminophen tablet, atorvastati n, metoprolol, clopidogrel, furosemide, Aricept, meclizine, magnesium oxide, insulin 70/30 NPH, Advai r, amlodipine, aripiprazole, ramipril, amitriptyline, and betamethasone cream. Physical Examination: General: Mr. Guillermo is alert, pleasant. He is oriented to person and place. He did not remember me eting me previously. His remembered me well. He is not hallucinating, very ill presently. Neck: I do not appreciate a carotid bruit. Lungs: Revealed no crackle or wheeze. Heart: Seems to be within normal limits. Abdomen: Soft. Extremities: No edema, cyanosis, or clubbing. There is a tinea pedis, but no open sores. Distal pu lses are 1+ bilaterally. Skin: Warm, pink, well perfused. Laboratory Data: Reveals troponins of 0.07, 0.08, and 0.08. Creatinine is 2.5; with hydration overn ight it is 2.0. His blood sugar this morning was 220. He is hemoconcentrated. His hemoglobin was 1 7.6 when he came in; 16.8 today. Impression: My impression is that Mr. Guillermo has mental status problems that could be related to a n umber of things. I would be very worried about multiple hypoglycemic spells as well as stroke. He c ould be orthostatics, so far we do not have orthostatic vital signs, although they have been ordered. An MRI is planned. I am asked to see him about his abnormal troponins with his EKG not showing inf arction, injury, or ischemia and no rise and fall in the troponins, his troponins are very low level, I do not think it represents an acute coronary syndrome. I think doing an echocardiogram is a reaso nable thing to do. We can do that tomorrow to see if there is any new wall motion abnormality, but I believe this has anything to do with either strokes or poorly-controlled diabetes or both. TANIA/SHANI Voice ID: [id number] Report ID: [id number]
[2019-04-03] MEDS: AMITRIPTYLINE 10 MG TAB PO SCH (21:02)
[2019-04-03] MEDS: DONEPEZIL HCL 5 MG TAB PO SCH (21:03)
[2019-04-03] MEDS: ATORVASTATIN 40 MG TAB PO SCH (21:03)
[2019-04-04] MEDS: LEVOTHYROXINE SOD 0.125 MG TAB PO SCH (06:16)
[2019-04-04 06:59] LABS: Absolute Lymphocytes (CBC) 2.6 K/uL (0.7-4.9); Absolute Monocytes 0.5 K/uL (0.1-1.3); Absolute Neutrophil 4.2 K/uL (1.8-8.0); Basophils % 0.7 % (0-1.3); Eosinophils % 3.6 % (0-4.4); Hematocrit 48.8 % (39.6-49.0); Lymphocytes % 34.1 % (15.3-44.8); MPV 9.3 fL (7.6-11.3); Monocytes % 6.5 % (3.3-12.3); RBC Red Blood Cell Count 5.58 M/uL (4.33-5.43)
[2019-04-04 07:14] LABS: Potassium 3.8 mmol/L (3.5-5.1)
[2019-04-04 08:20] LABS: Thyroid Stimulating Hormone 3.48 uIU/mL (0.360-3.740)
[2019-04-04] MEDS: [UNRECOGNIZED DRUG - OTHER] TOP SCH (09:00)
[2019-04-04] MEDS: ARIPIPRAZOLE 2 MG PO SCH (09:00)
[2019-04-04] MEDS: HOME MED 1 EA UNK (Fluticasone/Salmeterol [Advair 250-50 Diskus] 1 EACH) IH SCH ×2 (09:00→21:00)
[2019-04-04] MEDS: ASPIRIN EC 81 MG TAB PO SCH (09:40)
[2019-04-04] MEDS: AMLODIPINE 10 MG TAB PO SCH (09:40)
[2019-04-04] MEDS: INSULIN 70/30 100 UNITS/ML SQ SCH ×2 (09:40→16:30)
[2019-04-04] MEDS: ENOXAPARIN 30 MG/0.3 ML SQ SCH (09:41)
[2019-04-04] MEDS: CLOPIDOGREL 75 MG TABLET PO SCH (09:41)
[2019-04-04] MEDS: METOPROLOL XL 50 MG TAB PO SCH (09:41)
[2019-04-04] MEDS: RAMIPRIL 5 MG CAP PO SCH (09:41)
[2019-04-04] MEDS: MAGNESIUM OXIDE 400 MG TAB PO SCH ×2 (09:41→21:54)
--- NOTE | 2019-04-04 09:58 | RAD REPORT ---
EXAM DESCRIPTION: MRI - Brain W/Wo Cont - 04/04/2019 8:47 am CLINICAL HISTORY: AMS, WEAKNESS Drowsiness, headache, history of multiple CVA COMPARISON: MRA Head Wo Cont dated 04/04/2019; Brain Wo Cont dated 02/25/2018; Ct Stroke Brain Wo Cont dated 02/25/2018; Head Brain Wo Cont dated 05/06/2018; Head Brain Wo Cont dated 04/02/2019; Carotid Artery Bilateral dated 02/26/2018 TECHNIQUE: Multi-sequence, multiplanar MR imaging of the brain was performed with contrast. FINDINGS: No intracranial hemorrhage, hydrocephalus, or extra-axial fluid collection.Moderate genera lized brain atrophy is present. Mild areas T2 and FLAIR hyperintensity in the periventricular region seen. There is a small old infarct seen right frontal lobe laterally.. No intracranial mass. DWI is n egative for acute CVA. The midline structures are normally formed. Mastoid air cells and paranasal sinuses are clear. Post-contrast images show no abnormal enhancement to suggest tumor or infection. IMPRESSION: Negative for acute CVA or other acute intracranial abnormality. No pathologic post-contrast enhancement suspected.
--- NOTE | 2019-04-04 10:05 | RAD REPORT ---
EXAM DESCRIPTION: MRI - MRA Head Wo Cont - 04/04/2019 8:47 am CLINICAL HISTORY: ALTERED MENTAL STATUS, WEAKNESS CVA COMPARISON: Head Brain Wo Cont dated 04/02/2019; Ct Stroke Brain Wo Cont dated 02/25/2018; Brain Wo Con t dated 02/25/2018; Carotid Artery Bilateral dated 02/26/2018; MRA Neck W/Wo Cont dated 04/04/2019; Brain W/Wo Cont dated 04/04/2019; Chest Single View dated 04/02/2019; MRA HEAD W O CONTRAST dated 10/02/2011 FINDINGS: 3D noncontrast [id number] MR angiography of the [place] of [place] was performed. Significantly diminished flow is seen in right intracranial ICA with the intracranial ICA essentially occluded chronically. The left intracranial ICA is patent. Flow to the right M1 and A1 segments is r educed and fed predominantly through patent anterior communicating artery. There is no aneurysm visua lized. The vertebral arteries are patent with forward flow, with a diminutive right vertebral artery. The visualized dural venous sinuses appear patent. IMPRESSION: Chronically occluded right intracranial ICA.
--- NOTE | 2019-04-04 10:32 | RAD REPORT ---
EXAM DESCRIPTION: MRI - MRA Neck W/Wo Cont - 04/04/2019 8:46 am CLINICAL HISTORY: AMS, WEAKNESS Headache, drowsiness, history of CVA COMPARISON: No comparisons FINDINGS: Contrast enhance 2D [id number] MR angiography of the neck vessels was performed. A left aortic arch is present. Normal branching pattern is noted of the great vessels. The right internal carotid artery is significantly diseased Proxima. There is quite reduced blood alexandro w noted in the right cervical internal carotid artery due to significant proximal post bulbar stenosi s estimated at 90% based on NASCET criteria. The lack of signal is seen in the proximal left internal carotid artery in the neck, presumably relat ed to the presence of a carotid stent although this should be clinically correlated. IMPRESSION: Significant proximal stenosis of the right internal carotid artery is noted estimated at 90% based on NASCET criteria. This results in significant reduction in flow in the right cervical in ternal carotid artery. Lack of flow in the proximal left ICA is likely attributable to a carotid stent.
--- NOTE | 2019-04-04 11:31 | ECHO ---
HEIGHT: 5 ft 8 in WEIGHT: 169 lb 1.6 oz DATE OF STUDY: 04/04/[address]: Nahum Webb MD 2-DIMENSIONAL: YES M.MODE: YES DOPPLER: YES COLOR FLOW: YES TDS: NO PORTABLE: NO DEFINITY: NO BUBBLE STUDY: NO DIAGNOSIS: ABNORMAL TROPONIN CARDIAC HISTORY: CATHERIZATION: YES SURGERY: NO PROSTHETIC VALVE: NO PACEMAKER: NO MEASUREMENTS (cm) DIASTOLIC (NORMALS) SYSTOLIC (NORMALS) IVSd 1.1 (0.6-1.2) LA Diam 3.4 (1.9-4.0) LVEF 48% LVIDd 4.2 (3.5-5.7) LVIDs 3.2 (2.0-3.5) %FS 24% LVPWd 1.1 (0.6-1.2) Ao Diam 3.1 (2.0-3.7) 2 DIMENSIONAL ASSESSMENT: RIGHT ATRIUM: NORMAL LEFT ATRIUM: NORMAL RIGHT VENTRICLE: NORMAL LEFT VENTRICLE: NORMAL TRICUSPID VALVE: NORMAL MITRAL VALVE: NORMAL PULMONIC VALVE: NORMAL AORTIC VALVE: NORMAL PERICARDIAL EFFUSION: NONE AORTIC ROOT: NORMAL LEFT VENTRICULAR WALL MOTION: NORMAL DOPPLER/COLOR FLOW: IMPAIRED LEFT VENTRICULAR EJECTION FRACTION. COMMENTS: NORMAL 2D ECHOCARDIOGRAM. IMPAIRED LEFT VENTRICULAR EJECTION FRACTION. TECHNOLOGIST: Jesse SOLIZ
--- NOTE | 2019-04-04 11:45 | PN ---
The patient has improved clinically. He is not having altered mental status problems at least as muc h as before. He has had 1 or 2 dropped beats due to Wenckebach type 1 second-degree AV block. For t he most part, he is in first degree AV block. I think we should cut down on his beta-wu dosage. Use other medicines other than beta blockers and calcium blockers to treat his blood pressure and m nancy sure we check a TSH and free T4, but this does not require a pacemaker. An echocardiogram is pen ding today to see if we should worry about the borderline elevation of troponins. TANIA/SHANI Voice ID: [id number] Report ID: [id number]
[2019-04-04] MEDS ORDERED: D50W 25 GM/50 ML SYRINGE IV PRN (16:34)
[2019-04-04] MEDS ORDERED: GLUCAGON 1 MG/VIAL IM PRN (16:34)
[2019-04-04] MEDS ORDERED: INSULIN 70/30 100 UNITS/ML SQ ONE (17:00)
--- NOTE | 2019-04-04 17:42 | PN ---
Subjective: Mr. Guillermo has a very severe carotid stenosis identified on MRI testing. I have recomme nded that we do a carotid angiogram and cardiac cath. We can question whether his coronary arteries are involved or not. He does have abnormal troponins and we can see if he is a good candidate for go ing through a carotid endarterectomy. He has a history of a left internal carotid stent and that may be stenosed as well. MRI is unable to determine if that is blocked or not, so I will ask him to und ergo cardiac cath, bilateral carotid angiograms tomorrow. We will keep him n.p.o. Ask him to sign a consent form indicating he understands the procedure, its potential benefits, indications, risks, an d agreed to proceed. Dr. Palacios will do the angiography. ELLIE Voice ID: [id number] Report ID: [id number]
--- NOTE | 2019-04-04 20:39 | P.PN ---
Subjective Date of Service: 04/04/19 Chief Complaint: DIZZY, UNSTEADY AND FALLING FOR 3 WEEKS Subjective: Improving FEELS BETTER, HE HAS WALKED TODAY AND BP I HAD NURSES CHECK BP ORTHOSTASIS AND HE DID NOT HAVE DROP IN BP. Review of Systems 10-point ROS is otherwise unremarkable Physical Examination - Vital Signs Temperature: 97.0 F Blood Pressure: 136/63 Pulse: 69 Respirations: 20 Pulse Ox (%): 93 - Physical Exam General: Alert, In no apparent distress HEENT: Atraumatic, PERRLA, EOMI Neck: Supple, JVD not distended Respiratory: Clear to auscultation bilaterally, Normal air movement Cardiovascular: Regular rate/rhythm, Normal S1 S2 Gastrointestinal: Normal bowel sounds, No tenderness Musculoskeletal: No tenderness Integumentary: No rashes Neurological: Normal speech, Normal tone, Normal affect Lymphatics: No axilla or inguinal lymphadenopathy - Studies Medications List Reviewed: Yes Assessment And Plan - Current Problems (Diagnosis) (1) Unsteady gait Current Visit: Yes Status: Acute Plan: ORDER MRI AND MRA IN AM. HE IS HIGH RISK FOR STROKE. HE HAS HAD STROKE BEFORE ALSO ORTHOSTASIS CAN DO THIS. WILL STOP FLOMAX. CHECK BP LAYING AND STANDING. (2) Diabetes type 2, uncontrolled Onset Date: 02/26/18 Current Visit: No Status: Chronic Plan: NOT COMPLIANT WITH DIET AND INSTRUCTIONS. REFUSES TO GO TO ALF. EVEN WITH HOME HEALTH IF DIET IS NOT FOLLOWED THE DIABETES WILL NOT BE CONTROLLED. (3) Carotid stenosis Current Visit: Yes Status: Chronic Plan: R SIDE CAROTID STENOSIS. DR. GASCA WILL DO CATH IN AM. HE COULD HAVE STENT BUT THAT WILL HAVE TO BE DONE IN SOUTH RANGE. SON CALLED AND I GAVE HIM ALL DETAILS. (4) Dehydration Current Visit: Yes Status: Acute Plan: STOPPING LASIX IMPROVED CREATININE.
[2019-04-04] MEDS: DONEPEZIL HCL 5 MG TAB PO SCH (21:54)
[2019-04-04] MEDS: ATORVASTATIN 40 MG TAB PO SCH (21:54)
[2019-04-04] MEDS: AMITRIPTYLINE 10 MG TAB PO SCH (21:56)
[2019-04-04] MEDS: ACETYLCYST 20% 800 MG/4 ML VIAL PO SCH (21:56)
[2019-04-05 04:11] LABS: Absolute Lymphocytes (CBC) 2.8 K/uL (0.7-4.9); Absolute Monocytes 0.6 K/uL (0.1-1.3); Absolute Neutrophil 3.4 K/uL (1.8-8.0); Basophils % 0.6 % (0-1.3); Eosinophils % 4.1 % (0-4.4); Hematocrit 48.4 % (39.6-49.0); Lymphocytes % 39.2 % (15.3-44.8); MPV 9.7 fL (7.6-11.3); Monocytes % 7.8 % (3.3-12.3); RBC Red Blood Cell Count 5.51 M/uL (4.33-5.43)
[2019-04-05] MEDS: RAMIPRIL 5 MG CAP PO SCH (05:57)
[2019-04-05] MEDS: AMLODIPINE 10 MG TAB PO SCH (05:58)
[2019-04-05] MEDS: METOPROLOL XL 50 MG TAB PO SCH (05:58)
[2019-04-05] MEDS: CLOPIDOGREL 75 MG TABLET PO SCH (05:59)
[2019-04-05] MEDS: LEVOTHYROXINE SOD 0.125 MG TAB PO SCH (05:59)
[2019-04-05] MEDS: ASPIRIN EC 81 MG TAB PO SCH (05:59)
[2019-04-05] MEDS: ACETYLCYST 20% 800 MG/4 ML VIAL PO SCH (05:59)
[2019-04-05] MEDS ORDERED: NA CHLORIDE 0.9% 1,000 ML ONE (06:04)
[2019-04-05] MEDS: INSULIN 70/30 100 UNITS/ML SQ SCH ×2 (07:30→17:03)
[2019-04-05] MEDS ORDERED: HEPA 1000U/500MLS 1,000 UNIT/500 ML BAG IV ONE (08:08)
[2019-04-05] MEDS ORDERED: MIDAZOLAM HCL 2 MG/2 ML INJ ONE (08:55)
[2019-04-05] MEDS ORDERED: FENTANYL CITR 100 MCG/2 ML ONE (08:55)
[2019-04-05] MEDS ORDERED: ATROPINE SULF 1 MG/10 ML SYR IV ONE (08:56)
[2019-04-05] MEDS ORDERED: NA CHLORIDE 0.9% 0 ML ONE (08:56)
[2019-04-05] MEDS: HOME MED 1 EA UNK (Fluticasone/Salmeterol [Advair 250-50 Diskus] 1 EACH) IH SCH (09:00)
[2019-04-05] MEDS: ARIPIPRAZOLE 2 MG PO SCH (09:00)
[2019-04-05] MEDS: [UNRECOGNIZED DRUG - OTHER] TOP SCH (09:00)
[2019-04-05] MEDS ORDERED: NITROGLYCERIN 0.4 MG/TAB SL PRN (10:31)
[2019-04-05] MEDS ORDERED: NA CHLORIDE 0.9% 1,000 ML IV SCH (11:00)
[2019-04-05] MEDS ORDERED: ACETAMINOPHEN 325 MG TABLET PO PRN (11:00)
[2019-04-05] MEDS: MAGNESIUM OXIDE 400 MG TAB PO SCH (12:26)
--- NOTE | 2019-04-05 13:53 | OP ---
Date of Procedure: 04/05/2019 Surgeon: El Palacios MD Software Engineer Backend: Reid Redmond and Charmaine Zheng. Procedure: Left heart catheterization, selective coronary arteriogram, selective bilateral carotid a ngiogram. Indication: CAD and CVD. Description Of Procedure: The patient had a 4 mg of Versed for IV sedation, prepped and draped in th e routine sterile fashion in the slabbing machine operator. A 6-Armenian sheath introduced in the right common femoral artery. Angio-Seal was used. Angiography in the common femoral artery was normal. A JR4 Juan ca theter was used to selectively inject the right coronary artery, which was completely occluded. The right carotid artery, internal carotid artery was completely occluded. The left carotid artery had a 50% in-stent restenosis. Left Juan catheter used for the injection of the left heart system and there was 100% diagonal occlusion and 50% ramus occlusion. LAD was normal. The 6-Armenian catheters a nd sheath were used. Complications: No complications. Blood Loss: 5 cc. Total Conscious Sedation: 45 minutes. 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 Plan: Plan is for medical therapy. AZAR/SHANI Voice ID: [id number] Report ID: [id number]
[2019-04-05 16:07] VITALS: BP 149/74; TEMP 97.9
[2019-04-05 16:31] VITALS: O2SAT 92
--- NOTE | 2019-04-05 17:16 | P.DS ---
Admission Date: 04/02/19 Discharge Date: 04/05/19 Disposition: ROUTINE DISCHARGE Reason for Admission: DIZZY, UNSTEADY AND FALLING FOR 3 WEEKS - Problems (1) Unsteady gait Current Visit: Yes Status: Acute (2) Diabetes type 2, uncontrolled Onset Date: 02/26/18 Current Visit: No Status: Chronic (3) Carotid stenosis Current Visit: Yes Status: Chronic (4) Dehydration Current Visit: Yes Status: Acute Brief History of Present Illness: MR. BOLAND TENDS TO FALL EASILY WITH JUST A SMALL MANUVRE LIKE HUGGING ETC. 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 HIM AND BOTH HAVE CHRONIC ISSUES. HE DOES NOT WANT TO GO TO RETIREMENT AND IS NOT ABLE TO MANAGE ALL HIS MEDICAL ISSUES. HE HAS SIGNIFICANT DEMENTIA. MR. BOLAND HAS BEEN DIZZY HAS HAD STROKE IN PAST. HE HAS MRA DONE THIS TIME THAT SHOWS 100 % BLOCK ON R SIDE AND 50% BLOCK ON L SIDE IN THE STENTED AREA. THIS WAS CONFIRMED BY CATH TODAY. ON CATH HE ALSO HAS 100% RCA BLOCK AND LAD IS PATENT. HE HAS MODERATE DEMENTIA AND DR HI RECOMMENDS MEDICAL MANAGEMENT. Vital Signs/Physical Exam: Temp Pulse Resp BP Pulse Ox 97.9 F 70 18 149/74 H 92 04/05/19 16:00 04/05/19 16:00 04/05/19 16:00 04/05/19 16:00 04/05/19 16:00 General: Alert, In no apparent distress HEENT: Atraumatic, PERRLA, EOMI Neck: Supple, JVD not distended Respiratory: Clear to auscultation bilaterally, Normal air movement Cardiovascular: Regular rate/rhythm, Normal S1 S2 Gastrointestinal: Normal bowel sounds, No tenderness Musculoskeletal: No tenderness Integumentary: No rashes Neurological: Normal speech, Normal tone, Normal affect Lymphatics: No axilla or inguinal lymphadenopathy Laboratory Data at Discharge: WBC 7.1 K/uL (4.3-10.9) 04/05/19 03:41 Hgb 16.6 g/dL (13.6-17.9) 04/05/19 03:41 Hct 48.4 % (39.6-49.0) 04/05/19 03:41 Plt Count 166 K/uL (152-406) 04/05/19 03:41 PT 11.9 SECONDS (9.5-12.5) 04/02/19 16:45 INR 1.01 04/02/19 16:45 Sodium 143 mmol/L (136-145) 04/04/19 06:52 Potassium 3.8 mmol/L (3.5-5.1) 04/04/19 06:52 BUN 34 mg/dL (7-18) H 04/04/19 06:52 Creatinine 1.43 mg/dL (0.55-1.3) H 04/04/19 06:52 Glucose 91 mg/dL (74-106) 04/04/19 06:52 Magnesium 2.6 mg/dL (1.8-2.4) H 04/02/19 16:45 Total Bilirubin 0.4 mg/dL (0.2-1.0) 04/02/19 16:45 AST 28 U/L (15-37) 04/02/19 16:45 ALT 42 U/L (12-78) 04/02/19 16:45 Alkaline Phosphatase 112 U/L (45-117) 04/02/19 16:45 Troponin I 0.08 ng/mL (0.0-0.045) H 04/03/19 01:23 LDL Cholesterol Direct 77 mg/dL (100-129) L 04/04/19 06:52 Home Medications: Aspirin [Aspir-Low] 81 mg PO DAILY 02/25/18 Atorvastatin Calcium [Lipitor*] 40 mg PO BEDTIME 02/25/18 Butalb/Acetaminophen/Caffeine [Uofejb-Efsrjovd-Gscp 50-325-40] 1 each PO Q6H PRN 02/25/18 Clopidogrel Bisulfate [Plavix*] 75 mg PO DAILY 02/25/18 Donepezil [Aricept*] 10 mg PO BEDTIME 02/25/18 Insulin 70/30 NPH/Reg Human [Novolin 70/30*] 30 unit SQ SEECOM 02/25/18 Levothyroxine [Synthroid*] 125 mcg PO [id number] 02/25/18 Magnesium Oxide [Mag 0X*] 400 mg PO BID 02/25/18 Meclizine HCl 25 mg PO TID PRN 02/25/18 Metoprolol Succinate [Toprol Xl] 100 mg PO DAILY 02/25/18 Amlodipine [Norvasc*] 10 mg PO DAILY #30 tab 02/28/18 Fluticasone/Salmeterol [Advair 250-50 Diskus] 1 each IH BID #1 blst.w.dev ARIPiprazole [Aripiprazole] 2 mg PO DAILY 04/02/19 Amitriptyline HCl 10 mg PO BEDTIME 04/02/19 Betamethasone/Propylene Glyc [Betamethasone Dp Aug 0.05% Crm] 1 daniel TOP DAILY Insulin 70/30 NPH/Reg Human [Novolin 70/30*] 60 units SQ SEECOM 04/02/19 Ramipril 5 mg PO DAILY 04/02/19 Patient Discharge Instructions: BE CAREFUL AFTER SITTING, DON'T WALK WHEN YOU ARE DIZZY. GO SEE DR HI-NEXT WEEK OR SO. MY OFFICE IN TWO WEEKS. Diet: ADA
== END 2019-04-05 18:25 | disposition home or self-care (01) | DRG 68 ==
LOC: ER 14:10 → ERHOLD 19:17 → 4TH 21:54
PROVIDERS: ADMIT Internal Medicine; ATTEND Internal Medicine
PROC: 4A023N7 Measurement of Cardiac Sampling and Pressure, Left Heart, Percutaneous Approach (ICD-10-PCS; principal; 2019-04-05)
PROC: B2111ZZ Fluoroscopy of Multiple Coronary Arteries using Low Osmolar Contrast (ICD-10-PCS; 2019-04-05)
PROC: B3181ZZ Fluoroscopy of Bilateral Internal Carotid Arteries using Low Osmolar Contrast (ICD-10-PCS; 2019-04-05)
DX: I65.23 Occlusion and stenosis of bilateral carotid arteries (principal); E11.65 Type 2 diabetes mellitus with hyperglycemia; Z91.11 Patient's noncompliance with dietary regimen; I10 Essential (primary) hypertension; I25.10 Atherosclerotic heart disease of native coronary artery without angina pectoris; I44.0 Atrioventricular block, first degree; E86.0 Dehydration; F03.90 Unspecified dementia, unspecified severity, without behavioral disturbance, psychotic disturbance, mood disturbance, and anxiety; Z87.891 Personal history of nicotine dependence; Z86.73 Personal history of transient ischemic attack (TIA), and cerebral infarction without residual deficits
CPT/HCPCS: 36415; 70450; 70544; 70549; 70553; 71045; 80048; 80076; 81003; 81015; 82962; 83036; 83605; 83735; 83880; 84145; 84439; 84443; 84484; 85025; 85049; 85610; 87040; 87086; 87088; 93005; 93306; 93458; 97162; 99285; A9577; C1760; C1893; J0583; J1650; J2250; J3010; J7030

== ENCOUNTER 2019-12-07 07:11 | Day surgery (SDC) | payer OTHER ==
[2019-12-02 09:45] LABS: Protime INR 1.02
[2019-12-02 09:52] LABS: Potassium 3.5 mmol/L (3.5-5.1)
[2019-12-02 09:53] LABS: Basophils % 0.8 % (0-1.3); Lymphocytes % 28.2 % (15.3-44.8); MPV 8.9 fL (7.6-11.3); RBC Red Blood Cell Count 5.26 M/uL (4.33-5.43)
--- NOTE | 2019-12-02 10:23 | RAD REPORT ---
EXAM DESCRIPTION: Meena Brown (2 Views)12/02/2019 9:31 am CLINICAL HISTORY: Preop for heart catheterization COMPARISON: 2019 FINDINGS: The lungs appear clear of acute infiltrate. The heart is mildly enlarged. Pacemaker leads place IMPRESSION: No acute abnormalities displayed
[~2019-12-07 07:11] MED LIST: HEPA 1000U/500MLS 0 UNIT/0 ML BAG IV ONE; LIDOCAINE 1% MPF 30 ML VIAL ONE
--- OUTSIDE RECORDS SUMMARY | 2019-12-07 07:14 | XMS REPORT ---
:1940 [facility] [address] Crews [address] [place] [address] Care Team Providers Name Role Phone PREMA [...] (BEAKER) (test 263 mg/dL 70-110 TESTED AT [address] bgwp=5091) [facility] [address] POCT-GLUCOSE [id number] 08:30:00 Test Item Value Reference Range Comments POC-GLUCOSE METER (BEAKER) 183 mg/dL 70-110 TESTED AT [address] (test ilfr=8761) [facility] [address] POCT-GLUCOSE [id number] 21:30:00 Test Item Value Reference Range Comments POC-GLUCOSE METER (BEAKER) 334 mg/dL 70-110 Notified ANN ADLER/TESTED AT [facility] (test vhfr=8496) [address] [place] [address] POCT-GLUCOSE [id number] 15:48:00 Test Item Value Reference Range Comments POC-GLUCOSE METER (BEAKER) 233 mg/dL 70-110 TESTED AT [address] (test dmbh=2162) [facility] [address] POCT-GLUCOSE [id number] 11:52:00 Test Item Value Reference Range Comments POC-GLUCOSE METER (BEAKER) 229 mg/dL 70-110 TESTED AT [address] (test kggl=5453) [facility] [address] POCT-GLUCOSE [id number] 07:44:00 Test Item Value Reference Range Comments POC-GLUCOSE METER (BEAKER) 235 mg/dL 70-110 TESTED AT [facility] [address] (test oexy=6550) [facility] [address] [id number] 05:11:00 Test Item Value Reference Range Comments PHOSPHORUS (BEAKER) (test opvg=142) 3.0 mg/dL 2.3-4.7 [id number] 05:11:00 Test Item Value Reference Range Comments MAGNESIUM (BEAKER) (test ivpt=198) 1.7 mg/dL 1.6-2.6 BASIC METABOLIC [id number] 05:11:00 Test Item Value Reference Range Comments SODIUM (BEAKER) (test 136 meq/L 136-145 zriz=560) POTASSIUM (BEAKER) (test 3.8 meq/L 3.5-5.1 hgqv=006) CHLORIDE (BEAKER) (test 102 meq/L 98-107 prnx=376) CO2 (BEAKER) (test 26 meq/L 22-29 fguq=200) BLOOD UREA NITROGEN 19 mg/dL 7-21 (BEAKER) (test hnga=990) CREATININE (BEAKER) (test 1.36 mg/dL 0.57-1.25 dorx=711) GLUCOSE RANDOM (BEAKER) 195 mg/dL 70-105 (test dicd=731) CALCIUM (BEAKER) (test 9.3 mg/dL 8.4-10.2 pnds=207) EGFR (BEAKER) (test 51 mL/min/1.73 sq m ESTIMATED GFR IS NOT vwza=9574) ACCURATE CREATININE CLEARANCE IN PREDICTING GLOMERULAR FILTRATION RATE. ESTIMATED GFR IS NOT APPLICABLE FOR DIALYSIS PATIENTS. POCT-GLUCOSE [id number] 20:41:00 Test Item Value Reference Range Comments POC-GLUCOSE METER (BEAKER) 198 mg/dL 70-110 TESTED AT [facility] [address] (test etnk=2002) [facility] [address] POCT-GLUCOSE [id number] 20:19:00 Test Item Value Reference Range Comments POC-GLUCOSE METER (BEAKER) 363 mg/dL 70-110 Notified ANN ADLER/TESTED AT [facility] (test kdzw=0191) [address] [facility] [address] POCT-GLUCOSE [id number] 20:16:00 Test Item Value Reference Range Comments POC-GLUCOSE METER (BEAKER) 279 mg/dL 70-110 TESTED AT [address] (test cejv=6358) [facility] [address] POCT-GLUCOSE [id number] 20:10:00 Test Item Value Reference Range Comments POC-GLUCOSE METER (BEAKER) 200 mg/dL 70-110 TESTED AT [address] (test rpfc=5927) [facility] [address] POCT-GLUCOSE [id number] 19:59:00 Test Item Value Reference Range Comments POC-GLUCOSE METER (BEAKER) 297 mg/dL 70-110 TESTED AT [address] (test dvua=9671) [facility] [address] POCT-GLUCOSE [id number] 19:56:00 Test Item Value Reference Range Comments POC-GLUCOSE METER (BEAKER) 294 mg/dL 70-110 TESTED AT [address] (test ngnx=3314) [facility] [address] POCT-GLUCOSE [id number] 11:18:00 Test Item Value Reference Range Comments POC-GLUCOSE METER (BEAKER) 272 mg/dL 70-110 TESTED AT [address] (test jbol=5779) [facility] [address] POCT-GLUCOSE [id number] 08:10:00 Test Item Value Reference Range Comments POC-GLUCOSE METER (BEAKER) 221 mg/dL 70-110 TESTED AT [address] (test weqm=0282) [place] [id number] 05:02:00 Test Item Value Reference Range Comments PHOSPHORUS (BEAKER) (test dzrv=664) 2.7 mg/dL 2.3-4.7 [id number] 05:02:00 Test Item Value Reference Range Comments MAGNESIUM (BEAKER) (test hwan=004) 1.8 mg/dL 1.6-2.6 BASIC METABOLIC [id number] 05:02:00 Test Item Value Reference Range Comments SODIUM (BEAKER) (test 134 meq/L 136-145 rgys=729) POTASSIUM (BEAKER) (test 3.9 meq/L 3.5-5.1 uowt=975) CHLORIDE (BEAKER) (test 101 meq/L 98-107 tzji=744) CO2 (BEAKER) (test 25 meq/L 22-29 oidf=800) BLOOD UREA NITROGEN 21 mg/dL 7-21 (BEAKER) (test lyik=624) CREATININE (BEAKER) (test 1.29 mg/dL 0.57-1.25 wtdz=045) GLUCOSE RANDOM (BEAKER) 218 mg/dL 70-105 (test ykgr=141) CALCIUM (BEAKER) (test 9.1 mg/dL 8.4-10.2 hwvl=750) EGFR (BEAKER) (test 54 mL/min/1.73 sq m ESTIMATED GFR IS NOT mfhv=4611) ACCURATE CREATININE CLEARANCE IN PREDICTING GLOMERULAR FILTRATION RATE. ESTIMATED GFR IS NOT APPLICABLE FOR DIALYSIS PATIENTS. POCT-GLUCOSE [id number] 22:45:00 Test Item Value Reference Range Comments POC-GLUCOSE METER (BEAKER) 297 mg/dL 70-110 TESTED AT [address] (test viua=3163) [place] [address] POCT-GLUCOSE [id number] 20:42:00 Test Item Value Reference Range Comments POC-GLUCOSE METER (BEAKER) 293 mg/dL 70-110 TESTED AT [address] (test jqxx=2110) [place] [address] POCT-GLUCOSE [id number] 17:00:00 Test Item Value Reference Range Comments POC-GLUCOSE METER (BEAKER) 287 mg/dL 70-110 TESTED AT [address] (test jsrj=3819) [place] [address] POCT-GLUCOSE [id number] 14:53:00 Test Item Value Reference Range Comments POC-GLUCOSE METER (BEAKER) 269 mg/dL 70-110 TESTED AT [address] (test liqv=8662) [place] [address] [id number] 13:00:00 Test Item Value Reference Range Comments RPR SCREEN (BEAKER) (test iujv=042) Nonreactive Nonreactive HEMOGLOBIN [id number] 08:51:00 Test Item Value Reference Range Comments HEMOGLOBIN A1C (BEAKER) (test mksd=591) 9.9 % 4.3-6.1 URINALYSIS W/ [id number] 08:01:00 Test Item Value Reference Range Comments COLOR (BEAKER) (test rxrf=220) Light Yellow CLARITY (BEAKER) (test wgvs=514) Clear SPECIFIC GRAVITY UA (BEAKER) (test tfgr=036) 1.010 1.001-1.035 PH UA (BEAKER) (test bffx=567) 6.0 5.0-8.0 PROTEIN UA (BEAKER) (test rvho=895) 30 mg/dL Negative GLUCOSE UA (BEAKER) (test ppmu=882) 100 mg/dL Negative KETONES UA (BEAKER) (test ecyu=634) Negative Negative BILIRUBIN UA (BEAKER) (test guzd=655) Negative Negative BLOOD UA (BEAKER) (test ojjj=988) Negative Negative NITRITE UA (BEAKER) (test nnnt=032) Negative Negative LEUKOCYTE ESTERASE UA (BEAKER) (test tutc=879) Negative Negative UROBILINOGEN UA (BEAKER) (test rzni=856) 0.2 mg/dL 0.2-1.0 RBC UA (BEAKER) (test ggom=339) 0 /HPF WBC UA (BEAKER) (test bunj=452) < /HPF SOURCE(BEAKER) (test xjdg=5967) Urine, Voided POCT-GLUCOSE [id number] 08:00:00 Test Item Value Reference Range Comments POC-GLUCOSE METER (BEAKER) 201 mg/dL 70-110 TESTED AT [facility] [address] [facility] (test hgou=8661) [facility] [address] [id number] 05:59:00 Test Item Value Reference Range Comments PHOSPHORUS (BEAKER) (test xkip=547) 2.7 mg/dL 2.3-4.7 [id number] 05:59:00 Test Item Value Reference Range Comments MAGNESIUM (BEAKER) (test ttnu=374) 1.8 mg/dL 1.6-2.6 BASIC METABOLIC [id number] 05:59:00 Test Item Value Reference Range Comments SODIUM (BEAKER) (test 137 meq/L 136-145 omrq=680) POTASSIUM (BEAKER) (test 4.1 meq/L 3.5-5.1 cjmw=333) CHLORIDE (BEAKER) (test 103 meq/L 98-107 bqxx=791) CO2 (BEAKER) (test 25 meq/L 22-29 harb=182) BLOOD UREA NITROGEN 26 mg/dL 7-21 (BEAKER) (test wivs=335) CREATININE (BEAKER) (test 1.42 mg/dL 0.57-1.25 vsvu=869) GLUCOSE RANDOM (BEAKER) 190 mg/dL 70-105 (test hmhg=368) CALCIUM (BEAKER) (test 9.0 mg/dL 8.4-10.2 uqhp=607) EGFR (BEAKER) (test 48 mL/min/1.73 sq m ESTIMATED GFR IS NOT cdnu=9505) ACCURATE CREATININE CLEARANCE IN PREDICTING GLOMERULAR FILTRATION RATE. ESTIMATED GFR IS NOT APPLICABLE FOR DIALYSIS PATIENTS. LIPID [id number] 05:59:00 Test Item Value Reference Range Comments TRIGLYCERIDES (BEAKER) (test mfip=328) 226 mg/dL CHOLESTEROL (BEAKER) (test ynvy=028) 139 mg/dL HDL CHOLESTEROL (BEAKER) (test hcvz=029) 33 mg/dL LDL CHOLESTEROL CALCULATED (BEAKER) (test 61 mg/dL ucbl=999) Triglyceride Reference Range: Low Risk <150 Borderline 150- 199 High Risk 200-499 Very High Risk >=500Cholesterol Reference Range: Low Risk <200 Borderline 200-239 High Risk > 240HDL Cholesterol Reference Range: Low Risk >=60 High Risk <40LDL Cholesterol Reference Range: Optimal <100 Near Optimal 100-129 Borderline 130-159 High 160-189 Very High >=190RAPID DRUG SCREEN, [id number] 23:42:00 Test Item Value Reference Range Comments BARBITURATE URINE (BEAKER) (test wgyy=134) Positive Negative BENZODIAZEPINE SCREEN URINE (BEAKER) (test Negative Negative hwnh=150) COCAINE (METAB.) SCREEN (BEAKER) (test qtra=7707) Negative Negative METHADONE SCREEN (BEAKER) (test owhx=3813) Negative Negative OPIATE SCREEN URINE (BEAKER) (test imts=244) Negative Negative CANNABINOID SCREEN URINE (BEAKER) (test seqi=784) Negative Negative AMPH/METHAMPH SCREEN (BEAKER) (test wnwi=5842) Negative Negative PHENCYCLIDINE SCREEN URINE (BEAKER) (test ased=002) Negative Negative OXYCODONE SCREEN URINE (BEAKER) (test uynm=7458) Negative Negative DRUG CUTOFF CONC.Cocaine 300 ng/mL Cannabinoid 50 ng/mL Benzodiazepine 200 ng/mLBarbiturate 200 ng/ mLPhencyclidine 25 ng/mLOpiate 300 ng/mLMethadone 300 ng/mLAmphetamine/ 1000 ng/mL MethamphetamineOxycodone 300 ng/mLThis assay provides an unconfirmed qualitative test result for the clinical management of patients in emergency situations. Chain of custody not maintained. Some aiml-dmv-hwlhvnr medications, as well as adulterants, may cause inaccurate results. Clinical correlation should be applied. A more comprehensive drug screen or confirmation of a detected drug may be performed upon request.CREATININE, RANDOM [id number] 23:35:00 Test Item Value Reference Range Comments CREATININE URINE (BEAKER) (test asqn=450) 190.0 mg/dL Reference Range: No NormalsPROTEIN, RANDOM [id number] 23:35:00 Test Item Value Reference Range Comments PROTEIN, URINE (BEAKER) (test xnki=8251) 71 mg/dL 0-14 SODIUM, RANDOM [id number] 23:35:00 Test Item Value Reference Range Comments SODIUM URINE (BEAKER) (test znlk=600) 94 meq/L Reference Range: No NormalsURINALYSIS W/ [id number] 23:33:00 Test Item Value Reference Range Comments COLOR (BEAKER) (test ugil=351) Yellow CLARITY (BEAKER) (test baph=806) Clear SPECIFIC GRAVITY UA (BEAKER) (test cbgt=219) 1.016 1.001-1.035 PH UA (BEAKER) (test iwni=446) 5.5 5.0-8.0 PROTEIN UA (BEAKER) (test njuu=360) 70 mg/dL Negative GLUCOSE UA (BEAKER) (test nvml=426) 30 mg/dL Negative KETONES UA (BEAKER) (test yupt=741) Negative Negative BILIRUBIN UA (BEAKER) (test bjdu=426) Negative Negative BLOOD UA (BEAKER) (test pbyc=402) Negative Negative NITRITE UA (BEAKER) (test vqyq=447) Negative Negative LEUKOCYTE ESTERASE UA (BEAKER) (test rmjo=716) Negative Negative UROBILINOGEN UA (BEAKER) (test qhwd=947) 0.2 mg/dL 0.2-1.0 RBC UA (BEAKER) (test ktnv=787) 0 /HPF WBC UA (BEAKER) (test obin=209) 2 /HPF MUCUS (BEAKER) (test hlkg=8101) Rare SQUAMOUS EPITHELIAL (BEAKER) (test adbl=612) < /HPF HYALINE CASTS (BEAKER) (test yxxh=263) 5 /LPF SOURCE(BEAKER) (test tkkc=3438) Urine, Voided TSH/FREE T4 IF [id number] 21:37:00 Test Item Value Reference Range Comments THYROID STIMULATING HORMONE (BEAKER) (test 1.35 uIU/mL 0.35-4.94 afbi=459) VITAMIN B12 AND [id number] 21:37:00 Test Item Value Reference Range Comments VITAMIN B12 (BEAKER) (test jrmy=725) 306 pg/mL 213-816 FOLATE (BEAKER) (test yttx=816) 13.0 ng/mL >=7.0 Effective 09/19/2014: Folate Reference Range ChangeNew: >=7.0 Previous: & gt;=5.4POCT-GLUCOSE [id number] 21:27:00 Test Item Value Reference Range Comments POC-GLUCOSE METER (BEAKER) 137 mg/dL 70-110 TESTED AT [address] (test efdi=3551) [facility] [address] SEDIMENTATION [id number] 21:20:00 Test Item Value Reference Range Comments SEDIMENTATION RATE, ERYTHROCYTE (BEAKER) (test 23 mm/HR 0-40 rjpz=526) HEPATIC FUNCTION [id number] 21:01:00 Test Item Value Reference Range Comments TOTAL PROTEIN (BEAKER) (test hmak=940) 7.7 gm/dL 6.0-8.3 ALBUMIN (BEAKER) (test fnmh=1176) 4.3 g/dL 3.5-5.0 BILIRUBIN TOTAL (BEAKER) (test svie=522) 0.5 mg/dL 0.2-1.2 BILIRUBIN DIRECT (BEAKER) (test wstt=081) 0.2 mg/dL 0.1-0.5 ALKALINE PHOSPHATASE (BEAKER) (test lxiq=106) 104 U/L 40-150 AST (SGOT) (BEAKER) (test joik=303) 21 U/L 5-34 ALT (SGPT) (BEAKER) (test hrxr=976) 25 U/L 6-55 TROPONIN [id number] 16:03:00 Test Item Value Reference Range Comments TROPONIN I (BEAKER) (test wzct=607) 0.01 ng/mL 0.00-0.03 Effective 09/19/2014: Reference Range [...] Range Comments B-TYPE NATRIURETIC PEPTIDE (BEAKER) (test xbsk=796) 21 pg/mL 0-100 CREATINE KINASE (CK), TOTAL AND [id number] 15:34:00 Test Item Value Reference Range Comments CREATINE KINASE TOTAL (BEAKER) (test hdav=530) 61 U/L 29-200 CREATINE KINASE-MB (BEAKER) (test isfg=597) 1.4 ng/mL 0.0-6.6 CREATINE KINASE-MB INDEX (BEAKER) (test pynl=640) 2.3 % Effective 09/19/2014: CK-MB Reference Range ChangeNew: 0.0-6.6 Previous: 0.0- 4.9CK-MB Reference Range:<6.7 Normal6.7-10.0 Borderline>10.0 AbnormalBASIC METABOLIC [id number] 15:30:00 Test Item Value Reference Range Comments SODIUM (BEAKER) (test 139 meq/L 136-145 cvgn=258) POTASSIUM (BEAKER) (test 4.5 meq/L 3.5-5.1 Specimen slightly bqvv=101) hemolyzed CHLORIDE (BEAKER) (test 104 meq/L 98-107 ljvr=171) CO2 (BEAKER) (test 27 meq/L 22-29 beqm=343) BLOOD UREA NITROGEN 30 mg/dL 7-21 (BEAKER) (test mrea=895) CREATININE (BEAKER) (test 2.17 mg/dL 0.57-1.25 Specimen slightly wnbb=603) hemolyzed GLUCOSE RANDOM (BEAKER) 163 mg/dL 70-105 (test mkpk=867) CALCIUM (BEAKER) (test 9.5 mg/dL 8.4-10.2 nvno=025) EGFR (BEAKER) (test mL/min/1.73 sq m INSUFFICIENT CLINICAL DATA qefj=1508) TO CALCULATE ESTIMATED GFR. [id number] 15:28:00 Test Item Value Reference Range Comments MAGNESIUM (BEAKER) (test 2.1 mg/dL 1.6-2.6 Specimen slightly hemolyzed svut=265) CBC W/PLT COUNT & AUTO [id number] 15:13:00 Test Item Value Reference Range Comments WHITE BLOOD CELL COUNT (BEAKER) (test msen=358) 7.6 K/ L 3.5-10.5 RED BLOOD CELL COUNT (BEAKER) (test ralo=429) 5.15 M/ L 4.63-6.08 HEMOGLOBIN (BEAKER) (test zsrd=441) 15.1 GM/DL 13.7-17.5 HEMATOCRIT (BEAKER) (test akah=800) 44.7 % 40.1-51.0 MEAN CORPUSCULAR VOLUME (BEAKER) (test fuvz=685) 86.8 fL 79.0-92.2 MEAN CORPUSCULAR HEMOGLOBIN (BEAKER) (test 29.3 pg 25.7-32.2 ylgl=879) MEAN CORPUSCULAR HEMOGLOBIN CONC (BEAKER) (test 33.8 GM/DL 32.3-36.5 htoi=538) RED CELL DISTRIBUTION WIDTH (BEAKER) (test 13.2 % 11.6-14.4 cnhu=364) PLATELET COUNT (BEAKER) (test kkez=073) 170 K/CU MM 150-450 MEAN PLATELET VOLUME (BEAKER) (test kzdf=107) 10.7 fL 9.4-12.4 NUCLEATED RED BLOOD CELLS (BEAKER) (test 0 /100 WBC 0-0 ffha=161) NEUTROPHILS RELATIVE PERCENT (BEAKER) (test 64 % mzrm=999) LYMPHOCYTES RELATIVE PERCENT (BEAKER) (test 25 % vaeh=527) MONOCYTES RELATIVE PERCENT (BEAKER) (test 9 % jiyi=921) EOSINOPHILS RELATIVE PERCENT (BEAKER) (test 2 % avbv=132) BASOPHILS RELATIVE PERCENT (BEAKER) (test 0 % hxqd=577) NEUTROPHILS ABSOLUTE COUNT (BEAKER) (test 4.83 K/ L 1.78-5.38 axvj=338) LYMPHOCYTES ABSOLUTE COUNT (BEAKER) (test 1.87 K/ L 1.32-3.57 blhj=918) MONOCYTES ABSOLUTE COUNT (BEAKER) (test 0.70 K/ L 0.30-0.82 abav=332) EOSINOPHILS ABSOLUTE COUNT (BEAKER) (test 0.14 K/ L 0.04-0.54 awpg=626) BASOPHILS ABSOLUTE COUNT (BEAKER) (test 0.03 K/ L 0.01-0.08 ayjs=711) IMMATURE GRANULOCYTES-RELATIVE PERCENT (BEAKER) 0 % 0-1 (test kkdf=6920) [id number] 15:09:00 Test Item Value Reference Range Comments PROTIME (BEAKER) (test gmhx=416) 12.8 seconds 11.7-14.7 INR (BEAKER) (test tybc=959) 1.0 <=5.9 PARTIAL THROMBOPLASTIN TIME (BEAKER) (test 24.7 seconds 22.5-36.0 rcam=426) RECOMMENDED COUMADIN/WARFARIN INR THERAPY RANGESSTANDARD DOSE: 2.0 - 3.0 Includes: PROPHYLAXIS forvenous thrombosis, systemic embolization; TREATMENT for venous thrombosis and/or pulmonary embolus.HIGH RISK: Target INR is 2.5-3.5 for patients with mechanical heart valves.POCT-GLUCOSE [id number] 08:20:00 Test Item Value Reference Range Comments POC-GLUCOSE METER (BEAKER) 208 mg/dL 70-110 TESTED AT [facility] [address] [place] [address] (test irss=7862) [facility] [address] BASIC METABOLIC [id number] 05:31:00 Test Item Value Reference Range Comments SODIUM (BEAKER) (test 136 meq/L 136-145 rehq=006) POTASSIUM (BEAKER) (test 3.9 meq/L 3.5-5.1 cakq=297) CHLORIDE (BEAKER) (test 104 meq/L 98-107 xdyc=640) CO2 (BEAKER) (test 22 meq/L 22-29 xstz=923) BLOOD UREA NITROGEN 14 mg/dL 7-21 (BEAKER) (test nmyy=937) CREATININE (BEAKER) (test 1.06 mg/dL 0.57-1.25 zjql=773) GLUCOSE RANDOM (BEAKER) 181 mg/dL 70-105 (test dtfe=892) CALCIUM (BEAKER) (test 8.7 mg/dL 8.4-10.2 wyzi=004) EGFR (BEAKER) (test 68 mL/min/1.73 sq m ESTIMATED GFR IS NOT rcwn=6167) ACCURATE CREATININE CLEARANCE IN PREDICTING GLOMERULAR FILTRATION RATE. ESTIMATED GFR IS NOT APPLICABLE FOR DIALYSIS PATIENTS. PROTHROMBIN [id number] 05:15:00 Test Item Value Reference Range Comments PROTIME (BEAKER) (test wvtz=640) 13.6 seconds 11.7-14.7 INR (BEAKER) (test yqim=967) 1.1 <=5.9 RECOMMENDED COUMADIN/WARFARIN INR THERAPY RANGESSTANDARD DOSE: 2.0 - 3.0 Includes: PROPHYLAXIS forvenous thrombosis, systemic embolization; TREATMENT for venous thrombosis and/or pulmonary embolus.HIGH RISK: Target INR is 2.5-3.5 for patients with mechanical heart valves.CBC W/PLT COUNT & AUTO [id number] 05:13:00 Test Item Value Reference Range Comments WHITE BLOOD CELL COUNT (BEAKER) (test uuvt=135) 6.1 K/ L 4.0-10.0 RED BLOOD CELL COUNT (BEAKER) (test xciq=434) 5.50 M/ L 4.20-5.80 HEMOGLOBIN (BEAKER) (test cous=898) 15.9 GM/DL 13.0-16.8 HEMATOCRIT (BEAKER) (test alan=570) 48.6 % 40.0-50.0 MEAN CORPUSCULAR VOLUME (BEAKER) (test itao=488) 88.4 fL 82.0-98.0 MEAN CORPUSCULAR HEMOGLOBIN (BEAKER) (test 29.0 pg 27.0-33.0 qlcz=055) MEAN CORPUSCULAR HEMOGLOBIN CONC (BEAKER) (test 32.8 GM/DL 32.0-36.0 wqpb=646) RED CELL DISTRIBUTION WIDTH (BEAKER) (test 12.2 % 10.3-14.2 kkde=108) PLATELET COUNT (BEAKER) (test yozm=477) 132 K/CU MM 150-430 MEAN PLATELET VOLUME (BEAKER) (test ytvd=020) 7.3 fL 6.5-10.5 NUCLEATED RED BLOOD CELLS (BEAKER) (test 0 /100 WBC 0-0 zkln=499) NEUTROPHILS RELATIVE PERCENT (BEAKER) (test 62 % axrm=766) LYMPHOCYTES RELATIVE PERCENT (BEAKER) (test 29 % pugk=037) MONOCYTES RELATIVE PERCENT (BEAKER) (test 7 % xqor=879) EOSINOPHILS RELATIVE PERCENT (BEAKER) (test 2 % sfpa=940) BASOPHILS RELATIVE PERCENT (BEAKER) (test 0 % jdkl=281) NEUTROPHILS ABSOLUTE COUNT (BEAKER) (test 3.82 K/ L 1.80-8.00 vzcc=817) LYMPHOCYTES ABSOLUTE COUNT (BEAKER) (test 1.75 K/ L 1.48-4.50 ldsf=913) MONOCYTES ABSOLUTE COUNT (BEAKER) (test 0.40 K/ L 0.00-1.30 jxxt=441) EOSINOPHILS ABSOLUTE COUNT (BEAKER) (test 0.13 K/ L 0.00-0.50 xqai=861) BASOPHILS ABSOLUTE COUNT (BEAKER) (test 0.03 K/ L 0.00-0.20 iwws=942) 0.00POCT-GLUCOSE [id number] 22:01:00 Test Item Value Reference Range Comments POC-GLUCOSE METER (BEAKER) 128 mg/dL 70-110 TESTED AT [address] (test tonz=3135) [place] [address] [id number] 19:10:00 Test Item Value Reference Range Comments ACTIVATED CLOTTING TIME 152 sec TESTED AT [address] (BEAKER) (test xxdr=917) [place] [address] [id number] 18:42:00 Test Item Value Reference Range Comments ACTIVATED CLOTTING TIME 234 sec TESTED AT [address] (BEAKER) (test zqrr=828) [place] [address] POCT-GLUCOSE [id number] 11:59:00 Test Item Value Reference Range Comments POC-GLUCOSE METER (BEAKER) 142 mg/dL 70-110 TESTED AT [address] (test awcd=1667) [place] [address] POCT-GLUCOSE [id number] 07:46:00 Test Item Value Reference Range Comments POC-GLUCOSE METER (BEAKER) 136 mg/dL 70-110 TESTED AT [address] (test mldo=3193) [address] METABOLIC [id number] 06:18:00 Test Item Value Reference Range Comments TOTAL PROTEIN (BEAKER) 6.9 gm/dL 6.0-8.3 (test zbws=510) ALBUMIN (BEAKER) (test 3.8 g/dL 3.5-5.0 indr=2327) ALKALINE PHOSPHATASE 96 U/L 40-150 (BEAKER) (test ghwu=136) BILIRUBIN TOTAL (BEAKER) 0.5 mg/dL 0.2-1.2 (test puen=374) SODIUM (BEAKER) (test 140 meq/L 136-145 jspa=676) POTASSIUM (BEAKER) (test 3.5 meq/L 3.5-5.1 vjjb=569) CHLORIDE (BEAKER) (test 106 meq/L 98-107 ibzp=143) CO2 (BEAKER) (test 24 meq/L 22-29 bedj=443) BLOOD UREA NITROGEN 21 mg/dL 7-21 (BEAKER) (test mkdw=669) CREATININE (BEAKER) (test 1.25 mg/dL 0.57-1.25 qohb=537) GLUCOSE RANDOM (BEAKER) 99 mg/dL 70-105 (test qaam=796) CALCIUM (BEAKER) (test 9.2 mg/dL 8.4-10.2 vvet=352) AST (SGOT) (BEAKER) (test 15 U/L 5-34 izfb=175) ALT (SGPT) (BEAKER) (test 16 U/L 6-55 trnu=215) EGFR (BEAKER) (test 56 mL/min/1.73 sq m ESTIMATED GFR IS NOT msif=5159) ACCURATE CREATININE CLEARANCE IN PREDICTING GLOMERULAR FILTRATION RATE. ESTIMATED GFR IS NOT APPLICABLE FOR DIALYSIS PATIENTS. CBC W/PLT COUNT & AUTO [id number] 06:04:00 Test Item Value Reference Range Comments WHITE BLOOD CELL COUNT (BEAKER) (test ocjy=883) 5.8 K/ L 4.0-10.0 RED BLOOD CELL COUNT (BEAKER) (test rrqu=444) 5.56 M/ L 4.20-5.80 HEMOGLOBIN (BEAKER) (test syse=079) 16.8 GM/DL 13.0-16.8 HEMATOCRIT (BEAKER) (test srta=860) 49.7 % 40.0-50.0 MEAN CORPUSCULAR VOLUME (BEAKER) (test pflk=058) 89.3 fL 82.0-98.0 MEAN CORPUSCULAR HEMOGLOBIN (BEAKER) (test 30.2 pg 27.0-33.0 fbhv=630) MEAN CORPUSCULAR HEMOGLOBIN CONC (BEAKER) (test 33.8 GM/DL 32.0-36.0 wogm=357) RED CELL DISTRIBUTION WIDTH (BEAKER) (test 12.2 % 10.3-14.2 hqbs=088) PLATELET COUNT (BEAKER) (test nkhj=869) 142 K/CU MM 150-430 MEAN PLATELET VOLUME (BEAKER) (test kiuw=038) 7.8 fL 6.5-10.5 NUCLEATED RED BLOOD CELLS (BEAKER) (test 0 /100 WBC 0-0 jvsu=699) NEUTROPHILS RELATIVE PERCENT (BEAKER) (test 59 % wsbj=779) LYMPHOCYTES RELATIVE PERCENT (BEAKER) (test 32 % drhv=740) MONOCYTES RELATIVE PERCENT (BEAKER) (test 6 % viyf=935) EOSINOPHILS RELATIVE PERCENT (BEAKER) (test 3 % rzwf=321) BASOPHILS RELATIVE PERCENT (BEAKER) (test 1 % upqj=695) NEUTROPHILS ABSOLUTE COUNT (BEAKER) (test 3.37 K/ L 1.80-8.00 fwcj=449) LYMPHOCYTES ABSOLUTE COUNT (BEAKER) (test 1.85 K/ L 1.48-4.50 evqb=737) MONOCYTES ABSOLUTE COUNT (BEAKER) (test 0.33 K/ L 0.00-1.30 fhnz=519) EOSINOPHILS ABSOLUTE COUNT (BEAKER) (test 0.16 K/ L 0.00-0.50 thfu=931) BASOPHILS ABSOLUTE COUNT (BEAKER) (test 0.04 K/ L 0.00-0.20 atui=670) 0.00POCT-GLUCOSE [id number] 21:04:00 Test Item Value Reference Range Comments POC-GLUCOSE METER (BEAKER) 70 mg/dL 70-110 TESTED AT [address] (test mstp=2136) [place] [id number] POCT-GLUCOSE [id number] 17:22:00 Test Item Value Reference Range Comments POC-GLUCOSE METER (BEAKER) 149 mg/dL 70-110 TESTED AT [address] (test oqgr=6601) [place] [address] POCT-GLUCOSE [id number] 14:07:00 Test Item Value Reference Range Comments POC-GLUCOSE METER (BEAKER) 218 mg/dL 70-110 TESTED AT [place] [id number] (test ufln=5589) [place] [id number] POCT-GLUCOSE [id number] 11:39:00 Test Item Value Reference Range Comments POC-GLUCOSE METER (BEAKER) 206 mg/dL 70-110 TESTED AT [address] (test deog=8265) [place] [id number] BASIC METABOLIC [id number] 06:49:00 Test Item Value Reference Range Comments SODIUM (BEAKER) (test 135 meq/L 136-145 xgse=861) POTASSIUM (BEAKER) (test 3.9 meq/L 3.5-5.1 yrnr=957) CHLORIDE (BEAKER) (test 103 meq/L 98-107 ptah=832) CO2 (BEAKER) (test 23 meq/L 22-29 brxo=545) BLOOD UREA NITROGEN 27 mg/dL 7-21 (BEAKER) (test jgnf=924) CREATININE (BEAKER) (test 1.44 mg/dL 0.57-1.25 mzoa=725) GLUCOSE RANDOM (BEAKER) 221 mg/dL 70-105 (test pcdx=640) CALCIUM (BEAKER) (test 8.9 mg/dL 8.4-10.2 phud=138) EGFR (BEAKER) (test 48 mL/min/1.73 sq m ESTIMATED GFR IS NOT uzvz=6287) ACCURATE CREATININE CLEARANCE IN PREDICTING GLOMERULAR FILTRATION RATE. ESTIMATED GFR IS NOT APPLICABLE FOR DIALYSIS PATIENTS. CBC W/PLT COUNT & AUTO [id number] 06:36:00 Test Item Value Reference Range Comments WHITE BLOOD CELL COUNT (BEAKER) (test nvxx=270) 6.9 K/ L 4.0-10.0 RED BLOOD CELL COUNT (BEAKER) (test kdju=157) 5.26 M/ L 4.20-5.80 HEMOGLOBIN (BEAKER) (test niwm=278) 16.2 GM/DL 13.0-16.8 HEMATOCRIT (BEAKER) (test cyfq=330) 45.9 % 40.0-50.0 MEAN CORPUSCULAR VOLUME (BEAKER) (test mumg=996) 87.2 fL 82.0-98.0 MEAN CORPUSCULAR HEMOGLOBIN (BEAKER) (test 30.8 pg 27.0-33.0 hayw=935) MEAN CORPUSCULAR HEMOGLOBIN CONC (BEAKER) (test 35.3 GM/DL 32.0-36.0 ndfq=037) RED CELL DISTRIBUTION WIDTH (BEAKER) (test 13.4 % 10.3-14.2 eyge=460) PLATELET COUNT (BEAKER) (test hzin=275) 149 K/CU MM 150-430 MEAN PLATELET VOLUME (BEAKER) (test poht=941) 7.6 fL 6.5-10.5 NUCLEATED RED BLOOD CELLS (BEAKER) (test 0 /100 WBC 0-0 mpev=173) NEUTROPHILS RELATIVE PERCENT (BEAKER) (test 52 % gknj=532) LYMPHOCYTES RELATIVE PERCENT (BEAKER) (test 38 % nknt=277) MONOCYTES RELATIVE PERCENT (BEAKER) (test 7 % fued=636) EOSINOPHILS RELATIVE PERCENT (BEAKER) (test 2 % ybha=043) BASOPHILS RELATIVE PERCENT (BEAKER) (test 1 % icjy=849) NEUTROPHILS ABSOLUTE COUNT (BEAKER) (test 3.58 K/ L 1.80-8.00 lqbq=688) LYMPHOCYTES ABSOLUTE COUNT (BEAKER) (test 2.58 K/ L 1.48-4.50 gimz=716) MONOCYTES ABSOLUTE COUNT (BEAKER) (test 0.48 K/ L 0.00-1.30 ymei=293) EOSINOPHILS ABSOLUTE COUNT (BEAKER) (test 0.14 K/ L 0.00-0.50 gqjs=938) BASOPHILS ABSOLUTE COUNT (BEAKER) (test 0.08 K/ L 0.00-0.20 ueap=317) 0.00PROTHROMBIN [id number] 06:26:00 Test Item Value Reference Range Comments PROTIME (BEAKER) (test coyq=254) 13.5 seconds 11.7-14.7 INR (BEAKER) (test vpqe=176) 1.0 <=5.9 RECOMMENDED COUMADIN/WARFARIN INR THERAPY RANGESSTANDARD DOSE: 2.0 - 3.0 Includes: PROPHYLAXIS forvenous thrombosis, systemic embolization; TREATMENT for venous thrombosis and/or pulmonary embolus.HIGH RISK: Target INR is 2.5-3.5 for patients with mechanical heart valves.[id number] 06:26:00 Test Item Value Reference Range Comments PARTIAL THROMBOPLASTIN TIME (BEAKER) (test 32.9 seconds 22.5-36.0 kjuj=078) POCT-GLUCOSE [id number] 21:31:00 Test Item Value Reference Range Comments POC-GLUCOSE METER (BEAKER) 235 mg/dL 70-110 TESTED AT [facility] [address] (test ejit=2015) [facility] [address] POCT-GLUCOSE [id number] 17:19:00 Test Item Value Reference Range Comments POC-GLUCOSE METER (BEAKER) 239 mg/dL 70-110 TESTED AT [facility] [address] (test qmnu=5224) [facility] [address] POCT-P2Y12 PLATELET [id number] 16:23:00 Test Item Value Reference Range Comments POC-P2Y12 PLATELET AGG (BEAKER) (test meca=2488) 115 PRU RANGE INFORMATION: PRU reference range is 194-418. Post Drug Results: Lower PRU levels are associated with expected antiplatelet effect. Values may be below the stated reference range above. The post-drug PRU values reported in the [employer] P2Y12 package insert are [id number].POCT-ASPIRIN PLATELET [id number] 16:18:00 Test Item Value Reference Range Comments POC-ASPIRIN PLATELET AGG (BEAKER) (test pwkt=8951) 539 ARU RANGE INFORMATION: 350-549 ARU Therapeutic range for platelet function. 550-700 ARU Non-Therapeutic range for platelet function.URINALYSIS W / [id number] 14:26:00 Test Item Value Reference Range Comments COLOR (BEAKER) (test fsus=375) Yellow CLARITY (BEAKER) (test cndm=101) Clear SPECIFIC GRAVITY UA (BEAKER) (test jtzx=190) 1.013 1.001-1.035 PH UA (BEAKER) (test xykh=000) 5.0 5.0-8.0 PROTEIN UA (BEAKER) (test qgpd=184) 50 mg/dL Negative GLUCOSE UA (BEAKER) (test ptqu=691) 200 mg/dL Negative KETONES UA (BEAKER) (test zexg=712) Negative Negative BILIRUBIN UA (BEAKER) (test gtus=173) Negative Negative BLOOD UA (BEAKER) (test jcfi=242) Negative Negative NITRITE UA (BEAKER) (test qyvq=080) Negative Negative LEUKOCYTE ESTERASE UA (BEAKER) (test rixv=160) Negative Negative UROBILINOGEN UA (BEAKER) (test mpof=954) 0.2 mg/dL 0.2-1.0 RBC UA (BEAKER) (test rrml=032) 1 /HPF WBC UA (BEAKER) (test ncog=575) 1 /HPF MUCUS (BEAKER) (test fakd=5351) Rare HYALINE CASTS (BEAKER) (test lcrr=357) 9 /LPF SOURCE(BEAKER) (test tlph=8647) CBC W/PLT COUNT & AUTO [id number] 13:21:00 Test Item Value Reference Range Comments WHITE BLOOD CELL COUNT (BEAKER) (test kreo=571) 7.6 K/ L 4.0-10.0 RED BLOOD CELL COUNT (BEAKER) (test rlkm=538) 6.02 M/ L 4.20-5.80 HEMOGLOBIN (BEAKER) (test mmwf=428) 17.5 GM/DL 13.0-16.8 HEMATOCRIT (BEAKER) (test lzwz=571) 53.2 % 40.0-50.0 MEAN CORPUSCULAR VOLUME (BEAKER) (test xkxm=347) 88.3 fL 82.0-98.0 MEAN CORPUSCULAR HEMOGLOBIN (BEAKER) (test 29.0 pg 27.0-33.0 scbt=125) MEAN CORPUSCULAR HEMOGLOBIN CONC (BEAKER) (test 32.9 GM/DL 32.0-36.0 udwn=171) RED CELL DISTRIBUTION WIDTH (BEAKER) (test 12.4 % 10.3-14.2 xscu=055) PLATELET COUNT (BEAKER) (test pwkc=455) 177 K/CU MM 150-430 MEAN PLATELET VOLUME (BEAKER) (test rciq=379) 7.7 fL 6.5-10.5 NUCLEATED RED BLOOD CELLS (BEAKER) (test 0 /100 WBC 0-0 onwo=025) NEUTROPHILS RELATIVE PERCENT (BEAKER) (test 47 % zlku=327) LYMPHOCYTES RELATIVE PERCENT (BEAKER) (test 44 % gzjw=050) MONOCYTES RELATIVE PERCENT (BEAKER) (test 6 % pedz=698) EOSINOPHILS RELATIVE PERCENT (BEAKER) (test 2 % ytlh=143) BASOPHILS RELATIVE PERCENT (BEAKER) (test 1 % itva=555) NEUTROPHILS ABSOLUTE COUNT (BEAKER) (test 3.58 K/ L 1.80-8.00 npwh=056) LYMPHOCYTES ABSOLUTE COUNT (BEAKER) (test 3.36 K/ L 1.48-4.50 hmhj=220) MONOCYTES ABSOLUTE COUNT (BEAKER) (test 0.47 K/ L 0.00-1.30 ibys=084) EOSINOPHILS ABSOLUTE COUNT (BEAKER) (test 0.16 K/ L 0.00-0.50 utty=241) BASOPHILS ABSOLUTE COUNT (BEAKER) (test 0.06 K/ L 0.00-0.20 hlgn=586) 0.00(MANUAL DIFFERENTIAL)2017-03-18 13:21:00 Test Item Value Reference Range Comments TOTAL COUNTED (BEAKER) (test nvhy=4815) WBC MORPHOLOGY (BEAKER) (test zmtr=768) Normal PLT MORPHOLOGY (BEAKER) (test ubmf=665) Normal RBC MORPHOLOGY (BEAKER) (test gpgf=871) Normal POCT-GLUCOSE [id number] 11:40:00 Test Item Value Reference Range Comments POC-GLUCOSE METER (BEAKER) 241 mg/dL 70-110 TESTED AT [address] (test lrrr=8161) [place] [address] HEMOGLOBIN [id number] 10:44:00 Test Item Value Reference Range Comments HEMOGLOBIN A1C (BEAKER) (test lonu=265) 11.2 % 4.3-6.1 POCT-GLUCOSE [id number] 08:11:00 Test Item Value Reference Range Comments POC-GLUCOSE METER (BEAKER) 185 mg/dL 70-110 TESTED AT [address] (test abrl=6322) [place] [address] LIPID [id number] 06:02:00 Test Item Value Reference Range Comments TRIGLYCERIDES (BEAKER) (test iglp=130) 335 mg/dL CHOLESTEROL (BEAKER) (test etib=024) 201 mg/dL HDL CHOLESTEROL (BEAKER) (test asvn=674) 38 mg/dL LDL CHOLESTEROL CALCULATED (BEAKER) (test 96 mg/dL zapd=300) Triglyceride Reference Range: Low Risk <150 Borderline 150- 199 High Risk 200-499 Very High Risk >=500Cholesterol Reference Range: Low Risk <200 Borderline 200-239 High Risk > 240HDL Cholesterol Reference Range: Low Risk >=60 High Risk <40LDL Cholesterol Reference Range: Optimal <100 Near Optimal 100-129 Borderline 130-159 High 160-189 Very High >=190BASI METABOLIC [id number] 06:02:00 Test Item Value Reference Range Comments SODIUM (BEAKER) (test 135 meq/L 136-145 ugqr=748) POTASSIUM (BEAKER) (test 3.6 meq/L 3.5-5.1 rhkb=481) CHLORIDE (BEAKER) (test 99 meq/L 98-107 idgw=216) CO2 (BEAKER) (test 23 meq/L 22-29 msyd=590) BLOOD UREA NITROGEN 25 mg/dL 7-21 (BEAKER) (test boxa=403) CREATININE (BEAKER) (test 1.59 mg/dL 0.57-1.25 vvgr=450) GLUCOSE RANDOM (BEAKER) 177 mg/dL 70-105 (test vhrj=856) CALCIUM (BEAKER) (test 9.4 mg/dL 8.4-10.2 yoiy=635) EGFR (BEAKER) (test 43 mL/min/1.73 sq m ESTIMATED GFR IS NOT lnjs=6975) ACCURATE CREATININE CLEARANCE IN PREDICTING GLOMERULAR FILTRATION RATE. ESTIMATED GFR IS NOT APPLICABLE FOR DIALYSIS PATIENTS. POCT-GLUCOSE [id number] 00:02:00 Test Item Value Reference Range Comments POC-GLUCOSE METER (BEAKER) 131 mg/dL 70-110 TESTED AT [facility] [address] (test vgtz=8300) [facility] [address] CREATINE KINASE (CK), TOTAL AND [id number] 22:46:00 Test Item Value Reference Range Comments CREATINE KINASE TOTAL (BEAKER) (test sqsm=807) 44 U/L 29-200 CREATINE KINASE-MB (BEAKER) (test guxx=074) 1.3 ng/mL 0.0-6.6 CREATINE KINASE-MB INDEX (BEAKER) (test znct=773) 3.0 % Effective 09/19/2014: CK-MB Reference Range ChangeNew: 0.0-6.6 Previous: 0.0- 4.9CK-MB Reference Range:<6.7 Normal6.7-10.0 Borderline>10.0 AbnormalTROPONIN [id number] 22:46:00 Test Item Value Reference Range Comments TROPONIN I (BEAKER) (test gpuf=266) 0.01 ng/mL 0.00-0.03 Effective 09/19/2014: Reference Range [...] acidosis, acute neurological disease, and persistent tachyarrhythmia.POCT-GLUCOSE [id number] 22:18:00 Test Item Value Reference Range Comments POC-GLUCOSE METER ([employer]) 161 mg/dL 70-110 TESTED AT [facility] [address] (test kgfi=2506) [facility] [address] HEMOGLOBIN [id number] 18:18:00 Test Item Value Reference Range Comments HEMOGLOBIN A1C (BEAKER) (test wqlw=218) 11.7 % 4.3-6.1 VITAMIN [id number] 18:15:00 Test Item Value Reference Range Comments VITAMIN B12 (BEAKER) (test efkm=634) 251 pg/mL 213-816 TSH/FREE T4 IF [id number] 18:15:00 Test Item Value Reference Range Comments THYROID STIMULATING HORMONE (BEAKER) (test 1.18 uIU/mL 0.35-4.94 uwyr=380) B-TYPE NATRIURETIC FACTOR (BNP)2017-03-17 17:59:00 Test Item Value Reference Range Comments B-TYPE NATRIURETIC PEPTIDE (BEAKER) (test xzng=807) 43 pg/mL 0-100 CREATINE KINASE (CK), TOTAL AND [id number] 17:58:00 Test Item Value Reference Range Comments CREATINE KINASE TOTAL (BEAKER) (test ekww=027) 41 U/L 29-200 CREATINE KINASE-MB (BEAKER) (test kkav=594) 1.3 ng/mL 0.0-6.6 CREATINE KINASE-MB INDEX (BEAKER) (test kzbg=151) 3.2 % Effective 09/19/2014: CK-MB Reference Range ChangeNew: 0.0-6.6 Previous: 0.0- 4.9CK-MB Reference Range:<6.7 Normal6.7-10.0 Borderline>10.0 AbnormalTROPONIN [id number] 17:58:00 Test Item Value Reference Range Comments TROPONIN I (BEAKER) (test nlyn=914) < ng/mL 0.00-0.03 Effective 09/19/2014: Reference Range [...] renalfailure, acidosis, acute neurological disease, and persistent tachyarrhythmia.[id number] 17:51: 00 Test Item Value Reference Range Comments MAGNESIUM (BEAKER) (test pqay=066) 2.0 mg/dL 1.6-2.6 BASIC METABOLIC [id number] 17:51:00 Test Item Value Reference Range Comments SODIUM (BEAKER) (test 138 meq/L 136-145 scqp=445) POTASSIUM (BEAKER) (test 4.4 meq/L 3.5-5.1 vwib=922) CHLORIDE (BEAKER) (test 101 meq/L 98-107 gykj=085) CO2 (BEAKER) (test 23 meq/L 22-29 qhpd=002) BLOOD UREA NITROGEN 25 mg/dL 7-21 (BEAKER) (test hcnp=501) CREATININE (BEAKER) 1.87 mg/dL 0.57-1.25 (test wmit=262) GLUCOSE RANDOM (BEAKER) 134 mg/dL 70-105 (test ddfn=922) CALCIUM (BEAKER) (test 9.9 mg/dL 8.4-10.2 ksrz=881) EGFR (BEAKER) (test 35 mL/min/1.73 sq m INSUFFICIENT CLINICAL DATA sjif=5726) TO CALCULATE ESTIMATED GFR. PT/[id number] 17:43:00 Test Item Value Reference Range Comments PROTIME (BEAKER) (test fkej=628) 13.6 seconds 11.7-14.7 INR (BEAKER) (test cifb=910) 1.1 <=5.9 PARTIAL THROMBOPLASTIN TIME (BEAKER) (test 29.9 seconds 22.5-36.0 zcov=601) RECOMMENDED COUMADIN/WARFARIN INR THERAPY RANGESSTANDARD DOSE: 2.0 - 3.0 Includes: PROPHYLAXIS forvenous thrombosis, systemic embolization; TREATMENT for venous thrombosis and/or pulmonary embolus.HIGH RISK: Target INR is 2.5-3.5 for patients with mechanical heart valves.CBC W/PLT COUNT & AUTO [id number] 17:11:00 Test Item Value Reference Range Comments WHITE BLOOD CELL COUNT (BEAKER) (test yfdy=003) 9.2 K/ L 4.0-10.0 RED BLOOD CELL COUNT (BEAKER) (test oxwe=586) 5.84 M/ L 4.20-5.80 HEMOGLOBIN (BEAKER) (test acew=411) 17.8 GM/DL 13.0-16.8 HEMATOCRIT (BEAKER) (test hasi=296) 50.4 % 40.0-50.0 MEAN CORPUSCULAR VOLUME (BEAKER) (test uzsg=947) 86.3 fL 82.0-98.0 MEAN CORPUSCULAR HEMOGLOBIN (BEAKER) (test 30.4 pg 27.0-33.0 fgfi=444) MEAN CORPUSCULAR HEMOGLOBIN CONC (BEAKER) (test 35.3 GM/DL 32.0-36.0 kmzo=496) RED CELL DISTRIBUTION WIDTH (BEAKER) (test 13.6 % 10.3-14.2 cuhm=889) PLATELET COUNT (BEAKER) (test cvkm=711) 186 K/CU MM 150-430 MEAN PLATELET VOLUME (BEAKER) (test gzjd=324) 7.7 fL 6.5-10.5 NUCLEATED RED BLOOD CELLS (BEAKER) (test 0 /100 WBC 0-0 umfx=471) NEUTROPHILS RELATIVE PERCENT (BEAKER) (test 69 % ywaq=167) LYMPHOCYTES RELATIVE PERCENT (BEAKER) (test 23 % wbkk=774) MONOCYTES RELATIVE PERCENT (BEAKER) (test 6 % xybe=588) EOSINOPHILS RELATIVE PERCENT (BEAKER) (test 2 % gria=121) BASOPHILS RELATIVE PERCENT (BEAKER) (test 1 % vitu=520) NEUTROPHILS ABSOLUTE COUNT (BEAKER) (test 6.36 K/ L 1.80-8.00 zntk=801) LYMPHOCYTES ABSOLUTE COUNT (BEAKER) (test 2.09 K/ L 1.48-4.50 jpkb=275) MONOCYTES ABSOLUTE COUNT (BEAKER) (test 0.52 K/ L 0.00-1.30 cesn=691) EOSINOPHILS ABSOLUTE COUNT (BEAKER) (test 0.14 K/ L 0.00-0.50 bzdo=780) BASOPHILS ABSOLUTE COUNT (BEAKER) (test 0.07 K/ L 0.00-0.20 ywwi=986) 0.00
[2019-12-07] MEDS ORDERED: HEPA 1000U/500MLS 2,000 UNIT/1,000 ML BAG IV ONE (07:18)
[2019-12-07] MEDS ORDERED: LIDOCAINE 1% 20 ML MDV ONE (07:18)
[2019-12-07] MEDS ORDERED: NA CHLORIDE 0.9% 500 ML ONE (07:26)
[2019-12-07 07:51] VITALS: TEMP 98
[2019-12-07 07:59] LABS: Potassium 3.5 mmol/L (3.5-5.1)
[2019-12-07] MEDS ORDERED: MIDAZOLAM HCL 2 MG/2 ML INJ ONE (08:00)
[2019-12-07] MEDS ORDERED: HEPARIN 5000 UNIT/ML 1 ML VIAL ONE (08:00)
[2019-12-07] MEDS ORDERED: FENTANYL CITR 100 MCG/2 ML ONE (08:01)
[2019-12-07] MEDS ORDERED: NICARDIPINE HCL 25 MG/10 ML IV ONE (08:01)
[2019-12-07] MEDS ORDERED: ATROPINE SULF 1 MG/10 ML SYR IV ONE (08:01)
[2019-12-07] MEDS ORDERED: NITROGLYCERIN 100 MCG/ML SYR (for cath lab use only) IV ONE (08:01)
[2019-12-07] MEDS ORDERED: NA CHLORIDE 0.9% 0 ML ONE (08:01)
[2019-12-07] MEDS ORDERED: NITROGLYCERIN/D5W 25 MG/250 ML BTL IV ONE (08:01)
[2019-12-07 10:37] VITALS: O2SAT 91
[2019-12-07 10:51] VITALS: BP 113/67
--- NOTE | 2019-12-07 19:46 | OP ---
Surgeon: Nahum Webb MD Dental Laboratory Technician Apprentice: Jaida Zheng. Identification: A 79-year-old man. Procedure: Left heart catheterization with coronary angiography. No left ventriculogram was done to minimize exposure to x-ray contrast because of renal insufficiency. Findings: Patient has a totally occluded right coronary artery. It is identical to what it was for several years. The very large obtuse marginal is now totally occluded, about 6 months ago it was onl y 50% blocked. His LAD and left main are free of any significant disease. The first diagonal has a stenosis, but it is a very small vessel, probably too small, to receive a bypass, definitely too smal l for a stent. Left ventricular ejection fraction was not measured. Left ventricular end-diastolic pressure was 20. No aortic valve gradient on pullback. Our recommendation is to consider bypass bonifacio rahul. We will do viability study of the inferior wall of the heart and see what we learn. He would probably benefit from going through bypass. Procedure In Detail: The patient was brought to the cardiac clinical genetics laboratory chief, fasting, sedated with Versed a nd fentanyl. Prepared and draped in usual sterile fashion. Right radial approach was used. The skin around the right radial artery was anesthetized with 1% lidocaine. The artery was entered using a 2 1-gauge needle, cannulated with a 0.021 inch diameter guidewire and a 6-[place] [employer] radial sheath w as placed. Introducer and wire were removed. It was flushed. Radial cocktail was given consisting of heparin, nitroglycerin, and nicardipine. A TIG catheter was guided into the ascending aorta using the short radius J-tip Glidewire and fluoroscopy. We angiogram the right left coronary artery and l eft ventricle using the same TIG catheter. At the end of the procedure when no intervention was to b e pursued, we removed the catheter over a wire. We removed the sheath and closed the arteriotomy wit h a TR band. Complications From The Procedure: None. Estimated Blood Loss: 5 mL. SH/MODL Voice ID: [id number] Report ID: [id number]
== END 2019-12-07 11:01 | disposition home or self-care (01) ==
LOC: CCL 07:11
PROVIDERS: ATTEND Internal Medicine
DX: I25.118 Atherosclerotic heart disease of native coronary artery with other forms of angina pectoris (principal); I25.82 Chronic total occlusion of coronary artery; I42.9 Cardiomyopathy, unspecified; I47.2 Ventricular tachycardia; I65.8 Occlusion and stenosis of other precerebral arteries; I10 Essential (primary) hypertension; E78.2 Mixed hyperlipidemia; E11.9 Type 2 diabetes mellitus without complications; Z79.02 Long term (current) use of antithrombotics/antiplatelets; Z79.82 Long term (current) use of aspirin; Z87.891 Personal history of nicotine dependence
CPT/HCPCS: 93280; 85025; 80048 ×2; 36415 ×2; 85610; 82947 ×2; 85730; 71046; 93458; C1893; J1644; J3010; J7040; J0583; J2250

== ENCOUNTER 2020-05-18 11:58 | Inpatient (IN) | payer OTHER ==
--- OUTSIDE RECORDS SUMMARY | 2020-05-18 12:13 | XMS REPORT | Clinical Summary ---
:1940 Author Organization [facility] Address [address] [place] [address] Care Team Providers Name Role Phone Asked, No Pcp Primary Care Provider Unavailable Allergies No Known Allergies Medications Medication Sig Dispensed Refills Start Date End Date Status aspirin (ECOTRIN) 81 Take 81 mg by 0 Active MG enteric coated mouth daily. tablet atorvastatin Take 80 mg by 0 04/05/2019 Ac tive (LIPITOR) 80 MG mouth daily. tablet clopidogrel (PLAVIX) Take 75 mg by 0 Active 75 mg tablet mouth daily. donepezil (ARICEPT) Take 10 mg by 1 01/29/2019 Active 10 MG tablet mouth 2 (two) times a day with meals. ramipril (ALTACE) 5 Take 5 mg by 0 Active MG capsule mouth daily. levothyroxine Take 125 mcg by 0 Active (SYNTHROID, LEVOXYL) mouth daily. 125 mcg tablet metoprolol succinate Take 1 tablet 30 tablet 0 05/03/2019 080 11/2018 XL (TOPROL-XL) 50 mg (50 mg total) by 24 hr tablet mouth daily for 30 days. insulin 70/30 NPH and Inject 38 Units 10 mL 12 05/03/2019 0 06/02/2019 regular human under the skin (HumuLIN 70/30) 100 daily with unit/mL (70-30) dinner for 30 injection days. insulin 70/30 NPH and Inject 42 Units 10 mL 12 05/04/2019 0 06/03/2019 regular human under the skin (HumuLIN 70/30) 100 daily before unit/mL (70-30) breakfast for 30 injection days. amLODIPine (NORVASC) Take 1 tablet 30 tablet 0 05/04/2019 080 12/2018 10 mg tablet (10 mg total) by mouth daily for 30 days. B complex-vitamin Take 1 tablet by 30 tablet 0 05/04/2019 08/0 12/2018 C-folic acid (FOLBEE mouth daily for PLUS 5 MG) 5 mg 30 days. tablet per tablet escitalopram Take 1 tablet (5 30 tablet 0 05/04/2019 9 (LEXAPRO) 5 MG tablet mg total) by mouth daily for 30 days. famotidine (PEPCID) Take 1 tablet 30 tablet 0 05/04/201906/03 20 MG tablet (20 mg total) by mouth daily for 30 days. 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, 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/16/2017 insulin Transient cerebral ischemia 06/11/2017 Encounters Date Type Specialty Care Team Description 08/24/2019 Orders Only Procedural Cardiology Rafy Cruz MD after 05/18/2019 Family History Medical History Relation Name Comments No Known Problems Brother No Known Problems Father No Known Problems Mother No Known Problems Sister Relation Name Status Comments Brother Father Mother Sister Social History Tobacco Use Types Packs/Day Years Used Date Former Smoker Cigarettes Quit: 11/02/18 99 Smokeless Tobacco: Never Used Tobacco Cessation: Counseling Given: No Alcohol Use Drinks/Week oz/Week Comments Not Currently Sex Assigned at Date Recorded Not on file Job Start Date Occupation Industry Not on file Not on file Not on file Travel History Travel Start Travel End No recent travel history available. Last Filed Vital Signs Not on file Plan of Treatment Health Maintenance Due Date Last Done Comments DIABETIC RETINAL EYE EXAM 1940 DIABETIC FOOT EXAM 1950 URINE MICROALBUMIN 1950 SHINGLES VACCINES (#1) 1990 65+ PNEUMOCOCCAL VACCINE (1 of 2 - PCV13) 2005 INFLUENZA VACCINE 06/02/2020 Implants Implanted Type Area Director Of Product Design Device Shelf Model / Identifier Expiration Serial / Date Gilberto Daniels Crtd - [id number] Cardiac N/A: [facility] [id number] / Implanted: 05/02/2019 at [facility] (Quantity not on file) Pac emaker [employer] / Generators Med Lead [id number] - [id number] Cardiac Pacing N/A: [employer] [facility] 02/17/2020 [id number] / Implanted: 05/02/2019 at [facility] (Quantity not on file) Velma ds or [employer] [id number] / Electrodes or [id number] Accessories Lead [id number] Lead-Pace Cath Deliv 4fr 38 - Lead - [id number] Card iac Pacing N/A: [employer] [facility] 04/11/2021 [id number] / Implanted: 05/02/2019 at [facility] (Quantity not on file) Velma ds or [employer] [id number] / Electrodes or [id number] Accessories Lead, Pacemaker Bipolar Fix Forming Atri al And Ventricular Steroid Eluting 52 Centimeter Capsure Fix Novus - [id number] Cardiac Pacing N/A: [employer] [facility] 01/28/2021 [id number] / Implanted: 05/02/2019 at [facility] (Quantity not on file) Velma ds or [employer] 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
--- OUTSIDE RECORDS SUMMARY | 2020-05-18 12:14 | XMS REPORT | Clinical Summary ---
:1940 Author Organization [facility] Address [address] [place] [address] Care Team Providers Name Role Phone Branden Primary Care Provider Branden Unavailable Allergies No Known Allergies Medications Medication Sig Dispensed Refills Start End Date Status Date aspirin 81 MG EC Take 81 mg by mouth 0 Active tablet daily. clopidogrel Take 75 mg by mouth 0 Active (PLAVIX) 75 mg daily. tablet omeprazole Take 20 mg by mouth 0 Active (PRILOSEC) 20 MG daily. capsule metoprolol Take 50 mg by mouth 0 Active (TOPROL-XL) 50 MG daily. 24 hr tablet levothyroxine Take 125 mcg by 0 Active (SYNTHROID, mouth Every morning LEVOTHROID) 125 on an empty MCG tablet stomach. amLODIPine Take 10 mg by mouth 0 Active (NORVASC) 10 MG daily. 0 tablet atorvastatin Take 40 mg by mouth 3 Active (LIPITOR) 40 MG daily. 0 tablet escitalopram Take 5 mg by mouth 1 Active oxalate (LEXAPRO) daily. 0 5 MG tablet doxazosin Take 2 mg by mouth 0 A ctive (CARDURA) 2 MG daily. 0 tablet furosemide (LASIX) Take 40 mg by mouth 1 Active 40 MG tablet 2 (two) times daily 9 . NOVOLIN 70/30 INJECT 38 UNITS 12 Active U-100 INSULIN 100 UNDER THE SKIN 0 unit/mL (70-30) DAILY WITH DINNER injection FOR 30 DAYS. meclizine Take 25 mg by mouth 1 Active (ANTIVERT) 25 mg 3 (three) times 9 tablet daily as needed. oxybutynin Take 5 mg by mouth 1 Active (DITROPAN) 5 MG 2 (two) times 0 tablet daily. ramipril (ALTACE) Take 5 mg by mouth 0 Active 5 MG capsule daily. telmisartan Take 80 mg by mouth 0 12/14/19 Discontinued (MICARDIS) 80 MG daily. 20 tablet amitriptyline Take 150 mg by 0 12/14/19 D iscontinued (ELAVIL) 150 MG mouth nightly. 20 tablet insulin detemir Inject 65 Units 0 12/14/19 Discontinued (LEVEMIR) 100 subcutaneously 20 unit/mL injection nightly . simvastatin Take 40 mg by mouth 0 12/14/19 Discontinued (ZOCOR) 40 MG nightly. [address] 1 patch onto 0 12/14/19 Discontinued (EXELON) 9.5 mg/24 the skin daily. 20 hr patch insulin aspart Inject 0 12/14/19 Disco ntinued (NOVOLOG) 100 subcutaneously 3 20 unit/mL InPn (three) times daily with meals. amitriptyline Take 150 mg by 0 12/14/19 D iscontinued (ELAVIL) 150 MG mouth nightly. 20 tablet aspirin 81 MG EC Take 81 mg by mouth 0 10/21 Discontinued tablet daily. 20 insulin detemir Inject 65 Units 0 12/14/19 Discontinued (LEVEMIR) 100 subcutaneously 20 unit/mL injection nightly. levothyroxine Take 125 mcg by 0 12/14/19 Discontinued (SYNTHROID, mouth Every morning 20 LEVOTHROID) 125 on an empty MCG tablet stomach. simvastatin Take 40 mg by mouth 0 12/14/19 Discontinued (ZOCOR) 40 MG nightly. 20 tablet telmisartan Take 80 mg by mouth 0 12/14/19 Discontinued (MICARDIS) 80 MG daily. 20 tablet clopidogrel Take 75 mg by mouth 0 12/14/19 Discontinued (PLAVIX) 75 mg daily. [address] 1 patch onto 0 12/14/19 Discontinued (EXELON) 9.5 mg/24 the skin daily. 20 hr patch Active Problems Problem Noted Date Right carotid artery occlusion 06/16/2017 Uncontrolled hypertension 06/16/2017 Type 2 diabetes mellitus with complication, 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/16/2017 insulin PFO (patent foramen ovale) 06/16/2017 Other specified transient cerebral ischemias 7 Left-sided weakness 03/17/2017 Coronary artery disease Hypertension Sleep apnea Carotid artery occlusion Overview: carotid stent 4-5 years ago Hyperlipidemia AICD (automatic cardioverter/defibrillator) present Insulin dependent diabetes mellitus Overview: not well controlled Kidney function abnormal Encounters Date Type Specialty Care Team Description 12/14/2019 Hospital Encounter Cardiology Juan Miguel Johnson Bilat eral carotid artery MD Nadeem stenosis 12/14/2019 Office Visit Cardiology Juan Miguel Johnson Bilateral c arotid artery stenosis (Primary Dx); MD Nadeem Coronary artery disease of [place] artery of [place] heart with stable angina pectoris (HCC); Essential hyper tension; Sleep apnea, un specified type; Bilateral carot id artery occlusion; Hyperlipidemia, unspecified hyperlipidemia type; AICD (automatic cardioverter/defibrillator) present; Insulin depende nt diabetes mellitus (HCC); Kidney function abnormal after 05/18/2019 Family History Medical History Relation Name Comments Cancer Brother Emphysema Brother Alzheimer's disease Mother Relation Name Status Comments Brother Father Mother Social History Tobacco Use Types Packs/Day Years Used Date Former Smoker Cigarettes 32 Quit: 1984 Smokeless Tobacco: Former User Snuff, Chew Comments: Quit 1979 Alcohol Use Drinks/Week oz/Week Comments No socially Alcohol Habits Answer Date Recorded How often do you have a drink containing alcohol? Never 12/14/2019 How many drinks containing alcohol do you have on a typical Not asked day when you are drinking? How often do you have six or more drinks on one occasion? No t asked Sex Assigned at Date Recorded Not on file Job Start Date Occupation Industry Not on file Not on file Not on file Travel History Travel Start Travel End No recent travel history available. Last Filed Vital Signs Vital Sign Reading Time Taken Blood Pressure 116/63 12/14/2019 11:09 AM SCRAP SHEAR OPERATOR Pulse 79 12/14/2019 11:09 AM SCRAP SHEAR OPERATOR Temperature 36.1 C (97 F) 12/14/2019 11:09 AM SCRAP SHEAR OPERATOR Respiratory Rate 14 12/14/2019 11:09 AM SCRAP SHEAR OPERATOR Oxygen Saturation 98% 12/14/2019 11:09 AM SCRAP SHEAR OPERATOR Inhaled Oxygen Concentration - - Weight 86.2 kg (190 lb) 12/14/2019 11:09 AM SCRAP SHEAR OPERATOR Height 175.3 cm (5' 9") 12/14/2019 11:09 AM SCRAP SHEAR OPERATOR Body Mass Index 28.06 12/14/2019 11:09 AM SCRAP SHEAR OPERATOR Plan of Treatment Health Maintenance Due Date Last Done Comments DIABETIC EYE EXAM 1950 DIABETIC FOOT EXAM 1950 PNEUMOCOCCAL 65+ LOW/MEDIUM RISK (1 2005 of 2 - PCV13) HEMOGLOBIN A1C 09/12/2017 06/12/2017, 03/17/2017, 03/17/2017 MEDICARE ANNUAL WELLNESS (YEAR 2 or 11/03/2017 FIRST YEAR if no IPPE) URINE MICROALBUMIN 06/15/2020 06/15/2019 INFLUENZA VACCINE (#1) 2020 Procedures Procedure Name Priority Date/Time Associated Comments Diagnosis PERIPHERAL VASCULAR 12/15/2019 9:12 PM REPORT - SCAN SCRAP SHEAR OPERATOR CAROTID DOPPLER Routine 12/14/2019 12:49 PM Bilateral carotid Results for this BILATERAL SCRAP SHEAR OPERATOR artery stenosis procedure ar e in the results section. after 05/18/2019 Results PERIPHERAL VASCULAR REPORT - SCAN (12/15/2019 9:12 PM SCRAP SHEAR OPERATOR) Narrative Performed At This result has an attachment that is no t available. Carotid doppler bilateral (12/14/2019 12:49 PM SCRAP SHEAR OPERATOR) Ejection Fraction [facility] Specimen Impressions Performed At Right Impression [facility] 1. There is 50-69% diameter reduction (approximately 50% by 2-D measurement) in the internal carotid artery with heterogeneous plaque, a peak velocity of 227 cm/sec and an ICA/CCA peak systolic velocity ratio of 2.91. 2. There is non-occluding plaque in the external carotid artery. 3. There is non-occluding plaque in the common carotid artery. 4. The vertebral artery flow is antegrad e. 5. The subclavian artery is patent with a velocity of 124 cm/sec. Left Impression 1. There is 50-69% diameter reduction (approximately 52% by 2-D measurement) in the internal carotid artery with heterogeneous plaque, a peak velocity of 153 cm/sec and an ICA/CCA peak systolic velocity ratio of 4.33. 2. There is a patent stent from the distal common carotid to the proximal internal carotid artery with velocities ranging from 51 cm/sec to 153 cm/sec. 3. There is non-occluding plaque in the external carotid artery with a peak systolic velocity of 289 cm/sec. 4. There is non-occluding plaque in the common carotid artery. 5. The vertebral artery flow is antegrad e. 6. The subclavian artery is patent with a velocity of 121 cm/sec. Conclusions Summary Carotid duplex scanning and color flow imaging were performed bilaterally. The arteries were adequately visualized. The right internal carotid artery had 50-69% hemodynamically significant stenosis (approximately 50% by 2-D measurement) with heterogeneous plaque. The left internal carotid artery had 50-69% hemodynamically significant stenosis (approximately 52% by 2-D measurement) with heterogeneous plaque. The vertebral artery flow was antegrade and normal bilaterally. The subclavian arteries were patent with normal flow bilaterally where visualize d. Signature Velocities are measured in cm/s ; Diameters are measured in cm Carotid Right Measurements + +----+----+-----+ +---- + + !Location !PSV !EDV !Angle!%Stenosis 2D!%Stenosis Doppler!Tortuosity ! + +----+----+-----+ +---- + + !Prox CCA !88.5!7.04!60 !! ! ! + +----+----+-----+ +---- + + !Dist CCA !78!9.38!60 !! ! ! + +----+----+-----+ +---- + + !Prox ICA !227 !10.5!60 !! ! ! + +----+----+-----+ +---- + + !Dist ICA !115 !0 !60 !! ! ! + +----+----+-----+ +---- + + !Prox ECA !148 !14.1!60 !! ! ! + +----+----+-----+ +---- + + !Vertebral!35!0 !60 !! ! ! + +----+----+-----+ +---- + + !Prox Subclavian!124 !!60 !! ! ! + +----+----+-----+ +---- + + - Additional Measurements:ICAPSV/CCAPSV 2.91.ICAEDV/CCAEDV 1.49. Carotid Left Measurements + +----+----+-----+ +---- + + !Location !PSV !EDV !Angle!%Stenosis 2D!%Stenosis Doppler!Tortuosity ! + +----+----+-----+ +---- + + !Prox CCA !67.2!13.4!60 !! ! ! + +----+----+-----+ +---- + + !Dist CCA !27.5!11.4!60 !! ! ! + +----+----+-----+ +---- + + !Prox ICA !79.2!20.5!60 !! ! ! + +----+----+-----+ +---- + + !Dist ICA !119 !27.5!60 !! ! ! + +----+----+-----+ +---- + + !Prox ECA !289 !15.7!60 !! ! ! + +----+----+-----+ +---- + + !Vertebral!46.8!11.8!60 !! ! ! + +----+----+-----+ +---- + + !Prox Subclavian!121 !!60 !! ! ! + +----+----+-----+ +---- + + - Additional Measurements:ICAPSV/CCAPSV 4.33.ICAEDV/CCAEDV 2.05. Narrative Performed At [facility] - Carotid Duplex Study [facility] Demographics Patient NameAMERICO GUILLERMO Date of Study12/14/2019 FLORA CABRERA Age79 Visit [id number] Gender Male Date of Birth1940 Referring Juan Miguel Mcghee Room Number Physician MD Alex Finisher Machine Iesha Pimentel,Interpreting David Escobedo MD Procedure Type of Study: Cerebral: Carotid, CAROTID DOPPLER, DOLORES ATERAL. Indications for Study:Carotid stenosis . Patient Status:Routine. Study Location:Vascular Lab. Technical Quality:Adequate visualization . Risk Factors History of Disease + +----+ + !Diagnosis !Date!Comments ! + +----+ + !History/Risk!!HTN, PFO, CAD, carotid artery occlusion, DM, HLD! !Factors:!! ! + +----+ + Procedure Note Interface, External Ris In - 12/15/2019 8:09 AM SCRAP SHEAR OPERATOR [facility] - Carotid Duplex Study Demographics Patient Name AMERICO GUILLERMO of Study 12/14/2019 STEPHANIA Ag e 79 Visit Number [id number] Bib cruzr Male Accession Number [id number] Da te of 1940 Referring Juan Miguel Bob om Number Physician MD Alex Finisher Machine Iesha Pimentel, In terpreting Olivia Bean T Ph ysician Procedure Type of Study: Cerebral: Carotid, CAROTID DOPPLER, DOLORES ATERAL. Indications for Study:Carotid stenosis . Patient Status:Routine. Study Location:Vascular Lab. Technical Quality:Adequate visualization . Risk Factors History of Disease + +----+ + !Diagnosis !Date!Comments ! + +----+ + !History/Risk ! !HTN, PFO, CAD , carotid artery occlusion, DM, HLD! !Factors: ! ! ! + +----+ + Impressions Right Impression 1. There is 50-69% diameter reduction (a pproximately 50% by 2-D measurement) in the internal carotid artery with hete rogeneous plaque, a peak velocity of 227 cm/sec and an ICA/CCA peak systolic velocity ratio of 2.91. 2. There is non-occluding plaque in the external carotid artery. 3. There is non-occluding plaque in the common carotid artery. 4. The vertebral artery flow is antegrad e. 5. The subclavian artery is patent with a velocity of 124 cm/sec. Left Impression 1. There is 50-69% diameter reduction (a pproximately 52% by 2-D measurement) in the internal carotid artery with hete rogeneous plaque, a peak velocity of 153 cm/sec and an ICA/CCA peak systolic velocity ratio of 4.33. 2. There is a patent stent from the dist al common carotid to the proximal internal carotid artery with velocities ranging from 51 cm/sec to 153 cm/sec. 3. There is non-occluding plaque in the external carotid artery with a peak systolic velocity of 289 cm/sec. 4. There is non-occluding plaque in the common carotid artery. 5. The vertebral artery flow is antegrad e. 6. The subclavian artery is patent with a velocity of 121 cm/sec. Conclusions Summary Carotid duplex scanning and color flow imaging were performed bilaterally. The arteries were adequately visualized . The right internal carotid artery had 50-69% hemodynamically significant stenosis (approximately 50% by 2-D measurement) with heterogeneous plaque. The left internal carotid artery had 50-69% hemodynamically significant stenosis (approximately 52% by 2-D measurement) with heterogeneous plaque. The vertebral artery flow was antegrade and normal bilaterally. The s ubclavian arteries were patent with normal flow bilaterally where visualize d. Signature Velocities are measured in cm/s ; Diamet ers are measured in cm Carotid Right Measurements + +----+----+-----+------- -----+ + + !Location !PSV !EDV !Angle!%Stenos is 2D!%Stenosis Doppler!Tortuosity ! + +----+----+-----+------- -----+ + + !Prox CCA !88.5!7.04!60 ! ! ! ! + +----+----+-----+------- -----+ + + !Dist CCA !78 !9.38!60 ! ! ! ! + +----+----+-----+------- -----+ + + !Prox ICA !227 !10.5!60 ! ! ! ! + +----+----+-----+------- -----+ + + !Dist ICA !115 !0 !60 ! ! ! ! + +----+----+-----+------- -----+ + + !Prox ECA !148 !14.1!60 ! ! ! ! + +----+----+-----+------- -----+ + + !Vertebral !35 !0 !60 ! ! ! ! + +----+----+-----+------- -----+ + + !Prox Subclavian!124 ! !60 ! ! ! ! + +----+----+-----+------- -----+ + + - Additional Measurements:ICAPSV/CCAPS V 2.91.ICAEDV/CCAEDV 1.49. Carotid Left Measurements + +----+----+-----+------- -----+ + + !Location !PSV !EDV !Angle!%Stenos is 2D!%Stenosis Doppler!Tortuosity ! + +----+----+-----+------- -----+ + + !Prox CCA !67.2!13.4!60 ! ! ! ! + +----+----+-----+------- -----+ + + !Dist CCA !27.5!11.4!60 ! ! ! ! + +----+----+-----+------- -----+ + + !Prox ICA !79.2!20.5!60 ! ! ! ! + +----+----+-----+------- -----+ + + !Dist ICA !119 !27.5!60 ! ! ! ! + +----+----+-----+------- -----+ + + !Prox ECA !289 !15.7!60 ! ! ! ! + +----+----+-----+------- -----+ + + !Vertebral !46.8!11.8!60 ! ! ! ! + +----+----+-----+------- -----+ + + !Prox Subclavian!121 ! !60 ! ! ! ! + +----+----+-----+------- -----+ + + - Additional Measurements:ICAPSV/CCAPS V 4.33.ICAEDV/CCAEDV 2.05. Performing Organization [place] [place] [facility] after 05/18/2019 Insurance Payer Benefit Plan / Subscriber ID Type Phone Address Group [employer] - MEDICARE [employer] MEDICARE HMO xxxxxxxx [address] [place] [address] (Home) [address] [place] [id number] Americo Guillermo Personal/Family Self [address] [place] [address] (Home) [address] [place] [phone] Advance Directives For more information, please contact:[address] [phone] Code Status Date Activated Date Inactivated Comments Full Code 06/11/2017 5:03 PM 06/16/2017 7:24 PM This code status was determined by: Patient Full Code 03/17/2017 5:37 PM 03/21/2017 2:21 PM This code status was determined by: Patient
--- OUTSIDE RECORDS SUMMARY | 2020-05-18 12:17 | XMS REPORT | Continuity of Care Document ---
:1940 Author Organization [facility] t Address [address] [place] [address] Care Team Providers Name Role Phone Asked, Pcp Primary Care Physician Unavailable Alex ADLER, Nadeem Attending Clinician Aly rCuz MD Attending Clinician MONSTER VIRK Attending Clinician Unavailable RONIT OG Attending Clinician Unavailable Adilia MORAES Admitting Clinician Unavailable JASPREET PALMER Admitting Clinician Unavailable Payers Payer Name Policy Type Policy Number Effective Date Expiration Date S zach AETNA - MEDICARE xxxxxxxx [facility] - MGD CAREAETNA Medical [address] ter MEDICARE HMO POS [id number] [id number], [place] [address] AETNA xxxxxxxx 2013 [place] MEDICAREAETNA 00:00:00 Religion MEDICARE HMO/PPO [id number] Problems Condition Condition Condition Status Onset Resolution Last Treating Co mments Source Name Details Category Date Date Treatment Clinician Date 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 04-28 Ca estephaniaodi emia emia 00:00: st 00 Carotid Carotid Disease Active Overview: [place] artery artery 04-28 left Methodi stenosis stenosis 00:00: carotid st 00 stenosis, s/p stent placement Thyroid Thyroid Disease Active [place] disorder disorder 04-28 Method i 00:00: st 00 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-28 Methodi ventricula ventricula 00:00: st r r 00 tachycardi tachycardi a a 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 Meth radha disease disease 00:00: st 00 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 00:00: st 00 Acute Acute Disease Active [place] metabolic metabolic 04-28 Meth radha encephalop encephalop 00:00: st athy due athy due 00 to to hypoglycem hypoglycem ia ia 1st degree 1st degree Disease Active H kandace AV block AV block 04-28 Method i 00:00: st 00 Prolonged Prolonged Disease Active Vaishali li Q-T Q-T 04-28 Methodi interval interval 00:00: st on ECG on ECG 00 Hypertensi Hypertensi Disease Active H kandace ve ve 8-15 Methodi emergency emergency 00:00: st 00 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:00: Medical occlusion occlusion 00 Cent er 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 [facility] - mellitus mellitus 00:00: Medica l with with 00 Center complicati complicati on, with on, with long-term long-term current current use of use of insulin insulin PFO PFO Disease Active [facility] (patent (patent 15 [facility] - foramen foramen 00:00: Medical ovale) ovale) 00 Center Transient Transient Disease Active Vaishali ston cerebral cerebral 8-10 Method i ischemia ischemia 00:00: st 00 Other Other Disease Active [facility] specified specified 8-10 [facility] - transient transient 00:00: [facility] cerebral cerebral 00 Center ischemias ischemias Left-sided Left-sided Disease Active [facility] weakness weakness 5-16 [facility] - 00:[facility]: Medical Center Coronary Coronary Disease Active [facility]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 - disease disease [facility] Hypertensi Hypertensi Disease Active [facility] on on [facility] Sleep Sleep Disease Active [facility] apnea apnea [facility] Carotid Carotid Disease Active Overview: [facility] artery artery carotid [facility] - occlusion occlusion stent 4-5 M edical years ago Center Hyperlipid Hyperlipid Disease Active [facility] emia emia [facility] AICD AICD Disease Active [facility] (automatic (automatic [facility] - cardiovert cardiovert Me dical er/defibri er/defibri Ce nter llator) llator) present present Insulin Insulin Disease Active Overview: [facility] dependent dependent not well [facility] diabetes diabetes controlle Med ical mellitus mellitus d [place] Kidney Kidney Disease Active [facility] function function [facility] - abnormal abnormal [facility] Allergies, Adverse Reactions, Alerts Allergy Allergy Status Severity Reaction(s) Onset Inactive Treating Comm ents Source Name Type Date Date Clinician No Known DA Active [facility] Allergie 3-03 Clear s 00:00: Lee [address] [place] [address] Family History Family Member Diagnosis Comments Start Date Stop Date Source Natural brother No Known Problems Max vogel Religion Natural brother Cancer [facility] Natural brother Emphysema [facility] Natural father No Known Problems Vaishalileela li Religion Natural mother No Known Problems Vaishalileela li Religion Natural mother Alzheimer's disease [facility] Natural sister No Known Problems Vaishali li Religion Social History Social Habit Start Date Stop Date Quantity Comments Source History of tobacco Current smoker [facility] - use [facility] History SDOH [facility] - Alcohol Std Drinks [facility] History SDOH [facility] - Alcohol Binge Medical Ch[address] ter Sex Assigned At [facility] History SDOH 2019-12-14 2019-12-14 1 [facility] - Alcohol Frequency 00:00:00 00:00:00 Medical Center Alcohol intake 2019-05-03 2019-05-03 Ex-drinker [facility] thodist 00:00:00 00:00:00 (finding) Tobacco Comment 2017-06-11 2017-06-[address] [facility] - 00:00:00 00:00:00 [facility] Alcohol Comment 2017-06-11 2017-06-[address] [facility] - 00:00:00 00:00:00 [facility] Center Smoking Status Start Date Stop Date Source Former smoker 2019-12-14 00:00:00 2019-12-14 00:00:[address] [facility] [facility] Center Medications Ordered Filled Start Stop Current Ordering Indication Dosage Frequency Signature Comments Components Source Medication Medication Date Date Medication? Clinician (SIG) Name Name telmisartan 2020- No 80mg QD Take [address] (MICARDIS) 12-14-12 by mouth Luke s - 80 MG 11:23: 00:00 daily. Medical tablet 17 :00 [place] telmisartan 2020- No 80mg QD Take [address] (MICARDIS) 12-14-12 by mouth Luke s - 80 MG 11:23: 00:00 daily. Medical tablet 09 :00 [place] simvastatin 2020- No 40mg QD Take [address] (ZOCOR) 40 12-14-12 by mouth Luke s - MG tablet 11:22: 00:00 nightly. Med ical 23 :00 [place] ramipril Yes 5mg QD Take [address] (ALTACE) 5 2-12 by mouth [facility]ukes - MG capsule 11:22: daily. Medic al 09 [place] simvastatin 2020- No 40mg QD Take [address] (ZOCOR) 40 12-14-12 by mouth Luke s - MG tablet 11:19: 00:00 nightly. Med ical 58 :00 [place] rivastigmin 2020- No 1{patch QD Place [address] [facility] e (EXELON) 12-14- } patch onto Mary [facility] kes - 9.5 mg/24 11:15: 00:00 the skin Med ical hr patch 38 :00 daily. [place] rivastigmin 2020- No 1{patch QD Place [address] e (EXELON) 12-14- } patch onto Mary Carmen kes - 9.5 mg/24 11:15: 00:00 the skin Med ical hr patch 34 :00 daily. [place] levothyroxi 2019- No 125ug Take [address] ne 12-14 02-12 mcg by [facility]ukes - (SYNTHROID, 11:15: 00:00 mouth Medi concha LEVOTHROID) 27 :00 Every Center 125 MCG morning on tablet an empty stomach. insulin 2019- No 65U QD Inject [address] detemir 12-14-12 Units [facility]ukes - (LEVEMIR) 11:15: 00:00 subcutaneo M edical 100 unit/mL 08 :00 usly Center injection nightly. insulin 2019- No 65U QD Inject [address] detemir 12-14-12 Units [facility] - (LEVEMIR) 11:14: 00:00 subcutaneo M edical 100 unit/mL 57 :00 usly Center injection nightly . insulin 2019- No Inject [facility] aspart 12-14-12 subcutaneo [facility] - (NOVOLOG) 11:14: 00:00 usly 3 Medic al 100 unit/mL 53 :00 (three) Cente r InPn times daily with meals. amitriptyli 2019- No 150mg QD Take [address] ne (ELAVIL) 2-12 02-12 mg by [facility]ukes - 150 MG 11:14: 00:00 mouth Medical tablet 28 :00 nightly. [place] amitriptyli 2019- No 150mg QD Take [address] ne (ELAVIL) 2-12 02-12 mg by [facility]ukes - 150 MG 11:14: 00:00 mouth Medical tablet 23 :00 nightly. [place] clopidogrel 2019- No 75mg QD Take [address] (PLAVIX) 75 12-14-12 by mouth [place] - mg tablet 11:14: 00:00 daily. Medic al 08 :00 [place] aspirin 81 2020- No 81mg QD Take [address] MG EC 12-14-12 by mouth [facility] - tablet 11:14: 00:00 daily. Medical 02 :00 [place] amLODIPine Yes 10mg QD Take [address] (NORVASC) 2-05 by mouth [facility] - 10 MG 00:00: daily. Medical tablet 00 [place] doxazosin Yes 2mg QD Take [address] (CARDURA) 2 2-05 by mouth Luke s - MG tablet 00:00: daily. Medica l 00 Center atorvastati Yes 40mg QD Take [address] n (LIPITOR) 1-29 by mouth Luke s - 40 MG 00:00: daily. Medical tablet 00 Center NOVOLIN Yes INJECT 38 [facility] t 70/30 U-100 1-29 UNITS [facility] - INSULIN 100 00:00: UNDER THE M edical unit/mL 00 SKIN DAILY Center (70-30) WITH injection DINNER FOR 30 DAYS. oxybutynin Yes 5mg Q.5D Take [address] (DITROPAN) 1-28 by mouth 2 [place] - 5 MG tablet 00:00: (two) Medic al 00 times Center daily. escitalopra Yes 5mg QD Take [address] m oxalate 1-06 by mouth [facility] - (LEXAPRO) 5 00:00: daily. Medi concha MG tablet 00 Center furosemide 2018-11 Yes 40mg Q.5D Take [address] (LASIX) 40 2-30 by mouth 2 [place] - MG tablet 00:00: (two) Medical 00 times Center daily . meclizine 2018-11 Yes 25mg Take [address] (ANTIVERT) 2-30 by mouth 3 [place] - 25 mg 00:00: (three) Medical tablet 00 times Center daily as needed. insulin 2018- No 42U QD Inject 42 [place] 70/30 NPH 05-04 Units Methodi and regular 00:00: 23:[address] human 00 :00 skin daily (HumuLIN before 70/30) 100 breakfast unit/mL for 30 (70-30) days. injection amLODIPine 2018- No 10mg QD Take 1 [place] (NORVASC) 05-04 tablet (10 Met hodi 10 mg 00:00: 23:59 mg total) st tablet 00 :00 by mouth daily for 30 days. B 2019- No 1{tbl} QD Take 1 [place] complex-vit 05-04 tablet by Ca enoc beckett 00:00: 23:[address] C-folic 00 :00 daily for acid 30 days. (FOLBEE PLUS 5 MG) 5 mg tablet per tablet escitalopra 2018- No 5mg QD Take 1 Vaishali ston m (LEXAPRO) 05-04 tablet (5 Me thodi 5 MG tablet 00:00: 23:59 mg total) st 00 :00 by mouth daily for 30 days. famotidine 2018- No 20mg QD Take 1 [place] (PEPCID) 20 05-04 tablet (20 M ethodi MG tablet 00:00: 23:59 mg total) st 00 :00 by mouth daily for 30 days. aspirin Yes 81mg QD Take 81 mg [place] (ECOTRIN) 7 by mouth Method i 81 MG 16:47: daily. st enteric 25 coated tablet clopidogrel Yes 75mg QD Take 75 mg [place] (PLAVIX) 75 05-03 by mouth Meth radha mg tablet 16:47: daily. st 25 ramipril Yes 5mg QD Take 5 mg [place] (ALTACE) 5 05-03 by mouth Metho di MG capsule 16:47: daily. st 25 levothyroxi Yes 125ug QD Take 125 [place] ne 7-02 mcg by Methodi (SYNTHROID, 16:47: mouth st LEVOXYL) 25 daily. 125 mcg tablet metoprolol 2018- No 50mg QD Take 1 [place] succinate 05-03 tablet (50 Met hodi XL 00:00: 23:59 mg total) st (TOPROL-XL) 00 :00 by mouth 50 mg 24 hr daily for tablet 30 days. insulin 2018- No 38U QD Inject 38 [place] 70/30 NPH 05-03 Units Methodi and regular 00:00: 23:[address] human 00 :00 skin daily (HumuLIN with 70/30) 100 dinner for unit/mL 30 days. (70-30) injection atorvastati Yes 80mg QD Take 80 mg [place] n (LIPITOR) 6-04 by mouth Meth radha 80 MG 00:00: daily. st tablet 00 donepezil Yes 10mg Q.5D Take 10 mg [place] (ARICEPT) 3-30 by mouth 2 Meth radha 10 MG 00:00: (two) st tablet 00 times a day with meals. metoprolol Yes 50mg QD Take [address] (TOPROL-XL) 5-16 by mouth Luke s - 50 MG 24 hr 16:42: daily. Medi concha tablet 28 Center levothyroxi Yes 125ug Take [address] ne 5-16 mcg by [facility]ukes - (SYNTHROID, 16:42: mouth Medic al LEVOTHROID) 28 Every Center 125 MCG morning on tablet an empty stomach. clopidogrel Yes 75mg QD Take [address] (PLAVIX) 75 5-16 by mouth Luke s - mg tablet 16:41: daily. Medica l 21 Center omeprazole Yes 20mg QD Take [address] (PRILOSEC) 5-16 by mouth [facility] - 20 MG 16:41: daily. Medical capsule 21 Center aspirin 81 Yes 81mg QD Take [address] MG EC 5-16 by mouth [facility] - tablet 16:41: daily. [address] Vital Signs Vital Name Observation Time Observation Value Comments Source Systolic blood 2019-12-14 11:09:00 116 mm[Hg] [facility] Diastolic blood 2019-12-14 11:09:00 63 mm[Hg] [facility] Heart rate 2019-12-14 11:09:00 79 /min [facility] Body temperature 2019-12-14 11:09:00 36.11 Debby [facility] Respiratory rate 2019-12-14 11:09:00 14 /min [facility] Body height 2019-12-14 11:09:00 175.3 cm [facility] Body weight Measured 2019-12-14 11:09:00 86.183 kg [facility] BMI 2019-12-14 11:09:00 28.06 kg/m2 [facility] Oxygen saturation in 2019-12-14 11:09:00 98 /min [facility] Arterial blood by Medical Ce nter Pulse oximetry Procedures Procedure Date / Time Performed Performing Clinician Sourc e PERIPHERAL VASCULAR 2019-12-15 21:12:11 Provider, Default [facility] - REPORT - SCAN Scanning [facility] CAROTID DOPPLER 2019-12-14 12:49:00 Juan Miguel Johnson [facility] - BIL[facility]AL [facility] Planned Activity Planned Date Details Comments Source Future Scheduled 2020-07-03 INFLUENZA VACCINE (#1) [facility] Test 00:00:00 [code = INFLUENZA Medical Ce nter VACCINE (#1)] Future Scheduled 2020-06-15 Urine screening for [facility] - Test 00:00:00 protein (procedure) Medical Center [code = 681939847] Future Scheduled 2020-06-02 INFLUENZA VACCINE [place] [facility] 00:00:00 [code = INFLUENZA VACCINE] Future Scheduled 2017-11-[address] [facility] [facility] - Test 00:00:00 WELLNESS (YEAR 2 or Medical Center FIRST YEAR if no IPPE) [code = MEDICARE ANNUAL WELLNESS (YEAR 2 or FIRST YEAR if no IPPE)] Future Scheduled 2017-09-[address] [facility] - Test 00:00:00 measurement Medical Center (procedure) [code = [id number]] Future Scheduled 2005 65+ PNEUMOCOCCAL [place] [facility] Test 00:00:00 VACCINE (1 of 2 - PCV13) [code = 65+ PNEUMOCOCCAL VACCINE (1 of 2 - PCV13)] Future Scheduled [address]CCAL [address] - Test 00:00:00 LOW/MEDIUM RISK (1 of Medica l Center 2 - PCV13) [code = PNEUMOCOCCAL 65+ LOW/MEDIUM RISK (1 of 2 - PCV13)] Future Scheduled 1990 SHINGLES VACCINES (#1) [place] [facility] Test 00:00:00 [code = SHINGLES VACCINES (#1)] Future Scheduled 1950 DIABETIC FOOT EXAM [place] [facility] 00:00:00 [code = DIABETIC FOOT EXAM] Future Scheduled 1950 URINE MICROALBUMIN [place] [facility] Test 00:00:00 [code = URINE MICROALBUMIN] Future Scheduled 1950 DIABETIC EYE EXAM [facility] - Test 00:00:00 [code = DIABETIC EYE Medical Center EXAM] Future Scheduled [address] [facility] - Test 00:00:00 examination Medical Center (regime/therapy) [code = [id number]] Future Scheduled 1940 DIABETIC RETINAL EYE [facility] Test 00:00:00 EXAM [code = DIABETIC RETINAL EYE EXAM] Results Test Description Test Time Test Comments Results Result Comments Source GLUCOSE BEDSIDE TESTING 2020-01-04 12:21:00 Test Item Value Reference Range Interpretation Comme nts GLUCOSE BEDSIDE TESTING (test code = GLUBED) 285 mg/dL 70-110 H CBC W/AUTO [id number] 07:49:00 Test Item Value Reference Range Interpretation Comments WHITE BLOOD CELL (test 7.0 K/mm3 3.5-11.0 N code = WBC) RED BLOOD CELL (test 5.13 M/mm3 4.70-6.10 N code = RBC) HEMOGLOBIN (test code 15.2 G/DL 12.3-15.9 N = HGB) HEMATOCRIT (test code 45.7 % 35.8-46.7 N = HCT) MEAN CELL VOLUME (test 89.1 Fl 86.3-98.9 N code = MCV) MEAN CELL HGB (test 29.6 pg 28.9-34.4 N code = MCH) MEAN CELL HGB 33.3 G/DL 32.1-34.5 N CONCETRATION (test code = MCHC) RED CELL DISTRIBUTION 14.7 SD 11.5-14.5 H WIDTH (test code = RDW) PLATELET COUNT (test 149.0 K/mm3 150-450 L code = PLT) MEAN PLATELET VOLUME 10.40 fL 7.0-9.6 H (test code = MPV) NEUTROPHIL % (test 58.6 % 40-76 N code = NT%) LYMPHOCYTE % (test 25.5 % 20.5-51.1 N code = LY%) MONOCYTE % (test code 9.6 % 1.7-9.3 H = MO%) EOSINOPHIL % (test 5.7 % 0.0-6.0 N code = EO%) BASOPHIL % (test code 0.6 % 0.0-2.0 N = BA%) NEUTROPHIL # (test 4.09 K/mm3 1.8-7.6 N code = NT#) LYMPHOCYTE # (test 1.8 K/mm3 0.6-3.0 N code = LY#) MONOCYTE # (test code 0.7 K/mm3 0.2-1.5 N = MO#) EOSINOPHIL # (test 0.4 K/mm3 0.0-0.4 N code = EO#) BASOPHIL # (test code 0.0 K/mm3 0.0-0.2 N = BA#) MANUAL DIFF REQUIRED NO DIFF/SCN CRITERIA SLIDE R PRO (test code = MDIFF) CONSISTA NT WITH AUTO DIFFERENTIAL. BASIC METABOLIC [id number] 07:34:00 Test Item Value Reference Range Interpretation Comments SODIUM (test code = NA) 136 mmol/L 134-147 N POTASSIUM (test code = 4.1 mmol/L 3.4-5.0 N K) CHLORIDE (test code = 106 mmol/L 100-108 N CL) CARBON DIOXIDE (test 23 mmol/L 21-32 code = CO2) ANION GAP (test code = 7.0 GAP calc 4.0-15.0 N GAP) GLUCOSE (test code = 190 MG/DL 70-110 H GLU) BLOOD UREA NITROGEN 16 MG/DL 7-18 N (test code = BUN) GLOMERULAR FILTRATION >=60 max estimate >60 RATE (test code = GFR) estGFR CREATININE (test code = 1.2 MG/DL 0.8-1.3 N CREAT) CALCIUM (test code = CA) 9.2 MG/DL 8.5-10.1 N CBC W/AUTO [id number] 07:21:00 Test Item Value Reference Range Interpretation Comments WHITE BLOOD CELL (test code = 7.0 K/mm3 3.5-11.0 N WBC) RED BLOOD CELL (test code = RBC) 5.13 M/mm3 4.70-6.10 N HEMOGLOBIN (test code = HGB) 15.2 G/DL 12.3-15.9 N HEMATOCRIT (test code = HCT) 45.7 % 35.8-46.7 N MEAN CELL VOLUME (test code = 89.1 Fl 86.3-98.9 N MCV) MEAN CELL HGB (test code = MCH) 29.6 pg 28.9-34.4 N MEAN CELL HGB CONCETRATION (test 33.3 G/DL 32.1-34.5 N code = MCHC) RED CELL DISTRIBUTION WIDTH (test 14.7 SD 11.5-14.5 H code = RDW) PLATELET COUNT (test code = PLT) 149.0 K/mm3 150-450 L MEAN PLATELET VOLUME (test code = 10.40 fL 7.0-9.6 H MPV) NEUTROPHIL % (test code = NT%) % 40-76 N LYMPHOCYTE % (test code = LY%) % 20.5-51.1 N MONOCYTE % (test code = MO%) % 1.7-9.3 H EOSINOPHIL % (test code = EO%) % 0.0-6.0 N BASOPHIL % (test code = BA%) % 0.0-2.0 N NEUTROPHIL # (test code = NT#) K/mm3 1.8-7.6 N LYMPHOCYTE # (test code = LY#) K/mm3 0.6-3.0 N MONOCYTE # (test code = MO#) K/mm3 0.2-1.5 N EOSINOPHIL # (test code = EO#) K/mm3 0.0-0.4 N BASOPHIL # (test code = BA#) K/mm3 0.0-0.2 N MANUAL DIFF REQUIRED (test code = DIFF/SCN CRITERIA MDIFF) GLUCOSE BEDSIDE [id number] 03:44:00 Test Item Value Reference Range Interpretation Comments GLUCOSE BEDSIDE TESTING (test code 182 mg/dL 70-110 H = GLUBED) GLUCOSE BEDSIDE [id number] 00:00:00 Test Item Value Reference Range Interpretation Comments GLUCOSE BEDSIDE TESTING (test code 170 mg/dL 70-110 H = GLUBED) LACTIC [id number] 22:14:00 Test Item Value Reference Range Interpretation Comments LACTIC ACID (test code = LACT) 1.7 mmol/L 0.4-2.0 N GLUCOSE BEDSIDE [id number] 20:33:00 Test Item Value Reference Range Interpretation Comments GLUCOSE BEDSIDE TESTING (test code 172 mg/dL 70-110 H = GLUBED) RULE OUT CO [id number] 20:04:00 Test Item Value Reference Range Interpretation Comments CREATINE KINASE 92 Unit/L 26-192 N (CK) (test code = CK) TROPONIN-I (test 0.375 NG/ML 0.000-0.045 HH Negative: < /= 0.045 code = TROPI) Positive: >/= 0.046 Correlation wit h serial results, other cardiac markers, and cl inical findings is nec essary to determine th e clinical signi ficance of this result. Quantitative re sults using different methodologies s hould not be compared to one another as nume rical results may lauren yby method. LACTIC [id number] 17:26:00 Test Item Value Reference Range Interpretation Comments LACTIC ACID (test code = LACT) 2.0 mmol/L 0.4-2.0 N [id number] 17:22:00 Test Item Value Reference Range Interpretation Comments PHOSPHOROUS (test code = PHOS) 2.4 MG/DL 2.5-4.9 L RULE OUT CO [id number] 17:22:00 Test Item Value Reference Range Interpretation Comments CREATINE KINASE 70 Unit/L 26-192 N (CK) (test code = CK) TROPONIN-I (test 0.403 NG/ML 0.000-0.045 HH Negative: < /= 0.045 code = TROPI) Positive: >/= 0.046 Correlation wit h serial results, other cardiac markers, and cl inical findings is nec essary to determine th e clinical signi ficance of this result. Quantitative re sults using different methodologies s hould not be compared to one another as nume rical results may lauren yby method. [id number] 17:22:00 Test Item Value Reference Range Interpretation Comments MAGNESIUM (test code = MAG) 2.1 MG/DL 1.8-2.4 N COMPREHENSIVE METABOLIC [id number] 17:18:00 Test Item Value Reference Range Interpretation Comments SODIUM (test code = NA) 137 mmol/L 134-147 N POTASSIUM (test code = K) 4.2 mmol/L 3.4-5.0 N CHLORIDE (test code = CL) 105 mmol/L 100-108 N CARBON DIOXIDE (test code = CO2) 28 mmol/L 21-32 N ANION GAP (test code = GAP) 4.0 GAP calc 4.0-15.0 N GLUCOSE (test code = GLU) 232 MG/DL 70-110 H BLOOD UREA NITROGEN (test code = 18 MG/DL 7-18 N BUN) GLOMERULAR FILTRATION RATE (test 52 estGFR >60 L code = GFR) CREATININE (test code = CREAT) 1.4 MG/DL 0.8-1.3 H TOTAL PROTEIN (test code = PROT) 7.4 G/DL 6.4-8.2 N ALBUMIN (test code = ALB) 3.4 G/DL 3.4-5.0 N GLOBULIN (test code = GLOB) 4.0 GM/dL ALBUMIN/GLOBULIN RATIO (test 0.9 RATIO 1.2-2.2 L code = A/G) CALCIUM (test code = CA) 9.1 MG/DL 8.5-10.1 N BILIRUBIN TOTAL (test code = 0.60 MG/DL 0.2-1.2 N BILT) SGOT/AST (test code = AST) 18 Unit/L 15-37 N SGPT/ALT (test code = ALT) 22 Unit/L 12-78 N ALKALINE PHOSPHATASE TOTAL (test 121 Unit/L 50-136 N code = ALKP) CBC W/AUTO [id number] 16:53:00 Test Item Value Reference Range Interpretation Comments WHITE BLOOD CELL (test code = 6.7 K/mm3 3.5-11.0 N WBC) RED BLOOD CELL (test code = RBC) 5.29 M/mm3 4.70-6.10 N HEMOGLOBIN (test code = HGB) 15.6 G/DL 12.3-15.9 N HEMATOCRIT (test code = HCT) 46.7 % 35.8-46.7 N MEAN CELL VOLUME (test code = 88.3 Fl 86.3-98.9 N MCV) MEAN CELL HGB (test code = MCH) 29.5 pg 28.9-34.4 N MEAN CELL HGB CONCETRATION (test 33.4 G/DL 32.1-34.5 N code = MCHC) RED CELL DISTRIBUTION WIDTH (test 14.5 SD 11.5-14.5 N code = RDW) PLATELET COUNT (test code = PLT) 158.0 K/mm3 150-450 N MEAN PLATELET VOLUME (test code = 10.00 fL 7.0-9.6 H MPV) NEUTROPHIL % (test code = NT%) 58.2 % 40-76 N LYMPHOCYTE % (test code = LY%) 27.7 % 20.5-51.1 N MONOCYTE % (test code = MO%) 9.1 % 1.7-9.3 N EOSINOPHIL % (test code = EO%) 4.6 % 0.0-6.0 N BASOPHIL % (test code = BA%) 0.4 % 0.0-2.0 N NEUTROPHIL # (test code = NT#) 3.92 K/mm3 1.8-7.6 N LYMPHOCYTE # (test code = LY#) 1.9 K/mm3 0.6-3.0 N MONOCYTE # (test code = MO#) 0.6 K/mm3 0.2-1.5 N EOSINOPHIL # (test code = EO#) 0.3 K/mm3 0.0-0.4 N BASOPHIL # (test code = BA#) 0.0 K/mm3 0.0-0.2 N MANUAL DIFF REQUIRED (test code = NO DIFF/SCN CRITERIA MDIFF) GLUCOSE BEDSIDE [id number] 16:52:00 Test Item Value Reference Range Interpretation Comments GLUCOSE BEDSIDE TESTING (test code 238 mg/dL 70-110 H = GLUBED) [id number] 13:22:00 Test Item Value Reference Range Interpretation Comments TROPONIN-I (test 0.329 NG/ML 0.000-0.045 HH Negative: < /= 0.045 code = TROPI) Positive: >/= 0.046 Correlation wit h serial results, other cardiac markers, and cl inical findings is nec essary to determine the c linical significance of this result. Quantit ative results using d ifferent methodologies s hould not be compared to one another as nume rical results may lauren yby method. Completed by Nursing: [id number] 10:17:00 Test Item Value Reference Range Interpretation Comments TROPONIN-I (test 0.406 NG/ML 0.000-0.045 HH Negative: < /= 0.045 code = TROPI) Positive: >/= 0.046 Correlation wit h serial results, other cardiac markers, and cl inical findings is nec essary to determine the c linical significance of this result. Quantit ative results using d ifferent methodologies s hould not be compared to one another as nume rical results may lauren yby method. Completed by Nursing: NOGLUCOSE BEDSIDE [id number] 10:10:00 Test Item Value Reference Range Interpretation Comments GLUCOSE BEDSIDE TESTING (test code 167 mg/dL 70-110 H = GLUBED) Carotid doppler [id number] 08:09:24Ejection FractionSLEH ECHO HEARTLAB MKCKESSON CPACSRight Impression1. There is 50-69% diameter reduction (approximately 50% by 2-D measurement)in the internal carotid artery with heterogeneous plaque, a peak velocity of227 cm/sec and an ICA/CCA peak systolic velocity ratio of 2.91.2. There is non-occluding plaque in the external carotid artery.3. There is non-occluding plaque in the common carotid artery.4. The vertebral artery flow is antegrade.5. The subclavian artery is patent with a velocity of 124 cm/sec.Left Impression1. There is 50-69% diameter reduction (approximately 52% by 2-D measurement)in the internal carotid artery with heterogeneous plaque, a peak velocity of153 cm/sec and an ICA/CCA peak systolic velocity ratio of 4.33.2. There is a patent stent from the distal common carotid to the proximalinternal carotid artery with velocities ranging from 51 cm/sec to 153cm/sec.3. There is non-occluding plaque in the external carotid artery with a peaksystolic velocity of 289 cm/sec.4. Thereis non-occluding plaque in the common carotid artery.5. The vertebral artery flow is antegrade.6. The subclavian artery is patent with a velocity of 121 cm/sec. Conclusions Summary Carotid duplex scanning and color flow imaging were performed bilaterally. The arteries were adequately visualized. The right internal carotid artery had 50- 69% hemodynamically significant stenosis (approximately 50% by2-D measurement) with heterogeneous plaque. The left internal carotid artery had 50-69% hemodynamically significant stenosis (approximately 52% by 2-D measurement) with heterogeneous plaque. The vertebral artery flow was antegrade and normal bilaterally. The subclavian arteries were patent with normalflow bilaterally where visualized. Signature Velocities are measured in cm/s ;Diameters are measured in cm Carotid Right Measurements+ +----+----+-----+ + + +!Location !PSV !EDV !Angle!%Stenosis 2D!%Stenosis Doppler!Tortuosity !+ +----+----+-----+ + + +!Pr ox CCA !88.5!7.04!60 ! ! ! !+ +----+----+-----+ + + +!Dist CCA !78 !9.38!60 ! ! ! !+ +----+----+-----+ + + +!Pr ox ICA !227 !10.5!60 ! ! ! !+ +----+----+-----+ -+ + +!Dist ICA !115 !0 !60 ! ! ! !+ +----+----+-----+ + + +!Pr ox ECA !148 !14.1!60 ! ! ! !+ +----+----+-----+ --+ + +!Vertebral !35 !0 !60 ! ! ! !+ +----+----+-----+ + + +!Pr ox Subclavian!124 ! !60 ! ! ! !+ +----+----+-----+ + + + - Additional Measurements:ICAPSV/CCAPSV 2.91.ICAEDV/CCAEDV 1.49. Carotid Left Measurements+ +----+----+-----+ + +---- -------+!Location !PSV !EDV !Angle!%Stenosis 2D!%Stenosis Doppler!Tortuosity !+ +----+-- --+-----+ + + +!Prox CCA !67.2!13.4!60 ! ! ! !+ +----+----+-----+ + + +!Dist CCA !27.5!11.4!60 ! ! ! !+ +----+- ---+-----+ + + +!Prox ICA !79.2!20.5!60 ! ! ! !+ +----+----+-----+ + +--------- --+!Dist ICA !119 !27.5!60 ! ! ! !+ +----+ ----+-----+ + + +!Prox ECA !289 !15.7!60 ! ! ! !+ +----+----+-----+ + +-------- ---+!Vertebral !46.8!11.8!60 ! ! ! !+ +---- +----+-----+ + + +!Prox Subclavian!121 ! !60 ! ! ! !+ +----+----+-----+ + + + - Additional Measurements:ICAPSV/CCAPSV 4.33.ICAEDV/CCAEDV 2.05. Interface, External Ris In - 12/15/2019 8:09 AM [facility] LAB - Carotid Duplex Study Demographics Patient Name LINA BOLAND Date of Study 12/14/2019 STEPHANIA Age 79 Visit Number [id number] Gender Male Accession Number [id number] Date of 1940 [facility] MD Alex Skiver Heel Tap Iesha Pimentel, Interpreting Olivia Bean T Physician ProcedureType of Study: Cerebral: Carotid, CAROTID DOPPLER, BILATERAL. Indications for Study:Carotid stenosis .Patient Status:Routine.Study Location:Vascular Lab.Technical Quality:Adequate visualization.Risk FactorsHistory of Disease+ +----+ +!Diagnosis !Date!Comments !+ +----+ +!History/Risk ! !HTN, PFO, CAD, carotid artery occlusion, DM, HLD!!Factors: ! ! !+ +----+-------- +ImpressionsRight Impression1. There is 50-69% diameter reduction (approximately 50% by 2-D measurement)in the internal carotid artery with heterogeneous plaque,a peak velocity of227 cm/sec and an ICA/CCA peak systolic velocity ratio of 2.91.2. There is non-occluding plaque in the external carotid artery.3. There is non-occluding plaque in the common carotid artery.4. The vertebral artery flow is antegrade.5. The subclavian artery is patent with a velocity of124 cm/sec.Left Impression1. There is 50-69% diameter reduction (approximately 52% by 2-D measurement)in the internal carotid artery with heterogeneous plaque, a peak velocity of153 cm/sec and an ICA/CCA peak systolic velocity ratio of 4.33.2. There is a patent stent from the distal common carotid to the proximalinternal carotid artery with velocities ranging from 51 cm/sec to 153cm/sec.3. There is non-occluding plaque in the external carotid artery with a peaksystolic velocity of 289 cm/sec.4. There is non- occluding plaque in the common carotid artery.5. The vertebral artery flow is antegrade.6. The subclavian artery is patent with a velocity of 121 cm/sec. Conclusions Summary Carotid duplex scanning and color flow imaging were performed bilaterally. The arteries were adequately visualized. The right internal carotid artery had 50-69% hemodynamically significant stenosis (approximately 50% by2-D measurement) with heterogeneous plaque. The left internal carotid artery had 50-69% hemodynamically significant stenosis (approximately 52% by 2-D measurement) with heterogeneous plaque. The vertebral artery flow was antegrade and normal bilaterally. The subclavian arteries were patent with normalflow bilaterally where visualized. Signature Velocities are measured in cm/s ;Diameters are measured in cmCarotid Right Measurements+ +----+----+-----+ +- + +!Location !PSV !EDV !Angle!%Stenosis 2D!%Stenosis Doppler!Tortuosity !+ +----+----+-----+ + + +!Pr ox CCA !88.5!7.04!60 ! ! ! !+ +----+----+-----+ + + +!Dist CCA !78 !9.38!60 ! ! ! !+ +----+----+-----+ + + +!Pr ox ICA !227 !10.5!60 ! ! ! !+ +----+----+-----+ + + +!Dist ICA !115 !0 !60 ! ! ! !+ +----+----+-----+ + + +!Pr ox ECA !148 !14.1!60 ! ! ! !+ +----+----+-----+ -+ + +!Vertebral !35 !0 !60 ! ! ! !+ +----+----+-----+ + + +!Pr ox Subclavian!124 ! !60 ! ! ! !+ +----+----+-----+ + + + - Additional Measurements:ICAPSV/CCAPSV 2.91.ICAEDV/CCAEDV 1.49.Carotid Left Measurements+ +----+----+-----+ + +---- -------+!Location !PSV !EDV !Angle!%Stenosis 2D!%Stenosis Doppler!Tortuosity !+ +----+----+ -----+ + + +!Prox CCA !67.2!13.4!60 ! ! ! !+ +----+----+-----+ + + +! Dist CCA !27.5!11.4!60 ! ! ! !+ +----+---- +-----+ + + +!Prox ICA !79.2!20.5!60 ! ! ! !+ +----+----+-----+ + + + !Dist ICA !119 !27.5!60 ! ! ! !+ +----+--- -+-----+ + + +!Prox ECA !289 !15.7!60 ! ! ! !+ +----+----+-----+ + + +!Vertebral !46.8!11.8!60 ! ! ! !+ +----+-- --+-----+ + + +!Prox Subclavian!121 ! !60 ! ! ! !+ +----+----+-----+ + + + - Additional Measurements:ICAPSV/CCAPSV 4.33.ICAEDV/CCAEDV 2.05.[facility] [id number] 12:44:00 Test Item Value Reference Range Interpretation Comments POC-GLUCOSE METER 263 mg/dL 70-110 H TESTED AT [place] [address] ([facility]) (test code = [place] [address]) [address] POCT-GLUCOSE [id number] 08:30:00 Test Item Value Reference Range Interpretation Comments POC-GLUCOSE METER 183 mg/dL 70-110 H TESTED AT [place] [address] ([facility]) (test code = [place] [address] [address]) [address] POCT-GLUCOSE [id number] 21:30:00 Test Item Value Reference Range Interpretation Comments POC-GLUCOSE METER 334 mg/dL 70-110 H Notified Maximus Choudhary MD/TESTED ([facility]) (test code = AT [place] [address]) [facility] [address] POCT-GLUCOSE [id number] 15:48:00 Test Item Value Reference Range Interpretation Comments POC-GLUCOSE METER 233 mg/dL 70-110 H TESTED AT [facility] [address] (BEAKER) (test code = [place] [facility] 1538) [address] POCT-GLUCOSE [id number] 11:52:00 Test Item Value Reference Range Interpretation Comments POC-GLUCOSE METER 229 mg/dL 70-110 H TESTED AT [facility] [address] (BEAKER) (test code = [place] [facility] 1538) [address] POCT-GLUCOSE [id number] 07:44:00 Test Item Value Reference Range Interpretation Comments POC-GLUCOSE METER 235 mg/dL 70-110 H TESTED AT [facility] [address] (BEAKER) (test code = [place] [facility] 1538) [address] [id number] 05:11:00 Test Item Value Reference Range Interpretation Comments PHOSPHORUS (BEAKER) (test code = 3.0 mg/dL 2.3-4.7 604) [id number] 05:11:00 Test Item Value Reference Range Interpretation Comments MAGNESIUM (BEAKER) (test code = 1.7 mg/dL 1.6-2.6 627) BASIC METABOLIC [id number] 05:11:00 Test Item Value Reference Range Interpretation Comments SODIUM (BEAKER) 136 meq/L 136-145 (test code = 381) POTASSIUM (BEAKER) 3.8 meq/L 3.5-5.1 (test code = 379) CHLORIDE (BEAKER) 102 meq/L 98-107 (test code = 382) CO2 (BEAKER) (test 26 meq/L 22-29 code = 355) BLOOD UREA NITROGEN 19 mg/dL 7-21 (BEAKER) (test code = 354) CREATININE (BEAKER) 1.36 mg/dL 0.57-1.25 H (test code = 358) GLUCOSE RANDOM 195 mg/dL 70-105 H (BEAKER) (test code = 652) CALCIUM (BEAKER) 9.3 mg/dL 8.4-10.2 (test code = 697) EGFR (BEAKER) (test 51 mL/min/1.73 ESTIMA NARENDRA GFR IS code = 1092) sq m NOT ACCURATE CREATININE CLEARANCE IN PREDICTING GLOMERULAR FILTRATION RATE . ESTIMATED GFR I S NOT APPLICABLE FOR DIALYSIS PATIEN TS. POCT-GLUCOSE [id number] 20:41:00 Test Item Value Reference Range Interpretation Comments POC-GLUCOSE METER 198 mg/dL 70-110 H TESTED AT [place] [address] ([facility]) (test code = [place] [facility] 1538) [address] POCT-GLUCOSE [id number] 20:19:00 Test Item Value Reference Range Interpretation Comments POC-GLUCOSE METER 363 mg/dL 70-110 H Notified Maximus Choudhary MD/TESTED ([facility]) (test code = AT [address]) [facility] [address] POCT-GLUCOSE [id number] 20:16:00 Test Item Value Reference Range Interpretation Comments POC-GLUCOSE METER 279 mg/dL 70-110 H TESTED AT [place] [address] ([facility]) (test code = [facility] Maximus [facility] 1538) [address] POCT-GLUCOSE [id number] 20:10:00 Test Item Value Reference Range Interpretation Comments POC-GLUCOSE METER 200 mg/dL 70-110 H TESTED AT [place] [address] ([facility]) (test code = [place] Maximus [facility] 1538) [address] POCT-GLUCOSE [id number] 19:59:00 Test Item Value Reference Range Interpretation Comments POC-GLUCOSE METER 297 mg/dL 70-110 H TESTED AT [place] [address] ([facility]) (test code = [facility] Maximus [facility] 1538) [address] POCT-GLUCOSE [id number] 19:56:00 Test Item Value Reference Range Interpretation Comments POC-GLUCOSE METER 294 mg/dL 70-110 H TESTED AT [place] [address] ([facility]) (test code = [place] [facility] 1538) [address] POCT-GLUCOSE [id number] 11:18:00 Test Item Value Reference Range Interpretation Comments POC-GLUCOSE METER 272 mg/dL 70-110 H TESTED AT [place] [address] ([facility]) (test code = [place] Maximus [facility] 1538) [address] POCT-GLUCOSE [id number] 08:10:00 Test Item Value Reference Range Interpretation Comments POC-GLUCOSE METER 221 mg/dL 70-110 H TESTED AT [place] [address] ([facility]) (test code = [place] Maximus [facility] 1538) [address] [id number] 05:02:00 Test Item Value Reference Range Interpretation Comments PHOSPHORUS (BEAKER) (test code = 2.7 mg/dL 2.3-4.7 604) [id number] 05:02:00 Test Item Value Reference Range Interpretation Comments MAGNESIUM (BEAKER) (test code = 1.8 mg/dL 1.6-2.6 627) BASIC METABOLIC [id number] 05:02:00 Test Item Value Reference Range Interpretation Comments SODIUM (BEAKER) 134 meq/L 136-145 L (test code = 381) POTASSIUM (BEAKER) 3.9 meq/L 3.5-5.1 (test code = 379) CHLORIDE (BEAKER) 101 meq/L 98-107 (test code = 382) CO2 (BEAKER) (test 25 meq/L 22-29 code = 355) BLOOD UREA NITROGEN 21 mg/dL 7-21 (BEAKER) (test code = 354) CREATININE (BEAKER) 1.29 mg/dL 0.57-1.25 H (test code = 358) GLUCOSE RANDOM 218 mg/dL 70-105 H (BEAKER) (test code = 652) CALCIUM (BEAKER) 9.1 mg/dL 8.4-10.2 (test code = 697) EGFR (BEAKER) (test 54 mL/min/1.73 ESTIMA NARENDRA GFR IS code = 1092) sq m NOT ACCURATE CREATININE CLEARANCE IN PREDICTING GLOMERULAR FILTRATION RATE . ESTIMATED GFR I S NOT APPLICABLE FOR DIALYSIS PATIEN TS. POCT-GLUCOSE [id number] 22:45:00 Test Item Value Reference Range Interpretation Comments POC-GLUCOSE METER 297 mg/dL 70-110 H TESTED AT [place] [id number] ([facility]) (test code = [place] [facility] 1538) [address] POCT-GLUCOSE [id number] 20:42:00 Test Item Value Reference Range Interpretation Comments POC-GLUCOSE METER 293 mg/dL 70-110 H TESTED AT [place] [id number] ([facility]) (test code = [place] [facility] 1538) [address] POCT-GLUCOSE [id number] 17:00:00 Test Item Value Reference Range Interpretation Comments POC-GLUCOSE METER 287 mg/dL 70-110 H TESTED AT [place] [id number] ([facility]) (test code = [place] [facility] 1538) [address] POCT-GLUCOSE [id number] 14:53:00 Test Item Value Reference Range Interpretation Comments POC-GLUCOSE METER 269 mg/dL 70-110 H TESTED AT [place] [address] (BEAKER) (test code = [place] [address]) [address] [id number] 13:00:00 Test Item Value Reference Range Interpretation Comments RPR SCREEN (BEAKER) (test code = Nonreactive Nonreactive 420) HEMOGLOBIN [id number] 08:51:00 Test Item Value Reference Range Interpretation Comments HEMOGLOBIN A1C (BEAKER) (test code = 9.9 % 4.3-6.1 H 368) URINALYSIS W/ [id number] 08:01:00 Test Item Value Reference Range Interpretation Comments COLOR (BEAKER) (test code = Light Yellow 470) CLARITY (BEAKER) (test code = Clear 469) SPECIFIC GRAVITY UA (BEAKER) 1.010 1.001-1.035 (test code = 468) PH UA (BEAKER) (test code = 6.0 5.0-8.0 467) PROTEIN UA (BEAKER) (test code 30 mg/dL Negative A = 464) GLUCOSE UA (BEAKER) (test code 100 mg/dL Negative A = 365) KETONES UA (BEAKER) (test code Negative Negative = 371) BILIRUBIN UA (BEAKER) (test Negative Negative code = 462) BLOOD UA (BEAKER) (test code = Negative Negative 461) NITRITE UA (BEAKER) (test code Negative Negative = 465) LEUKOCYTE ESTERASE UA (BEAKER) Negative Negative (test code = 466) UROBILINOGEN UA (BEAKER) (test 0.2 mg/dL 0.2-1.0 code = 463) RBC UA (BEAKER) (test code = 0 /HPF 519) WBC UA (BEAKER) (test code = < /HPF 520) SOURCE(BEAKER) (test code = Urine, Voided 6795) POCT-GLUCOSE [id number] 08:00:00 Test Item Value Reference Range Interpretation Comments POC-GLUCOSE METER 201 mg/dL 70-110 H TESTED AT [place] [address] (BEAKER) (test code = [place] [facility] 1538) [address] [id number] 05:59:00 Test Item Value Reference Range Interpretation Comments PHOSPHORUS (BEAKER) (test code = 2.7 mg/dL 2.3-4.7 604) [id number] 05:59:00 Test Item Value Reference Range Interpretation Comments MAGNESIUM (BEAKER) (test code = 1.8 mg/dL 1.6-2.6 627) BASIC METABOLIC [id number] 05:59:00 Test Item Value Reference Range Interpretation Comments SODIUM (BEAKER) 137 meq/L 136-145 (test code = 381) POTASSIUM (BEAKER) 4.1 meq/L 3.5-5.1 (test code = 379) CHLORIDE (BEAKER) 103 meq/L 98-107 (test code = 382) CO2 (BEAKER) (test 25 meq/L 22-29 code = 355) BLOOD UREA NITROGEN 26 mg/dL 7-21 H (BEAKER) (test code = 354) CREATININE (BEAKER) 1.42 mg/dL 0.57-1.25 H (test code = 358) GLUCOSE RANDOM 190 mg/dL 70-105 H (BEAKER) (test code = 652) CALCIUM (BEAKER) 9.0 mg/dL 8.4-10.2 (test code = 697) EGFR (BEAKER) (test 48 mL/min/1.73 ESTIMA NARENDRA GFR IS code = 1092) sq m NOT ACCURATE CREATININE CLEARANCE IN PREDICTING GLOMERULAR FILTRATION RATE . ESTIMATED GFR I S NOT APPLICABLE FOR DIALYSIS PATIEN TS. LIPID [id number] 05:59:00 Test Item Value Reference Range Interpretation Comments TRIGLYCERIDES (BEAKER) (test code = 226 mg/dL 540) CHOLESTEROL (BEAKER) (test code = 139 mg/dL 631) HDL CHOLESTEROL (BEAKER) (test code 33 mg/dL = 976) LDL CHOLESTEROL CALCULATED (BEAKER) 61 mg/dL (test code = 633) Triglyceride Reference Range: Low Risk <150 Borderline 150-199 High Risk 200-499 Very High Risk >=500Cholesterol Reference Range: Low Risk <200 Borderline 200-239 High Risk >240HDL Cholesterol Reference Range: Low Risk >=60 High Risk <40LDL Cholesterol Reference Range: Optimal <100 Near Optimal 100-129 Borderline 130-159 High 160-189 Very High >=190RAPID DRUG SCREEN, [id number] 23:42:00 Test Item Value Reference Range Interpretation Comments BARBITURATE URINE (BEAKER) (test Positive Negative A code = 725) BENZODIAZEPINE SCREEN URINE (BEAKER) Negative Negative (test code = 726) COCAINE (METAB.) SCREEN (BEAKER) Negative Negative (test code = 1164) METHADONE SCREEN (BEAKER) (test code Negative Negative = 1436) OPIATE SCREEN URINE (BEAKER) (test Negative Negative code = 734) CANNABINOID SCREEN URINE (BEAKER) Negative Negative (test code = 727) AMPH/METHAMPH SCREEN (BEAKER) (test Negative Negative code = 1438) PHENCYCLIDINE SCREEN URINE (BEAKER) Negative Negative (test code = 608) OXYCODONE SCREEN URINE (BEAKER) Negative Negative (test code = 2761) DRUG CUTOFF CONC.Cocaine 300 ng/mL Cannabinoid 50 ng/mL Benzodiazepine 200 ng/mLBarbiturate 200 ng/mLPhencyclidine 25 ng/mLOpiate 300 ng/mLMethadone 300 ng/mLAmphetamine/ 1000 ng/mL MethamphetamineOxycodone 300 ng/mLThis assay provides an unconfirmed qualitative test result for the clinical management of patients in emergency situations. Chain of custody not maintained. Some apyv-oko-gcoovni medications, as well as adulterants, may cause inaccurate results. Clinical correlation should be applied. A more comprehensive drug screen or confirmation of a detected drug may be performed upon request. CREATININE, RANDOM [id number] 23:35:00 Test Item Value Reference Range Interpretation Comments CREATININE URINE (BEAKER) (test 190.0 mg/dL code = 375) Reference Range: No NormalsPROTEIN, RANDOM [id number] 23:35:00 Test Item Value Reference Range Interpretation Comments PROTEIN, URINE (BEAKER) (test code = 71 mg/dL 0-14 H 1569) SODIUM, RANDOM [id number] 23:35:00 Test Item Value Reference Range Interpretation Comments SODIUM URINE (BEAKER) (test code = 94 meq/L 243) Reference Range: No NormalsURINALYSIS W/ [id number] 23:33:00 Test Item Value Reference Range Interpretation Comments COLOR (BEAKER) (test code = Yellow 470) CLARITY (BEAKER) (test code = Clear 469) SPECIFIC GRAVITY UA (BEAKER) 1.016 1.001-1.035 (test code = 468) PH UA (BEAKER) (test code = 5.5 5.0-8.0 467) PROTEIN UA (BEAKER) (test code 70 mg/dL Negative A = 464) GLUCOSE UA (BEAKER) (test code 30 mg/dL Negative A = 365) KETONES UA (BEAKER) (test code Negative Negative = 371) BILIRUBIN UA (BEAKER) (test Negative Negative code = 462) BLOOD UA (BEAKER) (test code = Negative Negative 461) NITRITE UA (BEAKER) (test code Negative Negative = 465) LEUKOCYTE ESTERASE UA (BEAKER) Negative Negative (test code = 466) UROBILINOGEN UA (BEAKER) (test 0.2 mg/dL 0.2-1.0 code = 463) RBC UA (BEAKER) (test code = 0 /HPF 519) WBC UA (BEAKER) (test code = 2 /HPF 520) MUCUS (BEAKER) (test code = Rare 1574) SQUAMOUS EPITHELIAL (BEAKER) < /HPF (test code = 516) HYALINE CASTS (BEAKER) (test 5 /LPF code = 514) SOURCE(BEAKER) (test code = Urine, Voided 2900) TSH/FREE T4 IF [id number] 21:37:00 Test Item Value Reference Range Interpretation Comments THYROID STIMULATING HORMONE 1.35 uIU/mL 0.35-4.94 (BEAKER) (test code = 772) VITAMIN B12 AND [id number] 21:37:00 Test Item Value Reference Range Interpretation Comments VITAMIN B12 (BEAKER) (test code = 306 pg/mL 213-816 774) FOLATE (BEAKER) (test code = 362) 13.0 ng/mL >=7.0 Effective 09/19/2014: Folate Reference Range ChangeNew: >=7.0 Previous: >=5.4POCT-GLUCOSE [id number] 21:27:00 Test Item Value Reference Range Interpretation Comments POC-GLUCOSE METER 137 mg/dL 70-110 H TESTED AT [facility] 6720 (BEAKER) (test code = [place] 1538) [address] SEDIMENTATION [id number] 21:20:00 Test Item Value Reference Range Interpretation Comments SEDIMENTATION RATE, ERYTHROCYTE 23 mm/HR 0-40 (BEAKER) (test code = 766) HEPATIC FUNCTION [id number] 21:01:00 Test Item Value Reference Range Interpretation Comments TOTAL PROTEIN (BEAKER) (test code = 7.7 gm/dL 6.0-8.3 770) ALBUMIN (BEAKER) (test code = 1145) 4.3 g/dL 3.5-5.0 BILIRUBIN TOTAL (BEAKER) (test code 0.5 mg/dL 0.2-1.2 = 377) BILIRUBIN DIRECT (BEAKER) (test 0.2 mg/dL 0.1-0.5 code = 706) ALKALINE PHOSPHATASE (BEAKER) (test 104 U/L 40-150 code = 346) AST (SGOT) (BEAKER) (test code = 21 U/L 5-34 353) ALT (SGPT) (BEAKER) (test code = 25 U/L 6-55 347) TROPONIN [id number] 16:03:00 Test Item Value Reference Range Interpretation Comments TROPONIN I (BEAKER) (test code = 0.01 ng/mL 0.00-0.03 397) Effective 09/19/2014: Reference Range ChangeNew: 0.00-0.03 Previous [...] neurological disease, and persistent tachyarrhythmia.B-TYPE NATRIURETIC FACTOR (BNP) 2017-06-11 15:35:00 Test Item Value Reference Range Interpretation Comments B-TYPE NATRIURETIC PEPTIDE (BEAKER) 21 pg/mL 0-100 (test code = 700) CREATINE KINASE (CK), TOTAL AND [id number] 15:34:00 Test Item Value Reference Range Interpretation Comments CREATINE KINASE TOTAL (BEAKER) 61 U/L 29-200 (test code = 380) CREATINE KINASE-MB (BEAKER) (test 1.4 ng/mL 0.0-6.6 code = 750) CREATINE KINASE-MB INDEX (BEAKER) 2.3 % (test code = 395) Effective 09/19/2014: CK-MB Reference Range ChangeNew: 0.0-6.6 Previous: 0.0-4.9CK-MB Reference Range:<6.7 Normal6.7-10.0 Borderline>10.0 AbnormalBASIC METABOLIC [id number] 15:30:00 Test Item Value Reference Range Interpretation Comments SODIUM (BEAKER) 139 meq/L 136-145 (test code = 381) POTASSIUM (BEAKER) 4.5 meq/L 3.5-5.1 Specimen slightly (test code = 379) hemolyzed CHLORIDE (BEAKER) 104 meq/L 98-107 (test code = 382) CO2 (BEAKER) (test 27 meq/L 22-29 code = 355) BLOOD UREA NITROGEN 30 mg/dL 7-21 H (BEAKER) (test code = 354) CREATININE (BEAKER) 2.17 mg/dL 0.57-1.25 H Specimen slightly (test code = 358) hemolyzed GLUCOSE RANDOM 163 mg/dL 70-105 H (BEAKER) (test code = 652) CALCIUM (BEAKER) 9.5 mg/dL 8.4-10.2 (test code = 697) EGFR (BEAKER) (test mL/min/1.73 INSUFFIC IENT CLINICAL code = 1092) sq m DATA TO CALCULA TE ESTIMATED GFR. [id number] 15:28:00 Test Item Value Reference Range Interpretation Comments MAGNESIUM (BEAKER) 2.1 mg/dL 1.6-2.6 Specimen slightly (test code = 627) hemolyzed CBC W/PLT COUNT & AUTO [id number] 15:13:00 Test Item Value Reference Range Interpretation Comments WHITE BLOOD CELL COUNT (BEAKER) 7.6 K/ L 3.5-10.5 (test code = 775) RED BLOOD CELL COUNT (BEAKER) 5.15 M/ L 4.63-6.08 (test code = 761) HEMOGLOBIN (BEAKER) (test code = 15.1 GM/DL 13.7-17.5 410) HEMATOCRIT (BEAKER) (test code = 44.7 % 40.1-51.0 411) MEAN CORPUSCULAR VOLUME (BEAKER) 86.8 fL 79.0-92.2 (test code = 753) MEAN CORPUSCULAR HEMOGLOBIN 29.3 pg 25.7-32.2 (BEAKER) (test code = 751) MEAN CORPUSCULAR HEMOGLOBIN CONC 33.8 GM/DL 32.3-36.5 (BEAKER) (test code = 752) RED CELL DISTRIBUTION WIDTH 13.2 % 11.6-14.4 (BEAKER) (test code = 412) PLATELET COUNT (BEAKER) (test 170 K/CU MM 150-450 code = 756) MEAN PLATELET VOLUME (BEAKER) 10.7 fL 9.4-12.4 (test code = 754) NUCLEATED RED BLOOD CELLS 0 /100 WBC 0-0 (BEAKER) (test code = 413) NEUTROPHILS RELATIVE PERCENT 64 % (BEAKER) (test code = 429) LYMPHOCYTES RELATIVE PERCENT 25 % (BEAKER) (test code = 430) MONOCYTES RELATIVE PERCENT 9 % (BEAKER) (test code = 431) EOSINOPHILS RELATIVE PERCENT 2 % (BEAKER) (test code = 432) BASOPHILS RELATIVE PERCENT 0 % (BEAKER) (test code = 437) NEUTROPHILS ABSOLUTE COUNT 4.83 K/ L 1.78-5.38 (BEAKER) (test code = 670) LYMPHOCYTES ABSOLUTE COUNT 1.87 K/ L 1.32-3.57 (BEAKER) (test code = 414) MONOCYTES ABSOLUTE COUNT (BEAKER) 0.70 K/ L 0.30-0.82 (test code = 415) EOSINOPHILS ABSOLUTE COUNT 0.14 K/ L 0.04-0.54 (BEAKER) (test code = 416) BASOPHILS ABSOLUTE COUNT (BEAKER) 0.03 K/ L 0.01-0.08 (test code = 417) IMMATURE GRANULOCYTES-RELATIVE 0 % 0-1 PERCENT (BEAKER) (test code = 2801) [id number] 15:09:00 Test Item Value Reference Range Interpretation Comments PROTIME (BEAKER) (test code = 12.8 seconds 11.7-14.7 759) INR (BEAKER) (test code = 370) 1.0 <=5.9 PARTIAL THROMBOPLASTIN TIME 24.7 seconds 22.5-36.0 (BEAKER) (test code = 760) RECOMMENDED COUMADIN/WARFARIN INR THERAPY RANGESSTANDARD DOSE: 2.0 - 3.0 Includes: PROPHYLAXIS forvenous thrombosis, systemic embolization; TREATMENT for venous thrombosis and/or pulmonary embolus.HIGH RISK: Target INR is 2.5-3.5 for patients with mechanical heart valves.POCT-GLUCOSE [id number] 08:20:00 Test Item Value Reference Range Interpretation Comments POC-GLUCOSE METER 208 mg/dL 70-110 H TESTED AT [facility] 6720 (BEAKER) (test code = [place] 1538) [address] BASIC METABOLIC [id number] 05:31:00 Test Item Value Reference Range Interpretation Comments SODIUM (BEAKER) 136 meq/L 136-145 (test code = 381) POTASSIUM (BEAKER) 3.9 meq/L 3.5-5.1 (test code = 379) CHLORIDE (BEAKER) 104 meq/L 98-107 (test code = 382) CO2 (BEAKER) (test 22 meq/L 22-29 code = 355) BLOOD UREA NITROGEN 14 mg/dL 7-21 (BEAKER) (test code = 354) CREATININE (BEAKER) 1.06 mg/dL 0.57-1.25 (test code = 358) GLUCOSE RANDOM 181 mg/dL 70-105 H (BEAKER) (test code = 652) CALCIUM (BEAKER) 8.7 mg/dL 8.4-10.2 (test code = 697) EGFR (BEAKER) (test 68 mL/min/1.73 ESTIMA NARENDRA GFR IS code = 1092) sq m NOT ACCURATE CREATININE CLEARANCE IN PREDICTING GLOMERULAR FILTRATION RATE . ESTIMATED GFR I S NOT APPLICABLE FOR DIALYSIS PATIEN TS. PROTHROMBIN [id number] 05:15:00 Test Item Value Reference Range Interpretation Comments PROTIME (BEAKER) (test code = 13.6 seconds 11.7-14.7 759) INR (BEAKER) (test code = 370) 1.1 <=5.9 RECOMMENDED COUMADIN/WARFARIN INR THERAPY RANGESSTANDARD DOSE: 2.0 - 3.0 Includes: PROPHYLAXIS forvenous thrombosis, systemic embolization; TREATMENT for venous thrombosis and/or pulmonary embolus.HIGH RISK: Target INR is 2.5-3.5 for patients with mechanical heart valves.CBC W/PLT COUNT & AUTO DIFFERENTIAL 2017-03-21 05:13:00 Test Item Value Reference Range Interpretation Comments WHITE BLOOD CELL COUNT (BEAKER) 6.1 K/ L 4.0-10.0 (test code = 775) RED BLOOD CELL COUNT (BEAKER) 5.50 M/ L 4.20-5.80 (test code = 761) HEMOGLOBIN (BEAKER) (test code = 15.9 GM/DL 13.0-16.8 410) HEMATOCRIT (BEAKER) (test code = 48.6 % 40.0-50.0 411) MEAN CORPUSCULAR VOLUME (BEAKER) 88.4 fL 82.0-98.0 (test code = 753) MEAN CORPUSCULAR HEMOGLOBIN 29.0 pg 27.0-33.0 (BEAKER) (test code = 751) MEAN CORPUSCULAR HEMOGLOBIN CONC 32.8 GM/DL 32.0-36.0 (BEAKER) (test code = 752) RED CELL DISTRIBUTION WIDTH 12.2 % 10.3-14.2 (BEAKER) (test code = 412) PLATELET COUNT (BEAKER) (test 132 K/CU MM 150-430 L code = 756) MEAN PLATELET VOLUME (BEAKER) 7.3 fL 6.5-10.5 (test code = 754) NUCLEATED RED BLOOD CELLS 0 /100 WBC 0-0 (BEAKER) (test code = 413) NEUTROPHILS RELATIVE PERCENT 62 % (BEAKER) (test code = 429) LYMPHOCYTES RELATIVE PERCENT 29 % (BEAKER) (test code = 430) MONOCYTES RELATIVE PERCENT 7 % (BEAKER) (test code = 431) EOSINOPHILS RELATIVE PERCENT 2 % (BEAKER) (test code = 432) BASOPHILS RELATIVE PERCENT 0 % (BEAKER) (test code = 437) NEUTROPHILS ABSOLUTE COUNT 3.82 K/ L 1.80-8.00 (BEAKER) (test code = 670) LYMPHOCYTES ABSOLUTE COUNT 1.75 K/ L 1.48-4.50 (BEAKER) (test code = 414) MONOCYTES ABSOLUTE COUNT (BEAKER) 0.40 K/ L 0.00-1.30 (test code = 415) EOSINOPHILS ABSOLUTE COUNT 0.13 K/ L 0.00-0.50 (BEAKER) (test code = 416) BASOPHILS ABSOLUTE COUNT (BEAKER) 0.03 K/ L 0.00-0.20 (test code = 417) 0.00POCT-GLUCOSE [id number] 22:01:00 Test Item Value Reference Range Interpretation Comments POC-GLUCOSE METER 128 mg/dL 70-110 H TESTED AT [place] [address] ([facility]) (test code = [place] 1538) [address] [id number] 19:10:00 Test Item Value Reference Range Interpretation Comments ACTIVATED CLOTTING TIME 152 sec TEST ED AT [place] [address] ([facility]) (test code = [place] [address]) [address] [id number] 18:42:00 Test Item Value Reference Range Interpretation Comments ACTIVATED CLOTTING TIME 234 sec TEST ED AT [place] [address] ([facility]) (test code = [place] [address]) [address] POCT-GLUCOSE [id number] 11:59:00 Test Item Value Reference Range Interpretation Comments POC-GLUCOSE METER 142 mg/dL 70-110 H TESTED AT [place] [address] ([facility]) (test code = [place] [facility] 1538) [address] POCT-GLUCOSE [id number] 07:46:00 Test Item Value Reference Range Interpretation Comments POC-GLUCOSE METER 136 mg/dL 70-110 H TESTED AT [place] [address] ([facility]) (test code = [place] [facility] 1538) [address] COMPREHENSIVE METABOLIC [id number] 06:18:00 Test Item Value Reference Range Interpretation Comments TOTAL PROTEIN 6.9 gm/dL 6.0-8.3 (BEAKER) (test code = 770) ALBUMIN (BEAKER) 3.8 g/dL 3.5-5.0 (test code = 1145) ALKALINE PHOSPHATASE 96 U/L 40-150 (BEAKER) (test code = 346) BILIRUBIN TOTAL 0.5 mg/dL 0.2-1.2 (BEAKER) (test code = 377) SODIUM (BEAKER) (test 140 meq/L 136-145 code = 381) POTASSIUM (BEAKER) 3.5 meq/L 3.5-5.1 (test code = 379) CHLORIDE (BEAKER) 106 meq/L 98-107 (test code = 382) CO2 (BEAKER) (test 24 meq/L 22-29 code = 355) BLOOD UREA NITROGEN 21 mg/dL 7-21 (BEAKER) (test code = 354) CREATININE (BEAKER) 1.25 mg/dL 0.57-1.25 (test code = 358) GLUCOSE RANDOM 99 mg/dL 70-105 (BEAKER) (test code = 652) CALCIUM (BEAKER) 9.2 mg/dL 8.4-10.2 (test code = 697) AST (SGOT) (BEAKER) 15 U/L 5-34 (test code = 353) ALT (SGPT) (BEAKER) 16 U/L 6-55 (test code = 347) EGFR (BEAKER) (test 56 mL/min/1.73 ESTIMA NARENDRA GFR IS code = 1092) sq m NOT ACCURATE CREATININE CLEARANCE IN PREDICTING GLOMERULAR FILTRATION RATE . ESTIMATED GFR I S NOT APPLICABLE FOR DIALYSIS PATIEN TS. CBC W/PLT COUNT & AUTO [id number] 06:04:00 Test Item Value Reference Range Interpretation Comments WHITE BLOOD CELL COUNT (BEAKER) 5.8 K/ L 4.0-10.0 (test code = 775) RED BLOOD CELL COUNT (BEAKER) 5.56 M/ L 4.20-5.80 (test code = 761) HEMOGLOBIN (BEAKER) (test code = 16.8 GM/DL 13.0-16.8 410) HEMATOCRIT (BEAKER) (test code = 49.7 % 40.0-50.0 411) MEAN CORPUSCULAR VOLUME (BEAKER) 89.3 fL 82.0-98.0 (test code = 753) MEAN CORPUSCULAR HEMOGLOBIN 30.2 pg 27.0-33.0 (BEAKER) (test code = 751) MEAN CORPUSCULAR HEMOGLOBIN CONC 33.8 GM/DL 32.0-36.0 (BEAKER) (test code = 752) RED CELL DISTRIBUTION WIDTH 12.2 % 10.3-14.2 (BEAKER) (test code = 412) PLATELET COUNT (BEAKER) (test 142 K/CU MM 150-430 L code = 756) MEAN PLATELET VOLUME (BEAKER) 7.8 fL 6.5-10.5 (test code = 754) NUCLEATED RED BLOOD CELLS 0 /100 WBC 0-0 (BEAKER) (test code = 413) NEUTROPHILS RELATIVE PERCENT 59 % (BEAKER) (test code = 429) LYMPHOCYTES RELATIVE PERCENT 32 % (BEAKER) (test code = 430) MONOCYTES RELATIVE PERCENT 6 % (BEAKER) (test code = 431) EOSINOPHILS RELATIVE PERCENT 3 % (BEAKER) (test code = 432) BASOPHILS RELATIVE PERCENT 1 % (BEAKER) (test code = 437) NEUTROPHILS ABSOLUTE COUNT 3.37 K/ L 1.80-8.00 (BEAKER) (test code = 670) LYMPHOCYTES ABSOLUTE COUNT 1.85 K/ L 1.48-4.50 (BEAKER) (test code = 414) MONOCYTES ABSOLUTE COUNT (BEAKER) 0.33 K/ L 0.00-1.30 (test code = 415) EOSINOPHILS ABSOLUTE COUNT 0.16 K/ L 0.00-0.50 (BEAKER) (test code = 416) BASOPHILS ABSOLUTE COUNT (BEAKER) 0.04 K/ L 0.00-0.20 (test code = 417) 0.00POCT-GLUCOSE [id number] 21:04:00 Test Item Value Reference Range Interpretation Comments POC-GLUCOSE METER 70 mg/dL 70-110 TESTED AT [place] [address] ([facility]) (test code = [facility] [address]) POCT-GLUCOSE [id number] 17:22:00 Test Item Value Reference Range Interpretation Comments POC-GLUCOSE METER 149 mg/dL 70-110 H TESTED AT [place] [address] ([facility]) (test code = [facility] 1538) [address] POCT-GLUCOSE [id number] 14:07:00 Test Item Value Reference Range Interpretation Comments POC-GLUCOSE METER 218 mg/dL 70-110 H TESTED AT [place] [address] ([facility]) (test code = [facility] 1538) [address] POCT-GLUCOSE [id number] 11:39:00 Test Item Value Reference Range Interpretation Comments POC-GLUCOSE METER 206 mg/dL 70-110 H TESTED AT [place] [address] ([facility]) (test code = [facility] 1538) [address] BASIC METABOLIC [id number] 06:49:00 Test Item Value Reference Range Interpretation Comments SODIUM (BEAKER) 135 meq/L 136-145 L (test code = 381) POTASSIUM (BEAKER) 3.9 meq/L 3.5-5.1 (test code = 379) CHLORIDE (BEAKER) 103 meq/L 98-107 (test code = 382) CO2 (BEAKER) (test 23 meq/L 22-29 code = 355) BLOOD UREA NITROGEN 27 mg/dL 7-21 H (BEAKER) (test code = 354) CREATININE (BEAKER) 1.44 mg/dL 0.57-1.25 H (test code = 358) GLUCOSE RANDOM 221 mg/dL 70-105 H (BEAKER) (test code = 652) CALCIUM (BEAKER) 8.9 mg/dL 8.4-10.2 (test code = 697) EGFR (BEAKER) (test 48 mL/min/1.73 ESTIMA NARENDRA GFR IS code = 1092) sq m NOT ACCURATE CREATININE CLEARANCE IN PREDICTING GLOMERULAR FILTRATION RATE . ESTIMATED GFR I S NOT APPLICABLE FOR DIALYSIS PATIEN TS. CBC W/PLT COUNT & AUTO [id number] 06:36:00 Test Item Value Reference Range Interpretation Comments WHITE BLOOD CELL COUNT (BEAKER) 6.9 K/ L 4.0-10.0 (test code = 775) RED BLOOD CELL COUNT (BEAKER) 5.26 M/ L 4.20-5.80 (test code = 761) HEMOGLOBIN (BEAKER) (test code = 16.2 GM/DL 13.0-16.8 410) HEMATOCRIT (BEAKER) (test code = 45.9 % 40.0-50.0 411) MEAN CORPUSCULAR VOLUME (BEAKER) 87.2 fL 82.0-98.0 (test code = 753) MEAN CORPUSCULAR HEMOGLOBIN 30.8 pg 27.0-33.0 (BEAKER) (test code = 751) MEAN CORPUSCULAR HEMOGLOBIN CONC 35.3 GM/DL 32.0-36.0 (BEAKER) (test code = 752) RED CELL DISTRIBUTION WIDTH 13.4 % 10.3-14.2 (BEAKER) (test code = 412) PLATELET COUNT (BEAKER) (test 149 K/CU MM 150-430 L code = 756) MEAN PLATELET VOLUME (BEAKER) 7.6 fL 6.5-10.5 (test code = 754) NUCLEATED RED BLOOD CELLS 0 /100 WBC 0-0 (BEAKER) (test code = 413) NEUTROPHILS RELATIVE PERCENT 52 % (BEAKER) (test code = 429) LYMPHOCYTES RELATIVE PERCENT 38 % (BEAKER) (test code = 430) MONOCYTES RELATIVE PERCENT 7 % (BEAKER) (test code = 431) EOSINOPHILS RELATIVE PERCENT 2 % (BEAKER) (test code = 432) BASOPHILS RELATIVE PERCENT 1 % (BEAKER) (test code = 437) NEUTROPHILS ABSOLUTE COUNT 3.58 K/ L 1.80-8.00 (BEAKER) (test code = 670) LYMPHOCYTES ABSOLUTE COUNT 2.58 K/ L 1.48-4.50 (BEAKER) (test code = 414) MONOCYTES ABSOLUTE COUNT (BEAKER) 0.48 K/ L 0.00-1.30 (test code = 415) EOSINOPHILS ABSOLUTE COUNT 0.14 K/ L 0.00-0.50 (BEAKER) (test code = 416) BASOPHILS ABSOLUTE COUNT (BEAKER) 0.08 K/ L 0.00-0.20 (test code = 417) 0.00PROTHROMBIN [id number] 06:26:00 Test Item Value Reference Range Interpretation Comments PROTIME (BEAKER) (test code = 13.5 seconds 11.7-14.7 759) INR (BEAKER) (test code = 370) 1.0 <=5.9 RECOMMENDED COUMADIN/WARFARIN INR THERAPY RANGESSTANDARD DOSE: 2.0 - 3.0 Includes: PROPHYLAXIS forvenous thrombosis, systemic embolization; TREATMENT for venous thrombosis and/or pulmonary embolus.HIGH RISK: Target INR is 2.5-3.5 for patients with mechanical heart valves.[id number] 06:26:00 Test Item Value Reference Range Interpretation Comments PARTIAL THROMBOPLASTIN TIME 32.9 seconds 22.5-36.0 (BEAKER) (test code = 760) POCT-GLUCOSE [id number] 21:31:00 Test Item Value Reference Range Interpretation Comments POC-GLUCOSE METER 235 mg/dL 70-110 H TESTED AT [facility] 6720 ([facility]) (test code = [place] 1538) [address] POCT-GLUCOSE [id number] 17:19:00 Test Item Value Reference Range Interpretation Comments POC-GLUCOSE METER 239 mg/dL 70-110 H TESTED AT [facility] 6720 ([facility]) (test code = [place] 1538) [address] POCT-P2Y12 PLATELET [id number] 16:23:00 Test Item Value Reference Range Interpretation Comments POC-P2Y12 PLATELET AGG (BEAKER) (test 115 PRU code = 2303) RANGE INFORMATION: PRU reference range is 194-418. Post Drug Results: Lower PRU levels are associated with expected antiplatelet effect. Values may be below the stated reference range above. The post-drug PRU values reported in the [employer] P2Y12 package insert are [id number].POCT-ASPIRIN PLATELET [id number] 16:18:00 Test Item Value Reference Range Interpretation Comments POC-ASPIRIN PLATELET AGG (BEAKER) 539 ARU (test code = 2302) RANGE INFORMATION: 350-549 ARU Therapeutic range for platelet function. 550-700 ARU Non-Therapeutic range for platelet function.URINALYSIS W/ [id number] 14:26:00 Test Item Value Reference Range Interpretation Comments COLOR (BEAKER) (test code = 470) Yellow CLARITY (BEAKER) (test code = 469) Clear SPECIFIC GRAVITY UA (BEAKER) (test 1.013 1.001-1.035 code = 468) PH UA (BEAKER) (test code = 467) 5.0 5.0-8.0 PROTEIN UA (BEAKER) (test code = 50 mg/dL Negative A 464) GLUCOSE UA (BEAKER) (test code = 200 mg/dL Negative A 365) KETONES UA (BEAKER) (test code = Negative Negative 371) BILIRUBIN UA (BEAKER) (test code = Negative Negative 462) BLOOD UA (BEAKER) (test code = 461) Negative Negative NITRITE UA (BEAKER) (test code = Negative Negative 465) LEUKOCYTE ESTERASE UA (BEAKER) Negative Negative (test code = 466) UROBILINOGEN UA (BEAKER) (test code 0.2 mg/dL 0.2-1.0 = 463) RBC UA (BEAKER) (test code = 519) 1 /HPF WBC UA (BEAKER) (test code = 520) 1 /HPF MUCUS (BEAKER) (test code = 1574) Rare HYALINE CASTS (BEAKER) (test code = 9 /LPF 514) SOURCE(BEAKER) (test code = 9895) CBC W/PLT COUNT & AUTO [id number] 13:21:00 Test Item Value Reference Range Interpretation Comments WHITE BLOOD CELL COUNT (BEAKER) 7.6 K/ L 4.0-10.0 (test code = 775) RED BLOOD CELL COUNT (BEAKER) 6.02 M/ L 4.20-5.80 H (test code = 761) HEMOGLOBIN (BEAKER) (test code = 17.5 GM/DL 13.0-16.8 H 410) HEMATOCRIT (BEAKER) (test code = 53.2 % 40.0-50.0 H 411) MEAN CORPUSCULAR VOLUME (BEAKER) 88.3 fL 82.0-98.0 (test code = 753) MEAN CORPUSCULAR HEMOGLOBIN 29.0 pg 27.0-33.0 (BEAKER) (test code = 751) MEAN CORPUSCULAR HEMOGLOBIN CONC 32.9 GM/DL 32.0-36.0 (BEAKER) (test code = 752) RED CELL DISTRIBUTION WIDTH 12.4 % 10.3-14.2 (BEAKER) (test code = 412) PLATELET COUNT (BEAKER) (test 177 K/CU MM 150-430 code = 756) MEAN PLATELET VOLUME (BEAKER) 7.7 fL 6.5-10.5 (test code = 754) NUCLEATED RED BLOOD CELLS 0 /100 WBC 0-0 (BEAKER) (test code = 413) NEUTROPHILS RELATIVE PERCENT 47 % (BEAKER) (test code = 429) LYMPHOCYTES RELATIVE PERCENT 44 % (BEAKER) (test code = 430) MONOCYTES RELATIVE PERCENT 6 % (BEAKER) (test code = 431) EOSINOPHILS RELATIVE PERCENT 2 % (BEAKER) (test code = 432) BASOPHILS RELATIVE PERCENT 1 % (BEAKER) (test code = 437) NEUTROPHILS ABSOLUTE COUNT 3.58 K/ L 1.80-8.00 (BEAKER) (test code = 670) LYMPHOCYTES ABSOLUTE COUNT 3.36 K/ L 1.48-4.50 (BEAKER) (test code = 414) MONOCYTES ABSOLUTE COUNT (BEAKER) 0.47 K/ L 0.00-1.30 (test code = 415) EOSINOPHILS ABSOLUTE COUNT 0.16 K/ L 0.00-0.50 (BEAKER) (test code = 416) BASOPHILS ABSOLUTE COUNT (BEAKER) 0.06 K/ L 0.00-0.20 (test code = 417) 0.00(MANUAL DIFFERENTIAL)2017-03-18 13:21:00 Test Item Value Reference Range Interpretation Comments TOTAL COUNTED (BEAKER) (test code = 1351) WBC MORPHOLOGY (BEAKER) (test code = Normal 487) PLT MORPHOLOGY (BEAKER) (test code = Normal 486) RBC MORPHOLOGY (BEAKER) (test code = Normal 762) POCT-GLUCOSE [id number] 11:40:00 Test Item Value Reference Range Interpretation Comments POC-GLUCOSE METER 241 mg/dL 70-110 H TESTED AT [facility] 6720 (BEAKER) (test code = [facility] [place] 1538) [address] HEMOGLOBIN [id number] 10:44:00 Test Item Value Reference Range Interpretation Comments HEMOGLOBIN A1C (BEAKER) (test code = 11.2 % 4.3-6.1 H 368) POCT-GLUCOSE [id number] 08:11:00 Test Item Value Reference Range Interpretation Comments POC-GLUCOSE METER 185 mg/dL 70-110 H TESTED AT [facility] 6720 (BEAKER) (test code = [facility] 1538) [address] LIPID [id number] 06:02:00 Test Item Value Reference Range Interpretation Comments TRIGLYCERIDES (BEAKER) (test code = 335 mg/dL 540) CHOLESTEROL (BEAKER) (test code = 201 mg/dL 631) HDL CHOLESTEROL (BEAKER) (test code 38 mg/dL = 976) LDL CHOLESTEROL CALCULATED (BEAKER) 96 mg/dL (test code = 633) Triglyceride Reference Range: Low Risk <150 Borderline 150-199 High Risk 200-499 Very High Risk >=500Cholesterol Reference Range: Low Risk <200 Borderline 200-239 High Risk >240HDL Cholesterol Reference Range: Low Risk >=60 High Risk <40LDL Cholesterol Reference Range: Optimal <100 Near Optimal 100-129 Borderline 130-159 High 160-189 Very High >=190BASIC METABOLIC [id number] 06:02:00 Test Item Value Reference Range Interpretation Comments SODIUM (BEAKER) 135 meq/L 136-145 L (test code = 381) POTASSIUM (BEAKER) 3.6 meq/L 3.5-5.1 (test code = 379) CHLORIDE (BEAKER) 99 meq/L 98-107 (test code = 382) CO2 (BEAKER) (test 23 meq/L 22-29 code = 355) BLOOD UREA NITROGEN 25 mg/dL 7-21 H (BEAKER) (test code = 354) CREATININE (BEAKER) 1.59 mg/dL 0.57-1.25 H (test code = 358) GLUCOSE RANDOM 177 mg/dL 70-105 H (BEAKER) (test code = 652) CALCIUM (BEAKER) 9.4 mg/dL 8.4-10.2 (test code = 697) EGFR (BEAKER) (test 43 mL/min/1.73 ESTIMA NARENDRA GFR IS code = 1092) sq m NOT ACCURATE CREATININE CLEARANCE IN PREDICTING GLOMERULAR FILTRATION RATE . ESTIMATED GFR I S NOT APPLICABLE FOR DIALYSIS PATIEN TS. POCT-GLUCOSE [id number] 00:02:00 Test Item Value Reference Range Interpretation Comments POC-GLUCOSE METER 131 mg/dL 70-110 H TESTED AT [facility] 67[address] ([facility]) (test code = [place] 1538) [address] CREATINE KINASE (CK), TOTAL AND [id number] 22:46:00 Test Item Value Reference Range Interpretation Comments CREATINE KINASE TOTAL (BEAKER) 44 U/L 29-200 (test code = 380) CREATINE KINASE-MB (BEAKER) (test 1.3 ng/mL 0.0-6.6 code = 750) CREATINE KINASE-MB INDEX (BEAKER) 3.0 % (test code = 395) Effective 09/19/2014: CK-MB Reference Range ChangeNew: 0.0-6.6 Previous: 0.0-4.9CK-MB Reference Range:<6.7 Normal6.7-10.0 Borderline>10.0 AbnormalTROPONIN [id number] 22:46:00 Test Item Value Reference Range Interpretation Comments TROPONIN I (BEAKER) (test code = 0.01 ng/mL 0.00-0.03 397) Effective 09/19/2014: Reference Range ChangeNew: 0.00-0.03 Previous [...] acidosis, acute neurological disease, and persistent tachyarrhythmia.POCT-GLUCOSE [id number] 22:18:00 Test Item Value Reference Range Interpretation Comments POC-GLUCOSE METER 161 mg/dL 70-110 H TESTED AT [facility] 67[address] ([facility]) (test code = [place] 1538) [address] HEMOGLOBIN [id number] 18:18:00 Test Item Value Reference Range Interpretation Comments HEMOGLOBIN A1C ([facility]) (test code = 11.7 % 4.3-6.1 H 368) VITAMIN [id number] 18:15:00 Test Item Value Reference Range Interpretation Comments VITAMIN B12 ([facility]) (test code = 251 pg/mL 213-816 774) TSH/FREE T4 IF [id number] 18:15:00 Test Item Value Reference Range Interpretation Comments THYROID STIMULATING HORMONE 1.18 uIU/mL 0.35-4.94 ([facility]) (test code = 772) B-TYPE NATRIURETIC FACTOR (BNP)2017-03-17 17:59:00 Test Item Value Reference Range Interpretation Comments B-TYPE NATRIURETIC PEPTIDE ([facility]) 43 pg/mL 0-100 (test code = 700) CREATINE KINASE (CK), TOTAL AND [id number] 17:58:00 Test Item Value Reference Range Interpretation Comments CREATINE KINASE TOTAL ([facility]) 41 U/L 29-200 (test code = 380) CREATINE KINASE-MB ([facility]) (test 1.3 ng/mL 0.0-6.6 code = 750) CREATINE KINASE-MB INDEX ([facility]) 3.2 % (test code = 395) Effective 09/19/2014: CK-MB Reference Range ChangeNew: 0.0-6.6 Previous: 0.0-4.9CK-MB Reference Range:<6.7 Normal6.7-10.0 Borderline>10.0 AbnormalTROPONIN [id number] 17:58:00 Test Item Value Reference Range Interpretation Comments TROPONIN I ([facility]) (test code = 397) < ng/mL 0.00-0.03 Effective 09/19/2014: Reference Range [...] renalfailure, acidosis, acute neurological disease, and persistent tachyarrhythmia.[id number] 17:51:00 Test Item Value Reference Range Interpretation Comments MAGNESIUM (BEAKER) (test code = 2.0 mg/dL 1.6-2.6 627) BASIC METABOLIC [id number] 17:51:00 Test Item Value Reference Range Interpretation Comments SODIUM (BEAKER) 138 meq/L 136-145 (test code = 381) POTASSIUM (BEAKER) 4.4 meq/L 3.5-5.1 (test code = 379) CHLORIDE (BEAKER) 101 meq/L 98-107 (test code = 382) CO2 (BEAKER) (test 23 meq/L 22-29 code = 355) BLOOD UREA NITROGEN 25 mg/dL 7-21 H (BEAKER) (test code = 354) CREATININE (BEAKER) 1.87 mg/dL 0.57-1.25 H (test code = 358) GLUCOSE RANDOM 134 mg/dL 70-105 H (BEAKER) (test code = 652) CALCIUM (BEAKER) 9.9 mg/dL 8.4-10.2 (test code = 697) EGFR (BEAKER) (test 35 mL/min/1.73 INSUFF ICIENT CLINICAL code = 1092) sq m DATA TO CALCULA TE ESTIMATED GFR. PT/[id number] 17:43:00 Test Item Value Reference Range Interpretation Comments PROTIME (BEAKER) (test code = 13.6 seconds 11.7-14.7 759) INR (BEAKER) (test code = 370) 1.1 <=5.9 PARTIAL THROMBOPLASTIN TIME 29.9 seconds 22.5-36.0 (BEAKER) (test code = 760) RECOMMENDED COUMADIN/WARFARIN INR THERAPY RANGESSTANDARD DOSE: 2.0 - 3.0 Includes: PROPHYLAXIS forvenous thrombosis, systemic embolization; TREATMENT for venous thrombosis and/or pulmonary embolus.HIGH RISK: Target INR is 2.5-3.5 for patients with mechanical heart valves.CBC W/PLT COUNT & AUTO DIFFERENTIAL 2017-03-17 17:11:00 Test Item Value Reference Range Interpretation Comments WHITE BLOOD CELL COUNT (BEAKER) 9.2 K/ L 4.0-10.0 (test code = 775) RED BLOOD CELL COUNT (BEAKER) 5.84 M/ L 4.20-5.80 H (test code = 761) HEMOGLOBIN (BEAKER) (test code = 17.8 GM/DL 13.0-16.8 H 410) HEMATOCRIT (BEAKER) (test code = 50.4 % 40.0-50.0 H 411) MEAN CORPUSCULAR VOLUME (BEAKER) 86.3 fL 82.0-98.0 (test code = 753) MEAN CORPUSCULAR HEMOGLOBIN 30.4 pg 27.0-33.0 (BEAKER) (test code = 751) MEAN CORPUSCULAR HEMOGLOBIN CONC 35.3 GM/DL 32.0-36.0 (BEAKER) (test code = 752) RED CELL DISTRIBUTION WIDTH 13.6 % 10.3-14.2 (BEAKER) (test code = 412) PLATELET COUNT (BEAKER) (test 186 K/CU MM 150-430 code = 756) MEAN PLATELET VOLUME (BEAKER) 7.7 fL 6.5-10.5 (test code = 754) NUCLEATED RED BLOOD CELLS 0 /100 WBC 0-0 (BEAKER) (test code = 413) NEUTROPHILS RELATIVE PERCENT 69 % (BEAKER) (test code = 429) LYMPHOCYTES RELATIVE PERCENT 23 % (BEAKER) (test code = 430) MONOCYTES RELATIVE PERCENT 6 % (BEAKER) (test code = 431) EOSINOPHILS RELATIVE PERCENT 2 % (BEAKER) (test code = 432) BASOPHILS RELATIVE PERCENT 1 % (BEAKER) (test code = 437) NEUTROPHILS ABSOLUTE COUNT 6.36 K/ L 1.80-8.00 (BEAKER) (test code = 670) LYMPHOCYTES ABSOLUTE COUNT 2.09 K/ L 1.48-4.50 (BEAKER) (test code = 414) MONOCYTES ABSOLUTE COUNT (BEAKER) 0.52 K/ L 0.00-1.30 (test code = 415) EOSINOPHILS ABSOLUTE COUNT 0.14 K/ L 0.00-0.50 (BEAKER) (test code = 416) BASOPHILS ABSOLUTE COUNT (BEAKER) 0.07 K/ L 0.00-0.20 (test code = 417) 0.00
[2020-05-18 13:12] LABS: Absolute Lymphocytes (CBC) 1.4 K/uL (0.7-4.9); Basophils % 0.8 % (0-1.3); Hematocrit 45.3 % (39.6-49.0); Lymphocytes % 10.4 % (15.3-44.8); MPV 8.8 fL (7.6-11.3); RBC Red Blood Cell Count 5.17 M/uL (4.33-5.43)
[2020-05-18 13:15] LABS: Protime INR 1.14
--- NOTE | 2020-05-18 13:24 | RAD REPORT ---
EXAM DESCRIPTION: RAD - Chest Single View - 05/18/2020 1:15 pm CLINICAL HISTORY: Weakness Chest pain. COMPARISON: Chest Pa And Lat (2 Views) dated 12/02/2019; Chest Single View dated 04/02/2019; Chest Pa A nd Lat (2 Views) dated 02/27/2018; Chest Pa And Lat (2 Views) dated 02/25/2018 FINDINGS: Portable technique limits examination quality. The lungs are grossly clear. The heart is upper limit normal in size with multi lead pacer/ defibrill ator device. No displaced fractures. IMPRESSION: No acute intrathoracic process suspected.
[2020-05-18 13:31] LABS: Albumin 3.5 g/dL (3.4-5.0); Bilirubin Direct 0.2 mg/dL (0-0.2); Bilirubin Total 0.7 mg/dL (0.2-1.0); Magnesium 2.1 mg/dL (1.8-2.4); Potassium 3.7 mmol/L (3.5-5.1); Protein, Total 8.1 g/dL (6.4-8.2); Troponin (Emerg Dept Use Only) 0.16 ng/mL (0.0-0.045)
[2020-05-18] MEDS ORDERED: CEFTRIAXONE/SWI 1gm 1 GM/10 ML SYR ONE (15:15)
[2020-05-18 15:26] LABS: Urine Bacteria >50 /HPF (NONE SEEN)
[2020-05-18 15:27] LABS: Urine Culture Reflex Order REFLEXED
--- NOTE | 2020-05-18 15:38 | ER ---
Nurse's Notes [facility] Name: Americo Guillermo Age: 79 yrs Sex: Male : 1940 Arrival Date: 05/18/2020 Time: 12:01 Bed 8 Private MD: Diagnosis: Pyelonephritis Presentation: 05/18 12:02 Chief complaint: EMS states: Pt presents via EMS with c/o failure to thrive per . jr10 Reports that patient has a hx of dementia "and has not wanted to do anything for himself at home and has not been taking his medications as prescribed.". Initial Sepsis Screen: Does the patient meet any 2 criteria? HR > 90 bpm. No. Patient's initial sepsis screen is negative. Does the patient have a suspected source of infection? No. Patient's initial sepsis screen is negative. Risk Assessment: Do you want to hurt yourself or someone else? Patient reports no desire to harm self or others. Onset of symptoms is unknown. 12:02 Method Of Arrival: EMS: [facility] jr10 12:02 Acuity: TOMAS 3 jr10 13:40 Ebola Screen: No symptoms or risks identified at this time. sv 17:17 Coronavirus screen: Patient denies a cough. Patient denies shortness of breath or jr10 difficulty breathing. Patient reports a measured and/or subjective temperature greater than 100.4F. Patient denies travel on a cruise ship or to a country the [facility] currently lists as an affected area. Patient denies contact with known and/or suspected case of COVID-19. Triage Assessment: 12:06 General: Appears in no apparent distress. Behavior is calm, cooperative. Pain: Denies jr10 pain. Historical: - Allergies: 12:07 No Known Allergies; jr10 - Home Meds: 12:21 aspirin 81 mg Oral TbEC 1 tab once daily [Active]; levothyroxine 125 mcg tab 1 tab once jr10 daily for Hypothyroidism [Active]; Norvasc 10 mg Oral tab 1 tab once daily for Hypertension [Active]; doxazosin 2 mg oral tab nightly [Active]; meclizine 25 mg Oral tab 1 tab TID PRN [Active]; Butalbital Compound 50-325-40 mg Oral tab twice daily PRN [Active]; metoprolol succinate 25 mg oral Tb24 once daily [Active]; trazodone 50 mg Oral tab nightly [Active]; Plavix 75 mg Oral tab 1 tab once daily [Active]; Seroquel 25 mg Oral tab 2 times per day [Active]; atorvastatin 40 mg oral tab once daily [Active]; Lasix 40 mg Oral tab 1 tab once daily for fluid retention [Active]; Lexapro 5 mg Oral tab once daily [Active]; donepezil 10 mg oral tab once daily [Active]; oxybutynin chloride 5 mg Oral tab 2 times per day [Active]; - PMHx: 12:21 COPD; Dementia; Diabetes - NIDDM; GERD; Hyperlipidemia; Hypertension; Hypothyroidism; jr10 - Immunization history:: Adult Immunizations. - Social history:: Smoking status: unknown. Screenin:30 Abuse screen: Denies threats or abuse. Denies injuries from another. Nutritional jr10 screening: No deficits noted. Tuberculosis screening: No symptoms or risk factors identified. Fall Risk Mental Status- Overestimates/Forgets Limitations (15 pts.). Assessment: 12:28 General: Appears in no apparent distress. Behavior is calm, cooperative. Neuro: No jr10 deficits noted. Cardiovascular: No deficits noted. Denies chest pain. Respiratory: No deficits noted. Respiratory effort is even, unlabored, Respiratory pattern is regular, symmetrical, Breath sounds are clear Denies cough, shortness of breath. GI: No deficits noted. Reports Decreased appetite Patient currently denies abdominal pain. : No deficits noted. Musculoskeletal: No deficits noted. 13:03 Reassessment: Patient appears in no apparent distress at this time. No changes from sv previously documented assessment. Patient and/or family updated on plan of care and expected duration. Pain level reassessed. Vital Signs: 12:02 BP 97 / 62; Pulse 92; Resp 20; Temp 98.1; Pulse Ox 98% on R/A; Pain 0/10; jr10 12:09 BP 97 / 62; Pulse 92; Resp 20; Temp 98.1; Pulse Ox 98% on R/A; Pain 0/10; jr10 13:03 BP 132 / 75; Pulse 81; Resp 16; Pulse Ox 98% ; sv 13:39 BP 115 / 93; Pulse 88 MON; Resp 16; Pulse Ox 98% on R/A; sv 14:00 Pulse Ox 89% ; jr10 14:00 BP 117 / 65; Pulse 105; Resp 28; Pulse Ox 92% on 3 lpm NC; jr10 14:44 BP 156 / 82; Pulse 99; Resp 18; Pulse Ox 100% ; jr10 14:54 Temp 98.3(O); dh3 17:24 BP 125 / 66; Pulse 98; Resp 26; Temp 98.6(O); Pulse Ox 99% on 3 lpm NC; Pain 0/10; jr10 13:39 Sinus Rhythm sv ED Course: 12:01 Patient arrived in ED. jr10 12:05 Triage completed. jr10 12:09 Stephani Eastman is Primary Nurse. jr10 12:31 Patient has correct armband on for positive identification. jr10 12:33 Hunter Hardin MD is Attending Physician. kdr 13:00 Inserted saline lock: 20 gauge in right antecubital area, using aseptic technique. sv Blood collected. Flushed right antecubital with 5 ml normal saline. 13:15 XRAY Chest (1 view) In Process Unspecified. EDMS 13:25 EKG done, by ED staff, reviewed by Hunter Hardin MD. dh3 13:40 Arm band placed on. sv 14:40 Straight cath inserted, using sterile technique, 14 Fr. Returned cloudy urine. Patient dh3 tolerated well. 15:[address] MD is Hospitalizing Provider. kdr 16:10 Oxygen administration via nasal cannula \\T\\ 3L/min O2 via pt sats noted to decline while jr10 sleeping, pt placed on supplemental O2. Per at bedside, pt is not on O2 at home. Will continue to monitor and assess. 17:17 No provider procedures requiring assistance completed. jr10 17:44 Patient admitted, IV remains in place. intact. sv Administered Medications: 15:16 Drug: Rocephin - (cefTRIAXone) 1 grams {Note: slow IVP per pharmacy .} Route: IVPB; jr10 Infused Over: 30 mins; Site: right antecubital; 15:30 Follow up: Response: No adverse reaction; IV Status: Completed infusion; IV Intake: [id number] 17:15 Drug: Eliquis 2.5 mg Route: PO; sv 17:16 Follow up: Response: No adverse reaction sv Outcome: 15:38 Decision to Hospitalize by Provider. kdr 17:44 Admitted to Tele accompanied by tech, via stretcher, room 204, with oxygen, with chart, sv Report called to Jaida JUAREZ 17:44 Condition: stable 17:44 Instructed on the need for admit. 18:00 Patient left the ED. sv Signatures: Dispatcher [employer] Aleja Busby RN RN sv Rittger, Kevin, MD MD kdr Herrera, Deanna [facility] Stephani Eastman [facility] Corrections: (The following items were deleted from the chart) 12:33 12:02 Coronavirus screen: [facility] jr10 12:35 12:02 Chief complaint: EMS states: Pt presents via EMS with c/o failure to thrive per jr10 . Reports that patient has a hx of dementia "and has not wanted to do anything for himself at home and has not been taking his medications as prescribed." jr10
--- NOTE | 2020-05-18 15:38 | EDPHYS ---
Physician Documentation [facility] Name: Americo Guillermo Age: 79 yrs Sex: Male : 1940 Arrival Date: 05/18/2020 Time: 12:01 Bed 8 Private MD: ED Physician Hunter Hardin HPI: 05/18 13:31 This 79 yrs old Male presents to ER via EMS with complaints of Failure to kdr Thrive. 13:31 The patient was brought to the ED by EMS. had called secondary to him being more kdr difficult to manage today. She indicated that he has been incontinent and harder to manage at home. Otherwise, there is no focal concern.. Onset: The symptoms/episode began/occurred gradually, at an unknown time. Severity of symptoms: At their worst the symptoms were moderate in the emergency department the symptoms are unchanged. The patient has not experienced similar symptoms in the past. The patient has not recently seen a physician. Historical: - Allergies: 12:07 No Known Allergies; jr10 - Home Meds: 12:21 aspirin 81 mg Oral TbEC 1 tab once daily [Active]; levothyroxine 125 mcg tab 1 tab once jr10 daily for Hypothyroidism [Active]; Norvasc 10 mg Oral tab 1 tab once daily for Hypertension [Active]; doxazosin 2 mg oral tab nightly [Active]; meclizine 25 mg Oral tab 1 tab TID PRN [Active]; Butalbital Compound 50-325-40 mg Oral tab twice daily PRN [Active]; metoprolol succinate 25 mg oral Tb24 once daily [Active]; trazodone 50 mg Oral tab nightly [Active]; Plavix 75 mg Oral tab 1 tab once daily [Active]; Seroquel 25 mg Oral tab 2 times per day [Active]; atorvastatin 40 mg oral tab once daily [Active]; Lasix 40 mg Oral tab 1 tab once daily for fluid retention [Active]; Lexapro 5 mg Oral tab once daily [Active]; donepezil 10 mg oral tab once daily [Active]; oxybutynin chloride 5 mg Oral tab 2 times per day [Active]; - PMHx: 12:21 COPD; Dementia; Diabetes - NIDDM; GERD; Hyperlipidemia; Hypertension; Hypothyroidism; jr10 - Immunization history:: Adult Immunizations. - Social history:: Smoking status: unknown. ROS: 13:31 Constitutional: Unable to obtain from patient due to dementia kdr 13:31 Unable to obtain ROS due to baseline dementia. Exam: 13:31 Constitutional: This is a well developed, well nourished patient who is awake, alert, kdr and in no acute distress. Head/Face: Normocephalic, atraumatic. Eyes: Pupils equal round and reactive to light, extra-ocular motions intact. Lids and lashes normal. Conjunctiva and sclera are non-icteric and not injected. Cornea within normal limits. Periorbital areas with no swelling, redness, or edema. Neck: Trachea midline, no thyromegaly or masses palpated, and no cervical lymphadenopathy. Supple, full range of motion without nuchal rigidity, or vertebral point tenderness. No Meningismus. Chest/axilla: Normal chest wall appearance and motion. Nontender with no deformity. No lesions are appreciated. Cardiovascular: Regular rate and rhythm with a normal S1 and S2. No gallops, murmurs, or rubs. Normal PMI, no JVD. No pulse deficits. Respiratory: Lungs have equal breath sounds bilaterally, clear to auscultation and percussion. No rales, rhonchi or wheezes noted. No increased work of breathing, no retractions or nasal flaring. Abdomen/GI: Soft, non-tender, with normal bowel sounds. No distension or tympany. No guarding or rebound. No evidence of tenderness throughout. Back: No spinal tenderness. No costovertebral tenderness. Full range of motion. Skin: Warm, dry with normal turgor. Normal color with no rashes, no lesions, and no evidence of cellulitis. MS/ Extremity: Pulses equal, no cyanosis. Neurovascular intact. Full, normal range of motion. 19:05 ECG was reviewed by the Attending Physician. kdr Vital Signs: 12:02 BP 97 / 62; Pulse 92; Resp 20; Temp 98.1; Pulse Ox 98% on R/A; Pain 0/10; jr10 12:09 BP 97 / 62; Pulse 92; Resp 20; Temp 98.1; Pulse Ox 98% on R/A; Pain 0/10; jr10 13:03 BP 132 / 75; Pulse 81; Resp 16; Pulse Ox 98% ; sv 13:39 BP 115 / 93; Pulse 88 MON; Resp 16; Pulse Ox 98% on R/A; sv 14:00 Pulse Ox 89% ; jr10 14:00 BP 117 / 65; Pulse 105; Resp 28; Pulse Ox 92% on 3 lpm NC; jr10 14:44 BP 156 / 82; Pulse 99; Resp 18; Pulse Ox 100% ; jr10 14:54 Temp 98.3(O); dh3 17:24 BP 125 / 66; Pulse 98; Resp 26; Temp 98.6(O); Pulse Ox 99% on 3 lpm NC; Pain 0/10; jr10 13:39 Sinus Rhythm sv MDM: 13:31 Data reviewed: vital signs, nurses notes, lab test result(s), radiologic studies. kdr 15:38 Patient medically screened. [facility] 05/18 12:42 Order name: Basic Metabolic Panel; Complete Time: 14:07 [facility] 05/18 12:42 Order name: CBC with Diff; Complete Time: 13:31 [facility] 05/18 12:42 Order name: LFT's; Complete Time: 14: [facility] 05/18 12:42 Order name: Magnesium; Complete Time: 14:07 [facility] 05/18 12:42 Order name: NT PRO-BNP; Complete Time: 14:07 [facility] 05/18 12:42 Order name: PT-INR; Complete Time: 13:31 [facility] 05/18 12:42 Order name: Troponin (emerg Dept Use Only); Complete Time: 14:07 [facility] 05/18 14:47 Order name: Urine Microscopic Only; Complete Time: 16:09 [facility] 05/18 15:29 Order name: Urine Culture [facility] 05/18 15:35 Order name: Urine Dipstick-Ancillary; Complete Time: 16:09 [facility] 05/18 16:09 Order name: Lactate [facility] 05/18 16:09 Order name: Procalcitonin [facility] 05/18 16:25 Order name: COVID-19 [facility] 05/18 12:42 Order name: XRAY Chest (1 view); Complete Time: 13:31 [facility] 05/18 12:42 Order name: EKG; Complete Time: 12:42 [facility] 05/18 12:42 Order name: Cardiac monitoring; Complete Time: 13:31 [facility] 05/18 12:42 Order name: EKG - Nurse/Tech; Complete Time: 13:31 [facility] 05/18 12:42 Order name: IV Saline Lock; Complete Time: 13:05 kdr 05/18 12:42 Order name: Labs collected and sent; Complete Time: 13:05 kdr 05/18 12:42 Order name: O2 Per Protocol; Complete Time: 13:05 kdr 05/18 16:14 Order name: VQ scan (Nuclear Medicine) kdr 05/18 16:37 Order name: Consistent Carb (ADA) [address] EDMS 05/18 16:37 Order name: Basic Metabolic Panel EDMS 05/18 16:37 Order name: Basic Metabolic Panel EDMS 05/18 16:37 Order name: CBC with Automated Diff EDMS 05/18 16:37 Order name: CBC with Automated Diff EDMS 05/18 12:42 Order name: O2 Sat Monitoring; Complete Time: 13:05 kdr 05/18 12:42 Order name: Urine Dipstick-Ancillary (obtain specimen); Complete Time: 14:47 kdr EC:05 Rate is 77 beats/min. Rhythm is regular, Normal Sinus Rhythm with No ectopy. QRS [place] kdr is Normal. MO interval is normal. QRS interval is normal. QT interval is normal. No Q waves. Clinical impression: NSR w/ Non-specific ST/T Changes. Administered Medications: 15:16 Drug: Rocephin - (cefTRIAXone) 1 grams {Note: slow IVP per pharmacy .} Route: IVPB; jr10 Infused Over: 30 mins; Site: right antecubital; 15:30 Follow up: Response: No adverse reaction; IV Status: Completed infusion; IV Intake: [id number] 17:15 Drug: Eliquis 2.5 mg Route: PO; sv 17:16 Follow up: Response: No adverse reaction sv Disposition: 05/18/20 15:38 Hospitalization ordered by Austyn Lane for Observation. Preliminary diagnosis is Pyelonephritis. - Bed requested for Telemetry/MedSurg (observation). - Status is Observation. sv - Condition is Fair. - Problem is new. - Symptoms have improved. Signatures: Dispatcher [employer] EDAleja Bhatti RN Elle Infante RN RN dw Rittger, Kevin, MD MD kdr Stephani Eastman jr10 Corrections: (The following items were deleted from the chart) 15:35 15:06 URINE DIPSTICK--ANCILLARY+U.LAB.BRZ ordered. EDID EDMS 15:35 15:22 URINE DIPSTICK--ANCILLARY+U.LAB.BRZ reviewed. kdr EDMS 16:20 16:10 Chest For PE Angio+CT.RAD.BRZ ordered. EDID EDMS 17:14 15:38 Hospitalization Ordered by Austyn Lane MD for Observation. Preliminary diagnosis dw is Pyelonephritis. Bed requested for Telemetry/MedSurg (observation). Status is Observation. Condition is Fair. Problem is new. Symptoms have improved. kdr 18:00 17:14 05/18/2020 15:38 Hospitalization Ordered by Austyn Lane MD for Observation. sv Preliminary diagnosis is Pyelonephritis. Bed requested for Telemetry/MedSurg (observation). Status is Observation. Condition is Fair. Problem is new. Symptoms have improved. dw
[2020-05-18 16:08] LABS: Urine Blood 2+ (NEG); Urine Glucose NEGATIVE (NEG); Urine Protein 2+ (NEG)
[2020-05-18] MEDS ORDERED: ACETAMINOPHEN 500 MG TAB PO PRN (16:29)
[2020-05-18] MEDS ORDERED: ONDANSETRON 4 MG/2 ML VIAL IV PRN (16:29)
[2020-05-18] MEDS ORDERED: APIXABAN 2.5 MG TABLET PO ONE (17:00)
[2020-05-18 18:31] VITALS: BMI 27.6
--- NOTE | 2020-05-18 20:55 | RAD REPORT ---
EXAM DESCRIPTION: NM - Vent Perfusion VQ Scan - 05/18/2020 8:48 pm CLINICAL HISTORY: R/o PE Chest pain, shortness of breath COMPARISON: Chest Single View dated 05/18/2020 TECHNIQUE: 21.2mCi Xe-133 gas inhaled and 7mCi Tc-MAA IV. Planar ventilation scan was performed in posterior projection after Xe-133 gas inhalation (wash-in, e quilibrium, and wash-out phases) followed by perfusion scan with Tc-MAA IV in multiple projections. Examination is correlated with recent chest radiograph. FINDINGS: Normal ventilation with appropriate wash-out and no significant air-trapping. No mismatched segmental perfusion defect. IMPRESSION: Low probability of acute pulmonary embolism.
--- NOTE | 2020-05-18 21:33 | P.HP ---
Certification for Inpatient Patient admitted to: Inpatient With expected LOS: >2 Midnights Practitioner: I am a practitioner with admitting privileges, knowledge of patient current condition, hospital course, and medical plan of care. Services: Services provided to patient in accordance with Admission requirements found in Title 42 Section 412.3 of the Code of Federal Regulations Patient History Date of Service: 05/18/20 Reason for admission: CHILLS AND WEAKNESS History of Present Illness: MR. 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 TALKED TO FOR HISTORY. THIS IS FOR ABOUT TWO DAYS. Allergies No Known Allergies Allergy (Verified 02/25/18 20:48) Home Medications: Aspirin [Aspir-Low] 81 mg PO DAILY 02/25/18 Atorvastatin Calcium [Lipitor*] 40 mg PO BEDTIME 02/25/18 Clopidogrel Bisulfate [Plavix*] 75 mg PO DAILY 02/25/18 Levothyroxine [Synthroid*] 125 mcg PO [id number] 02/25/18 Meclizine HCl 25 mg PO TID PRN 02/25/18 Metoprolol Succinate [Toprol Xl] 25 mg PO DAILY 02/25/18 Amlodipine [Norvasc*] 10 mg PO DAILY #30 tab 02/28/18 Butalb/Acetaminophen/Caffeine [Aahfrt-Xyaeznaz-Sbdn 50-325-40] 1 tab PO BID PRN 05/18/20 Donepezil HCl 10 mg PO DAILY 05/18/20 Doxazosin [Cardura*] 2 mg PO BEDTIME 05/18/20 Escitalopram [Lexapro*] 5 mg PO DAILY 05/18/20 Furosemide [Lasix*] 40 mg PO DAILY 05/18/20 Oxybutynin Chloride [Ditropan*] 5 mg PO BID 05/18/20 Quetiapine [Seroquel*] 25 mg PO BID 05/18/20 Trazodone [Desyrel*] 50 mg PO DAILY 05/18/20 - Past Medical/Surgical History Has patient received pneumonia vaccine in the past: Yes Diabetic: Yes -: HTN -: CAD -: PR -: 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 -: 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 -: KIDNEY STONES -: Cardiac stents 8 YRS AGO -: [place]y artificial knee replacement -: MELOMA TUMOR 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 - HAS SUTURES IN PLACE -: APPY -: KIDNEY STONES - Family History Father -: Heart disease, Hypertension - Social History Alcohol use: No CD- Drugs: No Caffeine use: Yes Review of Systems 10-point ROS is otherwise unremarkable General: Weakness, Malaise Respiratory: Cough Physical Examination - Vital Signs Temperature: 98.8 F Blood Pressure: 107/55 Pulse: 104 Respirations: 18 Pulse Ox (%): 89 - Physical Exam General: Alert, Moderate distress, Confused, Other (WEAK, LAYING DOWN, OBTUNDED WITH ACUTE STRESS.) HEENT: Atraumatic, PERRLA, Mucous membr. moist/pink, EOMI, Sclerae nonicteric Neck: Supple, 2+ carotid pulse no bruit, No LAD, Without JVD or thyroid abnormality Respiratory: Diminished Cardiovascular: Regular rate/rhythm, Normal S1 S2 Gastrointestinal: Normal bowel sounds, No tenderness Musculoskeletal: No tenderness Integumentary: No rashes Neurological: Other (UNABLE TO EXAMINE IN DETAIL. NO FOCAL DEFICITS. ), Dementia Lymphatics: No axilla or inguinal lymphadenopathy - Studies Laboratory Data (last 24 hrs) 05/18/20 13:00: PT 13.4 H, INR 1.14 05/18/20 13:00: WBC 13.4 H, Hgb 15.5, Hct 45.3, Plt Count 212 05/18/20 13:00: Sodium 139, Potassium 3.7, BUN 30 H, Creatinine 2.27 H, Glucose 167 H, Magnesium 2.1 D, Total Bilirubin 0.7, AST 13 L, ALT 13, Alkaline Phosphatase 120 H Assessment and Plan - Problems (Diagnosis) (1) Pyelonephritis Current Visit: Yes Status: Acute Plan: IV ABX CUTLURE DONE. (2) Altered mental status Onset Date: 06/06/15 Current Visit: No Status: Acute Plan: RELATED TO ACUTE INFECTION. BASELINE MODERATE DEMENTIA. Qualifiers: Altered mental status type: delirium Qualified Code(s): R41.0 - Disorientation, unspecified (3) Dehydration Current Visit: No Status: Acute Plan: IV RINGER LACATE LAB DAILY. SHOULD IMPROVE BACK TO BASLELINE OF CLOSE TO NORMAL NORMA FUNCTION. (4) Diabetes type 2, uncontrolled Onset Date: 02/26/18 Current Visit: No Status: Chronic Plan: FS AC HS WITH SS. 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 IS TRYING TO TAKE CARE OF DM BUT SHE IS NOT ABLE TO. I HAVE GIVEN MANY INSTRUCTIONS. HE SLEEPS UNTIL LATE MORNING AND EATS WRONG STUFF SO DIABETES IS NEVER CONT ROLLED. ALSO IS ELDERLY AND HAS SOME MEMORY LOSS. THEY BOTH REFUSE NH OR HOME HEALTH. SHE HAS FIRED A FEW AGENCIES THEY DON'T DO MUCH OF WHAT SHE NEEDS HELP WITH AND I UNDERSTAND. THEY ONLY DO VITAL SIGNS AND GO AWAY PER HER. Qualifiers: Glycemic state: with hyperglycemia Qualified Code(s): E11.65 - Type 2 diabetes mellitus with hyperglycemia - Advance Directives Does patient have a Living Will: No Does patient have a Durable POA for Healthcare: No
[2020-05-18] MEDS ORDERED: TRAZODONE 50 MG TABLET PO PRN (21:59)
[2020-05-18] MEDS: Ringers Lactate 1,000 ML IV SCH (22:03)
[2020-05-18] MEDS: CEFTRIAXONE/SWI 1gm 1 GM/10 ML SYR IVP SCH (22:04)
[2020-05-18] MEDS ORDERED: D50W 25 GM/50 ML SYRINGE/VIAL IV PRN (22:10)
[2020-05-18] MEDS ORDERED: GLUCAGON 1 MG/VIAL IM PRN (22:10)
[2020-05-18 22:38] LABS: Arterial Blood Carboxyhemoglob 1.4 % (0-1.5)
[2020-05-18 22:40] LABS: Blood O2 Saturation 94.4 % (92-98.5)
[2020-05-18 22:46] LABS: Blood Gas Oxyhemoglobin 95.2 % (94-97)
[2020-05-18] MEDS: INSULIN -REGULAR HUMAN 50 UNIT/0.5 ML ML SQ SCH (23:15)
[2020-05-19 06:10] LABS: Absolute Lymphocytes (CBC) 1.1 K/uL (0.7-4.9); Basophils % 0.4 % (0-1.3); Hematocrit 42.7 % (39.6-49.0); MPV 9.3 fL (7.6-11.3); RBC Red Blood Cell Count 4.83 M/uL (4.33-5.43)
[2020-05-19 06:18] LABS: Potassium 4.4 mmol/L (3.5-5.1)
[2020-05-19] MEDS: INSULIN -REGULAR HUMAN 50 UNIT/0.5 ML ML SQ SCH ×3 (07:30→21:14)
[2020-05-19] MEDS ORDERED: ACETAMIN/CAFFEINE/BUTALB TAB PO PRN (08:02)
[2020-05-19] MEDS ORDERED: GLUCAGON 1 MG/VIAL IM PRN ×2 (08:05→11:04)
[2020-05-19] MEDS ORDERED: D50W 25 GM/50 ML SYRINGE/VIAL IV PRN ×2 (08:05→11:04)
[2020-05-19] MEDS ORDERED: MECLIZINE HCL 12.5 MG TAB PO PRN (08:28)
[2020-05-19] MEDS: FAMOTIDINE 20 MG TAB PO SCH (09:00)
[2020-05-19] MEDS: Ringers Lactate 1,000 ML IV SCH ×3 (10:32→21:12)
[2020-05-19] MEDS: METOPROLOL XL 25 MG TAB PO SCH (10:33)
[2020-05-19] MEDS: AMLODIPINE 10 MG TAB PO SCH (10:33)
[2020-05-19] MEDS: ESCITALOPRAM 20 MG TAB PO SCH (10:34)
[2020-05-19] MEDS: OXYBUTYNIN CHLORIDE 5 MG TAB PO SCH ×2 (10:35→21:29)
[2020-05-19] MEDS: CLOPIDOGREL 75 MG TABLET PO SCH (10:36)
[2020-05-19] MEDS: CEFTRIAXONE/SWI 1gm 1 GM/10 ML SYR IVP SCH ×2 (10:37→21:15)
[2020-05-19] MEDS: TRAZODONE 50 MG TABLET PO SCH (10:42)
[2020-05-19] MEDS: QUETIAPINE 25 MG TAB PO SCH ×2 (10:45→21:29)
[2020-05-19] MEDS ORDERED: INSULIN -REGULAR HUMAN 50 UNIT/0.5 ML ML SQ ONE (11:04)
--- NOTE | 2020-05-19 13:51 | P.PN ---
Subjective Date of Service: 05/19/20 Chief Complaint: CHILLS AND WEAKNESS Subjective: Improving HE LOOKS AND FEELS A LOT BETTER. HE HAS NO CHEST PAIN OR COUGH NOW. Review of Systems 10-point ROS is otherwise unremarkable General: Weakness, Malaise Physical Examination - Vital Signs Temperature: 97.5 F Blood Pressure: 150/66 Pulse: 90 Respirations: 19 Pulse Ox (%): 92 - Physical Exam General: Mild distress, Confused (BASELINE) HEENT: Atraumatic, PERRLA, EOMI Neck: Supple, JVD not distended Respiratory: Clear to auscultation bilaterally, Normal air movement Cardiovascular: Regular rate/rhythm, Normal S1 S2 Gastrointestinal: Normal bowel sounds, No tenderness Musculoskeletal: No tenderness Integumentary: No rashes Neurological: Normal speech (NEEDS TO WALK.) Lymphatics: No axilla or inguinal lymphadenopathy - Studies Microbiology Data (last 24 hrs): 05/18/20 16:42 Nasopharnyx Coronavirus COVID-19 PCR - Final Medications List Reviewed: Yes Assessment And Plan - Current Problems (Diagnosis) (1) Pyelonephritis Current Visit: Yes Status: Acute Plan: IV ABX CUTLURE DONE. CULTURE PENDING. MAY GO HOME IN AM IF STABLE TO WALK WITHOUT FALLING. (2) Altered mental status Onset Date: 06/06/15 Current Visit: No Status: Acute Plan: RELATED TO ACUTE INFECTION. BASELINE MODERATE DEMENTIA. BACK TO BASELINE NOW. Qualifiers: Altered mental status type: delirium Qualified Code(s): R41.0 - Disorientation, unspecified (3) Dehydration Current Visit: No Status: Acute Plan: IV RINGER LACATE LAB DAILY. SHOULD IMPROVE BACK TO BASLELINE OF CLOSE TO NORMAL NORMA FUNCTION. I STOPPED DIURETIC AND HE IS ON GENTLE HYDRATION NOW. (4) Diabetes type 2, uncontrolled Onset Date: 02/26/18 Current Visit: No Status: Chronic Plan: FS AC HS WITH SS. 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 IS TRYING TO TAKE CARE OF DM BUT SHE IS NOT ABLE TO. I HAVE GIVEN MANY INSTRUCTIONS. HE SLEEPS UNTIL LATE MORNING AND EATS WRONG STUFF SO DIABETES IS NEVER CONTROLLED. ALSO IS ELDERLY AND HAS SOME MEMORY LOSS. THEY BOTH REFUSE NH OR HOME HEALTH. SHE HAS FIRED A FEW AGENCIES THEY DON'T DO MUCH OF WHAT SHE NEEDS HELP WITH AND I UNDERSTAND. THEY ONLY DO VITAL SIGNS AND GO AWAY PER HER. GLUCOSE IS HIGH. HE IS ON LANTUS AND SSHERE. Qualifiers: Glycemic state: with hyperglycemia Qualified Code(s): E11.65 - Type 2 diabetes mellitus with hyperglycemia
[2020-05-19] MEDS: LOSARTAN POTASSIUM 50 MG TABLET PO SCH (14:57)
[2020-05-19] MEDS ORDERED: ENOXAPARIN 30 MG/0.3 ML SQ SCH (17:00)
[2020-05-19] MEDS ORDERED: DONEPEZIL HCL 5 MG TAB PO SCH (21:00)
[2020-05-19] MEDS ORDERED: DOXAZOSIN 2 MG TAB PO SCH (21:00)
[2020-05-19] MEDS ORDERED: ATORVASTATIN 40 MG TAB PO SCH (21:00)
[2020-05-20] MEDS ORDERED: LEVOTHYROXINE SOD 0.125 MG TAB PO SCH (06:00)
[2020-05-20] MEDS: Ringers Lactate 1,000 ML IV SCH (07:14)
[2020-05-20] MEDS: INSULIN -REGULAR HUMAN 50 UNIT/0.5 ML ML SQ SCH ×2 (08:00→12:07)
[2020-05-20] MEDS ORDERED: INSULIN GLARGINE 100 UNITS/ML SQ SCH (08:00)
--- NOTE | 2020-05-20 08:11 | EKG ---
Test Date: 2020-05-18 Test Time: 13:24:21 Imager: FERNANDO MEASUREMENT RESULTS: Intervals: Rate: 77 [place]: 200 QRSD: 116 QT: 404 QTc: 457 [place]: P: 13 [place]: 200 QRS: 0 T: 54 INTERPRETIVE STATEMENTS: Normal sinus rhythm Cannot rule out Inferior infarct, age undetermined Abnormal ECG Compared to ECG 04/02/2019 16:04:44 Myocardial infarct finding now present First degree AV block no longer present Electronically Signed On 05-20-20 08:09:12 CDT by [place]
[2020-05-20] MEDS: ESCITALOPRAM 20 MG TAB PO SCH (08:30)
[2020-05-20] MEDS: TRAZODONE 50 MG TABLET PO SCH (08:30)
[2020-05-20] MEDS: OXYBUTYNIN CHLORIDE 5 MG TAB PO SCH (08:30)
[2020-05-20] MEDS: LOSARTAN POTASSIUM 50 MG TABLET PO SCH (08:31)
[2020-05-20] MEDS: CLOPIDOGREL 75 MG TABLET PO SCH (08:31)
[2020-05-20] MEDS: AMLODIPINE 10 MG TAB PO SCH (08:31)
[2020-05-20] MEDS: CEFTRIAXONE/SWI 1gm 1 GM/10 ML SYR IVP SCH (08:33)
[2020-05-20] MEDS: METOPROLOL XL 25 MG TAB PO SCH (08:33)
[2020-05-20] MEDS: QUETIAPINE 25 MG TAB PO SCH (08:41)
[2020-05-20] MEDS: FAMOTIDINE 20 MG TAB PO SCH (08:42)
[2020-05-20 09:49] VITALS: O2SAT 92
[2020-05-20 13:33] VITALS: BP 141/55; TEMP 97.3
--- NOTE | 2020-05-25 07:20 | P.DS ---
Admission Date: 05/18/20 Discharge Date: 05/25/20 Disposition: ROUTINE DISCHARGE Discharge Condition: FAIR Reason for Admission: CHILLS AND WEAKNESS - Problems (1) Pyelonephritis Status: Acute (2) Altered mental status Onset Date: 06/06/15 Status: Acute Qualifiers: Altered mental status type: delirium Qualified Code(s): R41.0 - Disorientation, unspecified (3) Dehydration Status: Acute (4) Diabetes type 2, uncontrolled Onset Date: 02/26/18 Status: Chronic Qualifiers: Glycemic state: with hyperglycemia Qualified Code(s): E11.65 - Type 2 diabetes mellitus with hyperglycemia Brief History of Present Illness: MR. 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 TALKED TO FOR HISTORY. THIS IS FOR ABOUT TWO DAYS. Hospital Course: MR. BOLAND CAME WITH SEVERE CHILLS, DISORIENTATION, ALMOST ON VERGE OF SEMICOMATOSE STATUS, NOT ABLE TO RESPOND TO VERBAL COMMAND PROPERLY. HE WAS F OUND TO HAVE SEVERE PYELONEPHRITIS. WITHIN A36 HOURS HE IMPROVED BACK TO HIS BASELINE MODERATE DEMENTIA. HE WAS DISCHARGED IN STABLE CONDITION WITH [facility] AND HOME HEALTH. IT IS A DISGRACE THE HIS MEDICARE PLAN IS REFUSING TO PAY FOR HIS ADMISSION. THIS SHOULD BE REPORTED TO [employer]. THEY NOW WANT TO WASTE MY TIME BY DOING A PEER TO PEER DISCUSSION WITH THEIR EMPLOYED DOCTOR. Vital Signs/Physical Exam: Temp Pulse Resp BP Pulse Ox 97.3 F 71 18 141/55 H 93 05/20/20 12:00 05/20/20 12:00 05/20/20 12:00 05/20/20 12:00 05/20/20 12:00 Laboratory Data at Discharge: WBC 11.9 K/uL (4.3-10.9) H 05/19/20 05:30 Hgb 14.3 g/dL (13.6-17.9) 05/19/20 05:30 Hct 42.7 % (39.6-49.0) 05/19/20 05:30 Plt Count 179 K/uL (152-406) 05/19/20 05:30 PT 13.4 SECONDS (9.5-12.5) H 05/18/20 13:00 INR 1.14 05/18/20 13:00 Sodium 136 mmol/L (136-145) 05/19/20 05:30 Potassium 4.4 mmol/L (3.5-5.1) 05/19/20 05:30 BUN 35 mg/dL (7-18) H 05/19/20 05:30 Creatinine 1.91 mg/dL (0.55-1.3) H 05/19/20 05:30 Glucose 493 mg/dL (74-106) H* 05/19/20 11:18 Magnesium 2.1 mg/dL (1.8-2.4) D 05/18/20 13:00 Total Bilirubin 0.7 mg/dL (0.2-1.0) 05/18/20 13:00 AST 13 U/L (15-37) L 05/18/20 13:00 ALT 13 U/L (12-78) 05/18/20 13:00 Alkaline Phosphatase 120 U/L (45-117) H 05/18/20 13:00 Home Medications: Atorvastatin Calcium [Lipitor*] 40 mg PO BEDTIME 02/25/18 Clopidogrel Bisulfate [Plavix*] 75 mg PO DAILY 02/25/18 Levothyroxine [Synthroid*] 125 mcg PO [id number] 02/25/18 Meclizine HCl 25 mg PO TID PRN 02/25/18 Metoprolol Succinate [Toprol Xl] 25 mg PO DAILY 02/25/18 Amlodipine [Norvasc*] 10 mg PO DAILY #30 tab 02/28/18 Butalb/Acetaminophen/Caffeine [Vpfpuz-Hrmakhca-Zhbl 50-325-40] 1 tab PO BID PRN 05/18/20 Donepezil HCl 10 mg PO DAILY 05/18/20 Doxazosin [Cardura*] 2 mg PO BEDTIME 05/18/20 Escitalopram [Lexapro*] 5 mg PO DAILY 05/18/20 Oxybutynin Chloride [Ditropan*] 5 mg PO BID 05/18/20 Quetiapine [Seroquel*] 25 mg PO BID 05/18/20 Trazodone [Desyrel*] 50 mg PO DAILY 05/18/20 Cefuroxime [Ceftin] 250 mg PO BID #24 tab 05/20/20 Famotidine [Pepcid*] 20 mg PO DAILY tab 05/20/20 Trazodone [Desyrel*] 50 mg PO BEDTIME PRN PRN tablet 05/20/20 New Medications: Cefuroxime [Ceftin] 250 mg PO BID #24 tab
== END 2020-05-20 12:51 | disposition home or self-care (01) | DRG 690 ==
LOC: ER 11:58 → ERHOLD 16:43 → 2ND 17:48
PROVIDERS: ADMIT Internal Medicine; ATTEND Internal Medicine
DX: N10 Acute pyelonephritis (principal); F03.90 Unspecified dementia, unspecified severity, without behavioral disturbance, psychotic disturbance, mood disturbance, and anxiety; Z91.19 Patient's noncompliance with other medical treatment and regimen; Z86.73 Personal history of transient ischemic attack (TIA), and cerebral infarction without residual deficits; Z79.82 Long term (current) use of aspirin; Z79.02 Long term (current) use of antithrombotics/antiplatelets; Z79.890 Hormone replacement therapy; Z79.899 Other long term (current) drug therapy; I10 Essential (primary) hypertension; I25.10 Atherosclerotic heart disease of native coronary artery without angina pectoris; I25.2 Old myocardial infarction; Z96.653 Presence of artificial knee joint, bilateral; Z95.5 Presence of coronary angioplasty implant and graft; R41.0 Disorientation, unspecified; E86.0 Dehydration; E11.65 Type 2 diabetes mellitus with hyperglycemia; Z20.828 Contact with and (suspected) exposure to other viral communicable diseases; R50.9 Fever, unspecified; K21.9 Gastro-esophageal reflux disease without esophagitis; E03.9 Hypothyroidism, unspecified
CPT/HCPCS: 36415; 51702; 71045; 78582; 80048; 80076; 81003; 81015; 82805; 82947; 83605; 83735; 83880; 84145; 84484; 85025; 85610; 87077; 87086; 87088; 87186; 93005; 96374; 97112; 97116; 97161; 97530; 99285; A9540; A9558; J0696; J1650; J1815; J7120; U0002